=== PATIENT | male | born 1960 | race Caucasian/White ===

== ENCOUNTER 2018-12-11 07:29 | Emergency (ER) | payer MEDICAID, SELFPAY ==
[2018-11-16 10:37] VITALS: BMI 27.8
[2018-12-11 07:30] VITALS: BP 170/110; PULSE 100; RESP 18; TEMP 36.6; O2SAT 95; BMI 32.1
--- NOTE | 2018-12-11 07:46 | EKG12_ITS ---
Test Reason : EYE PROBLEM Blood Pressure : / mmHG Vent. Rate : 082 BPM Atrial Rate : 082 BPM P-R Int : 142 ms QRS Dur : 154 ms QT Int : 396 ms P-R-T Axes : 023 -12 010 degrees QTc Int : 462 ms Normal sinus rhythm Right bundle branch block Abnormal ECG Confirmed by SONNY NOGUEIRA ([id number]), editorial assistant MARINA MARIA ([id number]) on 12/12/2018 9:50:21 AM Referred By: Confirmed By:SONNY NOGUEIRA
--- NOTE | 2018-12-11 07:46 | CT_ITS ---
STUDY: CT BRAIN WITHOUT CONTRAST REASON FOR EXAM: Male, 58 years old. Headache, visual changes after exposure RADIATION DOSAGE (If Supplied By Facility): CTDIvol = ( 44.99 ) mGy, DLP = ( 796.11 ) mGycm TECHNIQUE: Transaxial CT imaging of the brain was performed without administration of intravenous contrast material. Individualized dose optimization techniques were used for this CT. COMPARISON: No relevant priors. FINDINGS: Normal soft tissue structures. Normal calvarium. Normal size ventricles and extra-axial spaces for the patient's age. Normal white matter tracts of the cerebral hemispheres. Normal basal ganglia and thalami. Normal brainstem. Normal cerebellum. There is no intracranial hemorrhage. There are no findings of an acute ischemic infarction. There is mucoperiosteal inflammatory disease of the paranasal sinuses consistent with mild chronic sinusitis. CT/Brain/Head without Contrast IMPRESSION: Chronic involutional changes of the brain. No acute hemorrhage Electronically Signed: Brian Tucker MD at 8:34 EDT , Service support ,
--- NOTE | 2018-12-11 07:46 | RAD_ITS ---
STUDY: X-RAY CHEST REASON FOR EXAM: Male, 58 years old. Hypertension TECHNIQUE: PA and lateral views of the chest. COMPARISON: None. FINDINGS: EKG leads overlie the chest The lungs are clear and expanded. There is no demonstrated pleural abnormality. Normal size heart. Normal mediastinum and [place]. Normal visualized pulmonary arteries. Normal visualized aortic arch and descending thoracic aorta. Normal visualized thoracic spine. Normal visualized ribs, clavicles, and shoulders. There is no demonstrated abnormality of the visualized soft tissue structures of the upper abdomen. RAD/Chest PA and Lateral IMPRESSION: No acute pulmonary process Electronically Signed: Brian Tucker MD at 8:50 EDT , Service support ,
[2018-12-11 07:47] VITALS: BP 148/102
--- NOTE | 2018-12-11 08:08 | ED.VISSUMM ---
- ER Visit Summary Date of Service: 12/11/18 Chief Complaint: Multiple issues History of Present Illness: The patient is a 58 M who presents emergency department with several chief complaints. The first is that he states last Sunday he developed a lazy eye involving the right eye. He saw ophthalmology on Sunday. He tells me that his eye exam was essentially negative except for his eye being laterally deviated. The right eye will go back to functioning normally and back to midline when he covers the left eye. No visual field cuts. He has been wearing a patch. He also notes that his blood pressure was 160/90 at the inspector floor office. He does not have a history of hypertension. He denies any headaches. He notes that over the weekend developed the pain in the right shoulder that moved to the left shoulder and back again. Is now in between the shoulders. Is worse when he lays on his side. He denies any chest pain or shortness of breath. He notes tingling in the left little and ring finger. Patient also notes that about 2 weeks ago he had a diffuse rash that was itchy and got on prednisone from urgent care which resolved it. He also had a sinus infection which has almost fully resolved. Physical Examination: Blood pressure 170/110 otherwise vital signs stable Gen: Well-nourished well-developed Head: Normocephalic atraumatic Eyes: Perrl EOMI with both eyes open the right eye is laterally deviated. This resolves with covering the left eye. No visual field cuts. ENT: TMs clear no rhinorrhea moist mucous membranes Neck: Supple no lymphadenopathy no JVD nontender CVS: Regular rate rhythm no murmurs normal S1-S2 Respiratory: No distress clear to auscultation bilaterally chest nontender Abdomen: Soft nontender nondistended normal bowel sounds no masses Back: Tender palpation in the mid to upper thoracic spine. Tender to palpation of the trapezius musculature. There is no rash or fluctuance to suggest abscess. Extremity: Nontender no edema Skin: Normal color no rash Neuro: alert orientated ?3 CN II-XII intact normal strength sensation gait cerebellar Psych: Normal affect normal mood Test Results: EKG showed a sinus rhythm at a rate of 82 with a right bundle branch block. Sick labs are negative. CT brain negative. Chest x-ray shows a normal mediastinal silhouette. Emergency Department Course and Treatment: I spoke with Dr. Martines who saw him on Sunday. He has follow-up this Sunday. Dr. Martines notes that when he was seen there 7 years ago he had a similar complaint but it appears that this has progressed through the years. They will continue to work with him. I am going to refer the patient to the [facility]. I will start him on lisinopril. For his back I will place him on Flexeril. I think is most likely musculoskeletal rather than a referred pain. It is reproducible and worse with certain movements and positions. I do not think that this represents aortic dissection or other vascular emergency. Impression: 1. Strabismus right eye 2. Hypertension 3. Musculoskeletal thoracic back pain This note was generated with [employer] dictation software. It may contain incorrect words, spelling, and punctuation that were not noted in review of the chart prior to signing ED Disposition - Plan for ED Patient: Disposition: Home or Assisted Living Instructions: Lisinopril Oral tablet, HYPERTENSION, New (Begin Treatment) Prescriptions: cycloBENZAPRine HCl [Flexeril] 10 mg PO TID PRN #15 tab PRN Reason: Muscle Spasm Transmission Status: Sent to [id number] Lisinopril [Zestril] 5 mg PO DAILY #30 tab Transmission Status: Sent to [id number] Referrals: Mali Flores [NON-STAFF] - (Please call today to schedule an appointment for follow-up regarding your elevated blood pressure.) Additional Instructions: [facility] [place]
[2018-12-11 08:15] LABS: Absolute Lymphocyte Count 3.32 X10^3/uL (0.83-4.51); Absolute Neutrophil Count 6.7 X10^3/uL (2.0-7.7); Basophil# 0.07 X10^3/uL; Basophil% 0.6 % (0-1); Eosinophil# 0.31 X10^3/uL; Eosinophils% 2.8 % (0-5); Hematocrit 48.8 % (40-54); Hemoglobin 16.7 g/dL (13.0-16.5); Lymphocyte # 3.32 X10^3/ul (4.0); Lymphocyte % 29.6 % (19-41); Mean Corp Hgb Conc 34.2 g/dL (32-36); Mean Corpuscular Hgb 30.1 pg (27.0-32.0); Mean Corpuscular Volume 88.1 fL (80-94); Mean Platelet Vol. 9.1 fl (6.2-12.0); Monocyte# 0.72 X10^3/uL; Monocyte% 6.4 % (0-10); NRBC Flagged by Analyzer 0 % (0-5); Neutrophil # 6.67 X10^3/uL (2.7-7.7); Neutrophil % 59.6 % (47-70); Platelet Count 235 K/mm3 (150-450); RBC Distribution Width CV 14.1 % (11.6-14.6); RBC Distribution Width SD 45.1 fl (35.1-43.9); Red Blood Count 5.54 M/mm3 (4.6-6.2); White Blood Count 11.2 K/mm3 (4.4-11.0)
[2018-12-11 08:40] LABS: ALB/GLOB Ratio 1.1 RATIO (0.9-2.4); AST(SGOT) 25 U/L (15-37); Alanine Aminotransfer ALT/SGPT 51 U/L (16-61); Albumin, Serum 3.9 g/dL (3.2-5.0); Alkaline Phosphatase 63 U/L (45-117); Anion Gap 9 (5-15); BUN 16 mg/dL (7-18); BUN/Creat Ratio 21.9 RATIO (10-20); Chloride 107 mmol/L (98-107); Creatinine, Serum 0.73 mg/dL (0.70-1.30); EST Glomerular Filtration Rate 118 mL/min (>60); Est Glom Filt Rate - Afr Amer 142 mL/min (>60); Estimated Creatinine Clearance 120.34 ml/min; Globulin 3.6 g/dL (2.2-4.2); Glucose 114 mg/dL (74-106); Potassium 4.6 mmol/L (3.5-5.1); Protein, Total 7.5 g/dL (6.4-8.2); Sodium Level 140 mmol/L (136-145)
[2018-12-11 09:15] VITALS: BP 152/109; PULSE 80; RESP 16
== END 2018-12-11 09:26 | disposition home or self-care (01) ==
PROVIDERS: Emergency Provider Emergency Medicine; Family Provider Family Medicine; PCP Family Medicine
DX: H50.9 Unspecified strabismus (principal); I10 Essential (primary) hypertension; M54.6 Pain in thoracic spine; Z72.0 Tobacco use
CPT/HCPCS: 70450; 71046; 80053; 84484; 85025; 93005; 99285; A4216

== ENCOUNTER 2018-12-12 06:49 | Emergency (ER) | payer MEDICAID, SELFPAY ==
[2018-12-11 07:30] VITALS: BMI 32.1
[2018-12-12 06:50] VITALS: BP 156/105; PULSE 82; RESP 18; TEMP 36.7; O2SAT 97; BMI 32.1
--- NOTE | 2018-12-12 07:33 | ED.DCSUM_ITS ---
History of Present Illness Chief Complaint: Back Informant: Patient Onset: Days - Left flank/mid back pain for 6 days Context: Sudden Onset Timing: Continuous, Waxes and wanes - There is a pleuritic component Quality: Pain Location: Left mid back/flank region over lower left ribs Current Severity: Mild Maximum Severity: Moderate - Worse with movement and breathing Worsened by: Movement and breathing Relieved by: Nothing Associated Symptoms: Pleuritic chest pain Narrative: Patient is a middle-age male who smokes 2 packs/day and drinks regularly who presents with left lower posterior chest/back pain with pleuritic component. He denies fever, chills night sweats. He does report cough. Cough is no different than normal. He is a smoker 3 packs/day. He does drink on a regular basis. He denies hematemesis, melena hematochezia. He denies dysuria, frequency, urgency or hematuria. He denies history of renal ureterolithiasis. He denies night sweats or weight loss. He denies history of PE or DVT. He denies risk factors. He denies leg pain, swelling or discoloration. Patient was seen yesterday and records were reviewed. Prior similar symptoms: Yes Recent Illness/Hospitalization: Yes - Past Medical History (1) History of hypertension Status: Acute (2) Vertical strabismus, right eye Status: Acute Past Medical History - Allergies and Home Meds Allergies/Adverse Reactions: Allergies Penicillins [PCN] Allergy (Verified 12/12/18 06:53) Unknown Primary Care Physician: Yaw Montalvo [Primary Care Provider] - Prior records reviewed: Yes Surgical History: no surgical history Lives: Alone Smoking Status: Heavy Smoker (>10/day) Alcohol: Heavy - A case per week Drugs: None Review of Systems General: Denies: Chills, Fever, Sweats Eyes: Reports: Diplopia ENT: Denies: Rhinorrhea, Sore throat Cardiovascular: Denies: Chest pain, Palpitations Respiratory: Reports: Cough. Denies: Dyspnea, Sputum, Dyspnea on exertion, Orthopnea, Paroxysmal nocturnal dyspnea, -, - Gastrointestinal: Denies: Abdominal pain, Nausea, Vomiting, Diarrhea, Melena, Hematochezia Genitourinary: Denies: Dysuria, Hematuria, Frequency Musculoskeletal: Reports: Back pain. Denies: Myalgias, Arthralgias, Neck pain, Swelling, Extremity Pain, -, - Skin: Denies: Rash, Wounds Neurological: Reports: Headache. Denies: Weakness, Parasthesia, Numbness Psych: Reports: Depression Hematologic: Denies: Easy bruising, Easy bleeding Allergy: Denies: Uticaria, Swelling of the mouth, Swelling of the tongue Physical Exam Vital Signs/Narrative: Vital Signs Temp Pulse Resp BP Pulse Ox 12/12/18 06:50 98.1 F 82 18 156/105 H 97 Inital Vital Signs reviewed: Yes General: Well nourished, Well developed, No Acute Distress Head: Normocephalic, Atraumatic Eyes: Perrl, EOMI ENT: Moist mucous membranes, No rhinorrhea Neck: Supple, Nontender Cardiovascular: Regular rate, Regular rhythm, No murmurs Respiratory: No distress, Chest nontender, Rales - Rales posteriorly left lower lobe Abdomen: Soft, Nontender, Nondistended, Normal bowel sounds, No masses. Negative for: Hepatomegaly, Splenomegaly, Mass, Pulsatile mass, Gutierrez's sign Rectal: Deferred Back: Nontender, Normal Inspection. Negative for: CVA tenderness, Spinal tenderness Extremities: Nontender, No edema, - - There is no asymmetry, swelling, discoloration, leg vein distention, palpable cords or tenderness along the distribution of the deep venous system. Skin: Normal color, No rash Neurological: Alert, Oriented x3, Cranial nerves II-XII grossly intact, Normal Strength, Normal Sensation Psychological: Normal affect, Normal Mood Diagnostic/Tx/Re-eval Impressions Chest CTA 12/12/18 08:18 IMPRESSION: No demonstrated PE, or thoracic aortic aneurysm or dissection Chronic interstitial changes in both lung morales with chronic bronchitis, no superimposed infiltrate or effusion Subcentimeter axillary and mediastinal lymph nodes Calcified coronary vessels Electronically Signed: Brian Tucker MD at 9:03 EDT , Service support , 12/12/18 08:18 CTA Chest W/WO Contrast [CT] Stat Laboratory Results 12/12/18 12/12/18 12/12/18 07:30 07:30 07:55 WBC 11.6 H RBC 5.58 Hgb 16.9 H Hct 48.6 MCV 87.1 MCH 30.3 MCHC 34.8 RDW Std Deviation 45.2 H RDW Coeff of Karli 14.2 Plt Count 226 MPV 9.0 Immature Gran % (Auto) 0.900 Neut % (Auto) 56.6 Lymph % (Auto) 32.0 [place] % (Auto) 7.1 Eos % (Auto) 2.9 Baso % (Auto) 0.5 Absolute Neuts (auto) 6.6 Absolute Lymphs (auto) 3.71 Absolute Nucleated RBC 0.00 Nucleated RBC % 0 D-Dimer Quant (PE/DVT) Cancelled 0.52 H* - Medical Decision Making With complaint of pleuritic discomfort over the posterior left lower lung and normal chest x-ray from yesterday will obtain d-dimer to assess for pulmonary embolus. CBC was repeated. Will obtain UA to assess for renal etiology of his left flank pain. If d-dimer is elevated will obtain CTA of the chest. If d- dimer is negative and urine is positive for blood will obtain CT of the abdomen and pelvis without contrast to assess for ureterolithiasis. Patient was medicated with Toradol for his pain. ED Disposition - Plan for ED Patient: Disposition: Home or Assisted Living Diagnosis: Acute left flank pain, Pleurisy, Coronary atherosclerosis due to calcified coronary lesion of [place] artery, Chronic bronchitis, History of hypertension, Enlarged lymph nodes in armpit, Enlarged mediastinal nodes Instructions: FLANK PAIN, Uncertain Cause Prescriptions: Naproxen [Naprosyn] 500 mg PO BID #14 tab Transmission Status: Pending to [id number] Hydrocodone Bitart/Apap 5-325 [[place] 5MG-325MG] 1 tablet PO Q6H PRN PRN 4 Days #14 tablet PRN Reason: Pain Transmission Status: Received by [id number] Referrals: Yaw Montalvo [Primary Care Provider] - Valente Smyth MD [STAFF PHYSICIAN] - 5-7 Days Additional Instructions: Your CAT scan revealed enlarged lymph nodes. You will need to follow-up with Dr. Smyth for further evaluation. The CAT scan also showed calcification of the coronary arteries. It is in your best interest to quit smoking.
[2018-12-12] MEDS: 0.9% Normal Saline 1,000 ML 250 ML IV (07:39)
[2018-12-12] MEDS: Ketorolac 15 MG/ML Vial IV (07:39)
[2018-12-12 07:41] LABS: Absolute Lymphocyte Count 3.71 X10^3/uL (0.83-4.51); Absolute Neutrophil Count 6.6 X10^3/uL (2.0-7.7); Basophil# 0.06 X10^3/uL; Basophil% 0.5 % (0-1); Eosinophil# 0.34 X10^3/uL; Eosinophils% 2.9 % (0-5); Hematocrit 48.6 % (40-54); Hemoglobin 16.9 g/dL (13.0-16.5); Lymphocyte # 3.71 X10^3/ul (4.0); Mean Corp Hgb Conc 34.8 g/dL (32-36); Mean Corpuscular Hgb 30.3 pg (27.0-32.0); Mean Corpuscular Volume 87.1 fL (80-94); Monocyte# 0.82 X10^3/uL; Monocyte% 7.1 % (0-10); NRBC Flagged by Analyzer 0 % (0-5); Neutrophil # 6.58 X10^3/uL (2.7-7.7); Neutrophil % 56.6 % (47-70); Platelet Count 226 K/mm3 (150-450); RBC Distribution Width CV 14.2 % (11.6-14.6); RBC Distribution Width SD 45.2 fl (35.1-43.9); Red Blood Count 5.58 M/mm3 (4.6-6.2); White Blood Count 11.6 K/mm3 (4.4-11.0)
[2018-12-12 08:14] LABS: D-Dimer Quantitative (DVT/PE) 0.52 FEU/ug/m (0.27-0.49)
--- NOTE | 2018-12-12 08:16 | ED.RN ---
ddimer 0.52 called from the lab
--- NOTE | 2018-12-12 08:18 | CT_ITS ---
STUDY: CTA CHEST REASON FOR EXAM: Male, 58 years old. Elevated d-dimer, pain between shoulder blades RADIATION DOSAGE (If Supplied By Facility): CTDIvol = ( 16.19 ) mGy, DLP = ( 702.03 ) mGycm TECHNIQUE: The examination was performed with the intravenous administration of 100CC IV Isovue 370. Post-processing of the angiographic images was performed, with multiplanar reformation and 3D reconstruction. Individualized dose optimization techniques were used for this CT. COMPARISON: Previous plain films FINDINGS: Normal enhancement of the main pulmonary artery and right and left pulmonary arteries. Normal enhancement of the bilateral peripheral pulmonary arteries. There is no demonstrated pulmonary embolism. Normal thoracic aorta and visualized great vessels. There is no demonstrated aortic dissection. Normal heart and pericardium. There are calcifications of the coronary arteries. There are scattered subcentimeter axillary and mediastinal lymph nodes. Normal hilar regions. There is peribronchial thickening. The lungs are well expanded. Right interstitial changes in both lung morales, no superimposed acute pulmonary process. Normal pleura. Normal chest wall structures. There are degenerative changes of thoracic spine. Normal visualized upper abdomen. CT/CTA Chest W/WO Contrast IMPRESSION: No demonstrated PE, or thoracic aortic aneurysm or dissection Chronic interstitial changes in both lung morales with chronic bronchitis, no superimposed infiltrate or effusion Subcentimeter axillary and mediastinal lymph nodes Calcified coronary vessels Electronically Signed: Brian Tucker MD at 9:03 EDT , Service support ,
[2018-12-12 09:23] LABS: Bacteria 0 SEEN /hpf (None Seen); Mucous, Urine 0 SEEN /hpf (<or=2+); Red Blood Cells-Urine 0 SEEN /hpf (0-5); Squamous Epithelial Cells - UA 0 SEEN /hpf (0-5); White Blood Cells 0 SEEN /hpf (0-5)
[2018-12-12 09:27] LABS: Color, Urine Yellow (Yellow); Glucose, Dipstick Normal (Normal); Ketone-Dipstick Negative (Negative); Leukocyte Esterase-Dipstick Negative /ul (Negative); Nitrite-Dipstick Negative (Negative); Occult Blood-Urine Negative /ul (Negative); Protein-Dipstick Negative (Negative); Specific Gravity, Urine 1.015 (1.002-1.030); Urine Bilirubin Dipstick Negative (Negative); Urine Clarity Sl. Cloudy (Clear); Urine Urobilinogen Normal (Normal)
== END 2018-12-12 09:26 | disposition home or self-care (01) ==
PROVIDERS: Emergency Provider Emergency Medicine; Family Provider Family Medicine; PCP Family Medicine
DX: R09.1 Pleurisy (principal); R59.0 Localized enlarged lymph nodes; R10.9 Unspecified abdominal pain; I10 Essential (primary) hypertension; I25.84 Coronary atherosclerosis due to calcified coronary lesion; J42 Unspecified chronic bronchitis; F17.200 Nicotine dependence, unspecified, uncomplicated; Z79.899 Other long term (current) drug therapy
CPT/HCPCS: 71275; 81001; 85025; 85379; 96361; 96374; 99284; J7030; Q9967; A4216

== ENCOUNTER 2018-12-18 13:52 | Emergency (ER) | payer MEDICAID, SELFPAY ==
[2018-12-18 13:53] VITALS: BP 160/98; PULSE 99; RESP 17; TEMP 36.7; O2SAT 96; BMI 32.1
[2018-12-18 14:51] VITALS: BP 152/103; PULSE 101; RESP 15; O2SAT 96
--- NOTE | 2018-12-18 15:01 | ED.DCSUM_ITS ---
- ER Visit Summary Date of Service: 12/18/18 Chief Complaint: Back pain History of Present Illness: The patient is a 58 M who was here 2 visits last week for upper back pain. He was evaluated with a CTA among other tests. Work- up was fairly unremarkable, and nothing was found to cause his pain. He has fo llowed up for his incidental findings. He plans to follow-up with [facility] as well. Patient is out of medication and is requesting a refill. He reports no new or worsening issues. Physical Examination: Afebrile and vital signs unremarkable. HEENT exam unremarkable. He has upper thoracic tenderness. Skin unremarkable. Otherwise spine unremarkable. Heart regular. Lungs clear. Cranial nerves unremarkable. Good strength and sensation. Test Results: None indicated Emergency Department Course and Treatment: I believe the patient has myofascial pain. He had a CTA of his chest last week. There is no indication to repeat this. He has no new or different symptoms. We will refill his meds, and he will continue to follow-up as an outpatient, as planned. Return for any new or worsening issues. Treatment Plan: As above Disposition: Discharged Impression: 1. Thoracic back pain This note was generated with [employer] dictation software. It may contain incorrect words, spelling, and punctuation that were not noted in review of the chart prior to signing ED Disposition - Plan for ED Patient: Referrals: Yaw Montalvo [Primary Care Provider] -
--- NOTE | 2018-12-18 15:03 | ED.DEP ---
ED Disposition - Plan for ED Patient: Instructions: Common Myths About Pain Medications Prescriptions: cycloBENZAPRine HCl [Flexeril] 10 mg PO TID PRN #20 tab PRN Reason: Muscle Spasm Prescription Printed Naproxen [Naprosyn] 500 mg PO BID PRN #20 tab Prescription Printed Hydrocodone Bitart/Apap 5-325 [[place] 5MG-325MG] 1 tab PO Q6H PRN PRN 3 Days #12 tab PRN Reason: Pain Prescription Printed Referrals: Mali Flores [NON-STAFF] -
--- NOTE | 2018-12-18 15:07 | ED.RN ---
DISCHARGE INSTRUCTIONS GIVEN TO AND REVIEWED WITH PATIENT, PATIENT DENIES QUESTIONS OR CONCERNS AND VOICES UNDERSTANDING OF DISCHARGE INSTRUCTIONS. PT AMBULATES OUT OF ROOM WITHOUT ISSUE.
== END 2018-12-18 15:07 | disposition home or self-care (01) ==
LOC: ED 15:00
PROVIDERS: Emergency Provider Emergency Medicine; Family Provider Family Medicine; PCP Family Medicine
DX: M54.6 Pain in thoracic spine (principal); Z72.0 Tobacco use
CPT/HCPCS: 99282

== ENCOUNTER 2018-12-25 15:28 | Emergency (ER) | payer MEDICAID, SELFPAY ==
[2018-12-25 15:29] VITALS: BP 151/99; PULSE 105; RESP 16; TEMP 36.9; O2SAT 95; BMI 34.9
--- NOTE | 2018-12-25 15:55 | CT_ITS ---
STUDY: CT CERVICAL SPINE WITHOUT CONTRAST REASON FOR EXAM: Male, 58 years old. Neck pain, arm weakness and left upper extremity tingling. RADIATION DOSAGE (If Supplied By Facility): CTDIvol = ( 27.95 ) mGy, DLP = ( 664.90 ) mGycm TECHNIQUE: High resolution transaxial imaging was performed without contrast material. Sagittal and coronal images were reconstructed. Individualized dose optimization techniques were used for this CT. COMPARISON: None FINDINGS: Normal craniovertebral junction. Normal anterior atlantoaxial articulation. Normal odontoid process. Normal cervical lordosis. Normal vertebral bodies and posterior osseous elements. C2-3: Minimal degenerative disc and joint changes without central stenosis or substantial foraminal narrowing. C3-4: Minimal degenerative disc and joint changes with a small central disc protrusion without central stenosis or significant foraminal narrowing. C4-5: Minimal degenerative disc and joint changes without central stenosis or foraminal narrowing C5-6: Mild disc narrowing and uncovertebral arthrosis. Negative for central stenosis. Negative for substantial foraminal narrowing. C6-7: Degenerative disc narrowing and moderately advanced uncovertebral arthrosis with posterior disc osteophyte. Borderline central stenosis and moderate bilateral foraminal narrowing. C7-T1: Minimal degenerative disc and joint changes without central stenosis or foraminal narrowing. Carotid artery calcification and tortuosity. CT/Spine Cervical without Contras IMPRESSION: Straightening of the cervical spine with otherwise normal alignment. Negative for fracture, osteolytic or blastic bone lesion. Moderately advanced degenerative disc and joint changes at C6-7 with borderline spinal stenosis and moderate bilateral foraminal narrowing. Minimal/mild degenerative changes at other levels without central stenosis or foraminal narrowing. Electronically Signed: Verona Helm MD at 16:58 EDT , Service support ,
--- NOTE | 2018-12-25 15:56 | ED.VIS.GEN ---
History of Present Illness Chief Complaint: Other, Pain/Inj Detail of Chief Complaint: facial weakness Informant: Patient Onset: Days - about 3 Context: Gradual Onset Timing: Continuous Quality: facial droop Location: right face Current Severity: Severe Maximum Severity: Severe Worsened by: nothing Relieved by: nothing Associated Symptoms: slurred speech. increased right eye tearing. Narrative: Patient starts by saying that he has been to the ER 4 times for various things in the last month and a half, however this visit is because of weakness on the right side of his face for the past 2 or 3 days. He is slurring his speech. Denies any numbness in his face. His right eye was tearing more than usual last couple days. 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 He states that in the last couple weeks to a month he has had weakness in both of his arms which is very unusual because he is very strong, he has been having neck pain and amount of time that is not worse with turning his head, is paraspinal bilaterally and diffusely, as well as in his upper back and shoulders and lumbar area. He states he has known degenerative disc disease in his low back that is chronic. He also states that around a month or so ago his right eye was looking outward and he could not bring it back in. He went saw an eye doctor and was told he has a lazy eye. He then states that he has had a lazy eye off and on all his life. This was worse however. He states that has been better. He has no diplopia now or blurry vision. Denies any eye pain. He is having some numbness in his left fingers 4-5 but nowhere else. 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 He denies any neurologic symptoms in his legs or bowel or bladder incontinence/dysfunction. No headaches. No ear symptoms. No anterior or lateral neck pain. - Past Medical History (1) DDD (degenerative disc disease), lumbar Status: Chronic Past Medical History - Allergies and Home Meds Allergies/Adverse Reactions: Allergies Penicillins [PCN] Allergy (Verified 12/25/18 15:31) Unknown Primary Care Physician: Yaw Montalvo [Primary Care Provider] - Surgical History: no surgical history Smoking Status: Current every day smoker Drugs: None Review of Systems General: Reports: Malaise. Denies: Chills, Fever, Sweats Eyes: Denies: Visual changes - bilaterally, Diplopia ENT: Denies: Rhinorrhea, Sore throat Cardiovascular: Denies: Chest pain, Palpitations Respiratory: Denies: Dyspnea, Cough, Dyspnea on exertion Gastrointestinal: Denies: Abdominal pain, Nausea, Vomiting, Diarrhea, Melena, Hematochezia Genitourinary: Denies: Dysuria, Hematuria, Frequency Musculoskeletal: Reports: Neck pain, Back pain. Denies: Swelling, Extremity Pain Skin: Denies: Rash, Wounds Neurological: Reports: Weakness, Numbness. Denies: Headache Physical Exam Vital Signs/Narrative: Vital Signs Temp Pulse Resp BP Pulse Ox 12/25/18 15:29 98.4 F 105 H 16 151/99 H 95 Inital Vital Signs reviewed: Yes General: Well nourished, Well developed, No Acute Distress Head: Normocephalic, Atraumatic Eyes: Perrl, EOMI ENT: Moist mucous membranes, No rhinorrhea, - - Bilateral cerumen impaction both external auditory canals Neck: Supple - Full range of motion without significant pain or any change in neurologic symptoms, Nontender, No lymphadenopathy Cardiovascular: Regular rate, Regular rhythm, No murmurs. Negative for: Tachycardia Respiratory: No distress, CTA bilaterally, Chest nontender Abdomen: Soft, Nontender, Nondistended, Normal bowel sounds Back: Nontender, Normal Inspection. Negative for: Spinal tenderness Extremities: Nontender, No edema. Negative for: Calf Tenderness Skin: Normal color, No rash, No Trauma Neurological: Alert, Oriented x3, Normal DTR - Symmetric throughout all 4 extremities., Normal Gait, Parasthesia - Left fourth and fifth digits, and some decreased sensation in the ulnar aspect of the third digit. Negative Tinel's at the ulnar tunnel., Weakness - 4+/5 strength throughout all muscle groups bilateral upper extremities. 5/5 strength throughout both lower extremities.. 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 Right facial paralysis including the forehead. No significant ptosis, no significant tearing asymmetrically. Psychological: Normal affect, Normal Mood Diagnostic/Tx/Re-eval Clinical Impression(s) from Imaging Studies Cervical Spine CT 12/25/18 15:55 IMPRESSION: Straightening of the cervical spine with otherwise normal alignment. Negative for fracture, osteolytic or blastic bone lesion. Moderately advanced degenerative disc and joint changes at C6-7 with borderline spinal stenosis and moderate bilateral foraminal narrowing. Minimal/mild degenerative changes at other levels without central stenosis or foraminal narrowing. Electronically Signed: Verona Helm MD at 16:58 EDT , Service support , - Medical Decision Making Patient ended up refusing CT the head which I think is fine since he had one 1 to 2 weeks ago that was normal. 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 This probably all explains his upper extremity weakness and paresthesias. I think he will need to follow-up with a specialist, there are no spine surgeons here but I referred him to [facility] and he may need to go back to his PCP first as he may need an MRI first. Will be prescribed acyclovir and prednisone for the Lagos's palsy. ED Disposition - Plan for ED Patient: Disposition: Home or Assisted Living Diagnosis: Cervical disc disease, Cervical radiculopathy, Spinal stenosis in cervical region, Lagos's palsy Instructions: Cervical Spine Problems: Disk, RADICULOPATHY, Cervical Prescriptions: predniSONE tablet 60 mg PO DAILY #18 tab Prescription Printed Acyclovir [Zovirax] 800 mg PO 5X/DAY #35 tab Prescription Printed Referrals: Yaw Montalvo [Primary Care Provider] - [facility] [Outside] - As soon as possible (need to see spine surgery here; may need to follow up with your primary doctor first for MRI)
[2018-12-25] MEDS: Acyclovir 800 MG Tablet PO (17:21)
[2018-12-25] MEDS: predniSONE 20 MG Tablet 60 MG PO (17:21)
--- NOTE | 2018-12-25 17:24 | ED.RN ---
pt with some difficulty swallowing pills. was able to get all pills down
[2018-12-25 19:13] VITALS: BP 152/100; PULSE 104; RESP 20; O2SAT 93
== END 2018-12-25 19:14 | disposition home or self-care (01) ==
PROVIDERS: Emergency Provider Emergency Medicine; Family Provider Family Medicine; PCP Family Medicine
DX: G51.0 Bell's palsy (principal); M50.123 Cervical disc disorder at C6-C7 level with radiculopathy; M48.02 Spinal stenosis, cervical region; F17.200 Nicotine dependence, unspecified, uncomplicated
CPT/HCPCS: 72125; 99282

== ENCOUNTER → 2019-01-24 | Outpatient (CLI) | payer MEDICAID, SELFPAY ==
[2019-01-24 11:03] VITALS: BMI 34.9
[2019-01-24 12:15] LABS: Absolute Lymphocyte Count 3.58 X10^3/uL (0.83-4.51); Absolute Neutrophil Count 6.4 X10^3/uL (2.0-7.7); Basophil# 0.12 X10^3/uL; Basophil% 1.1 % (0-1); Eosinophil# 0.24 X10^3/uL; Eosinophils% 2.1 % (0-5); Hematocrit 49.5 % (40-54); Lymphocyte # 3.58 X10^3/ul (4.0); Lymphocyte % 31.7 % (19-41); Mean Corp Hgb Conc 32.3 g/dL (32-36); Mean Corpuscular Hgb 29.4 pg (27.0-32.0); Mean Corpuscular Volume 90.8 fL (80-94); Mean Platelet Vol. 8.8 fl (6.2-12.0); Monocyte# 0.68 X10^3/uL; NRBC Flagged by Analyzer 0 % (0-5); Neutrophil # 6.37 X10^3/uL (2.7-7.7); Neutrophil % 56.5 % (47-70); Platelet Count 302 K/mm3 (150-450); RBC Distribution Width CV 14.8 % (11.6-14.6); RBC Distribution Width SD 49.2 fl (35.1-43.9); Red Blood Count 5.45 M/mm3 (4.6-6.2); White Blood Count 11.3 K/mm3 (4.4-11.0)
[2019-01-24 12:48] LABS: Hemoglobin A1c 5.8 % (4.2-6.3)
[2019-01-24 12:54] LABS: ALB/GLOB Ratio 0.8 RATIO (0.9-2.4); AST(SGOT) 24 U/L (15-37); Alanine Aminotransfer ALT/SGPT 35 U/L (16-61); Albumin, Serum 3.4 g/dL (3.2-5.0); Alkaline Phosphatase 62 U/L (45-117); Anion Gap 4 (5-15); BUN 13 mg/dL (7-18); BUN/Creat Ratio 17.3 RATIO (10-20); Calcium,Total 8.9 mg/dL (8.5-10.1); Chloride 109 mmol/L (98-107); Cholesterol 156 mg/dL (200); Creatinine, Serum 0.75 mg/dL (0.70-1.30); EST Glomerular Filtration Rate 114 mL/min (>60); Est Glom Filt Rate - Afr Amer 138 mL/min (>60); Globulin 4.2 g/dL (2.2-4.2); Glucose 103 mg/dL (74-106); High Density Lipoprotein 27 mg/dL; Potassium 3.9 mmol/L (3.5-5.1); Protein, Total 7.6 g/dL (6.4-8.2); Sodium Level 141 mmol/L (136-145); T4 Free Direct 0.94 ng/dL (0.76-1.46); Thyroid Stim Hormone (TSH) 2.32 uIU/mL (0.358-3.74); Triglycerides 132 mg/dL; Very Low Density Lipoprotein 26 mg/dL (5-40)
== END | disposition home or self-care (01) ==
LOC: BIMLAB 11:38
PROVIDERS: Family Provider Family Medicine; PCP Internal Medicine; Visit Provider Internal Medicine
DX: I10 Essential (primary) hypertension (principal); E66.9 Obesity, unspecified; Z13.29 Encounter for screening for other suspected endocrine disorder
CPT/HCPCS: 36415; 80053; 80061; 83036; 84439; 84443; 85025

== ENCOUNTER → 2020-06-16 10:14 | Outpatient (CLI) | payer MEDICAID, SELFPAY ==
[2020-06-16 09:40] VITALS: BMI 39.5
[2020-06-16 12:29] LABS: Absolute Lymphocyte Count 3.99 X10^3/uL (0.83-4.51); Absolute Neutrophil Count 4.9 X10^3/uL (2.0-7.7); Basophil# 0.11 X10^3/uL; Basophil% 1.1 % (0-1); Eosinophil# 0.34 X10^3/uL; Eosinophils% 3.3 % (0-5); Lymphocyte # 3.99 X10^3/ul (4.0); Mean Corp Hgb Conc 32.7 g/dL (32-36); Mean Corpuscular Hgb 29.4 pg (27.0-32.0); Mean Corpuscular Volume 89.8 fL (80-94); Mean Platelet Vol. 9.2 fl (6.2-12.0); Monocyte% 7.8 % (0-10); NRBC Flagged by Analyzer 0 % (0-5); Neutrophil # 4.87 X10^3/uL (2.7-7.7); Neutrophil % 47.6 % (47-70); Platelet Count 271 K/mm3 (150-450); RBC Distribution Width CV 13.4 % (11.6-14.6); RBC Distribution Width SD 43.8 fl (35.1-43.9); Red Blood Count 5.79 M/mm3 (4.6-6.2); White Blood Count 10.2 K/mm3 (4.4-11.0)
[2020-06-16 13:30] LABS: ALB/GLOB Ratio 1.1 RATIO (0.9-2.4); AST(SGOT) 33 U/L (15-37); Alanine Aminotransfer ALT/SGPT 56 U/L (16-61); Alkaline Phosphatase 55 U/L (45-117); Anion Gap 6 (5-15); BUN 10 mg/dL (7-18); BUN/Creat Ratio 12.1 RATIO (10-20); Calcium,Total 8.9 mg/dL (8.5-10.1); Chloride 106 mmol/L (98-107); Cholesterol 158 mg/dL (200); Creatinine, Serum 0.82 mg/dL (0.70-1.30); EST Glomerular Filtration Rate 102 mL/min (>60); Est Glom Filt Rate - Afr Amer 124 mL/min (>60); Globulin 3.7 g/dL (2.2-4.2); Glucose 93 mg/dL (74-106); High Density Lipoprotein 42 mg/dL; Potassium 4.3 mmol/L (3.5-5.1); Protein, Total 7.7 g/dL (6.4-8.2); Sodium Level 138 mmol/L (136-145); Triglycerides 124 mg/dL; Very Low Density Lipoprotein 25 mg/dL (5-40)
[2020-06-17 14:25] LABS: Hemoglobin A1c 5.9 % (3.8-5.6)
[2020-06-19 20:07] LABS: Testosterone, Free 7.92 ng/dL (5.00-21.00)
[2020-06-20 07:13] LABS: Testosterone, % Free 1.94 % (1.50-4.20); Testosterone, Total 408 ng/dL (264-916)
== END ==
PROVIDERS: PCP Internal Medicine; Referring Provider Internal Medicine; Visit Provider Internal Medicine
DX: I10 Essential (primary) hypertension (principal); E66.9 Obesity, unspecified; N52.9 Male erectile dysfunction, unspecified
CPT/HCPCS: 36415; 80053; 80061; 83036; 84402; 84403; 84443; 85025

== ENCOUNTER → 2020-07-07 19:50 | Outpatient (CLI) | payer MEDICAID, SELFPAY ==
[2020-06-16 09:40] VITALS: BMI 39.5
== END ==
PROVIDERS: PCP Internal Medicine; Visit Provider Internal Medicine
DX: G47.10 Hypersomnia, unspecified (principal)
CPT/HCPCS: 95810

== ENCOUNTER → 2020-08-03 08:08 | Outpatient (CLI) | payer MEDICAID, SELFPAY ==
[2020-07-22 09:49] VITALS: BMI 35.9
--- NOTE | 2020-08-03 09:31 | CT_ITS ---
STUDY: LOW DOSE CT LUNG CANCER SCREENING REASON FOR EXAM: Male, 59 years old. smoker and gt; 40 pack years RADIATION DOSAGE (If Supplied By Facility): CTDIvol = ( 4.02 ) mGy, DLP = ( 136.92 ) mGycm TECHNIQUE: No contrast was administered. Low dose technique was utilized (average mAS-38 and kVp 120). 1.25 mm axial source images with a slice interval of 1.25-mm were reconstructed in lung windows. 2.5 mm axial source images with a slice interval of 2.5-mm were reconstructed in lung windows. 5.0 mm axial source images with a slice interval of 5.0-mm were reconstructed in soft tissue windows. Nodule measured using lung windows on PACS and/or independent workstation with automated measurement of minimum and maximum diameter. Nodule measurement reported as average diameter rounded to the nearest whole number. Growth is defined as an increase ins size of greater than 1.5 mm. COMPARISON: None. NODULES: Heart and great vessels: Heart size normal. Coronary artery atherosclerosis. 4.3 cm aneurysmal dilation of the thoracic aortic root at the level of the coronary sinuses. Remainder of the thoracic aorta ectatic but not aneurysmal. Lungs, pleura, airways: No pneumonia, edema, or acute abnormality in the lungs. No pleural effusion. No pneumothorax. No pulmonary nodules. Mild chronic subpleural interstitial prominence in both lungs. Mediastinum: Mildly prominent paratracheal lymph nodes unchanged. No mediastinal mass or hematoma. Osseous:No fracture or acute osseous abnormality. Chest wall: No concerning findings. Upper abdomen: No acute findings. Hepatomegaly partially visible. CT/Low Dose CT Lung Screening IMPRESSION: No concerning pulmonary nodules. Lung RADS category 1. Continued annual screening suggested. 4.3 cm aneurysmal dilation of the thoracic aortic root at the level of the coronary sinuses. This also should be monitored on follow-up CT. Mild chronic interstitial lung disease. IMPORTANT NOTES FOR USE: ACR Lung-RADS Version 1.0 Assessment Categories Release Date: September 15, 2013 Category: Coded 0-4 bases on nodule(s) with highest degree of suspicion. Negative screen is defined as categories 1 and 2; a positive screen is defined as categories 3 and 4. Category 3 and 4A nodules that are unchanged on interval CT should be coded as category 2, and individuals returned to screening in 12 months. Category 4X: Category 3 or 4 nodules with additional imaging findings that increase the suspicion of lung cancer, such as spiculation, GGN that doubles in size in 1 year, enlarged lymph notes, etc. Category Modifiers: S (significant finding unrelated to lung cancer) and C (prior history of treated lung cancer) may be added to the 0-4 Lung-RADS Electronically Signed: Contreras Galvan MD at 22:05 EDT Tel , Service support ,
--- NOTE | 2020-08-03 13:12 | PFTCOMP_ITS ---
COMPLETE PULMONARY FUNCTION TEST INTERPRETATION Brief HPI: Patient is a 59 year old male, currently under the care of Lizbeth Schultz, who presents to [facility] for complete pulmonary function tests secondary to diagnosis of dyspnea. Respiratory therapist reports good effort and reproducible results. Interpretation: Forced expiration spirometry shows no large airways obstructive ventilatory defect with an FEV1 of 86% predicted. There is no significant bronchodilator response by strict ATS criteria. Spirograms are of good quality and plateau normally. The respiratory flow volume loop shows a normal pattern. Lung volumes by body plethysmography show a normal total lung capacity at 6.49 L, 97% predicted. All other lung volumes are within normal limits. Diffusion capacity by carbon monoxide is normal at 82% predicted. The airway resistance is slightly elevated. No previous pulmonary function tests were available for review. Impression: These pulmonary function tests are within normal limits
== END ==
PROVIDERS: PCP Internal Medicine; Referring Provider Nurse Practitioner Acute Care; Visit Provider Nurse Practitioner Acute Care
DX: F17.210 Nicotine dependence, cigarettes, uncomplicated (principal); R06.02 Shortness of breath; Z12.2 Encounter for screening for malignant neoplasm of respiratory organs
CPT/HCPCS: 71271; 94060; 94726; 94729

== ENCOUNTER → 2020-08-05 20:05 | Outpatient (CLI) | payer MEDICAID, SELFPAY ==
[2020-07-22 09:49] VITALS: BMI 35.9
== END ==
PROVIDERS: PCP Internal Medicine; Referring Provider Internal Medicine; Visit Provider Internal Medicine
DX: G47.33 Obstructive sleep apnea (adult) (pediatric) (principal)
CPT/HCPCS: 95811

== ENCOUNTER → 2020-08-20 09:46 | Outpatient (CLI) | payer MEDICAID, SELFPAY ==
[2020-07-22 09:49] VITALS: BMI 35.9
== END ==
PROVIDERS: PCP Internal Medicine; Visit Provider Nurse Practitioner Acute Care
DX: Z46.89 Encounter for fitting and adjustment of other specified devices (principal)

== ENCOUNTER → 2020-12-10 10:39 | Outpatient (CLI) | payer MEDICAID, SELFPAY ==
[2020-12-10 09:57] VITALS: BMI 36.1
[2020-12-10 12:15] LABS: Absolute Lymphocyte Count 3.13 X10^3/uL (0.83-4.51); Absolute Neutrophil Count 8.7 X10^3/uL (2.0-7.7); Basophil% 0.8 % (0-1); Eosinophil# 0.25 X10^3/uL; Eosinophils% 1.9 % (0-5); Hematocrit 47.7 % (40-54); Hemoglobin 15.6 g/dL (13.0-16.5); Lymphocyte # 3.13 X10^3/ul (0.83-4.51); Lymphocyte % 23.9 % (19-41); Mean Corp Hgb Conc 32.7 g/dL (32-36); Mean Corpuscular Hgb 29.9 pg (27.0-32.0); Mean Corpuscular Volume 91.6 fL (80-94); Mean Platelet Vol. 9.4 fl (6.2-12.0); Monocyte# 0.78 X10^3/uL; Monocyte% 5.9 % (0-10); NRBC Flagged by Analyzer 0 % (0-5); Neutrophil # 8.72 X10^3/uL (2.7-7.7); Neutrophil % 66.4 % (47-70); Platelet Count 265 K/mm3 (150-450); RBC Distribution Width CV 13.7 % (11.6-14.6); RBC Distribution Width SD 46.4 fl (35.1-43.9); Red Blood Count 5.21 M/mm3 (4.6-6.2); White Blood Count 13.1 K/mm3 (4.4-11.0)
[2020-12-10 12:42] LABS: ALB/GLOB Ratio 1.2 RATIO (0.9-2.4); AST(SGOT) 22 U/L (15-37); Alanine Aminotransfer ALT/SGPT 42 U/L (16-61); Albumin, Serum 4.3 g/dL (3.2-5.0); Alkaline Phosphatase 58 U/L (45-117); Anion Gap 9 (5-15); BUN 15 mg/dL (7-18); BUN/Creat Ratio 18.3 RATIO (10-20); Calcium,Total 9.2 mg/dL (8.5-10.1); Chloride 105 mmol/L (98-107); Creatinine, Serum 0.82 mg/dL (0.70-1.30); EST Glomerular Filtration Rate 103 mL/min (>60); Est Glom Filt Rate - Afr Amer 124 mL/min (>60); Globulin 3.5 g/dL (2.2-4.2); Glucose 109 mg/dL (74-106); PSA,Total - Annual Screen 0.47 ng/mL (0.00-4.00); Potassium 3.9 mmol/L (3.5-5.1); Protein, Total 7.8 g/dL (6.4-8.2); Sodium Level 139 mmol/L (136-145); T4 Free Direct 0.86 ng/dL (0.76-1.46)
== END ==
PROVIDERS: PCP Internal Medicine; Referring Provider Internal Medicine; Visit Provider Internal Medicine
DX: Z00.00 Encounter for general adult medical examination without abnormal findings (principal); N52.9 Male erectile dysfunction, unspecified; R79.89 Other specified abnormal findings of blood chemistry; Z12.5 Encounter for screening for malignant neoplasm of prostate
CPT/HCPCS: 36415; 80053; 84153; 84439; 85025; G0103

== ENCOUNTER → 2020-12-29 09:31 | Outpatient (CLI) | payer MEDICAID, SELFPAY ==
[2020-12-10 09:57] VITALS: BMI 36.1
--- NOTE | 2020-12-29 09:40 | RAD_ITS ---
STUDY: X-RAY - LUMBAR SPINE REASON FOR EXAM: Male, 60 years old. Chronic back pain. TECHNIQUE: 3 view(s) of the lumbar spine were obtained. COMPARISON: 11/13/2011 FINDINGS: Normal lumbar lordosis. There is no substantial scoliosis. There is a normal alignment of the vertebrae. Normal vertebral bodies and endplates. Diffuse moderate facet sclerosis. Intervertebral disc space narrowing at L2-3, L3-4, L4-5 and to the greatest degree at L5-S1 with osteophyte formation most marked at the L4-5 and L5-S1 levels. Phleboliths. RAD/Lumbar Spine 2 or 3 Views IMPRESSION: Diffuse lumbosacral spondylosis, most marked at L3-4, L4-5 and L5-S1, slightly progressed since the prior study. No acute abnormality, erosive changes and evidence of fusion. Electronically Signed: Fabio Bullock MD at 10:54 EDT , Service support ,
--- NOTE | 2020-12-29 09:40 | RAD_ITS ---
STUDY: X-RAY - PELVIS AND RIGHT HIP REASON FOR EXAM: Male, 60 years old. Right hip pain. TECHNIQUE: 3 views of the pelvis and hip. COMPARISON: None. FINDINGS: There is a non-specific bowel gas pattern. Normal visualized soft tissue structures. Mild arthrosis of both sacroiliac joints. Normal bilateral superior and inferior pubic rami. Mild arthrosis of the symphysis pubis. Normal bilateral ischial tuberosities. Mild medial arthrosis of both hips without osteophyte formation. RAD/HIP, UNI W/ Pelvis 2-3 Views IMPRESSION: Mild arthrosis of both sacroiliac joints, symphysis pubis and the medial aspects of both hips. No acute abnormality, erosive changes or periostitis. Electronically Signed: Fabio Bullock MD at 10:52 EDT , Service support ,
== END ==
PROVIDERS: PCP Internal Medicine; Referring Provider Internal Medicine; Visit Provider Internal Medicine
DX: M25.551 Pain in right hip (principal); G89.29 Other chronic pain; M54.9 Dorsalgia, unspecified
CPT/HCPCS: 72100; 73502

== ENCOUNTER → 2022-06-13 | Outpatient (CLI) | payer MEDICARE, MEDICAID, SELFPAY ==
[2022-06-13 14:00] LABS: Anion Gap 8 (5-15); BUN 12 mg/dL (7-18); Calcium,Total 8.8 mg/dL (8.5-10.1); Chloride 108 mmol/L (98-107); EST Glomerular Filtration Rate 105 mL/min (>60); Est Glom Filt Rate - Afr Amer 127 mL/min (>60); Glucose 134 mg/dL (74-106); Sodium Level 138 mmol/L (136-145)
== END | disposition home or self-care (01) ==
PROVIDERS: PCP Internal Medicine; Referring Provider Internal Medicine Cardiovascular Disease; Visit Provider Internal Medicine Cardiovascular Disease
DX: Z95.5 Presence of coronary angioplasty implant and graft (principal)
CPT/HCPCS: 36415; 80048

== ENCOUNTER → 2022-06-21 | Outpatient (CLI) | payer MEDICARE, MEDICAID, SELFPAY ==
[2022-06-21 14:02] LABS: Bacteria 0 SEEN /hpf (None Seen); Mucous, Urine 0 SEEN /hpf (<or=2+); Red Blood Cells-Urine 0 SEEN /hpf (0-5); Squamous Epithelial Cells - UA 0 SEEN /hpf (0-5); White Blood Cells 0 SEEN /hpf (0-5)
[2022-06-21 15:01] LABS: Absolute Neutrophil Count 6.4 X10^3/uL (2.0-7.7); Basophil% 0.9 % (0-1); Eosinophil# 0.24 X10^3/uL; Eosinophils% 2.2 % (0-5); Hematocrit 52.6 % (40-54); Hemoglobin 17.3 g/dL (13.0-16.5); Lymphocyte % 30.9 % (19-41); Mean Corp Hgb Conc 32.9 g/dL (32-36); Mean Corpuscular Volume 91.2 fL (80-94); Mean Platelet Vol. 9.2 fl (6.2-12.0); Monocyte# 0.76 X10^3/uL; Monocyte% 6.9 % (0-10); NRBC Flagged by Analyzer 0 % (0-5); Neutrophil # 6.42 X10^3/uL (2.7-7.7); Neutrophil % 58.3 % (47-70); Platelet Count 259 K/mm3 (150-450); RBC Distribution Width CV 13.4 % (11.6-14.6); Red Blood Count 5.77 M/mm3 (4.6-6.2)
[2022-06-21 16:23] LABS: AST(SGOT) 41 U/L (15-37); Alanine Aminotransfer ALT/SGPT 41 U/L (16-61); Alkaline Phosphatase 64 U/L (45-117); Bilirubin, Direct 0.17 mg/dL (0.00-0.30); Globulin 3.5 g/dL (2.2-4.2); Protein, Total 7.5 g/dL (6.4-8.2); Thyroid Stim Hormone (TSH) 3.23 uIU/mL (0.358-3.74)
[2022-06-21 17:00] LABS: Color, Urine Yellow (Yellow); Glucose, Dipstick Normal (Normal); Ketone-Dipstick Negative (Negative); Leukocyte Esterase-Dipstick Negative /ul (Negative); Nitrite-Dipstick Negative (Negative); Occult Blood-Urine Negative /ul (Negative); Protein-Dipstick 15 mg/dl (Negative); Urine Bilirubin Dipstick Negative (Negative); Urine Clarity Clear (Clear); Urine Urobilinogen Normal (Normal)
== END | disposition home or self-care (01) ==
LOC: BIMLAB 13:50
PROVIDERS: PCP Internal Medicine; Referring Provider Physician Assistant; Visit Provider Physician Assistant
DX: I10 Essential (primary) hypertension (principal); R19.7 Diarrhea, unspecified; F17.200 Nicotine dependence, unspecified, uncomplicated; Z78.9 Other specified health status
CPT/HCPCS: 36415; 80076; 81001; 84443; 85025

== ENCOUNTER → 2022-06-22 | Outpatient (CLI) | payer MEDICARE, MEDICAID, SELFPAY ==
[2022-06-24 11:08] LABS: H. PYLORI STOOL AG Negative (Negative)
[2022-06-24 14:52] LABS: Giardia Lamblia, Stool EIA Negative (Negative)
== END | disposition home or self-care (01) ==
PROVIDERS: PCP Internal Medicine; Referring Provider Physician Assistant; Visit Provider Physician Assistant
DX: R19.7 Diarrhea, unspecified (principal); I10 Essential (primary) hypertension; F17.200 Nicotine dependence, unspecified, uncomplicated; K58.9 Irritable bowel syndrome, unspecified; Z78.9 Other specified health status
CPT/HCPCS: 82274; 87329; 87338; 87506

== ENCOUNTER → 2022-07-05 | Outpatient (CLI) | payer MEDICARE, MEDICAID, SELFPAY ==
--- NOTE | 2022-07-05 10:50 | STRESSREP ---
Stress Test Report Date: 07/05/2022 Procedure: Exercise tolerance test/imaging study Indications: Coronary artery disease Consent: Per the patient Procedure: The patient exercised on a Valente protocol for 7 minutes and 16 seconds achieving a peak heart rate of 122 bpm bpm (75% predicted maximal heart rate) with a peak blood pressure 190/94 mmHg and a peak MET capacity of 10.1 METs. The baseline ECG demonstrated normal sinus rhythm with right bundle branch block. The peak exercise ECG demonstrated no diagnostic changes secondary to baseline abnormality. There were no cardiac dysrhythmias pretest, during exercise, or recovery. The functional capacity was considered average. There was no complaint of chest discomfort during exercise or recovery. The examination was discontinued secondary to dyspnea. The patient was injected with 14.9 mCi of technetium 99m Cardiolite and subsequently rest SPECT Cardiolite nuclear imaging was obtained in the horizontal long, vertical long, and short axis views. Post-exercise, the patient was injected with 44.6 mCi of technetium 99m Cardiolite and subsequently stress SPECT Cardiolite nuclear imaging was obtained in the horizontal long, vertical long, and short axis views. A gated Cardiolite study at peak stress was obtained. Rest and stress SPECT Cardiolite nuclear imaging status post realignment, normalization, and attenuation correction, demonstrates resting images consistent with previous inferior and apical infarct. No significant change in perfusion pattern noted post exercise. The reported LVEF is 62%. Impression: 1. 75% of predicted maximal heart rate achieved. Please note that the patient was tested with beta-blockers on board 2. Peak exercise ECG with no diagnostic changes 3. There were no cardiac dysrhythmias pretest, during exercise, or recovery 4. Rest and stress SPECT Cardiolite nuclear imaging demonstrate previous inferior MS. No significant sergey-infarct ischemia noted. No reversible perfusion defects. 5. The gated Cardiolite study reports an LVEF of 62%. This note was generated with [employer] software. It may contain incorrect words, spelling, and punctuation that were not noted in checking the note before signing.
== END | disposition home or self-care (01) ==
LOC: CVS 06:48
PROVIDERS: PCP Internal Medicine; Visit Provider Internal Medicine Cardiovascular Disease
DX: I25.10 Atherosclerotic heart disease of native coronary artery without angina pectoris (principal)
CPT/HCPCS: 78452; 93017; A9500; A4216

== ENCOUNTER → 2022-12-20 | Outpatient (CLI) | payer MEDICARE, MEDICAID, SELFPAY ==
[2022-12-20 13:45] LABS: Hematocrit 49.7 % (40-54); Hemoglobin 16.6 g/dL (13.0-16.5); Mean Corp Hgb Conc 33.4 g/dL (32-36); Mean Corpuscular Hgb 30.8 pg (27.0-32.0); Mean Corpuscular Volume 92.2 fL (80-94); Platelet Count 247 K/mm3 (150-450); RBC Distribution Width CV 13.8 % (11.6-14.6); RBC Distribution Width SD 46.9 fl (35.1-43.9); Red Blood Count 5.39 M/mm3 (4.6-6.2); White Blood Count 11.3 K/mm3 (4.4-11.0)
[2022-12-20 13:51] LABS: Partial Thromboplast Time 36.1 Seconds (24.1-36.2); Prothrombin Time (Protime)PT. 13.1 SECONDS (11.7-14.9)
[2022-12-20 13:56] LABS: Anion Gap 5 (5-15); BUN 12 mg/dL (7-18); BUN/Creat Ratio 14.9 RATIO (10-20); Calcium,Total 9.1 mg/dL (8.5-10.1); Chloride 108 mmol/L (98-107); EST Glomerular Filtration Rate 104 mL/min (>60); Est Glom Filt Rate - Afr Amer 126 mL/min (>60); Glucose 130 mg/dL (74-106); Sodium Level 137 mmol/L (136-145)
== END | disposition home or self-care (01) ==
LOC: LAB 13:25
PROVIDERS: PCP Internal Medicine; Referring Provider Internal Medicine Cardiovascular Disease; Visit Provider Internal Medicine Cardiovascular Disease
DX: I25.10 Atherosclerotic heart disease of native coronary artery without angina pectoris (principal); E78.5 Hyperlipidemia, unspecified; I10 Essential (primary) hypertension; R07.9 Chest pain, unspecified
CPT/HCPCS: 36415; 80048; 85027; 85610; 85730

== ENCOUNTER 2023-01-10 11:39 | Observation (INO) | payer MEDICARE, SELFPAY ==
--- NOTE | 2022-12-20 13:40 | RAD_ITS ---
EXAM: XR CHEST, 2 VIEWS CLINICAL INDICATION: SOB, Smoker -- for heart cath TECHNIQUE: Frontal and lateral views of the chest. COMPARISON: 12/11/2018 FINDINGS: LUNGS AND PLEURAL SPACES: Unremarkable. No consolidation or edema. No pneumothorax. No effusion. HEART: Unremarkable. Cardiac silhouette not enlarged. MEDIASTINUM: Central airways and mediastinal contour are unremarkable. BONES/JOINTS: Unremarkable. SOFT TISSUES: Unremarkable. RAD/Chest PA and Lateral IMPRESSION: No radiographic evidence of acute cardiopulmonary disease. Electronically Signed: Luca Ortega MD at 0:11 EDT ,
[2023-01-09 08:19] VITALS: BMI 34.5
--- NOTE | 2023-01-10 11:36 | CL.I_ITS ---
Patient Name: BRENDAN MICHAUD Study Date: 01/10/2023 Performing: Meme Culver MD Ht: 70 inches 177.8 cm : 1960 Wt: 241.01 lbs 109.32 kg Age: 62 Gender: male BSA: 2.26 PROCEDURE(S) PERFORMED DC02-(81079)LHC/COR IC12-(94552/[id number])PATRICIA W/WO PTCA, SINGLE CORONARY ARTERY CLINICAL PROFILE AND CO-MORBIDITIES Indications: Stable Known CAD Heart Failure: None CAD Presentations: Stable angina. CONCLUSIONS 80% Prox OM1 60% Mid LAD; 60-70% Prox D1 Successful PATRICIA Prox OM1 using Resolute [place] 3.0x34 mm, post-dilated using 3.5 mm, optimized proximally using 4.0 mm balloon RECOMMENDATIONS ASA Indefinitley Plavix for at least 12 months DESCRIPTION OF PROCEDURE The patient arrived to the procedure lab. The risks and benefits of the procedure as well as a full description of our services here and lack of surgical backup were fully explained to the patient and/or their significant other prior to the catheterization. The Timeout was completed, verifying the correct patient and procedure. The patient's procedural site was prepped and draped in the usual fashion. Local anesthetic was given subcutaneously to right radial region with Lidocaine 2%. Using a modified Seldinger technique, arterial access was obtained via the right radial artery, a 6Fr sheath was inserted.. Left Coronary Artery selective angiography was performed in multiple views using a 5 Fr. 4.0 [place] catheter. Right Coronary Artery selective angiography was then performed in multiple views using a 5 Fr. 4.0 [place] catheterThe images were reviewed and options discussed. A decision was then made to proceed with an Intervention, IVUS or other adjunct procedure. XB 3.0 Guide catheter was inserted and engaged into the LCA. Runthrough Guide wire was advanced to the Circumflex. 3.0 x 34 resolute fidelia Balloon catheter was advanced across lesion in the first obtuse marginal, proximal. Angiogram performed post stent deployment. 3.5 x 20 NC Emerge Balloon catheter was inserted post stent. PTCA balloon inflated at 18 atms for 8 secs. Angiogram performed post balloon dilatation. 4.0 x 12 NC Emerge Balloon catheter was inserted post stent. Angiogram performed post balloon dilatation. The arterial sheath was pulled and a TR Band was applied for hemostasis CORONARY ANGIOGRAPHY DOMINANCE: Right Dominant LEFT ANTERIOR DESCENDING ARTERY: LAD: Tubular 60% Mid lesion in LAD OM 1: Tubular 80% Proximal lesion in 1st OM RIGHT CORONARY ARTERY: RCA: Tubular 40% Mid lesion in RCA INTERVENTION INFORMATION LESION SITE: 1st OM (Proximal) Lesion Complexity: High/C, lesion length: 32 mm, Previously treated lesion: No Pre Stenosis: 80 % Pre intervention BHARTI flow: 3 PROCEDURE: Drug Eluting Stent with post dilatation Post Stenosis: 0 % Post intervention BHARTI flow: 3 Lesion Devices: Cordis 6 Fr XB3.0 100cm Guide Catheter Terumo .014 300cm Runthrough extra floppy straight Cordis 6 Fr XB3.0 100cm Guide Catheter [employer] Resolute Fidelia RX PATRICIA 3.0x34 [employer] NC EMERGE MR 3.50x20 BALLOON [employer] NC EMERGE MR 4.00x12 BALLOON COMPLICATIONS PROCEDURE MEDICATIONS Fentanyl 50 mcg IV Versed 1 mg IV Versed 1 mg IV Oxygen: 2 L/min via nasal cannula Heparin given IA 01/10/2023 10:48:21 Heparin 8000 unit(s) IV 01/10/2023 10:56:02 Nitro 100 mcg IC 01/10/2023 11:10:54 Nitro 100 mcg IC 01/10/2023 11:10:54 Verapamil 2.5mg, Ntg 200mcgs, 2000 units of Heparin given IA 01/10/2023 10:48:21 IV Bolus: .9 NaCl 250 ml total 01/10/2023 11:05:29 SUMMARY OF HEMODYNAMIC DATA Time AIR REST AO 91/65 (68) SA 10:50:52 AO 113/71 (92) 11:00:02 ECG 11:34:51 Signed By Meme Culver MD On 01/10/2023 11:35:30 Meme Culver MD
--- NOTE | 2023-01-10 11:39 | DCINST_ITS ---
Discharge Instructions Diet Discharge Diet: Low fat / Low cholesterol Activity Discharge Activity: Return to Normal Activity Dressing / Incision Call your doctor if your incision/area has: Continuous Slow Oozing, Sudden Increased Bleeding, Increased Pain/ Swelling, Increased Redness, Foul Smelling Discharge and Swelling at the incision site Call your doctor if you observe: Fever of 101 or Higher and Coldness, Increased Pain Follow Up Care Please Follow Up With: Meme Culver MD When: 4-6 weeks Test Results: Test results from this visit will be discussed in further detail at your follow- up appointment, if applicable. Discharge Plan Admission Attending Provider: Meme Culver Primary Care Provider: Pasquale Luis Discharge Orders/Prescriptions Prescriptions: Continued (DME) Handicap Placard See Rx Instructions .ROUTE .MEDSUPPLY Qty: 1 0RF Rx Instructions: As directed, length of time 3 years aspirin 81 mg tablet,delayed release (DR/EC) 81 mg PO DAILY metoprolol succinate 50 mg tablet extended release 24 hr 50 mg PO DAILY losartan 100 mg tablet 100 mg PO DAILY amlodipine 5 mg tablet 5 mg PO DAILY Qty: 90 1RF nicotine 21 mg/24 hr patch 24 hour 1 patch transdermal Q24H Qty: 28 1RF psyllium husk [Fiber (psyllium husk)] 0.52 gram capsule 0.52 g PO DAILY Qty: 30 0RF sildenafil [Viagra] 100 mg tablet 100 mg PO DAILY PRN (Reason: sexual activity) Qty: 20 0RF Rx Instructions: administer 30 minutes to 4 hours before activity clopidogrel 75 mg tablet 75 mg PO DAILY Qty: 90 3RF atorvastatin 40 mg tablet 40 mg PO QHS Qty: 90 3RF Referrals / Follow Up: Pasquale Luis MD [Primary Care Provider] - Disposition Disposition (needs filled in before D/C Order can be placed): Home, Self Care
[2023-01-10 12:30] VITALS: BP 113/83; PULSE 69; RESP 15; TEMP 36.5; O2SAT 95
[2023-01-10 12:45] VITALS: BMI 34.5
--- NOTE | 2023-01-10 12:46 | CRPHASE1 ---
Patient Communication Patient Information Former Patient:: Phase I PHII Cardiac Rehab Discussed with Patient:: Yes Guide to Cardiac Rehab Given to Patient:: Yes Cardiac Rehab Facility Choice List Given to Patient:: Yes Communication to Cardiac Rehab Film Numberer:: Meme Culver Sessions:: 36 sessions - 3 days/wk, 12 weeks Cardiac Rehabilitation Info Program Information Cardiac Rehabilitation Program Information: Cardiac Rehab The cardiac rehab team at [facility] consists of highly skilled exercise physiologists, nurses, respiratory therapists and physicians working together with you. Our purpose is to help you have a full recovery and achieve the goals you set for yourself. Over the years many of our patients have returned to activities they assumed they would never do again! We can help restore your confidence and motivation to make lifestyle changes that can have a significant impact on your health and quality of life! We can help answer questions and concerns you may have about exercise, lifestyle, medications, diet, stress and anxiety which are common following a hospitalization. WE monitor ECG and vital signs during exercise and discuss your progress with you and report to your physician(s). Cardiac Rehab is proven to help reduce readmissions, improve functional capacity and lower recurrence of problems with your heart. Our Cardiac Rehab program is Certified by the [place] [employer] Pulmonary [employer] (AACVPR) and Accredited by the [place] [employer] through our [facility]. You can contact us at . We invite you to call us with your questions or to get started in our program. If you have other questions or concerns be sure to ask your physician/provider during your follow-up visit. WE look forward to seeing you!
--- NOTE | 2023-01-10 12:46 | CRPH1.INSTRU ---
General Education Discussed with Patient CAD and cardiac anatomy and function:: Patient communicates acknowledgment Explanation of diagnoses and procedures:: Patient communicates acknowledgment Sign/Symptoms of MT:: Patient communicates acknowledgment Antiplatelet therapy: Patient communicates acknowledgment Proper use of NTG-SL: Patient communicates acknowledgment Emergency procedures and activation of EMS: Patient communicates acknowledgment Compliance of all prescribed medications: Patient communicates acknowledgment Smoking Response Code Nicotine/Smoking Response Code:: Patient communicates acknowledgment Dyslipidemia Recommendations Recommendations Include:: Lipid profile not available Hypertension Recommendations Recommendations Include:: Maintain BP <130/85 Response Code Hypertension:: Patient communicates acknowledgment Heart Disease Risk Factors Patient Heart Disease Risk Factors Are:: Previous cardiac event Recommendations Recommendations Include:: Educated family members of their risk and Educated family members of importance of prevention of heart disease Response Code Heart Disease Response Code:: Patient communicates acknowledgment Diabetes Recommendations Recommendations Include:: Maintain fasting blood sugars 70-110 md/dL Response Code Diabetes:: Patient communicates acknowledgment Metabolic Syndrome Risk Factors Patient Metabolic Syndrome Risk Factors Are [3 of 5]:: Hypertension Recommendations Recommendations Include:: Encouraged follow-up with Primary Care Physician Response Code Metabolic Syndrome Response Code:: Patient communicates acknowledgment Sedentary Recommendations Recommendations Include:: Aerobic exercise 5-7 times/week for 20-30 minutes continuously, Benefits of regular exercise, Discussed home walking program and Monitored Outpatient Cardiac Rehab Response Code Sedentary Response Code:: Patient communicates acknowledgment Stress Recommendations Recommendations Include:: Identification of stressors, and assessment of coping skills and Stress management techniques Response Code Stress Response Code:: Patient communicates acknowledgment
[2023-01-10] MEDS: 0.9% Normal Saline 1,000 ML 150 ML IV (12:58)
[2023-01-10 13:00] VITALS: BP 115/74; PULSE 71; RESP 16; TEMP 36.5; O2SAT 96
[2023-01-10 17:00] VITALS: BP 129/91; PULSE 74; RESP 16; TEMP 36.5; O2SAT 94
[2023-01-10] MEDS: Atorvastatin Calcium 40 MG Tablet PO (22:37)
[2023-01-10 23:00] VITALS: BP 145/89; PULSE 82; RESP 18; TEMP 36.7; O2SAT 96
[2023-01-11 04:00] VITALS: BP 141/87; PULSE 81; RESP 18; TEMP 36.7; O2SAT 95
[2023-01-11 07:24] VITALS: O2SAT 94
[2023-01-11 07:57] LABS: Hematocrit 47.3 % (40-54); Hemoglobin 15.3 g/dL (13.0-16.5); Mean Corp Hgb Conc 32.3 g/dL (32-36); Mean Corpuscular Hgb 30.1 pg (27.0-32.0); Mean Corpuscular Volume 92.9 fL (80-94); Mean Platelet Vol. 9.2 fl (6.2-12.0); Platelet Count 208 K/mm3 (150-450); RBC Distribution Width CV 13.8 % (11.6-14.6); RBC Distribution Width SD 47.3 fl (35.1-43.9); Red Blood Count 5.09 M/mm3 (4.6-6.2); White Blood Count 11.2 K/mm3 (4.4-11.0)
[2023-01-11 08:38] LABS: ALB/GLOB Ratio 1.1 RATIO (0.9-2.4); AST(SGOT) 30 U/L (15-37); Alanine Aminotransfer ALT/SGPT 36 U/L (16-61); Albumin, Serum 3.6 g/dL (3.2-5.0); Alkaline Phosphatase 59 U/L (45-117); Anion Gap 6 (5-15); BUN 13 mg/dL (7-18); BUN/Creat Ratio 20.4 RATIO (10-20); Calcium,Total 8.5 mg/dL (8.5-10.1); Chloride 115 mmol/L (98-107); Creatinine, Serum 0.64 mg/dL (0.70-1.30); EST Glomerular Filtration Rate 136 mL/min (>60); Est Glom Filt Rate - Afr Amer 164 mL/min (>60); Estimated Creatinine Clearance 126.74 ml/min; Globulin 3.2 g/dL (2.2-4.2); Glucose 116 mg/dL (74-106); Potassium 4.2 mmol/L (3.5-5.1); Protein, Total 6.8 g/dL (6.4-8.2); Sodium Level 142 mmol/L (136-145)
[2023-01-11] MEDS: Losartan Potassium 100 MG Tablet PO (08:38)
[2023-01-11] MEDS: Psyllium 1 PACKET PO (08:38)
[2023-01-11] MEDS: Aspirin E.C. 81 MG Tablet PO (08:38)
[2023-01-11] MEDS: amLODIPine 5 MG Tablet PO (08:38)
[2023-01-11 08:39] VITALS: BP 144/94; PULSE 67
[2023-01-11] MEDS: Metoprolol(XL)Succ 50 MG Tablet PO (08:39)
[2023-01-11] MEDS: Clopidogrel Bisulfate 75 MG Tablet PO (08:39)
--- NOTE | 2023-01-11 09:06 | PHA.DC.MR.R ---
Pharmacy CT Med Reconciliation Pharmacy Service has performed discharge medication reconciliation for this patient. No new medications at time of discharge medication review. Medications reviewed are from previously reported home medications. The patient's discharge medication list was reviewed for discrepancies and discrepancies were resolved. Medications at Discharge Home Medications Handicap Dalila #1 ea 07/14/20 aspirin 81 mg tablet,delayed release 81 mg PO DAILY 06/05/22 nicotine 21 mg/24 hr daily transdermal patch 1 patch transdermal Q24H #28 ea 06/21/22 psyllium husk 0.52 gram capsule (Fiber (psyllium husk)) 0.52 g PO DAILY #30 caps 06/21/22 sildenafil 100 mg tablet (Viagra) 100 mg PO DAILY PRN sexual activity #20 tabs 06/21/22 clopidogrel 75 mg tablet 75 mg PO DAILY #90 tabs 06/29/22 atorvastatin 40 mg tablet 40 mg PO QHS #90 tabs 07/06/22 amlodipine 5 mg tablet 5 mg PO DAILY #90 tabs 07/19/22 losartan 100 mg tablet 100 mg PO DAILY 07/19/22 metoprolol succinate 50 mg tablet,extended release 24 hr 50 mg PO DAILY 07/19/22
[2023-01-11 09:07] VITALS: BP 144/94; PULSE 69; RESP 18; TEMP 36.9; O2SAT 95
--- NOTE | 2023-01-11 09:17 | NURSING ---
Patient denied nicotine patch change after hearing that discharge orders have been put into system and that he will be discharged soon
--- NOTE | 2023-01-11 10:00 | EKG12_ITS ---
Test Reason : AM EKG Blood Pressure : / mmHG Vent. Rate : 064 BPM Atrial Rate : 064 BPM P-R Int : 158 ms QRS Dur : 156 ms QT Int : 430 ms P-R-T Axes : 060 -20 -01 degrees QTc Int : 443 ms Normal sinus rhythm Right bundle branch block Inferior infarct , age undetermined Abnormal ECG When compared with ECG of 10-JAN-2023 11:16, MANUAL COMPARISON REQUIRED, DATA IS UNCONFIRMED Confirmed by SHRUTHI MCCALLUM, FREDDIE ([id number]), advertising editor INGRID STERLING ([id number]) on 03/05/2023 1:09:33 PM Referred By: Meme Culver Confirmed By:FREDDIE HAWKINS MD
--- NOTE | 2023-01-11 10:32 | DCINST_ITS ---
Discharge Instructions Diet Discharge Diet: Low fat / Low cholesterol Dressing / Incision Call your doctor if your incision/area has: Continuous Slow Oozing, Sudden Increased Bleeding, Increased Pain/ Swelling, Increased Redness, Foul Smelling Discharge and Swelling at the incision site Call your doctor if you observe: Fever of 101 or Higher and Coldness, Increased Pain Follow Up Care Please Follow Up With: Meme Culver MD When: 4 weeks Test Results: Test results from this visit will be discussed in further detail at your follow- up appointment, if applicable. Discharge Plan Admission Admit Date/Time: 01/10/23 11:39 Attending Provider: Meme Culver Primary Care Provider: Pasquale Luis Discharge Orders/Prescriptions Prescriptions: Continued (DME) Handicap Placard See Rx Instructions .ROUTE .MEDSUPPLY Qty: 1 0RF Rx Instructions: As directed, length of time 3 years aspirin 81 mg tablet,delayed release (DR/EC) 81 mg PO DAILY metoprolol succinate 50 mg tablet extended release 24 hr 50 mg PO DAILY losartan 100 mg tablet 100 mg PO DAILY amlodipine 5 mg tablet 5 mg PO DAILY Qty: 90 1RF nicotine 21 mg/24 hr patch 24 hour 1 patch transdermal Q24H Qty: 28 1RF psyllium husk [Fiber (psyllium husk)] 0.52 gram capsule 0.52 g PO DAILY Qty: 30 0RF sildenafil [Viagra] 100 mg tablet 100 mg PO DAILY PRN (Reason: sexual activity) Qty: 20 0RF Rx Instructions: administer 30 minutes to 4 hours before activity clopidogrel 75 mg tablet 75 mg PO DAILY Qty: 90 3RF atorvastatin 40 mg tablet 40 mg PO QHS Qty: 90 3RF Referrals / Follow Up: Pasquale Luis MD [Primary Care Provider] - Disposition Disposition (needs filled in before D/C Order can be placed): Home, Self Care
== END 2023-01-11 10:00 | disposition home or self-care (01) ==
LOC: CLSP 11:40 → PCU 12:39
PROVIDERS: Admitting Provider Internal Medicine Cardiovascular Disease; PCP Internal Medicine; Referring Provider Internal Medicine Cardiovascular Disease; Visit Provider Internal Medicine Cardiovascular Disease
DX: I25.118 Atherosclerotic heart disease of native coronary artery with other forms of angina pectoris (principal); Z79.82 Long term (current) use of aspirin; Z79.02 Long term (current) use of antithrombotics/antiplatelets; Z79.899 Other long term (current) drug therapy; I10 Essential (primary) hypertension; G47.33 Obstructive sleep apnea (adult) (pediatric); I25.2 Old myocardial infarction; Z95.5 Presence of coronary angioplasty implant and graft; F17.210 Nicotine dependence, cigarettes, uncomplicated; E78.5 Hyperlipidemia, unspecified
CPT/HCPCS: 36415; 71046; 80053; 85027; 92928; 93005; 93454; 96360; 96361; 99152; 99153; 99221; C1769; J7030; J7040; Q9967; C1725; C1874; C1887; C1894; C9600; G0378

== ENCOUNTER 2023-07-01 13:41 | Emergency (ER) | payer MEDICARE, SELFPAY ==
[2023-07-01 13:42] VITALS: BP 138/89; PULSE 89; RESP 16; TEMP 36.4; O2SAT 98; BMI 36.3
--- NOTE | 2023-07-01 13:56 | RAD_ITS ---
EXAM: XR FACE COMPLETE, 3 OR MORE VIEWS CLINICAL INDICATION: facial pain TECHNIQUE: Frontal, lateral and oblique views of the face. COMPARISON: No relevant prior studies available. FINDINGS: BONES/JOINTS: Unremarkable. No displaced fracture. No subluxation. No sclerotic or destructive changes observed. SINUSES: No acute findings. SOFT TISSUES: Unremarkable. No soft tissue swelling or gas. No radiopaque foreign body. RAD/Facial Bones min 3 Views IMPRESSION: Negative facial bone series. Electronically Signed: Piero Escalona MD at 14:43 EST ,
--- NOTE | 2023-07-01 13:56 | CT_ITS ---
STUDY: CT BRAIN WITHOUT CONTRAST REASON FOR EXAM: Male, 62 years old. head injury TECHNIQUE: Transaxial CT imaging of the brain was performed without administration of intravenous contrast material. Individualized dose optimization techniques were used for this CT. COMPARISON: None FINDINGS: Normal calvarium. There is no underlying fracture. Soft tissue swelling of the right periorbital and right forehead. Normal size ventricles and extra-axial spaces for the patient''s age. Normal white matter tracts of the cerebral hemispheres. Normal basal ganglia and thalami. Normal brainstem. Normal cerebellum. There is no intracranial hemorrhage. There are no findings of an acute ischemic infarction. There is sinus disease. ASPECTS 10 CT/Brain/Head without Contrast IMPRESSION: There are no acute intracranial findings. There is no underlying fracture. Soft tissue swelling of the right periorbital and right forehead. Electronically Signed: Piero Escalona MD at 14:46 EST ,
--- NOTE | 2023-07-01 13:57 | RAD_ITS ---
STUDY: XR Chest 1 View 07/01/2023 2:10 PM REASON FOR EXAM: Male, 62 years old. cough COMPARISON: 12/20/2022 TECHNIQUE: XR Chest 1 View FINDINGS: There is no demonstrated pleural abnormality. Normal heart size. Normal mediastinum. Normal asia. Prominent appearing increased interstitial lung markings. Normal visualized pulmonary arteries. There is atherosclerotic calcification of the aortic arch with tortuosity. There are diffuse degenerative changes of the visualized thoracic spine. There is degenerative osteoarthritis of the bilateral shoulders. There are no acute findings of the upper abdomen. RAD/Chest 1 View (Portable) IMPRESSION: There are no acute findings. Electronically Signed: Piero Escalona MD at 14:30 EST ,
--- NOTE | 2023-07-01 13:57 | EKG12_ITS ---
Test Reason : Blood Pressure : / mmHG Vent. Rate : 082 BPM Atrial Rate : 082 BPM P-R Int : 156 ms QRS Dur : 154 ms QT Int : 402 ms P-R-T Axes : 050 -40 015 degrees QTc Int : 469 ms Normal sinus rhythm Left axis deviation Right bundle branch block Inferior infarct , age undetermined Abnormal ECG Confirmed by Fidel Bourgeois ([id number]), video editor CHELSIE FLORENTINO ([id number]) on 07/03/2023 9:23:08 AM Referred By: Confirmed By:Fidel Bourgeois
--- NOTE | 2023-07-01 14:02 | EDS_ITS ---
HPI <LILI Norwood - Last Filed: 07/01/23 15:27> History of Present Illness Chief Complaint: Syncope Narrative Narrative: Patient is a 62-year-old male with history of CAD, STEMI, tobacco use, 2.5 packs/day, alcohol abuse, multiple beers daily presenting to the emergency department after syncopal episode striking the right side of his head. 3 days ago, the patient was sitting in a garage, he has had a cough for the last 2 weeks. He states he was laughing, then had a coughing fit and then had a posttussive syncopal episode. He landed on his right side of his head on the floor. Patient states he had some abrasion, bruising however he woke up this morning had significant bruising to his eye. He is here for evaluation. 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 Cellulitis of mid back region Cervical radiculopathy Chronic back pain DDD (degenerative disc disease), lumbar Erectile dysfunction Exposure to COVID-19 virus Fatigue Hay fever History of pneumonia Hypertension Left otitis media Marijuana abuse NECK AND BACK PAIN Nicotine dependence, cigarettes, uncomplicated Obstructive sleep apnea Preventative health care Right hip pain Seasonal allergies Shoulder pain Smoking greater than 40 pack years SOB (shortness of breath) STEMI (ST elevation myocardial infarction) (~04/30/22) Tobacco abuse Vertical strabismus, right eye Home Medications Handicap Placard #1 ea 07/14/20 [Rx Last Taken Unknown] aspirin 81 mg tablet,delayed release 81 mg PO DAILY 06/05/22 [History Last Taken 01/10/23] nicotine 21 mg/24 hr daily transdermal patch 1 patch transdermal Q24H #28 ea 06/21/22 [Rx Last Taken Unknown] psyllium husk 0.52 gram capsule (Fiber (psyllium husk)) 0.52 g PO DAILY #30 caps 06/21/22 [Rx Last Taken Unknown] sildenafil 100 mg tablet (Viagra) 100 mg PO DAILY PRN sexual activity #20 tabs 06/21/22 [Rx Last Taken Unknown] clopidogrel 75 mg tablet 75 mg PO DAILY #90 tabs 06/29/22 [Rx Last Taken 01/10/23] atorvastatin 40 mg tablet 40 mg PO QHS #90 tabs 07/06/22 [Rx Last Taken Unknown] losartan 100 mg tablet 100 mg PO DAILY 07/19/22 [History Last Taken 01/10/23] metoprolol succinate 50 mg tablet,extended release 24 hr 50 mg PO DAILY 07/19/22 [History Last Taken 01/10/23] amlodipine 5 mg tablet 5 mg PO DAILY #90 tabs 01/31/23 [Rx Last Taken Unknown] albuterol sulfate 90 mcg/actuation aerosol inhaler (ProAir HFA) 2 puff inhalation Q6H PRN shortness of breath or wheezing #6.7 grams 07/01/23 [Rx Last Taken Unknown] Allergy/AdvReac Type Severity Reaction Status Date / Time Penicillins [PCN] Allergy Unknown Verified 02/01/23 13:16 Family History Father Myocardial infarction, Onset Age: 49 Other Cancer Heart disease Surgical History History of coronary artery stent placement (~01/10/23) History of neck surgery Social History (Updated 07/01/23 @ 14:52 by Kira Fish) household members: spouse housing: house Smoking Status: Current every day smoker tobacco type: cigarettes Tobacco: How many years used: 35 quit status: considering quitting alcohol intake: current alcohol intake frequency: 3 or more drinks per day Alcohol type: beer details: 6 pack beer daily substance use type: marijuana caffeine: Yes Type: carbonated beverages and coffee Number of servings: 1 what type of physical activity do you participate in: other 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 Positive bruising around the eye ENT: Negative for any sore throat, ear pain, congestion Cardiovascular: Negative for any chest pain, tightness, palpitations Respiratory: Negative for any sputum production, hemoptysis, dyspnea, dyspnea on exertion, orthopnea. Positive for cough Gastrointestinal: Negative for any abdominal pain, nausea, vomiting, diarrhea, constipation, blood in stool, blood in vomit : Negative for any urinary frequency, dysuria, retention, blood in urine Muscle skeletal: Negative for any neck pain, back pain Neurological: Negative for any headache, dizziness. Positive for syncope Skin: Negative for any rashes, itching, abrasions, lacerations Psychiatric: Negative for any depression, anxiety, stress, suicidal ideation, homicidal ideation Hematologic: Negative for any excessive bruising, easy bleeding EXAM <LILI Norwood - Last Filed: 07/01/23 15:27> Physical Exam Narrative Exam Narrative: Vital signs reviewed. HEET: Head normocephalic atraumatic, TMs clear bilaterally. Posterior pharynx is clear, moist mucous membranes. Nares clear bilaterally. Patient does have some abrasion to the right forehead, ecchymosis to the superior eyelid. EOMs are intact, negative for any subconjunctival hemorrhage. Pupils are equal round reactive to light. Negative for any hemotympanum or septal hematoma. Neck: Supple with no lymphadenopathy or tenderness. No signs of meningismus. Cardiac: Regular rate and rhythm no murmurs gallops or rubs, equal peripheral pulses bilaterally. Respiratory: Lungs clear to auscultation bilaterally. Diminished in the bases. No chest tenderness. Abdomen: Soft, nontender, nondistended. No abdominal bruit or pulsatile masses. No hepatosplenomegaly Extremities: No peripheral edema, no signs of gross trauma or deformity. Active full range of motion of all extremities. Neuro: Cranial nerves II through XII intact, no focal neurological deficits. Skin: Clean dry and intact with no rash, purpura, petechiae, vesicles or pustules. Backs/flank: No CVA tenderness, no midline spinal tenderness, no deformity. Psych: Normal mood and affect. No SI, HI or acute psychosis. Const Vital Signs: 07/01/23 13:42 07/01/23 14:58 07/01/23 14:58 Temperature 97.6 F L Temperature Source Temporal Pulse Rate 89 Respiratory Rate 16 Respiratory Effort Normal Normal Respiratory Depth Normal Respiratory Pattern Normal Normal Blood Pressure 138/89 H Blood Pressure Mean 105 Pulse Ox 98 98 Oxygen Delivery Method Room Air Room Air Positive well nourished and well developed General Appearance ED: well developed <Dr. Krissy Elena DO - Last Filed: 07/01/23 23:03> Physical Exam Const Vital Signs: 07/01/23 13:42 07/01/23 14:58 07/01/23 14:58 Temperature 97.6 F L Temperature Source Temporal Pulse Rate 89 Respiratory Rate 16 Respiratory Effort Normal Normal Respiratory Depth Normal Respiratory Pattern Normal Normal Blood Pressure 138/89 H Blood Pressure Mean 105 Pulse Ox 98 98 Oxygen Delivery Method Room Air Room Air MDM <LILI Norwood - Last Filed: 07/01/23 15:27> MDM Radiography Diagnostic Testing: Clinical Impression(s) from Imaging Studies Brain CT 07/01/23 13:56 IMPRESSION: There are no acute intracranial findings. There is no underlying fracture. Soft tissue swelling of the right periorbital and right forehead. Electronically Signed: Piero Escalona MD at 14:46 EST , Facial Bones X-Ray 07/01/23 13:56 IMPRESSION: Negative facial bone series. Electronically Signed: Piero Escalona MD at 14:43 EST , Chest X-Ray 07/01/23 13:57 IMPRESSION: There are no acute findings. Electronically Signed: Piero Escalona MD at 14:30 EST , Shoulder X-Ray 07/01/23 15:30 IMPRESSION: There are no acute findings of the shoulder. Electronically Signed: Piero Escalona MD at 15:52 EST , EKG Sinus rhythm, left axis deviation, right bundle branch block: Attestation: I personally reviewed and interpreted this EKG as follows: Comments: Normal sinus rhythm, rate of 82 bpm, WA 156 ms, QRS duration 154 ms, no acute ST elevation, no acute infarct noted. Treatment and Re-Evaluation :: Patient appears generally well, patient appears nontoxic, vital signs are stable. Patient presents to the emergency department with complaints of headache, posttussive syncope. Patient is concerned because of swelling around the right eye. Neurological exam was grossly unremarkable. Differential diagnosis includes skull fracture, concussion, closed head injury, ecchymosis, orbital bone fracture. Patient will receive a CT scan of the brain, maxillofacial bones. Patient also received a chest x-ray secondary to his cough. All radiologic examinations were read, reviewed by the emergency department attending. From these reads, a plan of care will be put in place. Patient CT scan of the brain showed no acute intracranial findings. There is no underlying fracture. Soft tissue swelling along the right periorbital and right forehead. Facial bone x-ray was unremarkable. Chest x-ray showed no acute findings. Patient is in no obvious distress. <Dr. Krissy Elena, DO - Last Filed: 07/01/23 23:03> [facility] Narrative Medical decision making narrative: Patient is evaluated for facial trauma and swelling around his right eye after he had what sounds like an episode of posttussive syncope 2 days ago. Patient had some respiratory symptoms for the past 2 weeks where she feels that it is im proving. He does not have any increased work of breathing at this time. Denies any chest pain. On my evaluation he is also complaining of some increased right shoulder pain with decreased range of motion. Physical exam is not consistent with acute dislocation. He does have a send right periorbital ecchymosis but no signs of extraocular eye muscle entrapment or eye trauma. CT of the brain is obtained which is negative for any acute process. Facial bone x-ray as well as chest x-ray and shoulder x-ray does not show any acute fracture. This is reviewed by myself as well as radiology. Patient yajaira hemodynamically stable in the ER. As his respiratory symptoms are improving I do not think he requires any steroids or respiratory medications at this time. EKG reviewed by myself shows normal sinus rhythm with no acute ischemic changes. I do not think he requires further workup for syncope either. Patient given return precautions. Discharged home in stable condition. Radiography Diagnostic Testing: Clinical Impression(s) from Imaging Studies Brain CT 07/01/23 13:56 IMPRESSION: There are no acute intracranial findings. There is no underlying fracture. Soft tissue swelling of the right periorbital and right forehead. Electronically Signed: Piero Escalona MD at 14:46 EST , Facial Bones X-Ray 07/01/23 13:56 IMPRESSION: Negative facial bone series. Electronically Signed: Piero Escalona MD at 14:43 EST , Chest X-Ray 07/01/23 13:57 IMPRESSION: There are no acute findings. Electronically Signed: Piero Escalona MD at 14:30 EST Reading Location ID and State: [id number] / [facility] , Service support , Shoulder X-Ray 07/01/23 15:30 IMPRESSION: There are no acute findings of the shoulder. Electronically Signed: Piero Escalona MD at 15:52 EST Reading Location ID and State: [id number] / [facility] , Service support , Discharge Plan Triage Chief Complaint: Syncope Other Complaint: Head Injury ED Midlevel Provider: Brennan Mcnally ED Provider: Krissy Elena Dx/Rx/DC Orders Clinical Impression: Concussion, Edema, Post-tussive syncope, Shoulder contusion Instructions: Causes of Syncope, Concussion Dc Prescriptions: New albuterol sulfate [ProAir HFA] 90 mcg/actuation HFA aerosol inhaler 2 puff inhalation Q6H PRN (Reason: shortness of breath or wheezing) Qty: 6.7 0RF No Action (DME) Handicap Placard See Rx Instructions .ROUTE .MEDSUPPLY Qty: 1 0RF Rx Instructions: As directed, length of time 3 years aspirin 81 mg tablet,delayed release (DR/EC) 81 mg PO DAILY metoprolol succinate 50 mg tablet extended release 24 hr 50 mg PO DAILY losartan 100 mg tablet 100 mg PO DAILY nicotine 21 mg/24 hr patch 24 hour 1 patch transdermal Q24H Qty: 28 1RF psyllium husk [Fiber (psyllium husk)] 0.52 gram capsule 0.52 g PO DAILY Qty: 30 0RF sildenafil [Viagra] 100 mg tablet 100 mg PO DAILY PRN (Reason: sexual activity) Qty: 20 0RF Rx Instructions: administer 30 minutes to 4 hours before activity clopidogrel 75 mg tablet 75 mg PO DAILY Qty: 90 3RF atorvastatin 40 mg tablet 40 mg PO QHS Qty: 90 3RF amlodipine 5 mg tablet 5 mg PO DAILY Qty: 90 3RF Primary Care Provider: Care Physician,No Primary Referrals: Pasquale Luis MD [Med Staff - Active Staff] - Fidel Parker DO [Med Staff - Active Staff] - Activity Restrictions/Additional Instructions: Please follow-up outpatient Disposition Disposition: Home, Self Care Discharge Date/Time: 07/01/23 15:52
--- OUTSIDE RECORDS SUMMARY | 2023-07-01 14:20 | XMS RPT_ITS | CCD ---
Author Name Unknown Address [address] [facility] [address] [place] [address] Organization [facility] Care Team Providers Care Broker Name Role Phone DOS%CHELSIE OSBORNE MD Admitting Unavailabl e DOSCHELSIE BEVERLY MD Attending Unavailabl e DOSCHELSIE BEVERLY MD Primary Care Unavailmara e MANOJ CORBETT MD Consulting Unavailable MANOJ CORBETT MD Referring Unavailable PROVIDER, UNKNOWN Consulting Unavailable PREBISH, MINH KEITH Admitting Unavailable PREBISH, MINH KEITH Attending Unavailable PREBISH, MINH KEITH Primary Care Unavailable MANOJ CORBETT MD Consulting Unavailable PROVIDER, UNKNOWN Consulting Unavailable PREBISH, MINH KEITH Admitting Unavailable PREBISH, MINH KEITH Attending Unavailable PREBISH, MINH KEITH Primary Care Unavailable MANOJ CORBETT MD Consulting Unavailable PROVIDER, UNKNOWN Consulting Unavailable PHYSICIAN, NONE Primary Care Physician Unavailab BUD Page MD Attending Unavail able PHYSICIAN, NONE Primary Care Unavailable BUD SHERIDAN MD Admitting Unavail able Allergies Allergy Classification Reported Allergen(s) Allergy Type Date of Onset Reaction(s) Facility (1 source) Penicillin; Translations: [penicillin] Drug Allergy [facility] Medications Current Medications Medication Drug Class(es) Dates Sig (Normalized) Sig (Original) aspirin 81 mg delayed release oral tablet (1 source) Platelet Aggregation Inhibitor, Nonsteroidal Anti-inflammatory Drug Start: 05-02-2022 Ecotrin Adult Low Strength 81 mg oral delayed release tablet Dose : 81 mg = 1 tab(s), Oral, qDayM, # 30 tab(s), 11 Refill(s), Pharmacy: [facility]/pharmacy #[id number], 178, cm, 05/01/22 1:24:00 EST, Height Start Date: 05/02/22 Status: Ordered atorvastatin 40 mg oral tablet (1 source) HMG-CoA Reductase Inhibitor Start: 05-02-2022 atorvastatin 40 mg oral tablet Dose : 40 mg = 1 tab(s), Oral, qDay, # 30 tab(s), 5 Refill(s), [id number], 178, , 05/01/22 1:24:00 EST, Height Start Date: 05/02/22 Status: Ordered losartan potassium 25 mg oral tablet (1 source) Angiotensin 2 Receptor Charlene Start: 05-02-2022 losartan 25 mg oral tablet Dose : 25 mg = 1 tab(s), Oral, qDay, # 30 tab(s), 6 Refill(s), Pharmacy: [facility]/pharmacy #[id number], 178, cm, 05/01/22 1:24:00 EST, Height Start Date: 05/02/22 Status: Ordered 24 hr metoprolol succinate 25 mg extended release oral tablet (3 sources) beta-Adrenergic Charlene Start: 05-02-2022 Toprol-XL 25 mg oral tablet, extended release Dose : 25 mg = 1 tab(s), Oral, qDayM, # 30 tab(s), 5 Refill(s), [id number], 178, , 05/01/22 1:24:00 EST, Height Start Date: 05/02/22 Status: Ordered Problems Active Problems Problem Classification Problem Date Documented Da te Episodic/Chronic Acute myocardial infarction (3 sources) ST elevation (STEMI) myocardial infarction of unspecified site; Translations: [ST elevation (STEMI) myocardial infarction involving other coronary artery of inferior wall] Onset: 05-01-2022 Chronic Alcohol-related disorders (1 source) Alcohol abuse; Translations: [Alcohol abuse, uncomplicated] Chronic Coronary atherosclerosis and other heart disease (1 source) Coronary atherosclerosis; Translations: [Atherosclerotic heart disease of [place] coronary artery without angina pectoris] Onset: 05-02-2022 Chronic Essential hypertension (1 source) Essential hypertension; Translations: [Essential (primary) hypertension] Onset: 05-02-2022 Chronic Nonspecific chest pain (2 sources) Chest pain, unspecified; Translations: [Chest pain, unspecified] Onset: 05-01-2022 Episodic Residual codes; unclassified (1 source) Tobacco user; Translations: [Tobacco use] Episodic Spondylosis; intervertebral disc disorders; other back problems (5 sources) Other intervertebral disc degeneration, lumbosacral region; Translations: [Spondylosis without myelopathy or radiculopathy, lumbosacral region] Onset: 08-19-2021 Chronic Substance-related disorders (1 source) Nicotine dependence, cigarettes, uncomplicated; Translations: [Nicotine dependence, cigarettes, uncomplicated] Onset: 05-01-2022 Chronic Unclassified (1 source) Alcohol use, unspecified, uncomplicated; Translations: [Alcohol use, unspecified, uncomplicated] Onset: 05-01-2022 Past or Other Problems Problem Classification Problem Date Documented Da te Episodic/Chronic Other non-traumatic joint disorders (1 source) Pain in right hip; Translations: [Pain in right hip] Onset: 08-19-2021 Episodic Spondylosis; intervertebral disc disorders; other back problems (1 source) Radiculopathy, lumbosacral region; Translations: [Radiculopathy, lumbosacral region] Onset: 08-19-2021 Episodic Results Test Name Value Interpretation Reference Range Facil ity Vital Signs Date Time Vital Sign Value Performing Clinician Faci lity 05-02-2022 11:14-0500 Body temperature 97.7 [degF] DR BUD HEREDIA MD [facility] 05-02-2022 11:14-0500 Diastolic Blood Pressure Non-Invasive [address] BUD HEREDIA MD [facility] 05-02-2022 11:14-0500 Heart rate 69 /min DR BUD HEREDIA MD [facility] 05-02-2022 11:14-0500 Reason For Taking VItal Signs DR BUD HEREDIA MD [facility] 05-02-2022 11:14-0500 Respiratory rate 18 /min DR BUD HEREDIA MD [facility] 05-02-2022 11:14-0500 Systolic Blood Pressure Non-Invasive [address] BUD HEREDIA MD [facility] 05-02-2022 10:43-0500 Heart rate 74 /min DR BUD HEREDIA MD [address] [place] [address] 10:43-0500 Reason For Taking VItal Signs DR BUD HEREDIA MD [address] [place] [address] 08:42-0500 Heart rate 70 /min DR BUD HEREDIA MD [address] [place] [address] 08:42-0500 Reason For Taking VItal Signs DR BUD HEREDIA MD [address] [place] [address] 08:28-0500 Heart rate 78 /min DR BUD HEREDIA MD [address] [place] [address] 06:03-0500 Body temperature 98.6 [degF] DR BUD HEREDIA MD [address] [place] [address] 06:03-0500 Diastolic Blood Pressure Non-Invasive [address] BUD HEREDIA MD [address] [place] [address] 05-02-2022 06:03-0500 Respiratory rate 18 /min DR BUD HEREDIA MD [address] [place] [address] 05-02-2022 06:03-0500 Systolic Blood Pressure Non-Invasive [address] BUD HEREDIA MD [address] [place] [address] 05-01-2022 22:49-0500 Body temperature 97.7 [degF] DR BUD HEREDIA MD [address] [place] [address] 05-01-2022 22:49-0500 Diastolic Blood Pressure Non-Invasive [address] BUD HEREDIA MD [address] [place] [address] 05-01-2022 22:49-0500 Mean blood pressure 79 mm[Hg] DR BUD HEREDIA MD [address] 05-01-2022 22:49-0500 Respiratory rate 14 /min DR BUD HEREDIA MD [address] [place] [address] 05-01-2022 22:49-0500 Systolic Blood Pressure Non-Invasive [address] BUD HEREDIA MD [address] [place] [address] 05-01-2022 18:46-0500 Mean blood pressure 85 mm[Hg] DR BUD HEREDIA MD [address] [place] [address] 05-01-2022 13:08-0500 Heart rate 63 /min DR BUD HEREDIA MD [address] [place] [address] 05-01-2022 08:26-0500 Mean blood pressure 91 mm[Hg] DR BUD HEREDIA MD [address] [place] [address] 05-01-2022 01:24-0500 Body height [address] BUD HEREDIA MD [address] [place] [address] 05-01-2022 01:24-0500 Body weight [address] BUD HEREDIA MD [address] [place] [address] 05-01-2022 01:24-0500 Body weight 35.35 kg/m2 DR BUD HEREDIA MD [address] [place] [address] Encounters Encounter Date Encounter Type Care Provider Facility Start: 05-01-2022 End: 05-02-2022 Evaluation and management of inpatient BUD HEREDIA MD Facility:A Start: 05-01-2022 End: 05-01-2022 [facility] Start: 05-01-2022 End: 05-02-2022 Evaluation and management of inpatient DR BUD HEREDIA MD [address] [place] [address] Start: 11-30-2021 End: 11-30-2021 ambulatory [facility] [place] Start: 08-19-2021 End: 08-19-2021 ambulatory MINH KEITH [place] Payers Date Payer Category Payer Medicaid [id number] 2022 Medicare [id number] 1960 Unknown [id number] 1960 Unknown [id number] 1960 Unknown [id number] [id number] 1960 Unknown [id number] Unknown [id number] Social History Date Type Detail Facility Tobacco smoking status No Smoking Status Entered [facility] Sex Assigned At Male [facility] Functional Status Date Assessment Result Facility 05-02-2022 Functional Status Hospital bed [facility] 05-02-2022 Functional Status [facility] 05-02-2022 Functional Status CHG bath [facility] 05-02-2022 Functional Status [facility] 05-02-2022 Functional Status Room check performed [facility] 05-01-2022 Functional Status [facility] 05-01-2022 Functional Status [facility] 05-01-2022 Functional Status Sensory Deficits None A [facility] Mental Status Date Assessment Result Facility 05-02-2022 Mental Status Oriented x 4 [facility] 05-02-2022 Mental Status [facility] 05-01-2022 Mental Status [facility] Cardiology Progress note 05-02-2022 Note Date & Type Note Facility 05-02-2022 Cardiology Progre ss note Subjective Patient remained chest pain-free no other acute event overnight. Currently not in active withdrawal. No arrhythmias noted on the telemetry otherwise. Objective Vitals and Measurements T: 36.5 C (Oral) TMIN: 36.5 C (Oral) TMAX: 37.0 C (Oral) HR: 69(Monitored) RR: 18 BP: 130/73 SpO2: 94% WT: 11.9 kg Intake and Output 7AM Yesterday to 7AM Today Intake and Output (Last 24 hours) Intake Oral Intake 100.00 Output Urine Count 1.00 Total Summary Total Intake 100.00 Total Output 0.00 Fluid Balance 100.00 Physical Exam General patient is oriented to time place and person HEENT NC/NT pupils equal round reactive mucous members moist Neck supple Respiratory clear breath sounds bilaterally no wheezing rhonchi crackles CVS S1-S2 regular rhythm JVP is normal on exam Abdomen nontender nondistended bowel sounds present Extremities no edema Neurologically cranial nerves II 12 intact, able to move all extremities, does follow command Weight Current Weight Dosing Weight: 112 kg (05/01/22) Current Weight: 11.9 kg (05/02/22) Medications Medications (16) Active Scheduled: (10) aspirin 81 mg EC 81 mg 1 tab(s), Oral, qDayM atorvastatin 40 mg tablet 40 mg 1 tab(s), Oral, qDay heparin 5,000 units/mL (1 mL) vial 5,000 unit(s) 1 mL, Subcutaneous, q8hr losartan 25 mg tablet 25 mg 1 tab(s), Oral, qDay metoprolol succinate 25 mg ER tablet 25 mg 1 tab(s), Oral, qDayM No metformin for 48 hrs post contrast Hold for 48 hrs post Contrast, Miscellaneous, Unscheduled pantoprazole 40 mg EC tablet 40 mg 1 tab(s), Oral, qDayAC thiamine (w/calcium) 100 mg tablet 100 mg 1 tab(s), Oral, qDay thiamine 200 mg/2 mL Solution 100 mg 1 mL, IV Push, qDay ticagrelor 90 mg tablet 90 mg 1 tab(s), Oral, q12h Continuous: (0) PRN: (6) albuterol - ipratropium 2.5 mg-0.5 mg/3 mL Inhal Marcela UD 3 mL, Inhalation, q4hRT LORAZEPam 0.5 mg tablet 0.5 mg 1 tab(s), Oral, q30min LORAZEPam 1 mg Tablet 1 mg 1 tab(s), Oral, q30min LORAZEPam 2 mg/mL 1 mL vial 1 mg 0.5 mL, IV Push, q30min LORAZEPam 2 mg/mL 1 mL vial 0.5 mg 0.25 mL, IV Push, q30min melatonin 3 mg tablet 3 mg 1 tab(s), Oral, qHS Lab Results 05/02 04:28 WBC: 11.4 H Hgb: 15.9 Hct: 47.5 Platelet: 210 Neutrophil %: 59.6 Glucose Level: 110 Sodium Level: 138 Potassium Level: 4.2 BUN: 10.0 Creatinine Lvl (s): 0.69 05/01 06:59 WBC: 11.3 H Hgb: 16.2 Hct: 48.6 Platelet: 220 Neutrophil %: 63.6 Glucose Level: 129 H Sodium Level: 143 Potassium Level: 4.2 BUN: 14.0 Creatinine Lvl (s): 0.57 L 05/01 00:50 WBC: 13.4 H Hgb: 15.6 Hct: 46.8 Platelet: 217 Neutrophil %: 68.7 Glucose Level: 127 H Sodium Level: 144 Potassium Level: 4.0 BUN: 14.0 Creatinine Lvl (s): 0.65 EKG No qualifying data available. Assessment/Plan Orders: aspirin, Dose : 81 mg = 1 tab(s), Oral, qDayM, # 30 tab(s), 11 Refill(s), Pharmacy: [facility]/pharmacy #[id number], 178, cm, 05/01/22 1:24:00 EST, Height atorvastatin, Dose : 40 mg = 1 tab(s), Oral, qDay, # 30 tab(s), 5 Refill(s), Pharmacy: [facility]/pharmacy #[id number], 178, cm, 05/01/22 1:24:00 EST, Height atorvastatin, Start: 05/01/22 22:00:00 EST, Dose = 40 mg, = 1 tab(s), Oral, qDay, 05/01/22 16:06:00 EST LORazepam, Start: 05/01/22 12:29:00 EST, Dose = 1 mg, = 1 tab(s), Oral, q30min, PRN, for Alcohol Withdrawal Score of 6-7, 05/01/22 12:29:00 EST LORazepam, Start: 05/01/22 12:29:00 EST, Dose = 1 mg, = 0.5 mL, IV Push, q30min, PRN, for Alcohol Withdrawal Score of 6-7, 05/01/22 12:29:00 EST LORazepam, Start: 05/01/22 12:29:00 EST, Dose = 0.5 mg, = 1 tab(s), Oral, q30min, PRN, for Alcohol Withdrawal Score of 3-5, 05/01/22 12:29:00 EST LORazepam, Start: 05/01/22 12:29:00 EST, Dose = 0.5 mg, = 0.25 mL, IV Push, q30min, PRN, for Alcohol Withdrawal Score of 3-5, 05/01/22 12:29:00 EST losartan, Dose : 25 mg = 1 tab(s), Oral, qDay, # 30 tab(s), 6 Refill(s), Pharmacy: [facility]/pharmacy #[id number], 178, cm, 05/01/22 1:24:00 EST, Height metoprolol, Dose : 25 mg = 1 tab(s), Oral, qDayM, # 30 tab(s), 5 Refill(s), Pharmacy: [facility]/pharmacy #[id number], 178, cm, 05/01/22 1:24:00 EST, Height metoprolol, Start: 05/01/22 12:28:00 EST, Dose = 25 mg, = 1 tab(s), Oral, qDayM, give with food/meal, 05/01/22 12:28:00 EST pantoprazole, Start: 05/01/22 12:28:00 EST, Dose = 40 mg, = 1 tab(s), Oral, qDayAC, 05/01/22 12:28:00 EST thiamine, Start: 05/01/22 12:29:00 EST, Dose = 100 mg, = 1 tab(s), Oral, qDay, 3 dose(s), Stop: 05/03/22 9:00:00 EST, 05/01/22 12:29:00 EST thiamine, Start: 05/01/22 12:29:00 EST, Dose = 100 mg, = 1 mL, IV Push, qDay, 3 dose(s), Stop: 05/03/22 9:00:00 EST, 05/01/22 12:29:00 EST ticagrelor, Dose : 90 mg = 1 tab(s), Oral, q12h, # 60 tab(s), 11 Refill(s), Pharmacy: [facility]/pharmacy #[id number], 178, cm, 05/01/22 1:24:00 EST, Height Alcohol Withdrawal Protocol - stepdown Alcohol Withdrawal Severity Score Alcohol Withdrawal Severity Score Basic Metabolic Panel Calcium Level Ionized Call Parameters Call Parameters Business Technology Architect Communication Order (continuous) Complete Blood Count Discharge Activity Discharge Diet Pulse Oximeter - Continuous Seizure Precautions 1. Inferior STEMI 2. Residual LAD and LCx disease #3 hyperlipidemia #4 history of alcohol abuse #5 history of smoking Plan -Patient is 36-hour post inferior STEMI s/p RCA revascularization still has residual LAD and LCx disease -Monitor another 24-hour post inferior STEMI less than 48 hours in the hospital -Reviewed echocardiogram ejection fraction appears to preserved he does have a hypokinesis of inferior inferolateral wall consistent with RCA territory likely stunned myocardium -On dual antiplatelet therapy aspirin Brilinta beta-charlene high intensity statin and losartan -Triglycerides are found to be elevated along with LDL HDL is below 30 on high intensity statin has been started -Lifestyle modification with smoking cessation and alcohol cessation was counseled -Patient need to have outpatient follow-up in 4 weeks for revascularization for LAD and LCx disease -DVT prophylaxis on heparin subcu CODE STATUS full Digitally Signed by SKYLAR PEREZ MD on 05/02/2022 11:50 AM [facility] Discharge summary 05-02-2022 Note Date & Type Note Facility 05-02-2022 Discharge summary Discharge Diagnosis 1. STEMI (ST elevation myocardial infarction) (I21.3 - ICD-10-CM) 2. Left AMA Additional Orders: Discontinued: Alcohol Withdrawal Protocol - stepdown,05/01/22 12:29:00 EST, Constant Order Discontinued: Alcohol Withdrawal Severity Score,05/01/22 12:29:00 EST, Goal/Score: 0, q2h-WA Discontinued: Alcohol Withdrawal Severity Score,05/01/22 12:29:00 EST, Goal/Score: 0, q30min, after each LORazepam dose Discontinued: Ativan,Start: 05/01/22 12:29:00 EST, Dose = 1 mg, = 1 tab(s), Oral, q30min, PRN, for Alcohol Withdrawal Score of 6-7, 05/01/22 12:29:00 EST Discontinued: Ativan,Start: 05/01/22 12:29:00 EST, Dose = 1 mg, = 0.5 mL, IV Push, q30min, PRN, for Alcohol Withdrawal Score of 6-7, 05/01/22 12:29:00 EST Discontinued: Ativan,Start: 05/01/22:29:00 EST, Dose = 0.5 mg, = 1 tab(s), Oral, q30min, PRN, for Alcohol Withdrawal Score of 3-5, 05/01/22 12:29:00 EST Discontinued: Ativan,Start: 05/01/22:29:00 EST, Dose = 0.5 mg, = 0.25 mL, IV Push, q30min, PRN, for Alcohol Withdrawal Score of 3-5, 05/01/22:29:00 EST Other status: BMP,05/03/22 5:01:00 EST, Next AM Draw (one day only), Blood, Once, Stop date 05/03/22 4:00:00 EST(Cancel) Other status: CBC,05/03/22 5:01:00 EST, Next AM Draw (one day only), Blood, Once, Stop date 05/03/22 4:00:00 EST(Cancel) Other status: Calcium Level Ionized,05/03/22 5:01:00 EST, Next AM Draw (one day only), Blood, Once, Stop date 05/03/22 4:00:00 EST(Cancel) Discontinued: Call Parameters,05/01/22 12:29:00 EST, Notify physician for the following: seizure activity, persistent (>4h) severity score >/= 6 despite medicating per dosing scales., Constant order Discontinued: Call Parameters,05/01/22 12:29:00 EST, Notify physician for suicidal ideation, Constant order Discontinued: Business Technology Architect,05/01/22 12:29:00 EST, Constant order Discontinued: Communication Order (continuous),05/01/22 12:29:00 EST, Initiate Rapid Response Team (SHOE REPAIR SUPERVISOR) for Severity Score of 8 or greater, total dose lorazepam of 4mg in 2 hrs; 8 mg in 4 hrs; 12 mg in 8 hrs, Constant order Discontinued: Continuous Pulse Ox,05/01/22 12:29:00 EST, Constant Order Discontinued: Discharge,05/02/22 10:30:00 EST, Discharged to: Home Ordered: Discharge Activity,Lifting Restricted less than 5 pounds, 05/02/22 10:30:00 EST Ordered: Discharge Diet,Follow the diet changes as instructed by the dietitian, 05/02/22 10:30:00 EST Ordered: Ecotrin Adult Low Strength 81 mg oral delayed release tablet,Dose : 81 mg = 1 tab(s), Oral, qDayM, # 30 tab(s), 11 Refill(s), Pharmacy: [facility]/pharmacy #[id number], 178, cm, 05/01/22 1:24:00 EST, Height Discontinued: Protonix,Start: 05/01/22 12:28:00 EST, Dose = 40 mg, = 1 tab(s), Oral, qDayAC, 05/01/22 12:28:00 EST Discontinued: Seizure Precautions,05/01/22 12:29:00 EST, Constant order, If withdrawal severity score is greater than or equal to 6 Discontinued: Toprol-XL,Start: 05/01/22 12:28:00 EST, Dose = 25 mg, = 1 tab(s), Oral, qDayM, give with food/meal, 05/01/22 12:28:00 EST Ordered: Toprol-XL 25 mg oral tablet, extended release,Dose : 25 mg = 1 tab(s), Oral, qDayM, # 30 tab(s), 5 Refill(s), Pharmacy: [facility]/pharmacy #[id number], 178, cm, 05/01/22 1:24:00 EST, Height Discontinued: Vitamin B1 (thiamine),Start: 05/01/22 12:29:00 EST, Dose = 100 mg, = 1 tab(s), Oral, qDay, 3 dose(s), Stop: 05/03/22 9:00:00 EST, 05/01/22 12:29:00 EST Discontinued: Vitamin B1 (thiamine),Start: 05/01/22 12:29:00 EST, Dose = 100 mg, = 1 mL, IV Push, qDay, 3 dose(s), Stop: 05/03/22 9:00:00 EST, 05/01/22 12:29:00 EST Discontinued: atorvastatin,Start: 05/01/22 22:00:00 EST, Dose = 40 mg, = 1 tab(s), Oral, qDay, 05/01/22 16:06:00 EST Ordered: atorvastatin 40 mg oral tablet,Dose : 40 mg = 1 tab(s), Oral, qDay, # 30 tab(s), 5 Refill(s), [id number], 178, cm, 05/01/22 1:24:00 EST, Height Discontinued: losartan,Start: 05/01/22 9:00:00 EST, Dose = 25 mg, = 1 tab(s), Oral, qDay, 05/01/22 8:02:00 EST Ordered: losartan 25 mg oral tablet,Dose : 25 mg = 1 tab(s), Oral, qDay, # 30 tab(s), 6 Refill(s), Pharmacy: [facility]/pharmacy #[id number], 178, , 05/01/22 1:24:00 EST, Height Ordered: ticagrelor 90 mg oral tablet,Dose : 90 mg = 1 tab(s), Oral, q12h, # 60 tab(s), 11 Refill(s), [id number], 178, , 05/01/22 1:24:00 EST, Height Hospital Course 61-year-old gentleman who presented initially to [facility] with complaints of acute chest pain is transferred to [place] as a STEMI alert. Patient states he started having chest pain around 45 minutes prior to arrival at [facility]. EKG done showed inferior ST elevations and hence a STEMI alert was called. He was having ongoing chest pain when he came to [employer] [facility]. Denies any shortness of breath, nausea or diaphoresis Hes status post RCA pci with residual disease in LAD/LCx for staged PCI outpatient. Se note for more details. He left AMA . All priscriptions were sent Patient decided to leave against medical advice, patient is of adult age and does not appear to be confused or delusional. We will recognize his patient autonomy at this time and competent to make decision for him Allergies penicillin Consults No qualifying data available. Objective Vitals and Measurements T: 36.5 C (Oral) TMIN: 36.5 C (Oral) TMAX: 37.0 C (Oral) HR: 69(Monitored) RR: 18 BP: 130/73 SpO2: 94% WT: 11.9 kg Weight Current Weight Dosing Weight: 112 kg (05/01/22) Current Weight: 11.9 kg (05/02/22) Code Status No qualifying data available. Medications New Prescription aspirin (Ecotrin Adult Low Strength 81 mg oral delayed release tablet)1 tab(s) by mouth once a day with a meal. Refills: 11. atorvastatin (atorvastatin 40 mg oral tablet)1 tab(s) by mouth once a day. Refills: 5. losartan (losartan 25 mg oral tablet)1 tab(s) by mouth once a day. Refills: 6. metoprolol (Toprol-XL 25 mg oral tablet, extended release)1 tab(s) by mouth once a day with a meal. Refills: 5. ticagrelor (ticagrelor 90 mg oral tablet)1 tab(s) by mouth every 12 hours. Refills: 11. Follow Up Follow Up with BUD SHERIDAN MD When In 3 weeks Where: [address] [facility] [address] [facility] [place] [address] [phone] Follow Up with [facility] When Why: THIS OFFICE MAYBE ACCEPTING NEW PATIENTS. Where: [address] [place] [address]- [phone] Follow Up with MANOJ CORBETT MD When Within 1-2 days Where: [address] [place], [place] [id number]- [phone] Follow Up with Cardiac Rehab When Why: THE CARDIAC REHAB DEPARTMENT WILL CONTACT YOU IN 1-2 WEEKS TO SCHEDULE YOU FOR PHASE 2. WE LEFT YOU A BROCHURE WITH INFORMATION ABOUT CARDIAC REHAB, IF YOU HAVE ANY QUESTIONS PLEASE CALL [phone]. Where: [facility] [address] [facility] [address] [place] [address]- Follow Up Appointments No qualifying data available. Follow Up Labs/Studies Discharge Labs No Follow-up Labs Discharge Studies No Follow-up Studies Discharge Diet Discharge Diet - Ordered -- Follow the diet changes as instructed by the dietitian, 05/02/22 10:30:00 EST Discharge Activity Discharge Activity - Ordered -- Lifting Restricted less than 5 pounds, 05/02/22 10:30:00 EST Readmission Risk/Palliative Score LACE Score: 8 (05/02/22 12:13:00) Palliative Total Score: 1 (05/02/22 12:13:00) Digitally Signed by SKYLAR PEREZ MD on 05/02/2022 06:43 PM [facility] Discharge instructions 05-02-2022 Note Date & Type Note Facility 05-02-2022 Hospital Discharge instructions Patient Education 05/02/2022 11:58:08 Heart Attack, Aogu-on-Bpmx Heart Attack A heart attack occurs when blood and oxygen supply to the heart is cut off. A heart attack causes damage to the heart that cannot be fixed. A heart attack is also called a myocardial infarction, or SD. If you think you are having a heart attack, do not wait to see if the symptoms will go away. Get medical help right away. What are the causes? This condition may be caused by: A fatty substance (plaque) in the blood vessels (arteries). This can block the flow of blood to the heart. A blood clot in the blood vessels that go to the heart. The blood clot blocks blood flow. Low blood pressure. An abnormal heartbeat. Some diseases, such as problems in red blood cells (anemia)orproblems in breathing (respiratory failure). Tightening (spasm) of a blood vessel that cuts off blood to the heart. A tear in a blood vessel of the heart. High blood pressure. What increases the risk? The following factors may make you more likely to develop this condition: Aging. The older you are, the higher your risk. Having a personal or family history of chest pain, heart attack, stroke, or narrowing of the arteries in the legs, arms, head, or stomach (peripheral artery disease). Being male. Smoking. Not getting regular exercise. Being overweight or obese. Having high blood pressure. Having high cholesterol. Having diabetes. Drinking too much alcohol. Using illegal drugs, such as cocaine or methamphetamine. What are the signs or symptoms? Symptoms of this condition include: Chest pain. It may feel like: ?Crushing or squeezing. ?Tightness, pressure, fullness, or heaviness. Pain in the arm, neck, jaw, back, or upper body. Shortness of breath. Heartburn. Upset stomach (indigestion). Feeling like you may vomit (nauseous). Cold sweats. Feeling tired. Sudden light-headedness. How is this treated? A heart attack must be treated as soon as possible. Treatment may include: Medicines to: ?Break up or dissolve blood clots. ?Thin blood and help prevent blood clots. ?Treat blood pressure. ?Improve blood flow to the heart. ?Reduce pain. ?Reduce cholesterol. Procedures to widen a blocked artery and keep it open. Open heart surgery. Receiving oxygen. Making your heart strong again (cardiac rehabilitation) through exercise, education, and counseling. Follow these instructions at home: Medicines Take roqn-wqi-jsfvyfj and prescription medicines only as told by your doctor. You may need to take medicine: ?To keep your blood from clotting too easily. ?To control blood pressure. ?To lower cholesterol. ?To control heart rhythms. Do not take these medicines unless your doctor says it is okay: ?NSAIDs, such as ibuprofen. ?Supplements that have vitamin A, vitamin E, or both. ?Hormone replacement therapy that has estrogen with or without progestin. Lifestyle Do not use any products that have nicotine or tobacco, such as cigarettes, e-cigarettes, and chewing tobacco. If you need help quitting, ask your doctor. Avoid secondhand smoke. Exercise regularly. Ask your doctor about a cardiac rehab program. Eat heart-healthy foods. Your doctor will tell you what foods to eat. Stay at a healthy weight. Lower your stress level. Do not use illegal drugs. Alcohol use Do not drink alcohol if: ?Your doctor tells you not to drink. ?You are , may be , or are planning to become . If you drink alcohol: ?Limit how much you use to: ?0 1 drink a day for women. ?0 2 drinks a day for men. ?Know how much alcohol is in your drink. In the [place] one drink equals one 12 oz bottle of beer (355 mL), one 5 oz glass of wine (148 mL), or one 1 oz glass of hard liquor (44 mL). General instructions Work with your doctor to treat other problems you may have, such as diabetes or high blood pressure. Get screened for depression. Get treatment if needed. Keep your vaccines up to date. Get the flu shot (influenza vaccine) every year. Keep all follow-up visits as told by your doctor. This is important. Contact a doctor if: You feel very sad. You have trouble doing your daily activities. Get help right away if: You have sudden, unexplained discomfort in your chest, arms, back, neck, jaw, or upper body. You have shortness of breath. You have sudden sweating or clammy skin. You feel like you may vomit. You vomit. You feel tired or weak. You get light-headed or dizzy. You feel your heart beating fast. You feel your heart skipping beats. You have blood pressure that is higher than 180/120. These symptoms may be an emergency. Do not wait to see if the symptoms will go away. Get medical help right away. Call your local emergency services (911 in the [place] Do not drive yourself to the hospital. Summary A heart attack occurs when blood and oxygen supply to the heart is cut off. Do not take NSAIDs unless your doctor says it is okay. Do not smoke. Avoid secondhand smoke. Exercise regularly. Ask your doctor about a cardiac rehab program. This information is not intended to replace advice given to you by your health care provider. Make sure you discuss any questions you have with your health care provider. Document Released: 11/05/2012 Document Revised: 08/18/2019 Document Reviewed: 08/18/2019 [employer] Patient Education 2020 [employer]. 05/02/2022 11:58:06 Heart Attack Heart Attack The heart is a muscle that needs oxygen to survive. A heart attack is a condition that occurs when your heart does not get enough oxygen. When this happens, the heart muscle begins to . This can cause permanent damage if not treated right away. A heart attack is a medical emergency. This condition may be called a myocardial infarction, or SD. It is also known as acute coronary syndrome (ACS). ACS is a term used to describe a group of conditions that affect blood flow to the heart. What are the causes? This condition may be caused by: Atherosclerosis. This occurs when a fatty substance called plaque builds up in the arteries and blocks or reduces blood supply to the heart. A blood clot. A blood clot can develop suddenly when plaque breaks up within an artery and blocks blood flow to the heart. Low blood pressure. An abnormal heartbeat (arrhythmia). Conditions that cause a decrease of oxygen to the heart, such as anemiaorrespiratory failure. A spasm, or severe tightening, of a blood vessel that cuts off blood flow to the heart. Tearing of a coronary artery (spontaneous coronary artery dissection). High blood pressure. What increases the risk? The following factors may make you more likely to develop this condition: Aging. The older you are, the higher your risk. Having a personal or family history of chest pain, heart attack, stroke, or narrowing of the arteries in the legs, arms, head, or stomach (peripheral artery disease). Being male. Smoking. Not getting regular exercise. Being overweight or obese. Having high blood pressure. Having high cholesterol (hypercholesterolemia). Having diabetes. Drinking too much alcohol. Using illegal drugs, such as cocaine or methamphetamine. What are the signs or symptoms? Symptoms of this condition may vary, depending on factors like gender and age. Symptoms may include: Chest pain. It may feel like: ?Crushing or squeezing. ?Tightness, pressure, fullness, or heaviness. Pain in the arm, neck, jaw, back, or upper body. Shortness of breath. Heartburn or upset stomach. Nausea. Sudden cold sweats. Feeling tired. Sudden light-headedness. How is this diagnosed? This condition may be diagnosed through tests, such as: Electrocardiogram (ECG) to measure the electrical activity of your heart. Blood tests to check for cardiac markers. These chemicals are released by a damaged heart muscle. A test to evaluate blood flow and heart function (coronary angiogram). CT scan to see the heart more clearly. A test to evaluate the pumping action of the heart (echocardiogram). How is this treated? A heart attack must be treated as soon as possible. Treatment may include: Medicines to: ?Break up or dissolve blood clots (fibrinolytic therapy). ?Thin blood and help prevent blood clots. ?Treat blood pressure. ?Improve blood flow to the heart. ?Reduce pain. ?Reduce cholesterol. Angioplasty and stent placement. These are procedures to widen a blocked artery and keep it open. Coronary artery bypass graft, CABG, or open heart surgery. This enables blood to flow to the heart by going around the blocked part of the artery. Oxygen therapy if needed. Cardiac rehabilitation. This improves your health and well-being through exercise, education, and counseling. Follow these instructions at home: Medicines Take xffa-jbk-zabnnag and prescription medicines only as told by your health care provider. Do not take the following medicines unless your health care provider says it is okay to take them: ?NSAIDs, such as ibuprofen. ?Supplements that contain vitamin A, vitamin E, or both. ?Hormone replacement therapy that contains estrogen with or without progestin. Lifestyle Do not use any products that contain nicotine or tobacco, such as cigarettes, e-cigarettes, and chewing tobacco. If you need help quitting, ask your health care provider. Avoid secondhand smoke. Exercise regularly. Ask your health care provider about participating in a cardiac rehabilitation program that helps you start exercising safely after a heart attack. Eat a heart-healthy diet. Your health care provider will tell you what foods to eat. Maintain a healthy weight. Learn ways to manage stress. Do not use illegal drugs. Alcohol use Do not drink alcohol if: ?Your health care provider tells you not to drink. ?You are , may be , or are planning to become . If you drink alcohol: ?Limit how much you use to: ?0 1 drink a day for women. ?0 2 drinks a day for men. ?Be aware of how much alcohol is in your drink. In the [place] one drink equals one 12 oz bottle of beer (355 mL), one 5 oz glass of wine (148 mL), or one 1 oz glass of hard liquor (44 mL). General instructions Work with your health care provider to manage any other conditions you have, such as high blood pressure or diabetes. These conditions affect your heart. Get screened for depression, and seek treatment if needed. Keep your vaccinations up to date. Get the flu vaccine every year. Keep all follow-up visits as told by your health care provider. This is important. Contact a health care provider if: You feel overwhelmed or sad. You have trouble doing your daily activities. Get help right away if: You have sudden, unexplained discomfort in your chest, arms, back, neck, jaw, or upper body. You have shortness of breath. You suddenly start to sweat or your skin gets clammy. You feel nauseous or you vomit. You have unexplained tiredness or weakness. You suddenly feel light-headed or dizzy. You notice your heart starts to beat fast or feels like it is skipping beats. You have blood pressure that is higher than 180/120. These symptoms may represent a serious problem that is an emergency. Do not wait to see if the symptoms will go away. Get medical help right away. Call your local emergency services (911 in the [place] Do not drive yourself to the hospital. Summary A heart attack, also called myocardial infarction, is a condition that occurs when your heart does not get enough oxygen. This is caused by anything that blocks or reduces blood flow to the heart. Treatment is a combination of medicines and surgeries, if needed, to open the blocked arteries and restore blood flow to the heart. A heart attack is an emergency. Get help right away if you have sudden discomfort in your chest, arms, back, neck, jaw, or upper body. Seek help if you feel nauseous, you vomit, or you feel light-headed or dizzy. This information is not intended to replace advice given to you by your health care provider. Make sure you discuss any questions you have with your health care provider. Document Released: 05/07/2006 Document Revised: 08/14/2019 Document Reviewed: 08/18/2019 [employer] Patient Education 2020 [employer]. Follow Up Care 05/01/2022 00:11:27 With:BUD SHERIDAN MD Address: [address] [facility] [address] [facility] [place] [address]- [phone] When:Within 3 Week(s) With:[facility] Address: [address] [place], [place] [address]- [phone] When: Unknown Comments:THIS OFFICE MAYBE ACCEPTING NEW PATIENTS. With:MANOJ CORBETT MD Address: [address] [place], [place] [id number]- [phone] When:1-2 days With:[facility] Address: [facility] [address] [facility] [address] [place] [id number]- When: Unknown Comments:THE CARDIAC REHAB DEPARTMENT WILL CONTACT YOU IN 1-2 WEEKS TO SCHEDULE YOU FOR PHASE 2. WE LEFT YOU A BROCHURE WITH INFORMATION ABOUT CARDIAC REHAB, IF YOU HAVE ANY QUESTIONS PLEASE CALL [phone]. [facility] Clinical Note 05-02-2022 Note Date & Type Note Facility 05-02-2022 Note Discharge Instructions Thank you for allowing [facility] to assist you with your healthcare needs. The following is important discharge information regarding your hospital visit. Your Care Team PHYSICIAN, NONE Your Diagnosis STEMI (ST elevation myocardial infarction) CAD in [place] artery HTN (hypertension) What to do next Follow Up Appointments Follow Up with BUD SHERIDAN MD When In 3 weeks Where: [address] [facility] [address] [facility] [place] [address]- [phone] Follow Up with [facility] When Why: THIS OFFICE MAYBE ACCEPTING NEW PATIENTS. Where: [address] [place] [address]- [phone] Follow Up with MANOJ CORBETT MD When Within 1-2 days Where: [address] [place], [place] [id number]- [phone] Follow Up with Cardiac Rehab When Why: THE CARDIAC REHAB DEPARTMENT WILL CONTACT YOU IN 1-2 WEEKS TO SCHEDULE YOU FOR PHASE 2. WE LEFT YOU A BROCHURE WITH INFORMATION ABOUT CARDIAC REHAB, IF YOU HAVE ANY QUESTIONS PLEASE CALL [phone]. Where: [facility] [address]LO[address] [facility] [address] [place] [address]- The Following Activity and Diet Have Been Ordered for You Discharge Activity - Ordered -- Lifting Restricted less than 5 pounds, 05/02/22 10:30:00 EST Discharge Diet - Ordered -- Follow the diet changes as instructed by the dietitian, 05/02/22 10:30:00 EST The Following Equipment Has Been Ordered for You No qualifying data available. The Following Treatments Have Been Ordered for You Discharge Labs No qualifying data available. Discharge Radiology No qualifying data available. Other Therapies No qualifying data available. Post Acute Orders No qualifying data available. Someone Will Contact You Regarding These Home Health Referrals No home referrals have been ordered for you. No one will call you. Allergies penicillin Medications Please ask your primary doctor or pharmacist before taking any other medication not listed, including over the counter drugs, herbal medications, vitamins and or supplements as they may interact with your home medications. What How Much When Instructions Last Dose New aspirin (Ecotrin Adult Low Strength 81 mg oral delayed release tablet) 1 tab(s) by mouth Once a day with a meal Refills: 11 Pickup at [facility]/pharmacy #[id number] New atorvastatin (atorvastatin 40 mg oral tablet) 1 tab(s) by mouth Once a day Refills: 5 Pickup at [facility]/pharmacy #[id number] New losartan (losartan 25 mg oral tablet) 1 tab(s) by mouth Once a day Refills: [id number] New metoprolol (Toprol-XL 25 mg oral tablet, extended release) 1 tab(s) by mouth Once a day with a meal Refills: 5 [id number] New ticagrelor (ticagrelor 90 mg oral tablet) 1 tab(s) by mouth Every 12 hours Refills: 11 [id number] Pharmacy Information [facility] #[id number]: [address] [place], [place] [phone] Please take this list to your next doctor s visit. Bring all medications you take, including over the counter medications, herbals and other supplements with you to your doctor s visit. Patients and families are reminded to discard old lists and to update any records with all medication providers or retail pharmacies. Medication Leaflets metoprolol (oral/injection) (me TOE pro lol) PavelspargAida Jaimespressor, Metoprolol Succinate ER, Metoprolol Tartrate, Toprol-XL What is the most important information I should know about metoprolol? You should not use this medicine if you have a serious heart problem (heart block, sick sinus syndrome, slow heart rate), severe circulation problems, severe heart failure, or a history of slow heart beats that caused fainting. What is metoprolol? Metoprolol is a beta-charlene that affects the heart and circulation (blood flow through arteries and veins). Metoprolol is used to treat angina (chest pain) and hypertension (high blood pressure). It is also used to lower your risk of or needing to be hospitalized for heart failure. Metoprolol injection is used during the early phase of a heart attack to lower the risk of . Metoprolol may also be used for other purposes not listed in this medication guide. What should I discuss with my healthcare provider before taking metoprolol? You should not use this medicine if you are allergic to metoprolol, or other beta-blockers (atenolol, carvedilol, labetalol, nadolol, nebivolol, propranolol, sotalol, and others), or if you have: a serious heart problem such as heart block, sick sinus syndrome, or slow heart rate; severe circulation problems; severe heart failure (that required you to be in the hospital); or a history of slow heart beats that have caused you to faint. Tell your doctor if you have ever had: asthma, chronic obstructive pulmonary disease (COPD), sleep apnea, or other breathing disorder; diabetes (taking metoprolol may make it harder for you to tell when you have low blood sugar); liver disease; congestive heart failure; problems with circulation (such as Raynaud's syndrome); a thyroid disorder; or pheochromocytoma (tumor of the adrenal gland). Do not give this medicine to a child without medical advice. Tell your doctor if you are or plan to become . It is not known whether metoprolol will harm an unborn baby. However, having high blood pressure during may cause complications such as diabetes or eclampsia (dangerously high blood pressure that can lead to medical problems in both mother and baby). The benefit of treating hypertension may outweigh any risks to the baby. Ask a doctor before using this medicine if you are breast-feeding. Metoprolol can pass into breast milk and may cause dry skin, dry mouth, diarrhea, constipation, or slow heartbeats in your baby. How should I take metoprolol? Follow all directions on your prescription label and read all medication guides or instruction sheets. Your doctor may occasionally change your dose. Use the medicine exactly as directed. Metoprolol should be taken with a meal or just after a meal. Take the medicine at the same time each day. Swallow the capsule whole and do not crush, chew, break, or open it. A Toprol XL tablet can be divided in half if your doctor has told you to do so. Swallow the half-tablet whole, without chewing or crushing. Measure liquid medicine carefully. Use the dosing syringe provided, or use a medicine dose-measuring device (not a kitchen spoon). You will need frequent medical tests, and your blood pressure will need to be checked often. If you need surgery, tell the surgeon ahead of time that you are using metoprolol. You should not stop using metoprolol suddenly. Stopping suddenly may make your condition worse. If you have high blood pressure, keep using this medicine even if you feel well. High blood pressure often has no symptoms. You may need to use metoprolol for the rest of your life. Store at room temperature away from moisture and heat. Metoprolol injection is given as an infusion into a vein. A healthcare provider will give you this injection in a medical setting where your heart and blood pressure can be monitored. Metoprolol injections are given for only a short time before switching you to the oral form of this medicine. What happens if I miss a dose? Skip the missed dose and use your next dose at the regular time. Do not use two doses at one time. What happens if I overdose? Seek emergency medical attention or call the Poison Help line at . What should I avoid while taking metoprolol? Avoid driving or hazardous activity until you know how this medicine will affect you. Your reactions could be impaired. Drinking alcohol can increase certain side effects of metoprolol. What are the possible side effects of metoprolol? Get emergency medical help if you have signs of an allergic reaction: hives; difficulty breathing; swelling of your face, lips, tongue, or throat. Call your doctor at once if you have: very slow heartbeats; a light-headed feeling, like you might pass out; shortness of breath (even with mild exertion), swelling, rapid weight gain; or cold feeling in your hands and feet. Common side effects may include: dizziness, tired feeling; depression, confusion, memory problems; nightmares, trouble sleeping; diarrhea; or mild itching or rash. This is not a complete list of side effects and others may occur. Call your doctor for medical advice about side effects. You may report side effects to FDA at 7-975-FWM-2730. What other drugs will affect metoprolol? Tell your doctor about all your current medicines. Many drugs can affect metoprolol, especially: any other heart or blood pressure medications; epinephrine (Epi-Pen); an antidepressant; an ergot medicine--dihydroergotamine, ergonovine, ergotamine, methylergonovine; or an MAO inhibitor--isocarboxazid, linezolid, phenelzine, rasagiline, selegiline, tranylcypromine. This list is not complete and many other drugs may affect metoprolol. This includes prescription and uqzu-ist-xpynofe medicines, vitamins, and herbal products. Not all possible drug interactions are listed here. Where can I get more information? Your pharmacist can provide more information about metoprolol. Remember, keep this and all other medicines out of the reach of children, never share your medicines with others, and use this medication only for the indication prescribed. Every effort has been made to ensure that the information provided by [employer]') is accurate, up-to-date, and complete, but no guarantee is made to that effect. Drug information contained herein may be time sensitive. [employer] information has been compiled for use by healthcare practitioners and consumers in the [place] and therefore [employer] does not warrant that uses outside of the [place] are appropriate, unless specifically indicated otherwise. [employer] drug information does not endorse drugs, diagnose patients or recommend therapy. [employer] drug information is an informational resource designed to assist licensed healthcare practitioners in caring for their patients and/or to serve consumers viewing this service as a supplement to, and not a substitute for, the expertise, skill, knowledge and judgment of healthcare practitioners. The absence of a warning for a given drug or drug combination in no way should be construed to indicate that the drug or drug combination is safe, effective or appropriate for any given patient. [employer] does not assume any responsibility for any aspect of healthcare administered with the aid of information [employer] provides. The information contained herein is not intended to cover all possible uses, directions, precautions, warnings, drug interactions, allergic reactions, or adverse effects. If you have questions about the drugs you are taking, check with your doctor, nurse or pharmacist. Copyright 3375-8340 [employer]. Version: 17.03. Revision Date: 10/16/2018. atorvastatin (a TOR va sta tin) Lipitor What is the most important information I should know about atorvastatin? You should not take atorvastatin if you are or , or if you have liver disease. Tell your doctor about all your current medicines and any you start or stop using. Many drugs can interact, and some drugs should not be used together. Atorvastatin can cause the breakdown of muscle tissue, which can lead to kidney failure. Call your doctor right away if you have unexplained muscle pain, tenderness, or weakness especially if you also have fever, unusual tiredness, or dark urine. What is atorvastatin? Atorvastatin is used together with diet to lower blood levels of 'bad' cholesterol (low-density lipoprotein, or LDL), to increase levels of 'good' cholesterol (high-density lipoprotein, or HDL), and to lower triglycerides (a type of fat in the blood). Atorvastatin is used to treat high cholesterol, and to lower the risk of stroke, heart attack, or other heart complications in people with type 2 diabetes, coronary heart disease, or other risk factors. Atorvastatin is used in adults and children who are at least 10 years old. Atorvastatin may also be used for purposes not listed in this medication guide. What should I discuss with my healthcare provider before taking atorvastatin? You should not use atorvastatin if you are allergic to it, or if you have liver disease. Do not use if you are . This medicine can harm an unborn baby. Use effective control to prevent . Stop taking this medicine and tell your doctor at once if you become . Do not breastfeed while you are taking atorvastatin. Tell your doctor if you have ever had: liver problems; muscle pain or weakness; kidney disease; diabetes; a thyroid disorder; or if you drink more than 2 alcoholic beverages daily. Atorvastatin can cause the breakdown of muscle tissue, which can lead to kidney failure. This happens more often in women, in older adults, or people who have kidney disease or poorly controlled hypothyroidism (underactive thyroid). Atorvastatin is not approved for use by anyone younger than 10 years old. How should I take atorvastatin? Follow all directions on your prescription label and read all medication guides or instruction sheets. Your doctor may occasionally change your dose. Use the medicine exactly as directed. Take the medicine at the same time each day, with or without food. Do not break an atorvastatin tablet before taking it, unless your doctor has told you to. You may need to stop using atorvastatin for a short time if you have: uncontrolled seizures; an electrolyte imbalance (such as high or low potassium levels in your blood); severely low blood pressure; a severe infection or illness; or surgery or a medical emergency. It may take up to 2 weeks before your cholesterol levels improve, and you may need frequent blood tests. Even if you have no symptoms, tests can help your doctor determine if this medicine is effective. Atorvastatin is only part of a complete treatment program that may also include diet, exercise, and weight control. Follow your doctor's instructions very closely. Store at room temperature away from moisture, heat, and light. What happens if I miss a dose? Use the medicine as soon as you can, but skip the missed dose if you are more than 12 hours late for the dose. Do not use two doses at one time. What happens if I overdose? Seek emergency medical attention or call the Poison Help line at . What should I avoid while taking atorvastatin? Avoid eating foods high in fat or cholesterol, or atorvastatin will not be as effective. Avoid drinking alcohol. It can raise triglyceride levels and may increase your risk of liver damage. Grapefruit may interact with atorvastatin and lead to unwanted side effects. Avoid drinking more than 1 liter of grapefruit juice while taking atorvastatin. What are the possible side effects of atorvastatin? Get emergency medical help if you have signs of an allergic reaction: hives; difficulty breathing; swelling of your face, lips, tongue, or throat. In rare cases, atorvastatin can cause a condition that results in the breakdown of skeletal muscle tissue, leading to kidney failure. Call your doctor right away if you have unexplained muscle pain, tenderness, or weakness especially if you also have fever, unusual tiredness, and dark colored urine. Also call your doctor at once if you have: muscle weakness in your hips, shoulders, neck, and back; trouble lifting your arms, trouble climbing or standing; liver problems--upper stomach pain, weakness, tired feeling, loss of appetite, dark urine, jaundice (yellowing of the skin or eyes); or kidney problems--little or no urinating, swelling in your feet or ankles, feeling tired or short of breath. Common side effects may include: joint pain; stuffy nose, sore throat; diarrhea; or pain in your arms or legs. This is not a complete list of side effects and others may occur. Call your doctor for medical advice about side effects. You may report side effects to FDA at 6-787-LMW-9181. What other drugs will affect atorvastatin? Certain other drugs can increase your risk of serious muscle problems, and it is very important that your doctor knows if you are using any of them. Tell your doctor about all your current medicines and any you start or stop using, especially: other cholesterol-lowering medication; antibiotic or antifungal medicine; control pills; medicine to prevent organ transplant rejection; heart medication; or medicine to treat hepatitis C or HIV. This list is not complete and many other drugs may affect atorvastatin. This includes prescription and vjxj-bxx-szpkhio medicines, vitamins, and herbal products. Not all possible drug interactions are listed here. Where can I get more information? Your pharmacist can provide more information about atorvastatin. Remember, keep this and all other medicines out of the reach of children, never share your medicines with others, and use this medication only for the indication prescribed. Every effort has been made to ensure that the information provided by [employer]. ('[employer]') is accurate, up-to-date, and complete, but no guarantee is made to that effect. Drug information contained herein may be time sensitive. [employer] information has been compiled for use by healthcare practitioners and consumers in the [place] and therefore [employer] does not warrant that uses outside of the [place] are appropriate, unless specifically indicated otherwise. [employer] drug information does not endorse drugs, diagnose patients or recommend therapy. [employer] drug information is an informational resource designed to assist licensed healthcare practitioners in caring for their patients and/or to serve consumers viewing this service as a supplement to, and not a substitute for, the expertise, skill, knowledge and judgment of healthcare practitioners. The absence of a warning for a given drug or drug combination in no way should be construed to indicate that the drug or drug combination is safe, effective or appropriate for any given patient. [employer] does not assume any responsibility for any aspect of healthcare administered with the aid of information [employer] provides. The information contained herein is not intended to cover all possible uses, directions, precautions, warnings, drug interactions, allergic reactions, or adverse effects. If you have questions about the drugs you are taking, check with your doctor, nurse or pharmacist. Copyright 2012-4867 [employer]. Version: 22.. Revision Date: 06/29/2020. aspirin (oral) ( pir in) Arthritis Pain, Aspi-Cor, Aspir-Low, Tray Plus, Durlaza, Ecotrin, Miniprin, Vazalore What is the most important information I should know about aspirin? Aspirin can cause Palma's syndrome, a serious and sometimes fatal condition in children. What is aspirin? Aspirin is a salicylate (fa-LJO-kq-ate) that is used to treat pain, and reduce fever or inflammation. Aspirin is sometimes used to treat or prevent heart attacks, strokes, and chest pain (angina). Aspirin should be used for these conditions only under the supervision of a doctor. Aspirin may also be used for purposes not listed in this medication guide. What should I discuss with my healthcare provider before taking aspirin? Using aspirin in a child or teenager with flu symptoms or chickenpox can cause a serious or fatal condition called Palma's syndrome. You should not use aspirin if you are allergic to it, or if you have: a recent history of stomach or intestinal bleeding; a bleeding disorder such as hemophilia; or if you have ever had an asthma attack or severe allergic reaction after taking aspirin or an NSAID (non-steroidal anti-inflammatory drug). Tell your doctor if you have ever had: asthma or seasonal allergies; stomach ulcers; liver disease; kidney disease; a bleeding or blood clotting disorder; gout; or heart disease, high blood pressure, or congestive heart failure. Taking aspirin during late may cause bleeding in the mother or the baby during delivery. Tell your doctor if you are or plan to become . You should not breastfeed while using this medicine. How should I take aspirin? Use exactly as directed on the label, or as prescribed by your doctor. Always follow directions on the medicine label about giving aspirin to a child. Take with food if aspirin upsets your stomach. You must chew the chewable tablet before you swallow it. Do not crush, chew, break, or open an enteric-coated or delayed/extended-release pill. Swallow it whole. Tell your doctor if you have a planned surgery. Store at room temperature away from moisture and heat. Do not use aspirin if you smell a strong vinegar odor in the aspirin bottle. The medicine may no longer be effective. What happens if I miss a dose? Aspirin is used when needed. If you are on a dosing schedule, skip any missed dose. Do not use two doses at one time. What happens if I overdose? Seek emergency medical attention or call the Poison Help line at . Overdose may cause stomach pain, vomiting, diarrhea, vision or hearing problems, fast or slow breathing, or confusion. What should I avoid while taking aspirin? Avoid alcohol. Heavy drinking can increase your risk of stomach bleeding. Avoid taking ibuprofen if you take aspirin to prevent stroke or heart attack. Ibuprofen can make aspirin less effective in protecting your heart and blood vessels. Ask your doctor how far apart your doses should be. Ask a doctor or pharmacist before using other medicines for pain, fever, swelling, or cold/flu symptoms. They may contain ingredients similar to aspirin (such as magnesium salicylate, ibuprofen, ketoprofen, or naproxen). What are the possible side effects of aspirin? Get emergency medical help if you have signs of an allergic reaction: hives; difficult breathing; swelling of your face, lips, tongue, or throat. Stop using aspirin and call your doctor at once if you have: ringing in your ears, confusion, hallucinations, rapid breathing, seizure (convulsions); severe nausea, vomiting, or stomach pain; bloody or tarry stools, coughing up blood or vomit that looks like coffee grounds; fever lasting longer than 3 days; or swelling, or pain lasting longer than 10 days. Common side effects may include: upset stomach, heartburn; drowsiness; or mild headache. This is not a complete list of side effects and others may occur. Call your doctor for medical advice about side effects. You may report side effects to FDA at 7-937-DWU-6323. What other drugs will affect aspirin? Ask your doctor before using aspirin if you take an antidepressant. Taking certain antidepressants with aspirin may cause you to bruise or bleed easily. Ask a doctor or pharmacist before using aspirin with any other medications, especially: a blood thinner (warfarin, Coumadin, Jantoven), or other medication used to prevent blood clots; or other salicylates such as Nuprin Backache Caplet, Kaopectate, KneeRelief, Pamprin Cramp Formula, Pepto-Bismol, Tricosal, Trilisate, and others. This list is not complete. Other drugs may affect aspirin, including prescription and itfh-tpi-kwwrqbf medicines, vitamins, and herbal products. Not all possible drug interactions are listed here. Where can I get more information? Your pharmacist can provide more information about aspirin. Remember, keep this and all other medicines out of the reach of children, never share your medicines with others, and use this medication only for the indication prescribed. Every effort has been made to ensure that the information provided by [employer] ('[employer]') is accurate, up-to-date, and complete, but no guarantee is made to that effect. Drug information contained herein may be time sensitive. [employer] information has been compiled for use by healthcare practitioners and consumers in the [place] and therefore [employer] does not warrant that uses outside of the [place] are appropriate, unless specifically indicated otherwise. [employer] drug information does not endorse drugs, diagnose patients or recommend therapy. [employer] drug information is an informational resource designed to assist licensed healthcare practitioners in caring for their patients and/or to serve consumers viewing this service as a supplement to, and not a substitute for, the expertise, skill, knowledge and judgment of healthcare practitioners. The absence of a warning for a given drug or drug combination in no way should be construed to indicate that the drug or drug combination is safe, effective or appropriate for any given patient. [employer] does not assume any responsibility for any aspect of healthcare administered with the aid of information [employer] provides. The information contained herein is not intended to cover all possible uses, directions, precautions, warnings, drug interactions, allergic reactions, or adverse effects. If you have questions about the drugs you are taking, check with your doctor, nurse or pharmacist. Copyright 6569-0737 [employer]. Version: 16.03. Revision Date: 11/15/2020. losartan (hilda Gomez What is the most important information I should know about losartan? Do not use if you are , and tell your doctor right away if you become . Losartan can cause injury or to the unborn baby during your second or third trimester. If you have diabetes, do not use losartan together with any medication that contains aliskiren (a blood pressure medicine). What is losartan? Losartan is an angiotensin II receptor antagonist (sometimes called an ARB charlene). Losartan is used to treat high blood pressure (hypertension) in adults and children who are at least 6 years old. It is also used to lower the risk of stroke in certain people with heart disease. Losartan is also used to slow long-term kidney damage in people with type 2 diabetes who also have high blood pressure. Losartan may also be used for purposes not listed in this medication guide. What should I discuss with my healthcare provider before taking losartan? You should not use losartan if you are allergic to it. If you have diabetes, do not use losartan together with any medication that contains aliskiren (a blood pressure medicine). You may also need to avoid taking losartan with aliskiren if you have kidney disease. Do not use if you are , and tell your doctor right away if you become . Losartan can cause injury or to the unborn baby if you take the medicine during your second or third trimester. Tell your doctor if you have ever had: kidney disease; liver disease; congestive heart failure; an electrolyte imbalance (such as high levels of potassium in your blood); if you are on a low-salt diet; or if you are dehydrated. You should not breast-feed while using this medicine. Losartan is not approved for use by anyone younger than 6 years old. How should I take losartan? Follow all directions on your prescription label and read all medication guides or instruction sheets. Your doctor may occasionally change your dose. Use the medicine exactly as directed. You may take losartan with or without food. Call your doctor if you are sick with vomiting or diarrhea, or if you are sweating more than usual. You can easily become dehydrated while taking losartan. This can lead to very low blood pressure, a serious electrolyte imbalance, or kidney failure. Your blood pressure will need to be checked often and you may need other blood and urine tests. It may take 3 to 6 weeks before your blood pressure is under control. For best results, keep using the medicine as directed. Talk with your doctor if your condition does not improve after 3 weeks of treatment. If you have high blood pressure, keep using this medicine even if you feel well. High blood pressure often has no symptoms. You may need to use blood pressure medicine for the rest of your life. Store at room temperature away from moisture, heat, and light. What happens if I miss a dose? Take the medicine as soon as you can, but skip the missed dose if it is almost time for your next dose. Do not take two doses at one time. What happens if I overdose? Seek emergency medical attention or call the Poison Help line at . What should I avoid while taking losartan? Drinking alcohol can further lower your blood pressure and may increase certain side effects of losartan. Do not use potassium supplements or salt substitutes, unless your doctor has told you to. Avoid getting up too fast from a sitting or lying position, or you may feel dizzy. What are the possible side effects of losartan? Get emergency medical help if you have signs of an allergic reaction: hives; difficult breathing; swelling of your face, lips, tongue, or throat. Call your doctor at once if you have: a light-headed feeling, like you might pass out; pain or burning when you urinate; high potassium level--nausea, weakness, tingly feeling, chest pain, irregular heartbeats, loss of movement; or kidney problems--little or no urination, rapid weight gain, painful or difficult urination, swelling in your hands, feet, or ankles. Common side effects may include: dizziness; back pain; or cold symptoms such as stuffy nose, sneezing, sore throat. This is not a complete list of side effects and others may occur. Call your doctor for medical advice about side effects. You may report side effects to FDA at 1-439-KJL-2418. What other drugs will affect losartan? Tell your doctor about all your other medicines, especially: a diuretic or 'water pill'; other blood pressure medications; lithium; or NSAIDs (nonsteroidal anti-inflammatory drugs)--aspirin, ibuprofen (Advil, Motrin), naproxen (Aleve), celecoxib, diclofenac, indomethacin, meloxicam, and others. This list is not complete. Other drugs may affect losartan, including prescription and chsr-zis-rcxygnb medicines, vitamins, and herbal products. Not all possible drug interactions are listed here. Where can I get more information? Your pharmacist can provide more information about losartan. Remember, keep this and all other medicines out of the reach of children, never share your medicines with others, and use this medication only for the indication prescribed. Every effort has been made to ensure that the information provided by [employer] ('[employer]') is accurate, up-to-date, and complete, but no guarantee is made to that effect. Drug information contained herein may be time sensitive. [employer] information has been compiled for use by healthcare practitioners and consumers in the [place] and therefore [employer] does not warrant that uses outside of the [place] are appropriate, unless specifically indicated otherwise. [employer] drug information does not endorse drugs, diagnose patients or recommend therapy. [employer] drug information is an informational resource designed to assist licensed healthcare practitioners in caring for their patients and/or to serve consumers viewing this service as a supplement to, and not a substitute for, the expertise, skill, knowledge and judgment of healthcare practitioners. The absence of a warning for a given drug or drug combination in no way should be construed to indicate that the drug or drug combination is safe, effective or appropriate for any given patient. [employer] does not assume any responsibility for any aspect of healthcare administered with the aid of information [facility] provides. The information contained herein is not intended to cover all possible uses, directions, precautions, warnings, drug interactions, allergic reactions, or adverse effects. If you have questions about the drugs you are taking, check with your doctor, nurse or pharmacist. Copyright 1158-7569 [employer]. Version: 16.01. Revision Date: 2018. ticagrelor (cliff KA grel or) Brilinta (ticagrelor) What is the most important information I should know about ticagrelor? You should not use ticagrelor if you have any active bleeding or a history of bleeding in the brain. Do not use this medicine just before heart bypass surgery. Ticagrelor may cause you to bleed more easily, which can be severe or life-threatening. Call your doctor or seek emergency medical attention if you have bleeding that will not stop, black or bloody stools, red or pink urine, or if you cough up blood or vomit that looks like coffee grounds. Tell your doctor about all your current medicines and any you start or stop using. Many drugs can interact with ticagrelor. Do not stop taking ticagrelor without first talking to your doctor, even if you have signs of bleeding. Stopping ticagrelor may increase your risk of a heart attack or stroke. What is ticagrelor? Ticagrelor is used to lower your risk of heart attack, stroke, or due to a blocked artery or a prior heart attack. Ticagrelor is also used to lower your risk of blood clots if you have coronary artery disease (decreased blood flow to the heart) and have been treated with stents to open clogged arteries. Ticagrelor is also used to lower your risk of a first heart attack or stroke if you have decreased blood flow to the heart. Ticagrelor is also used to lower the risk of stroke and in adults with a blockage or decreased blood flow in an artery that supplies blood to the brain. Ticagrelor is usually given together with low-dose aspirin. Carefully follow your doctor's dosing instructions. Using too much aspirin can make ticagrelor less effective. Ticagrelor may also be used for purposes not listed in this medication guide. What should I discuss with my healthcare provider before taking ticagrelor? You should not use ticagrelor if you are allergic to it, or if you have: any active bleeding; or a history of bleeding in the brain (such as from a head injury). Tell your doctor if you have ever had: a stroke; heart problems; a surgery or bleeding injury; bleeding problems; a stomach ulcer or colon polyps; liver disease; or asthma, COPD (chronic obstructive pulmonary disorder) or other breathing problem. It is not known whether this medicine will harm an unborn baby. Tell your doctor if you are or plan to become . You should not breastfeed while using ticagrelor. How should I take ticagrelor? Follow all directions on your prescription label and read all medication guides or instruction sheets. Ticagrelor is taken together with aspirin. Use these medicines exactly as directed. Do not take more aspirin than your doctor has prescribed. Taking too much aspirin can make ticagrelor less effective. Take ticagrelor at the same times each day, with or without food. If you cannot swallow a tablet whole, crush the pill and mix it with water. Stir and drink this mixture right away. Add more water to the glass, stir, and drink right away. Ticagrelor keeps your blood from coagulating (clotting) and can make it easier for you to bleed, even from a minor injury. Contact your doctor or seek emergency medical attention if you have any bleeding that will not stop. To prevent excessive bleeding, you may need to stop using ticagrelor for a short time before a surgery, medical procedure, or dental work. Any healthcare provider who treats you should know that you are taking ticagrelor. Do not stop taking ticagrelor without first talking to your doctor, even if you have signs of bleeding. Stopping the medicine could increase your risk of a heart attack or stroke. This medicine may affect medical testing for platelets in your blood and you may have false results. Tell the laboratory staff that you use ticagrelor. Store at room temperature away from moisture and heat. What happens if I miss a dose? Skip the missed dose and use your next dose at the regular time. Do not use two doses at one time. What happens if I overdose? Seek emergency medical attention or call the Poison Help line at . Overdose can cause excessive bleeding. What should I avoid while taking ticagrelor? Drinking alcohol while taking aspirin can increase your risk of stomach bleeding. Avoid activities that may increase your risk of bleeding or injury. Use extra care to prevent bleeding while shaving or brushing your teeth. While taking ticagrelor with aspirin, avoid using medicines for pain, fever, swelling, or cold/flu symptoms. They may contain ingredients similar to aspirin (such as salicylates, ibuprofen, ketoprofen, or naproxen). Taking certain products together can cause you to get too much aspirin which can increase your risk of bleeding. What are the possible side effects of ticagrelor? Get emergency medical help if you have signs of an allergic reaction: hives; difficult breathing; swelling of your face, lips, tongue, or throat. Call your doctor at once if you have: slow heartbeats; nosebleeds, or any bleeding that will not stop; shortness of breath even with mild exertion or while lying down; easy bruising, unusual bleeding, purple or red spots under your skin; red, pink, or brown urine; black, bloody, or tarry stools; or coughing up blood or vomit that looks like coffee grounds. Common side effects may include: bleeding; or shortness of breath. This is not a complete list of side effects and others may occur. Call your doctor for medical advice about side effects. You may report side effects to FDA at 5-415-PYH-9441. What other drugs will affect ticagrelor? Sometimes it is not safe to use certain medications at the same time. Some drugs can affect your blood levels of other drugs you take, which may increase side effects or make the medications less effective. Tell your doctor about all your current medicines. Many drugs can affect ticagrelor, especially: antifungal medicine; antiviral medicine to treat HIV or AIDS; a blood thinner; cholesterol medication; heart or blood pressure medication; opioid medication; seizure medicine; or tuberculosis medicine. This list is not complete and many other drugs may affect ticagrelor. This includes prescription and [id number]-[id number] medicines, vitamins, and herbal products. Not all possible drug interactions are listed here. Where can I get more information? [facility] Cardiology Progress note 05-02-2022 Note Date & Type Note Facility 05-02-2022 Cardiology Progre ss note Subjective Patient remained chest pain-free no other acute event overnight. Currently not in active withdrawal. No arrhythmias noted on the telemetry otherwise. Objective Vitals and Measurements T: 36.5 C (Oral) TMIN: 36.5 C (Oral) TMAX: 37.0 C (Oral) HR: 69(Monitored) RR: 18 BP: 130/73 SpO2: 94% WT: 11.9 kg Intake and Output 7AM Yesterday to 7AM Today Intake and Output (Last 24 hours) Intake Oral Intake 100.00 Output Urine Count 1.00 Total Summary Total Intake 100.00 Total Output 0.00 Fluid Balance 100.00 Physical Exam General patient is oriented to time place and person HEENT NC/NT pupils equal round reactive mucous members moist Neck supple Respiratory clear breath sounds bilaterally no wheezing rhonchi crackles CVS S1-S2 regular rhythm JVP is normal on exam Abdomen nontender nondistended bowel sounds present Extremities no edema Neurologically cranial nerves II 12 intact, able to move all extremities, does follow command Weight Current Weight Dosing Weight: 112 kg (05/01/22) Current Weight: 11.9 kg (05/02/22) Medications Medications (16) Active Scheduled: (10) aspirin 81 mg EC 81 mg 1 tab(s), Oral, qDayM atorvastatin 40 mg tablet 40 mg 1 tab(s), Oral, qDay heparin 5,000 units/mL (1 mL) vial 5,000 unit(s) 1 mL, Subcutaneous, q8hr losartan 25 mg tablet 25 mg 1 tab(s), Oral, qDay metoprolol succinate 25 mg ER tablet 25 mg 1 tab(s), Oral, qDayM No metformin for 48 hrs post contrast Hold for 48 hrs post Contrast, Miscellaneous, Unscheduled pantoprazole 40 mg EC tablet 40 mg 1 tab(s), Oral, qDayAC thiamine (w/calcium) 100 mg tablet 100 mg 1 tab(s), Oral, qDay thiamine 200 mg/2 mL Solution 100 mg 1 mL, IV Push, qDay ticagrelor 90 mg tablet 90 mg 1 tab(s), Oral, q12h Continuous: (0) PRN: (6) albuterol - ipratropium 2.5 mg-0.5 mg/3 mL Inhal Marcela UD 3 mL, Inhalation, q4hRT LORAZEPam 0.5 mg tablet 0.5 mg 1 tab(s), Oral, q30min LORAZEPam 1 mg Tablet 1 mg 1 tab(s), Oral, q30min LORAZEPam 2 mg/mL 1 mL vial 1 mg 0.5 mL, IV Push, q30min LORAZEPam 2 mg/mL 1 mL vial 0.5 mg 0.25 mL, IV Push, q30min melatonin 3 mg tablet 3 mg 1 tab(s), Oral, qHS Lab Results 05/02 04:28 WBC: 11.4 H Hgb: 15.9 Hct: 47.5 Platelet: 210 Neutrophil %: 59.6 Glucose Level: 110 Sodium Level: 138 Potassium Level: 4.2 BUN: 10.0 Creatinine Lvl (s): 0.69 05/01 06:59 WBC: 11.3 H Hgb: 16.2 Hct: 48.6 Platelet: 220 Neutrophil %: 63.6 Glucose Level: 129 H Sodium Level: 143 Potassium Level: 4.2 BUN: 14.0 Creatinine Lvl (s): 0.57 L 05/01 00:50 WBC: 13.4 H Hgb: 15.6 Hct: 46.8 Platelet: 217 Neutrophil %: 68.7 Glucose Level: 127 H Sodium Level: 144 Potassium Level: 4.0 BUN: 14.0 Creatinine Lvl (s): 0.65 EKG No qualifying data available. Assessment/Plan Orders: aspirin, Dose : 81 mg = 1 tab(s), Oral, qDayM, # 30 tab(s), 11 Refill(s), Pharmacy: [facility]/pharmacy #[id number], 178, , 05/01/22 1:24:00 EST, Height atorvastatin, Dose : 40 mg = 1 tab(s), Oral, qDay, # 30 tab(s), 5 Refill(s), Pharmacy: [facility]/pharmacy #[id number], 178, , 05/01/22 1:24:00 EST, Height atorvastatin, Start: 05/01/22 22:00:00 EST, Dose = 40 mg, = 1 tab(s), Oral, qDay, 05/01/22 16:06:00 EST LORazepam, Start: 05/01/22 12:29:00 EST, Dose = 1 mg, = 1 tab(s), Oral, q30min, PRN, for Alcohol Withdrawal Score of 6-7, 05/01/22 12:29:00 EST LORazepam, Start: 05/01/22 12:29:00 EST, Dose = 1 mg, = 0.5 mL, IV Push, q30min, PRN, for Alcohol Withdrawal Score of 6-7, 05/01/22 12:29:00 EST LORazepam, Start: 05/01/22 12:29:00 EST, Dose = 0.5 mg, = 1 tab(s), Oral, q30min, PRN, for Alcohol Withdrawal Score of 3-5, 05/01/22 12:29:00 EST LORazepam, Start: 05/01/22 12:29:00 EST, Dose = 0.5 mg, = 0.25 mL, IV Push, q30min, PRN, for Alcohol Withdrawal Score of 3-5, 05/01/22 12:29:00 EST losartan, Dose : 25 mg = 1 tab(s), Oral, qDay, # 30 tab(s), 6 Refill(s), Pharmacy: [facility]/pharmacy #[id number], 178, cm, 05/01/22 1:24:00 EST, Height metoprolol, Dose : 25 mg = 1 tab(s), Oral, qDayM, # 30 tab(s), 5 Refill(s), Pharmacy: [facility]/pharmacy #[id number], 178, cm, 05/01/22 1:24:00 EST, Height metoprolol, Start: 05/01/22 12:28:00 EST, Dose = 25 mg, = 1 tab(s), Oral, qDayM, give with food/meal, 05/01/22 12:28:00 EST pantoprazole, Start: 05/01/22 12:28:00 EST, Dose = 40 mg, = 1 tab(s), Oral, qDayAC, 05/01/22 12:28:00 EST thiamine, Start: 05/01/22 12:29:00 EST, Dose = 100 mg, = 1 tab(s), Oral, qDay, 3 dose(s), Stop: 05/03/22 9:00:00 EST, 05/01/22 12:29:00 EST thiamine, Start: 05/01/22 12:29:00 EST, Dose = 100 mg, = 1 mL, IV Push, qDay, 3 dose(s), Stop: 05/03/22 9:00:00 EST, 05/01/22 12:29:00 EST ticagrelor, Dose : 90 mg = 1 tab(s), Oral, q12h, # 60 tab(s), 11 Refill(s), Pharmacy: [facility]/pharmacy #[id number], 178, cm, 05/01/22 1:24:00 EST, Height Alcohol Withdrawal Protocol - stepdown Alcohol Withdrawal Severity Score Alcohol Withdrawal Severity Score Basic Metabolic Panel Calcium Level Ionized Call Parameters Call Parameters [employer] Communication Order (continuous) Complete Blood Count Discharge Activity Discharge Diet Pulse Oximeter - Continuous Seizure Precautions 1. Inferior STEMI 2. Residual LAD and LCx disease #3 hyperlipidemia #4 history of alcohol abuse #5 history of smoking Plan -Patient is 36-hour post inferior STEMI s/p RCA revascularization still has residual LAD and LCx disease -Monitor another 24-hour post inferior STEMI less than 48 hours in the hospital -Reviewed echocardiogram ejection fraction appears to preserved he does have a hypokinesis of inferior inferolateral wall consistent with RCA territory likely stunned myocardium -On dual antiplatelet therapy aspirin Brilinta beta-charlene high intensity statin and losartan -Triglycerides are found to be elevated along with LDL HDL is below 30 on high intensity statin has been started -Lifestyle modification with smoking cessation and alcohol cessation was counseled -Patient need to have outpatient follow-up in 4 weeks for revascularization for LAD and LCx disease -DVT prophylaxis on heparin subcu CODE STATUS full Digitally Signed by SKYLAR PEREZ MD on 05/02/2022 11:50 AM [facility] Evaluation + Plan note 05-01-2022 Note Date & Type Note Facility 1. Inferior STEMI: Patient w as taken for emergent cardiac catheterization given ongoing chest pain and abnormal EKG. Cardiac cath showed 99% occluded distal RCA. He had 2 drug-eluting stents to distal and proximal RCA. Patient has significant vessel disease in the LAD and circumflex for which she will have staged PCI as an outpatient in a few weeks. Will admit to CCU for further management. We will keep him on dual antiplatelets including aspirin, Brilinta. We will start him on high intensity statin. We will get an echocardiogram. We will check lipid panel and A1c levels. Further recommendation based on clinical course in the hospital. 2. Tobacco abuse: Counseled extensively to quit smoking. He understands. 3. Alcohol abuse: Counseled on need to quit smoking. We will check an echocardiogram to assess ejection fraction. Plan discussed with patient. Patient understands agrees with the above plan. [facility] History and physical note 05-01-2022 Note Date & Type Note Facility 05-01-2022 History and physi vincent note Date of Service 05/01/2022 Chief Complaint Chest pain History of Present Illness This is a 61-year-old gentleman who presented initially to [facility] with complaints of acute chest pain is transferred to [place] as a STEMI alert. Patient states he started having chest pain around 45 minutes prior to arrival at [facility]. EKG done showed inferior ST elevations and hence a STEMI alert was called. He was having ongoing chest pain when he came to [employer] [facility]. Denies any shortness of breath, nausea or diaphoresis. No other acute complaints except for chest pain. Review of Systems Complete thorough review of system was done and was found to be negative except for the complaint mentioned above. Physical Exam Vitals and Measurements No qualifying data available. HEAD AND NECK: Atraumatic, normocephalic. NECK: Supple. No significant JVP elevation CARDIAC: Rhythm appears normal on EKG, auscultation is deferred as this is an emergency, this will be done in CCU. RESPIRATORY: Bilateral chest movement appears normal ABDOMEN: Soft, nontender EXTREMITIES: No pedal edema. Normal pedal pulses. CENTRAL NERVOUS SYSTEM: Alert and oriented x3. A complete neuro exam was deferred. PSYCHIATRIC -unable to assess at this time Lab Results Labs will be sent to [facility] EKG EKG shows normal sinus rhythm with ST elevations inferior leads. Assessment/Plan 1. Inferior STEMI: Patient was taken for emergent cardiac catheterization given ongoing chest pain and abnormal EKG. Cardiac cath showed 99% occluded distal RCA. He had 2 drug-eluting stents to distal and proximal RCA. Patient has significant vessel disease in the LAD and circumflex for which she will have staged PCI as an outpatient in a few weeks. Will admit to CCU for further management. We will keep him on dual antiplatelets including aspirin, Brilinta. We will start him on high intensity statin. We will get an echocardiogram. We will check lipid panel and A1c levels. Further recommendation based on clinical course in the hospital. 2. Tobacco abuse: Counseled extensively to quit smoking. He understands. 3. Alcohol abuse: Counseled on need to quit smoking. We will check an echocardiogram to assess ejection fraction. Plan discussed with patient. Patient understands agrees with the above plan. Problem List/Past Medical History No medical history however patient has never seen a physician in a very long time. He does not have a PCP. Procedure/Surgical History None Medications None Allergies No active allergies Social History He smokes 2 pack a day of cigarettes and also drinks 6 pack beer every day Family History Father had acute SD in his 40s as per patient Code Status Full code Digitally Signed by BUD SHERIDAN MD on 05/01/2022 12:56 AM [facility] course Narrative Note Date & Type Note Facility Hospital course Narrative No data available for this section [facility] Summary Purpose Family History No Family History Records FoundNo Family History Records FoundNo Family History Records Found Advance Directives No Advanced Directives Records FoundNo Advanced Directives Records FoundNo Advanced Directives Records Found Additional Source Comments (unrecognized sect ion and content) No Status Records FoundNo Status Records FoundNo Status Records Found INFORMATION SOURCE (unrecogn ized section and content) DATE CREATED AUTHOR AUTHOR'S ORGANIZ ATION 05/03/2022 [facility] DATE CREATED AUTHOR AUTHOR'S ORGANIZ ATION 05/11/2022 [facility] ([place]) FOR RECORDS PERTAINING TO PATIENTS WHO ARE OR HAVE BEEN ENROLLED IN A CHEMICAL DEPENDENCY/SUBSTANCEABUSE PROGRAM, SOME INFORMATION MAY BE OMITTED. This clinical summary was aggregated from multiple sources. Caution should be exercised in using it in the provision of clinical care. This summary normalizes information from multiple sources, and as a consequence, information in this document may materially change the coding, format and clinical context of patient data. In addition, data may be omitted in some cases. CLINICAL DECISIONS SHOULD BE BASED ON THE PRIMARY CLINICAL RECORDS. [employer] provides no warranty or guarantee of the accuracy or completeness of information in this document.
[2023-07-01 14:58] VITALS: O2SAT 98
--- NOTE | 2023-07-01 15:30 | RAD_ITS ---
STUDY: XR Shoulder Min 2 Views REASON FOR EXAM: Male, 62 years old. shoulder pain TECHNIQUE: XR Shoulder Min 2 Views RIGHT COMPARISON: None. FINDINGS: Normal glenohumeral articulation. There is degenerative arthrosis of the acromioclavicular joint without inferior osseous spur formation. Normal acromion. Normal humeral head and visualized proximal humerus. The soft tissue structures are unremarkable. Normal visualized pulmonary apex. RAD/Shoulder min 2 Views IMPRESSION: There are no acute findings of the shoulder. Electronically Signed: Piero Escalona MD at 15:52 EST ,
== END 2023-07-01 15:52 | disposition home or self-care (01) ==
PROVIDERS: Emergency Provider Emergency Medicine; Visit Provider Emergency Medicine
DX: S06.0X0A Concussion without loss of consciousness, initial encounter (principal); I25.10 Atherosclerotic heart disease of native coronary artery without angina pectoris; F10.10 Alcohol abuse, uncomplicated; S40.011A Contusion of right shoulder, initial encounter; F17.210 Nicotine dependence, cigarettes, uncomplicated; R60.9 Edema, unspecified; I25.2 Old myocardial infarction; I10 Essential (primary) hypertension; S00.11XA Contusion of right eyelid and periocular area, initial encounter; X58.XXXA Exposure to other specified factors, initial encounter
CPT/HCPCS: 70150; 70450; 71045; 73030; 93005; 99283

== ENCOUNTER → 2023-08-14 | Outpatient (CLI) | payer MEDICARE, SELFPAY ==
[2023-08-14 16:22] LABS: ALB/GLOB Ratio 1.2 RATIO (0.9-2.4); AST(SGOT) 21 U/L (15-37); Alanine Aminotransfer ALT/SGPT 36 U/L (16-61); Albumin, Serum 3.9 g/dL (3.2-5.0); Alkaline Phosphatase 64 U/L (45-117); Anion Gap 6 (5-15); BUN 12 mg/dL (7-18); BUN/Creat Ratio 14.5 RATIO (10-20); Calcium,Total 9.3 mg/dL (8.5-10.1); Chloride 106 mmol/L (98-107); Cholesterol 102 mg/dL (200); Creatinine, Serum 0.83 mg/dL (0.70-1.30); EST Glomerular Filtration Rate 100 mL/min (>60); Est Glom Filt Rate - Afr Amer 122 mL/min (>60); Globulin 3.3 g/dL (2.2-4.2); Glucose 142 mg/dL (74-106); High Density Lipoprotein 36 mg/dL; Potassium 3.8 mmol/L (3.5-5.1); Protein, Total 7.2 g/dL (6.4-8.2); Sodium Level 139 mmol/L (136-145); Triglycerides 192 mg/dL; Very Low Density Lipoprotein 38 mg/dL (5-40)
== END | disposition home or self-care (01) ==
LOC: LAB 15:09
PROVIDERS: Referring Provider Internal Medicine Cardiovascular Disease; Visit Provider Internal Medicine Cardiovascular Disease
DX: I10 Essential (primary) hypertension (principal); I25.10 Atherosclerotic heart disease of native coronary artery without angina pectoris; E78.5 Hyperlipidemia, unspecified; F17.200 Nicotine dependence, unspecified, uncomplicated
CPT/HCPCS: 36415; 80053; 80061

== ENCOUNTER → 2024-02-25 | Outpatient (CLI) | payer MEDICARE, SELFPAY ==
[2024-02-25 15:43] LABS: Hematocrit 47.6 % (40-54); Hemoglobin 15.6 g/dL (13.0-16.5); Mean Corp Hgb Conc 32.8 g/dL (32-36); Mean Corpuscular Hgb 29.3 pg (27.0-32.0); Mean Corpuscular Volume 89.5 fL (80-94); Mean Platelet Vol. 9.1 fl (6.2-12.0); Platelet Count 241 K/mm3 (150-450); RBC Distribution Width CV 14.2 % (11.6-14.6); RBC Distribution Width SD 45.5 fl (35.1-43.9); Red Blood Count 5.32 M/mm3 (4.6-6.2); White Blood Count 10.4 K/mm3 (4.4-11.0)
== END | disposition home or self-care (01) ==
PROVIDERS: Referring Provider Internal Medicine Cardiovascular Disease; Visit Provider Internal Medicine Cardiovascular Disease
DX: R53.83 Other fatigue (principal)
CPT/HCPCS: 36415; 84443; 85027

== ENCOUNTER → 2024-07-10 | Outpatient (CLI) | payer MEDICARE, SELFPAY ==
--- NOTE | 2024-07-10 13:00 | RAD_ITS ---
PROCEDURE: Left knee radiographs, five views REASON FOR EXAM: Pain TECHNIQUE: Five views of the left knee were obtained. COMPARISON: None. FINDINGS: Five views of the left knee were obtained. Mild osteopenia. No acute fracture or dislocation of the left knee. Mild tricompartmental degenerative changes. Small suprapatellar effusion. RAD/Knee 4 or More Views IMPRESSION: Osteopenia. No acute bony abnormality of the left knee. Mild tricompartmental degenerative changes and small suprapatellar effusion. Reading Location: [facility]
== END | disposition home or self-care (01) ==
LOC: RAD 12:47
PROVIDERS: Referring Provider Physician Assistant; Visit Provider Physician Assistant
DX: M25.562 Pain in left knee (principal)
CPT/HCPCS: 73564

== ENCOUNTER → 2024-12-30 | Outpatient (CLI) | payer MEDICARE, SELFPAY ==
--- NOTE | 2024-12-30 16:00 | RAD_ITS ---
PROCEDURE: L/S SPINE W BEND MIN 6 VW 12/30/2024 REASON FOR EXAM: SPONDYLOSIS WITHOUT MYELOPATHY OR RADICULOPATHY, LUMBOSACRAL CAITLYN TECHNIQUE: L/S SPINE W BEND MIN 6 VW COMPARISON: None FINDINGS: Curvature: Normal lumbar lordosis. No dynamic spondylolisthesis with flexion or extension. Vertebral body/discs: Mild disc space narrowing from L1/2 to L4/5. Moderate to severe disc space narrowing lumbosacral junction. Facet hypertrophy is progressive from L2-S1. Osteoarthritis of the hips. RAD/L/S Spine w Bend Min 6 Vw IMPRESSION: Degenerative changes throughout the lumbar spine greatest of the lumbosacral ju nction. No dynamic spondylolisthesis. Reading Location: [id number]
== END | disposition home or self-care (01) ==
LOC: RAD 15:48
PROVIDERS: Referring Provider Anesthesiology Pain Medicine; Visit Provider Anesthesiology Pain Medicine
DX: M47.817 Spondylosis without myelopathy or radiculopathy, lumbosacral region (principal)
CPT/HCPCS: 72114

== ENCOUNTER → 2025-01-16 | Outpatient (CLI) | payer MEDICARE, SELFPAY ==
--- NOTE | 2025-01-16 08:17 | MRI_ITS ---
PROCEDURE: LOWER EXT JOINT ONLY (ROUTINE) 01/16/2025 REASON FOR EXAM: TRAUMA, INTERNAL DERANGEMENT OF LEFT KNEE TECHNIQUE: T1, T2, PD, multiplanar, multisequence images through the left knee were obtained without contrast. COMPARISON: July 10 2024 x-ray FINDINGS: Bone Marrow: There is a 0.5 cm developing osteochondral defect in the central portion of the medial tibial plateau with no free fragment. Cruciate ligaments: There is increased T2 signal and attenuation in the mid and lower portion of the anterior cruciate ligament without laxity, grade 2 sprain. The posterior cruciate appears intact. Collateral ligaments: There is thickening, edema, and attenuation in the mid and upper portion of the medial collateral ligament without laxity, grade 2 sprain. The lateral collateral ligament complex appears intact. Menisci: There is a horizontal tear in the body of the medial meniscus which extends to the tibial surface. The lateral meniscus appears intact. Extensor compartment: There is increased T2 signal, thickening and attenuation of the distal quadriceps, and proximal patellar tendon without laxity, grade 2 sprains. Effusion: There is fluid in the prepatellar soft tissues with bursitis. There is a small joint effusion. There is a 1.5 x 1.2 cm ganglion at the posterior superior joint space at the lateral femoral condyle. Soft Tissues: There is no significant Peña's cyst. Cartilage: A fissure is noted in the central portion of the lateral patellar facet. 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 MRI/Lower Ext Joint Only (Routine) IMPRESSION: There is a 0.5 cm developing osteochondral defect in the central portion of the medial tibial plateau with no free fragment. There is increased T2 signal and attenuation in the mid and lower portion of th e anterior cruciate ligament without laxity, grade 2 sprain. There is thickening, edema, and attenuation in the mid and upper portion of the medial collateral ligament without laxity, grade 2 sprain. There is a horizontal tear in the body of the medial meniscus which extends to the tibial surface. There is increased T2 signal, thickening and attenuation of the distal quadrice ps, and proximal patellar tendon without laxity, grade 2 sprains. There is fluid in the prepatellar soft tissues with bursitis. There is a small joint effusion. There is a 1.5 x 1.2 cm ganglion at the posterior superior joint space at the l ateral femoral condyle. A fissure is noted in the central portion of the lateral patellar facet. 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 Reading Location: [facility]
== END | disposition home or self-care (01) ==
LOC: OPMRI 07:59
PROVIDERS: Referring Provider Specialist; Visit Provider Specialist
DX: M23.8X2 Other internal derangements of left knee (principal)
CPT/HCPCS: 73721

== ENCOUNTER → 2025-04-27 | Outpatient (CLI) | payer MEDICARE, SELFPAY | END | disposition home or self-care (01) | LOC: MFPLAB 15:41 | PROVIDERS: PCP Physician Assistant; Visit Provider Nurse Practitioner Family | DX: R30.0 Dysuria (principal) | CPT/HCPCS: 87086; 87088 ==

== ENCOUNTER 2025-05-11 05:59 | Day surgery (SDC) | payer MEDICARE, SELFPAY ==
--- NOTE | 2025-04-27 10:07 | PAT.ANE_ITS ---
Pre-Assessment Diagnosis/Proposed Procedure Planned Operative Procedure(s): L) LEFT KNEE ARTHROSCOPY WITH MEDIAL MENISECTOMY AND CHONDROPLASTY Anesthesia History Anesthesia History - media consultant: Anesthesia History - media consultant Hx Hospitalization No 04/24/25 14:24 Any Problems With Anesthesia No 04/24/25 14:24 Cholinesterase deficiency No 04/24/25 14:24 You/Your Family Experience No 04/24/25 14:24 fever (hyperthermia) with Relationship Recent Exposure to Contagious Disease Does patient have nerve No 04/24/25 14:24 stimulator Patient instructed to have device shut off --Does patient have Pacemaker or ICD? When Was Last Pacemaker Check QUESTION #4 FULL TEXT: You/Your Family Experience fever (hyperthermia) with Anesthesia Last Oral Intake Last Oral intake: Last Oral Intake NPO since Meds taken in AM with sips of water? Meds patient instructed to take am of surgery PONV PONV - media consultant: PONV - media consultant Female No 04/24/25 14:24 HX of Motion Sickness Yes 04/24/25 14:24 HX of N/V After Surgery No 04/24/25 14:24 Non-Smoker No 04/24/25 14:24 Duration of Surgery greater No 04/24/25 14:24 than 60 minutes Number of Risk Factors 1 04/24/25 14:24 PONV Score Low Risk 04/24/25 14:24 Height & Weight Height & Weight: Anesthesia: Height & Weight Height 5 ft 10 in 04/03/25 09:22 Respiratory Assessment Respiratory Assessment - media consultant: Respiratory Tract Infection Hx - media consultant Hx Respiratory Tract Infection No 04/24/25 14:24 STOP Sleep Apnea STOP Sleep Apnea - media consultant: STOP Sleep Apnea - media consultant Hx Hypertension Yes: ON MEDS 04/24/25 14:24 Hx Sleep Apnea Yes: NON COMPLIANT 04/24/25 14:24 CPAP No 04/24/25 14:24 BIPAP No 04/24/25 14:24 Do you snore loudly (louder than talking or can be heard Do you often feel tired/ fatigued/ sleepy during daytime? Has anyone observed you stop breathing during sleep? STOP Results Positive 04/24/25 14:24 QUESTION #5 FULL TEXT : Do you snore loudly (louder than talking or can be heard through closed doors)? 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 Specify any problems Hx of Preganancy in last 3 N/A 04/24/25 14:24 Months Nurse Filling Out Transfusion JZOLLINGE 04/24/25 14:24 & Questions: Date: 04/24/25 04/24/25 14:24 Time: 14:26 04/24/25 14:24 Patient unable to answer at this time (ie. confused, unrespo /Reproduction History /Reproductive History - media consultant: /Reproductive Hx- media consultant Hx Now No 04/24/25 14:24 Gestational Age (in weeks): EDC: Hx Hx Para Hx Section SAB No 04/24/25 14:24 Does the father of the baby or his family experience fever w Father of the baby Malignant Hypertension history comment [facility] Medical History (Updated 04/26/25 @ 13:53 by Gunnar Dominguez [employer]OLLER, [employer] OR [employer]RE CONTROLLER-C) Edentulism, complete Wears glasses Arthritis Heartburn Sleep apnea History of echocardiogram History of stress test Cardiology follow-up encounter Chest pain Alcohol use Marijuana abuse Nicotine dependence Dyslipidemia Coronary artery disease Atherosclerosis of coronary artery of [place] heart without angina pectoris STEMI (ST elevation myocardial infarction) (~04/30/22) Exposure to COVID-19 virus Right hip pain Chronic back pain Preventative health care Erectile dysfunction Tobacco abuse Nicotine dependence, cigarettes, uncomplicated SOB (shortness of breath) Smoking greater than 40 pack years Obstructive sleep apnea Cellulitis of mid back region Left otitis media Cervical radiculopathy 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 Seasonal allergies History of pneumonia DDD (degenerative disc disease), lumbar Vertical strabismus, right eye Shoulder pain NECK AND BACK PAIN Hay fever Fatigue Home Medications ?Medication ?Instructions ?Recorded ?Last Taken ?Type Handicap Placard #1 ea 07/14/20 Unknown Rx aspirin 81 mg tablet,delayed 81 mg PO DAILY 06/05/22 0 01/10/23 History release sildenafil 100 mg tablet (Viagra) 100 mg PO DAILY PRN sexual 06/21/22 Unknown Rx activity #20 tabs albuterol sulfate 90 mcg/actuation 2 puff inhalation Q 6H PRN 07/01/23 Unknown Rx aerosol inhaler (ProAir HFA) shortness of breath or wh eezing #6.7 grams amlodipine 5 mg tablet 5 mg PO DAILY #90 TABLETS Unknown Rx atorvastatin 40 mg tablet 40 mg PO QHS #90 tabs Unknown Rx losartan 100 mg tablet 100 mg PO DAILY #90 tabs Unknown Rx metoprolol succinate 50 mg 50 mg PO .QD 04/24/25 Unkno wn History tablet,extended release 24 hr nitrofurantoin 100 mg PO Q12H 7 days #14 ca ps 04/26/25 Unknown Rx monohydrate/macrocrystals 100 mg capsule (Macrobid) Allergy/AdvReac Type Severity Reaction Status Date / Time Penicillins (PCN) Allergy Unknown Verified 04/26/25 13:25 Family History Father Myocardial infarction, Onset Age: 49 Other Cancer Heart disease Surgical History (Updated 04/24/25 @ 14:24 by Sanjana Whaley) History of cardiac catheterization History of coronary artery stent placement (~01/10/23) History of neck surgery Social History household members: spouse housing: house Smoking Status: Current every day smoker tobacco type: cigarettes Tobacco: How many years used: 35 quit status: considering quitting alcohol intake: former details: quit as of now substance use type: does not use caffeine: Yes Type: carbonated beverages and coffee Number of servings: 1 what type of physical activity do you participate in: other details: house hold work Audit: Pertinent Findings Pertinent Findings EKG Perinent findings: 07/01/2023. Normal sinus rhythm 82 bpm. Left axis deviation. Right bundle branch block. Inferior infarct, age undetermined. Stress test pertinent findings: 07/05/2022. EF 62%. Negative for ischemia. Patient does have previous inferior apical infarct. No change in perfusion pattern noted with exercise from previous stress test after stenting. Consult pertinent findings: Cardiology 04/03/2025. Coronary artery disease. Status post stenting RCA. April 2022. Circumflex December 2022. Denies any anginal symptoms. From cardiovascular standpoint should be able to proceed with surgical intervention of knee. Hypertension. Adequately controlled. Continue current medical therapy. Additional pertinent findings: Patient has had clearance from cardiology. Stated in note 04/03/2025. Should be good to proceed with procedure at this time. Recommendation Anesthesia Recommendation Anesthesia recommendation: OPTIMIZED for anesthesia
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
[2025-05-11] VITALS (12 sets, daily range): BP systolic 119–132; BP diastolic 78–88; PULSE 73–83; RESP 16–18; TEMP 36.3–37.3; O2SAT 92–98; BMI 36.0
--- OUTSIDE RECORDS SUMMARY | 2025-05-11 06:02 | XMS RPT_ITS | CCD ---
Author Organization [facility] Care Team Providers Care [employer] Architect Name Role Phone DOS%AURORA OSBORNE MD Admitting Unavailabl e DOS%AURORA OSBORNE MD Attending Unavailabl e DOS%AURORA OSBORNE MD Primary Care Unavailabl e MANOJ LUIS MD Consulting Unavailable MANOJ LUIS MD Referring Unavailable PROVIDER, UNKNOWN Consulting Unavailable PREBISH, MINH KEITH Admitting Unavailable PREBISH, MINH KEITH Attending Unavailable PREBISH, MINH KEITH Primary Care Unavailable MANOJ LUIS MD Consulting Unavailable PROVIDER, UNKNOWN Consulting Unavailable PREBISH, MINH KEITH Admitting Unavailable PREBISH, MINH KEITH Attending Unavailable PREBISH, MINH KEITH Primary Care Unavailable MANOJ LUIS MD Consulting Unavailable PROVIDER, UNKNOWN Consulting Unavailable PHYSICIAN, NONE Primary Care Physician Unavailab BUD Page MD Attending Unavail able PHYSICIAN, NONE Primary Care Unavailable BUD SHERIDAN MD Admitting Unavail able Dr. Manoj Luis Primary Care Provider [phone] Dr. Manoj Luis Referring Provider [phone] Dr. Meme Culver Attending Provider [phone] [place], [place] Sofia Attending Provider Unavailab Dr. Manoj Pinto Primary Care Provider [phone] Dr. Manoj Luis Referring Provider [phone] Dr. Meme Culver Attending Provider [phone] Care Physician, No Primary Primary Care Provider Unavailable Care Physician, No Primary Referring Provider Un available Dr. Meme Culver Attending Provider Selvin MCCALLUM, Yaw Canales Unavailable Ryan MCCALLUM, Dr. Dolan ([place] [facility]) A Unavail able Mesfin ATHLETE MARKETING AGENT, Nunu Unavailable Mike ATHLETE MARKETING AGENT, Drea E Unavailable Unavailable Sue ENRIQUEZ, Marce Arce Unavailable Unavaila caden Davis RN, Tiffanie Unavailable Brittany ATHLETE MARKETING AGENT, Marlee Lamb Unavailable Unavailab le Unavailable Unavailable Arnie RAMOS, Sony E Unavailable Heriberto ATHLETE MARKETING AGENT, Laura Unavailable Unavailable Unavailable Unavailable Orthopedic Provider Unavailable Unavailable Care Physician, No Primary Primary Care Provider Unavailable Arnaldo MCCALLUM, Dr. Kenney Attending Provider Arnaldo MCCALLUM, Dr. Kenney Referring Provider Marie MCCALLUM, Dr. Redd Attending Provider [phone] Marie MCCALLUM, Dr. Redd Referring Provider [phone] Sony Gaitan Attending Unavailable Sony Gaitan Referring Unavailable Care Physician, No Primary Primary Care Unava ilable Brendan Bourgeois Attending Unavailable Care Physician, No Primary Primary Care Unava ilable Care Physician, No Primary Referring Unava ilable Brendan Bourgeois Referring Unavailable Care Physician, No Primary Primary Care Unava ilable Brendan Bourgeois Attending Unavailable Tramaine Salazar Attending Unavailable Tramaine Salazar Referring Unavailable Care Physician, No Primary Primary Care Unava ilable Pablito Mcintosh Attending Unavailable Pablito Mcintosh Referring Unavailable Care Physician, No Primary Primary Care Unava ilable Allergies Allergy Classification Reported Allergen(s) Allergy Type Date of Onset Reaction(s) Facility (1 source) Penicillin; Translations: [penicillin] Drug Allergy [facility] (8 sources) Penicillins Allergy to substance 06-21-2022 Unknown [facility] (7 sources) penicillin G benzathine / penicillin G procaine Drug Allergy [facility]. (1 source) Penicillins Drug allergy (disorder) 02-25-2024 [facility] Rep[facility] Medications Current Medications Medication Drug Class(es) Dates Sig (Normalized) Sig (Original) [id number] 200 actuat albuterol 0.09 mg/actuat metered dose inhaler (4 sources) beta2-Adrenergic Agonist Start: 07-01-2023 Albuterol Sulfate (Proair Hfa) 90 mcg/actuation HFA aerosol inhaler Active 2 NMA INHALATION EVERY 6 HOURS as needed for shortness of breath or wheezing 6.7 0 July 01, 2023 1:00am Start: 07-01-2023 take 1 puff(s) by in halation every six hours Albuterol Sulfate (Proair Hfa) 90 mcg/actuation HFA aerosol inhaler Active 2 PUFF INHALATION EVERY 6 HOURS 6.7 July 01, 2023 1:00am aspirin 81 mg delayed release oral tablet (13 sources) Platelet Aggregation Inhibitor, Nonsteroidal Anti-inflammatory Drug Start: 06-05-2022 take 1 tablet by mouth once daily Aspirin 81 mg tablet,delayed release (DR/EC) Active 81 mg PO DAILY June 05, 2022 1:00am Start: 05-02-2022 Ecotrin Adult Low Strength 81 mg oral delayed release tablet Dose : 81 mg = 1 tab(s), Oral, qDayM, # 30 tab(s), 11 Refill(s), Pharmacy: [facility]/pharmacy #[id number], 178, cm, 05/01/22 1:24:00 EST, Height Start Date: 05/02/22 Status: Ordered aspirin 81 mg ca psule ; (81 mg) Handicap Placard (8 sources) Start: 07-14-[address] Active 0 .ROUTE .MEDSUPPLY 1 0 July 14, 2020 1:00am Other reduced mobility As directed, length of time 3 years Start: 07-14-[address] Active 0 .ROUTE .MEDSUPPLY 1 July 14, 2020 1:00am As directed, length of time 3 years Start: 07-14-[address] Active 0 .ROUTE .MEDSUPPLY 1 July 14, 2020 12:00am As directed, length of time 3 years 24 hr metoprolol succinate 50 mg extended release oral tablet (20 sources) beta-Adrenergic Rochelle Start: 07-23-2023 End: 07-07-2024 take 1 tablet by mouth every twenty-four hours at bedtime Metoprolol Succinate 50 mg tablet extended release 24 hr Active 50 mg PO AT BEDTIME 90 3 February 17th, 2025 1:58pm Start: 06-07-2022 End: 07-23-2023 take 1 tablet by mouth once daily Metoprolol Succinate 50 mg tablet extended release 24 hr Discontinued 50 mg PO DAILY 90 July 16, 2023 9:10am July 23, 2023 4:00pm Start: 06-05-2022 End: 06-07-2022 take 1 tablet by mouth once daily Metoprolol Succinate (Toprol Xl) 25 mg tablet extended release 24 hr Discontinued 25 mg PO DAILY June 05, 2022 1:00am June 07, 2022 11:25am Start: 05-02-2022 Toprol-XL 25 m g oral tablet, extended release Dose : 25 mg = 1 tab(s), Oral, qDayM, # 30 tab(s), 5 Refill(s), Pharmacy: [facility]/pharmacy #[id number], 178, cm, 05/01/22 1:24:00 EST, Height Start Date: 05/02/22 Status: Ordered Start: 05-02-2022 End: 05-02-2022 Toprol-XL Start: 05/02/22 8: 00:00 EST, Dose = 25 mg, = 1 tab(s), Oral, give with food/meal, 05/01/22 12:28:00 EST Start Date: 05/02/22 Stop Date: 05/02/22 Status: Completed Start: 05-01-2022 End: 05-01-2022 Toprol-XL Start: 05/01/22 12 :28:00 EST, Dose = 25 mg, = 1 tab(s), Oral, give with food/meal, 05/01/22 12:28:00 EST Start Date: 05/01/22 Stop Date: 05/01/22 Status: Completed predniSONE 20 mg oral tablet (17 sources) Start: 07-21-2024 predniSONE 20 mg tablet ; 1 (one) Tablet per taper instructions for 0 days Quantity: 20 {Tablet} Refills: 0 Ordered: 21-Jul-2024 RICHARD Gaitan Start: 21-Jul-2024 Comments: Take 3tabs qd for 3 days thenTake 2tabs qd for 3 days thenTake 1tab qd for 3 days thenTake 1/2tab qd for 4 days. Start: 12-25-2018 End: 01-24-2019 take 3 tablets by mouth once daily Prednisone 20 MG tablet Discontinued 60 mg PO DAILY 18 December 25, 2018 12:00am January 24, 2019 10:52am Start: 12-25-2018 End: 01-24-2019 take 60 mg by mouth once daily Prednisone Discontinued 60 MG PO DAILY December 25, 2018 12:00am January 24, 2019 10:52am Start: 12-26-2013 End: 07-11-2017 take 3 tablets by mouth once daily, then take 2 tablets by mouth once daily, then take 1 tablet by mouth once daily, then take 0.5 tablet by mouth once daily PredniSONE 20 MG Oral Tablet ; Tablet Tablet for 0 days Quantity: 20 {Tablet} Refills: 0 Ordered: 11-Jul-2017 REINA Toure Start: 26-Dec-2013 End: 11-Jul-2017 Status: Inactive Comments: Take 3tabs qd for 3 days thenTake 2tabs qd for 3 days thenTake 1tab qd for 3 days thenTake 1/2tab qd for 4 days. Comment on above: Take 3tabs qd for 3 days thenTake 2tabs qd for 3 days thenTake 1tab qd for 3 days thenTake 1/2tab qd for 4 days. Completed/Discontinued Medications Medication Drug Class(es) Dates Sig (Normalized) Sig (Original) acetaminophen 325 mg / HYDROcodone bitartrate 5 mg oral tablet (16 sources) Opioid Agonist Start: 12-18-2018 End: 12-21-2018 Hydrocodone-Acetami nophen 1 TABLET tablet Discontinued 1 {tbl} PO EVERY 6 HOURS NEEDED as needed for Pain 12 3 0 December 18, 2018 December 20, 2018 12:00am December 21, 2018 12:09am Back pain Dorsalgia, unspecified Start: 12-18-2018 End: 12-21-2018 take 1 tablet by mouth every six hours as needed Hydrocodone-Acetaminophen Discontinued 1 TABLET PO EVERY 6 HOURS NEEDED 12 3 December 18, 2018 December 21, 2018 12:09am Start: 12-12-2018 End: 12-16-2018 Hydrocodone-Acetaminophen 1 TABLET tablet Discontinued 1 {tbl} PO EVERY 6 HOURS NEEDED as needed for Pain 14 4 0 December 12, 2018 December 15, 2018 12:00am December 16, 2018 12:07am Acute left flank pain Unspecified abdominal pain Start: 12-12-2018 End: 12-16-2018 take 1 tablet by mouth every six hours as needed Hydrocodone-Acetaminophen Discontinued 1 TABLET PO EVERY 6 HOURS NEEDED 14 4 December 12, 2018 December 16, 2018 12:07am acyclovir 800 mg oral tablet (8 sources) Herpesvirus Nucleoside Analog DNA Polymerase Inhibitor, Herpes Simplex Virus Nucleoside Analog DNA Polymerase Inhibitor, Herpes Zoster Virus Nucleoside Analog DNA Polymerase Inhibitor Start: 12-25-2018 End: 01-24-2019 take 1 tablet by mouth five times daily Acyclovir 800 MG tablet Discontinued 800 mg PO 5 TIMES DAILY 35 0 December 25, 2018 12:00am January 24, 2019 10:52am amLODIPine 5 mg oral tablet (20 sources) Dihydropyridine Calcium Channel Rochelle Start: 07-19-2022 End: 07-07-2024 take 1 tablet by mouth once daily Amlodipine 5 mg tablet Discontinued 5 mg PO DAILY 90 3 January 07, 2024 8:22am July 07, 2024 1:59pm Start: 02-21-2019 End: 05-29-2022 take 1 tablet by mouth once daily Amlodipine 10 mg tablet Discontinued 10 mg PO DAILY 90 3 May 29, 2022 12:30pm May 29, 2022 12:43pm Start: 01-24-2019 End: 02-21-2019 take 1 tablet by mouth once daily Amlodipine 5 mg tablet Discontinued 5 mg PO DAILY 30 1 January 24, 2019 12:00am February 21, 2019 9:35am atorvastatin 40 mg oral tablet (20 sources) HMG-CoA Reductase Inhibitor Start: 05-02-2022 End: 07-07-2024 take 1 tablet by mouth at bedtime Atorvastatin 40 mg tablet Discontinued 40 mg PO AT BEDTIME 90 3 July 17, 2023 11:06am July 07, 2024 1:59pm azithromycin 250 mg oral tablet (8 sources) Macrolide Antimicrobial Start: 06-02-2019 End: 06-16-2020 take 2-5 tablets by mouth once daily Azithromycin 250 mg tablet Discontinued 0 PO .COMPLEX 6 0 June 02, 2019 1:00am June 16, 2020 10:37am take 500 mg today (day 1), then 250 mg for 4 days (days 2-5) PO benzonatate 100 mg oral capsule (8 sources) Non-narcotic Antitussive Start: 06-06-2019 End: 06-16-2020 take 2 capsules by mouth three times daily as needed for cough Benzonatate 100 mg capsule Discontinued 200 mg PO THREE TIMES A DAY as needed for cough 30 0 June 06, 2019 1:00am June 16, 2020 10:37am Start: 06-06-2019 End: 06-16-2020 take 200 mg by mouth three times daily Benzonatate Discontinued 200 MG PO THREE TIMES A DAY 30 June 06, 2019 1:00am June 16, 2020 10:37am 12 hr buPROPion hydrochloride 150 mg extended release oral tablet (16 sources) Aminoketone Start: 07-14-2020 End: 11-01-2020 take 1 tablet by mouth twice daily Bupropion Hcl 150 mg tablet sustained-release 12 hr Discontinued 150 mg PO TWICE A DAY 180 July 14, 2020 11:07am November 01, 2020 8:20am Start: 06-16-2020 End: 07-14-2020 Bupropion Hcl 150 mg tablet sustained-release 12 hr Discontinued 150 mg PO TWICE A DAY 60 June 16, 2020 1:00am July 14, 2020 11:08am Take 1 daily x 1 week then increase to BID celecoxib 100 mg oral capsule (16 sources) Nonsteroidal Anti-inflammatory Drug Start: 02-21-2019 End: 06-02-2019 take 1 capsule by mouth twice daily as needed for pain Celecoxib (Celebrex) 100 mg capsule Discontinued 100 mg PO TWICE A DAY as needed for pain 60 April 22, 2019 8:53pm June 02, 2019 11:46am clopidogrel 75 mg oral tablet (20 sources) [id number] Platelet Inhibitor Start: 06-29-2022 End: 07-14-2024 take 1 tablet by mouth once daily Clopidogrel 75 mg tablet Discontinued 75 mg PO DAILY 90 July 07, 2024 1:58pm July 14, 2024 3:36pm Start: 06-07-2022 End: 06-29-2022 take 4 tablets by mouth once daily, then take 1 tablet by mouth once daily Clopidogrel (Plavix) 75 mg tablet Discontinued 75 mg PO DAILY 30 June 07, 2022 1:00am June 29, 2022 2:36pm Take four tablets the first day and then one tablet every day doxycycline monohydrate 100 mg oral capsule (16 sources) Tetracycline-class Drug Start: 03-11-2020 End: 06-16-2020 take 1 capsule by mouth twice daily Doxycycline Monohydrate 100 mg capsule Discontinued 100 mg PO TWICE A DAY 20 0 March 11, 2020 12:00am June 16, 2020 10:37am Start: 06-06-2019 End: 06-16-2019 take 1 capsule by mouth twice daily Doxycycline Hyclate 100 mg capsule Discontinued 100 mg PO TWICE A DAY 20 10 0 June 06, 2019 1:00am June 15, 2019 1:00am June 16, 2019 1:07am Acute sinusitis, unspecified fluticasone propionate 0.05 mg/actuat metered dose nasal spray (7 sources) Corticosteroid Start: 08-02-2015 End: 07-11-2017 take 2 spray(s) nasal route once daily Fluticasone Propionate 50 MCG/ACT Nasal Suspension ; 2 (two) sprays each nostril daily for 30 days Quantity: 1 {Inhaler} Refills: 5 Ordered: 11-Jul-2017 REINA Toure Start: 02-Aug-2015 End: 11-Jul-2017 Status: Inactive Lactobacillus Combo No.23 (Johan Probiotic) 14 billion cell capsule (13 sources) Start: 07-19-2022 End: 09-04-2022 take 1 capsule by mouth once daily Lactobacillus Combo No.23 (Johan Probiotic) 14 billion cell capsule Discontinued 0 PO DAILY July 19, 2022 9:48am September 04, 2022 11:48am Take 1 Capsule orally daily; Start: 07-19-2022 End: 09-04-2022 take 1 capsule by mouth once daily Lactobacillus Combo No.23 (Johan Probiotic) 14 billion cell capsule Discontinued 0 PO DAILY July 19, 2022 10:48am September 04, 2022 12:48pm Take 1 Capsule orally daily; Start: 06-21-2022 End: 07-19-2022 take 1 capsule by mouth once daily Lactobacillus Combo No.23 (Johan Probiotic) 14 billion cell capsule Discontinued 0 PO DAILY 30 June 21, 2022 1:00am July 19, 2022 10:48am Take 1 Capsule orally daily; Start: 06-21-2022 End: 07-19-2022 take 1 capsule by mouth once daily Lactobacillus Combo No.23 (Johan Probiotic) 14 billion cell capsule Discontinued 0 PO DAILY June 21, 2022 12:00am July 19, 2022 9:48am Take 1 Capsule orally daily; Start: 06-21-2022 End: 07-19-2022 take 1 capsule by mouth once daily Lactobacillus Combo No.23 (Johan Probiotic) 14 billion cell capsule Discontinued 0 PO DAILY June 21, 2022 1:00am July 19, 2022 10:48am Take 1 Capsule orally daily; Start: 06-21-2022 take 1 capsule by mo [facility] once daily Lactobacillus Combo No.23 (Johan Probiotic) 14 billion cell capsule Active 0 PO DAILY June 21, 2022 12:00am Take 1 Capsule orally daily; lisinopril 5 mg oral tablet (8 sources) Angiotensin Converting Enzyme Inhibitor Start: 12-11-2018 End: 01-24-2019 take 1 tablet by mouth once daily Lisinopril 5 MG tablet Discontinued 5 mg PO DAILY 30 December 11, 2018 12:00am January 24, 2019 10:52am losartan potassium 100 mg oral tablet (20 sources) Angiotensin 2 Receptor Rochelle Start: 06-07-2022 End: 07-07-2024 take 1 tablet by mouth once daily Losartan 100 mg tablet Discontinued 100 mg PO DAILY 90 3 July 16, 2023 9:10am July 07, 2024 1:59pm Start: 06-05-2022 End: 06-07-2022 take 1 tablet by mouth once daily Losartan 25 mg tablet Discontinued 25 mg PO DAILY June 05, 2022 1:00am June 07, 2022 11:25am Start: 05-02-2022 losartan 25 mg oral tablet Dose : 25 mg = 1 tab(s), Oral, qDay, # 30 tab(s), 6 Refill(s), Pharmacy: [facility]/pharmacy #[id number], 178, cm, 05/01/22 1:24:00 EST, Height Start Date: 05/02/22 Status: Ordered losartan naproxen 500 mg oral tablet (8 sources) Nonsteroidal Anti-inflammatory Drug Start: 12-12-2018 End: 01-24-2019 take 1 tablet by mouth twice daily Naproxen 500 MG tablet Discontinued 500 mg PO TWICE A DAY December 12, 2018 12:00am January 24, 2019 10:52am 24 hr nicotine 0.875 mg/hr transdermal system (16 sources) Cholinergic Nicotinic Agonist Start: 06-21-2022 End: 02-25-2024 apply 1 dose transdermal route every twenty-four hours Nicotine 21 mg/24 hr patch 24 hour Discontinued 1 NMA TD Q24H 28 June 21, 2022 1:00am February 25, 2024 2:00pm Start: 06-21-2022 apply 1 dose transde rmal route every twenty-four hours Nicotine Active 1 PATCH TD Q24H June 21, 2022 1:00am Start: 12-10-2020 End: 06-05-2022 apply 1 dose transdermal route every twenty-four hours Nicotine 21 mg/24 hr patch 24 hour Discontinued 1 NMA TD Q24H 17 06December 10, 2020 12:00am June 05, 2022 9:47am Start: 12-10-2020 End: 06-05-2022 apply 1 dose transdermal route every twenty-four hours Nicotine Discontinued 1 PATCH TD Q24H December 10, 2020 12:00am June 05, 2022 9:47am psyllium 520 mg oral capsule (8 sources) Start: 06-21-2022 End: 02-25-2024 Psyllium Husk (Fiber (Psyllium Husk)) 0.52 gram capsule Discontinued 0.52 g PO DAILY 30 June 21, 2022 1:00am February 25, 2024 2:00pm sildenafil 100 mg oral tablet (20 sources) Phosphodiesterase 5 Inhibitor Start: 12-10-2020 End: 06-21-2022 Sildenafil (Viagra) 100 mg tablet Discontinued 100 mg PO DAILY as needed for sexual activity February 15, 2022 3:14pm June 21, 2022 4:38pm administer 30 minutes to 4 hours before activity Start: 06-16-2020 End: 11-01-2020 Sildenafil 50 mg tablet Disc ontinued 50 mg PO DAILY as needed for sexual activity 14 June 30, 2020 10:30am November 01, 2020 8:21am administer 30 minutes to 4 hours before activity sulfacetamide sodium 100 mg/ml ophthalmic solution (7 sources) Sulfonamide Antibacterial Start: 09-07-2017 End: 07-08-2024 Bleph-10 10 % Ophthalmic Solution ; 1-2 drops four times daily x 5 days for 0 days Quantity: 15 {Milliliter} Refills: 0 Ordered: 07-Sep-2017 REINA Louis Laura Start: 07-Sep-2017 End: 08-Jul-2024 Status: Discontinued Comments: Discontinued by Medication vendor. Comment on above: Discontinued by Medi [facility] vendor. sulfamethoxazole 800 mg / trimethoprim 160 mg oral tablet (8 sources) Dihydrofolate Reductase Inhibitor Antibacterial, Sulfonamide Antimicrobial Start: 03-30-2020 End: 04-06-2020 Sulfamethoxazole- Trimethoprim (Bactrim Ds) 800-160 mg tablet Discontinued 1 {tbl} PO Q12H 14 7 0 March 30, 2020 1:00am April 05, 2020 1:00am April 06, 2020 1:03am pulmonary hypertension tadalafil 20 mg oral tablet (8 sources) Phosphodiesterase 5 Inhibitor Start: 11-01-2020 End: 12-10-2020 take 1 tablet by mouth every twenty-fou r hours Tadalafil (Pulm. Hypertension) 20 mg tablet Discontinued 20 mg PO DAILY as needed for sexual activity 20 2 November 01, 2020 12:00am December 10, 2020 12:19pm administer approximately 30min before sexual activity; do not use more than 1 dose per 24hrs ticagrelor 90 mg oral tablet (9 sources) Start: 06-05-2022 End: 06-07-2022 take 1 tablet by mouth every twelve hours Ticagrelor 90 mg tablet Discontinued 90 mg PO Q12H June 05, 2022 1:00am June 07, 2022 11:26am Start: 05-02-2022 ticagrelor 90 mg oral tablet Dose : 90 mg = 1 tab(s), Oral, q12h, # 60 tab(s), 11 Refill(s), Pharmacy: [facility]/pharmacy #[id number], 178, cm, 05/01/22 1:24:00 EST, Height Start Date: 05/02/22 Status: Ordered varenicline 1 mg oral tablet (20 sources) Partial Cholinergic Nicotinic Agonist Start: 12-01-2020 End: 12-10-2020 take 1 tablet by mouth twice daily, then take 1 tablet by mouth once Varenicline Tartrate (Chantix Continuing Month Box) 1 mg tablet Discontinued 1 mg PO TWICE A DAY 56 3 December 01, 2020 12:00am December 10, 2020 9:53am Start: 11-01-2020 End: 12-01-2020 take 1 tablet by mouth once Varenicline Tartrate (Leal tix Starting Month Box) 0.5 mg (11)- 1 mg (42) tablets,dose pack Discontinued 0 PO per package directions 53 0 November 30, 2020 4:59pm December 01, 2020 9:50am PO PER PKG DIR Problems Active Problems Problem Classification Problem Date Documented Date Episodic/Chronic Abdominal pain (8 sources) Left flank pain; Translations: [Unspecified abdominal pain] 12-13-2018 Episodic Acute myocardial infarction (11 sources) ST elevation (STEMI) myocardial infarction of unspecified site; Translations: [ST elevation (STEMI) myocardial infarction involving other coronary artery of inferior wall] Onset: 04-20-2022 Chronic Alcohol-related disorders (1 source) Alcohol abuse; Translations: [Alcohol abuse, uncomplicated] Chronic Chronic obstructive pulmonary disease and bronchiectasis (8 sources) Chronic bronchitis; Translations: [Unspecified chronic bronchitis] 12-13-2018 Chronic Coronary atherosclerosis and other heart disease (20 sources) Coronary atherosclerosis; Translations: [Atherosclerotic heart disease of [place] coronary artery without angina pectoris] Onset: 05-02-2022 Chronic Disorders of lipid metabolism (14 sources) Dyslipidemia; Translations: [Hyperlipidemia, unspecified] Onset: 03-07-2024 06-07-2022 Chronic Essential hypertension (15 sources) Essential hypertension; Translations: [Essential (primary) hypertension] Onset: 05-02-2022 Chronic Immunizations and screening for infectious disease (8 sources) Contact with or exposure to other viral diseases; Translations: [Exposure to COVID-19 virus] 06-05-2022 Episodic Inflammation; infection of eye (except that caused by tuberculosis or sexually transmitteddisease) (14 sources) Conjunctivitis; Translations: [Unspecified conjunctivitis] 09-07-2017 Episodic Intracranial injury (4 sources) Concussion injury of body structure; Translations: [Concussion] 07-01-2023 Episodic Joint disorders and dislocations; trauma-related (1 source) Other internal derangements of left knee; Translations: [Other internal derangements of left knee] Onset: 01-22-2025 Chronic Lymphadenitis (8 sources) Axillary lymphadenopathy; Translations: [Localized enlarged lymph nodes] 12-13-2018 Episodic Noninfectious gastroenteritis (3 sources) Noninfective gastroenteritis and colitis, unspecified; Translations: [Diarrhea] 06-21-2022 Episodic Nonspecific chest pain (7 sources) Chest pain, unspecified; Translations: [Chest pain] Onset: 05-01-2022 Episodic Other connective tissue disease (20 sources) Pain in upper limb; Translations: [Pain in right arm] 03-20-2014 Episodic Other eye disorders (8 sources) Manifest vertical squint; Translations: [Vertical strabismus, right eye] 06-05-2022 Episodic Other lower respiratory disease (8 sources) Dyspnea; Translations: [Shortness of breath] 06-05-2022 Episodic Other lower respiratory disease (5 sources) Tussive syncope; Translations: [Post-tussive syncope] 07-01-2023 Episodic Other male genital disorders (13 sources) Male erectile dysfunction, unspecified; Translations: [Erectile dysfunction] 11-01-2020 Chronic Other nervous system disorders (8 sources) Lagos's palsy; 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 Other non-traumatic joint disorders (8 sources) Hip pain; Translations: [Pain in right hip] 06-05-2022 Episodic Other nutritional; endocrine; and metabolic disorders (3 sources) Obesity; Translations: [Obesity, unspecified] 08-14-2023 Chronic Other nutritional; endocrine; and metabolic disorders (1 source) Obesity, unspecified; Translations: [Obesity, unspecified] 08-14-2023 Chronic Other screening for suspected conditions (not mental disorders or infectious disease) (14 sources) Screening status; Translations: [Encounter for screening for diabetes mellitus] 01-28-2019 Episodic Otitis media and related conditions (8 sources) Otitis media; Translations: [Otitis media, unspecified, left ear] 06-05-2022 Episodic Pleurisy; pneumothorax; pulmonary collapse (8 sources) Pleurisy; Translations: [Pleurisy] 12-13-2018 Episodic Residual codes; unclassified (20 sources) Obstructive sleep apnea syndrome; Translations: [Obstructive sleep apnea (adult) (pediatric)] 07-22-2020 Chronic Comment on above: Overall AHI 58.9 jaimee nts per hour Residual codes; unclassified (6 sources) Obstructive sleep apnea (adult) (pediatric); Translations: [Obstructive sleep apnea (adult)(pediatric)] Onset: 03-07-2024 06-07-2022 Chronic Residual codes; unclassified (9 sources) Tobacco user; Translations: [Tobacco use] Episodic Residual codes; unclassified (8 sources) Current drinker; Translations: [Other specified health status] 06-21-2022 Episodic Residual codes; unclassified (3 sources) Other specified health status; Translations: [Other specified conditions influencing health status] 06-21-2022 Episodic Residual codes; unclassified (4 sources) Edema; Translations: [Edema, unspecified] 07-01-2023 Episodic Skin and subcutaneous tissue infections (8 sources) Cellulitis of skin of back; Translations: [Cellulitis of back [any part except buttock]] 06-05-2022 Episodic Spondylosis; intervertebral disc disorders; other back problems (20 sources) Other intervertebral disc degeneration, lumbosacral region; Translations: [Spondylosis without myelopathy or radiculopathy, lumbosacral region] Onset: 08-19-2021 Chronic Spondylosis; intervertebral disc disorders; other back problems (20 sources) Radiculopathy, lumbosacral region; Translations: [Spinal stenosis in cervical region] Onset: 08-19-2021 12-26-2018 Episodic Substance-related disorders (20 sources) Nicotine dependence, cigarettes, uncomplicated; Translations: [Nicotine dependence] Onset: 05-01-2022 06-07-2022 Chronic Superficial injury; contusion (4 sources) Contusion of shoulder region; Translations: [Contusion of unspecified shoulder, initial encounter] 07-01-2023 Episodic Unclassified (1 source) Alcohol use, unspecified, uncomplicated; Translations: [Alcohol use, unspecified, uncomplicated] Onset: 05-01-2022 Past or Other Problems Problem Classification Problem Date Documented Date Episodic/Chronic Malaise and fatigue (11 sources) Fatigue; Translations: [Other fatigue] Onset: 03-22-2024 06-05-2022 Episodic Other non-traumatic joint disorders (1 source) Pain in right hip; Translations: [Pain in right hip] Onset: 08-19-2021 Episodic Other non-traumatic joint disorders (12 sources) Pain in left knee; Translations: [Pain in joint, lower leg] Onset: 07-21-2024 07-09-2024 Episodic Unclassified (8 sources) NECK AND BACK PAIN 12-08-2021 Unclassified (7 sources) DIscuss CPAP - Pt here today to discuss CPAP machine. He states that he is unable to use machine and cannot tolerate the mask on his face and with the sealing of mask. He attributes the sealing to his rodriguez and he is not shaving just to make a good seal. He also wakes up with mask off and must be taking off the mask during his sleep. He just overall is not tolerating this well and would like to discuss. [employer] supplies his equipment ( he still owes them on his bill so he can not talk with them about it ).He also has allergy problems and chroncially is congested.he also feels claustrophobic w device . 08-02-2015 Unclassified (7 sources) Arm pain - The pain is in the right arm. The onset of the pain has been acute and has been occurring in a persistent pattern for 8 weeks. Note for Pain: Was given rx for tapering dose of Prednisone on 12-26-13. Pain improved for one week but has gradually been getting worse. 02-23-2014 Unclassified (7 sources) Wrist pain - The pain is in the right wrist and is described as being located in the entire wrist (and up arm to elbow. Fungers are numb and pt unable to make a fist.). The onset of the wrist pain has been sudden following an incident not at work (Pt was up on ladder and he slipped and was holding on with right hand. He felt a pop in right elbow and had pain all the way down into hand. For first 30 minutes he had no feeling in hand and fingers were numb. Since then he had discomfort. Movement has gotten better in hand and fingers except for the numbness and inability to make fist.). Aggravating factors include work duties (Pt lifts all day and has trouble lifting and grasping materials.). Relieving factors include NSAIDs (Using Ibuprofen and had used ice to area when it first happened.). Note for Wrist pain: States it fele like he crac ked his funny bone . It happened 3 weeks ago. 12-26-2013 Unclassified (4 sources) Knee pain - The onset of the knee pain has been gradual following no specific incident and has been occurring in an intermittent pattern for 1 year. The course has been recurrent. The knee pain is moderate (Patient states that some night the pain is so intense it disturbs his sleep) in the left knee. The knee pain is characterized as a dull aching (and night pain). The knee pain is described as being located in the anterior knee. There were no relieving factors. The symptoms have been associated with muscle weakness, painful ROM and decreased ROM, but have not been associated with muscle stiffness, muscle swelling, giving way, catching, locking, pain under patella or warmth. There has been no previous surgeries. There is no use of assistive devices. Note for Knee pain: Patient said over the years he has hurt his knee many times but never serious trauma, and was also told there is a spur in there. Patient states that he tried OTC acetaminophen and some leftover Tramadol which took the edge off the pain but did not relief it. 07-09-2024 Results Test Name Value Interpretation Reference Range Facility CBC (INCLUDES DIFF/PLT)on Basophils (Bld) [#/Vol] 0.085 10*3/uL Normal 0-200 [facility] Comment on above: Performed By: #### 1 0231, 7600, 6399 #### [facility] [place] [address] [employer]: Osmar Womack MD Basophils/100 WBC (Bld) 0.7 % Normal [facility] Comment on above: Performed By: #### 1 023, 0, 6399 #### [facility] [place] [address] [employer]: Osmar Womack MD Eosinophils (Bld) [#/Vol] 0.305 10*3/uL Normal 15-500 [facility] Comment on above: Performed By: #### 1 0231, 7600, 6399 #### [facility] [place] [address] [employer]: Osmar Womack MD Eosinophils/100 WBC (Bld) 2.5 % Normal [facility] Comment on above: Performed By: #### 1 0231, 0, 6399 #### [facility] [address] [place] [address] [employer]: Osmar Womack MD Erythrocyte distribution width (RBC) [Ratio] 14.4 % Normal 11.0-15.0 [facility] Comment on above: Performed By: #### 1 023, 7599, 6399 #### [facility] of [address], [address] [place] [address] [employer]: Osmar Womack MD Hematocrit (Bld) [Volume fraction] 52.4 % High 38.5-50.0 [facility] Comment on above: Performed By: #### 1 023, 7599, 6399 #### [facility] of [place] [address] [employer]: Osmar Womack MD Hemoglobin (Bld) [Mass/Vol] 16.9 g/dL Normal 13.2-17.1 [facility] Comment on above: Performed By: #### 1 230, 7599, 6399 #### [facility] of [address], [address] [place] [address] [employer]: Osmar Womack MD Lymphocytes (Bld) [#/Vol] 3.514 10*3/uL Normal 850-3900 [facility] Comment on above: Performed By: #### 1 023, 7599, 6399 #### [facility] of [place] [address] [employer]: Osmar Womack MD Lymphocytes/100 WBC (Bld) 28.8 % Normal [facility] Comment on above: Performed By: #### 1 023, 7599, 6399 #### [facility] of [address], [address] [place] [address] [employer]: Osmar Womack MD MCH (RBC) [Entitic mass] 30.2 pg Normal 27.0-33.0 [facility] Comment on above: Performed By: #### 1 023, 7599, 6399 #### [facility] of [place] [address] [employer]: Osmar Womack MD MCHC (RBC) [Mass/Vol] 32.3 g/dL Normal 32.0-36.[address] [facility] Comment on above: Result Comment: For adults, a slight decrease in the calculated MCHC value (in the range of 30 to 32 g/dL) is most likely not clinically significant; however, it should be interpreted with caution in correlation with other red cell parameters and the patient's clinical condition. Performed By: #### 1 023, 7599, 6399 #### [facility] of [place] [address] [employer]: Osmar Womack MD MCV (RBC) [Entitic vol] 93.7 fL Normal 80.0-100.0 [facility] Comment on above: Performed By: #### 1 023, 7599, 6399 #### [facility] [place] [address] [employer]: Osmar Womack MD Monocytes (Bld) [#/Vol] 0.805 10*3/uL Normal 200-950 [facility] Comment on above: Performed By: #### 1 023, 7599, 6399 #### [facility] [place] [address] [employer]: Osmar Womack MD Monocytes/100 WBC (Bld) 6.6 % Normal [facility] Comment on above: Performed By: #### 1 023, 7599, 6399 #### [facility] [place] [address] [employer]: Osmar Womack MD Neutrophils (Bld) [#/Vol] 7.491 10*3/uL Normal 7073-2607 [facility] Comment on above: Performed By: #### 1 023, 7599, 6399 #### [facility] of [place] [address] [employer]: Osmar Womack MD Neutrophils/100 WBC (Bld) 61.4 % Normal [facility] Comment on above: Performed By: #### 1 023, 7599, 6399 #### [facility] of [address], [address] [place] [address] [employer]: Osmar Womack MD Platelet mean volume (Bld) [Entitic vol] 9.8 fL Normal 7.5-12.5 [facility] Comment on above: Performed By: #### 1 023, 7599, 6399 #### [facility] of [address], [address] [place] [address] [employer]: Osmar Womack MD Platelets (Bld) [#/Vol] 257 10*3/uL Normal 140-400 [facility] Comment on above: Performed By: #### 1 023, 7599, 6399 #### [facility] of [address], [address] [place] [address] [employer]: Osmar Womack MD RBC (Bld) [#/Vol] 5.59 10*6/uL Normal 4.20-5.80 [facility] Comment on above: Performed By: #### 1 023, 7599, 6399 #### [facility] of [address], [address] [place] [address] [employer]: Osmar Womack MD WBC (Bld) [#/Vol] 12.2 10*3/uL High 3.8-10.8 [facility] Comment on above: Performed By: #### 1 023, 7599, 6399 #### [facility] of [address], [address] [place] [address] [employer]: Osmar Womack MD COMPREHENSIVE METABOLIC PANE [facility] 02-15-2025 Albumin [Mass/Vol] 4.5 g/dL Normal 3.6-5.1 [facility] Comment on above: Performed By: #### 1 023, 7599, 6399 #### [facility] of [address], [address] [place] [address] [employer]: Osmar Womack MD Albumin/Globulin [Mass ratio] 2.0 {ratio} Normal 1.0-2.5 [facility] Comment on above: Performed By: #### 1 0231, 0, 6399 #### [facility] of [address], [address] [place] [address] [employer]: Osmar Womack MD ALP [Catalytic activity/Vol] 56 U/L Normal 35-144 [facility] Comment on above: Performed By: #### 1 0231, 7600, 6399 #### [facility] of [address], [address] [place] [address] [employer]: Osmar Womack MD ALT [Catalytic activity/Vol] 45 U/L Normal 9-46 [facility] Comment on above: Performed By: #### 1 0231, 0, 6399 #### [facility] of [address], [address] [place] [address] [employer]: Osmar Womack MD AST [Catalytic activity/Vol] 32 U/L Normal 10-35 [facility] Comment on above: Performed By: #### 1 0231, 7599, 6399 #### [facility] of [address], [address] [place] [address] [employer]: Osmar Womack MD Bilirubin [Mass/Vol] 0.6 mg/dL Normal 0.2-1.2 [facility] Comment on above: Performed By: #### 1 0231, 760, 6399 #### [facility] of [address], [address] [place] [address] [employer]: Osmar Womack MD Calcium [Mass/Vol] 9.3 mg/dL Normal 8.6-10.3 [facility] Comment on above: Performed By: #### 1 0231, 7600, 6399 #### [facility] of [address], [address] [place] [address] [employer]: Osmar Womack MD Chloride [Moles/Vol] 105 mmol/L Normal 98-110 [facility] Comment on above: Performed By: #### 1 0231, 7600, 6399 #### [facility] of [address], [address] [place] [address] [employer]: Osmar Womack MD CO2 [Moles/Vol] 23 mmol/L Normal 20-32 [facility] Comment on above: Performed By: #### 1 230, 7599, 6399 #### [facility] of [address], [address] [place] [address] [employer]: Osmar Womack MD Creatinine [Mass/Vol] 0.62 mg/dL Low 0.70-1.[address] [facility] Comment on above: Performed By: #### 1 023, 7599, 6399 #### [facility] of [address], [address] [place] [address] [employer]: Osmar Womack MD GFR/1.73 sq M.predicted among non-blacks MDRD (S/P/Bld) [Vol rate/Area] 108 mL/min/{1.73_m2} Normal > OR = 60 [facility] Comment on above: Performed By: #### 1 230, 7599, 6399 #### [facility] of [address], [address] [place] [address] [employer]er: Osmar Womack MD Globulin (S) [Mass/Vol] 2.3 g/dL Normal 1.9-3.7 [facility] Comment on above: Performed By: #### 1 230, 7599, 6399 #### [facility] of [address], [address] [place] [address] [employer]: Osmar Womack MD Glucose [Mass/Vol] 110 mg/dL High 65-99 [facility] Comment on above: Result Comment: Fasting reference interval For someone without known diabetes, a glucose value between 100 and 125 mg/dL is consistent with prediabetes and should be confirmed with a follow-up test. Performed By: #### 1 230, 7599, 6399 #### [facility] of [address], [address] [place] [address] [employer]: Osmar Womack MD Potassium [Moles/Vol] 4.5 mmol/L Normal 3.5-5.[address] [facility] Comment on above: Performed By: #### 1 0231, 0, 6399 #### [facility] of [address], [address] [place] [address] [employer]: Osmar Womack MD Protein [Mass/Vol] 6.8 g/dL Normal 6.1-8.1 [facility] Comment on above: Performed By: #### 1 0231, 0, 6399 #### [facility] of [address], [address] [place] [address] [employer]: Osmar Womack MD Sodium [Moles/Vol] 137 mmol/L Normal 135-146 [facility] Comment on above: Performed By: #### 1 0231, 0, 6399 #### [facility] of [address], [address] [place] [address] [employer]: Osmar Womack MD Urea nitrogen [Mass/Vol] 11 mg/dL Normal 7-25 [facility] Comment on above: Performed By: #### 1 0231, 7599, 6399 #### [facility] of [address], [address] [place] [address] [employer]: Osmar Womack MD Urea nitrogen/Creatinine [Mass ratio] 18 mg/mg Normal 6-22 [facility] Comment on above: Performed By: #### 1 0231, 7599, 6399 #### [facility] of [address], [address] [place] [address] [employer]er: Osmar Womack MD LIPID PANEL, [facility] 01-20 Cholesterol [Mass/Vol] 100 mg/dL Normal <200 [facility] Comment on above: Performed By: #### 1 0231, 0, 6399 #### [facility] of [address], [address] [place] [address] [employer]er: Osmar Womack MD Cholesterol in HDL [Mass/Vol] 48 mg/dL Normal > OR = 40 [facility] Comment on above: Performed By: #### 1 0231, 7600, 6399 #### [facility] of [address], [address] [place] [address] [employer]er: Osmar Womack MD Cholesterol in LDL [Mass/Vol] 29 mg/dL Normal [facility] Comment on above: Result Comment: Refe rence range: <100 Desirable range <100 mg/dL for primary prevention; <70 mg/dL for patients with CHD or diabetic patients with > or = 2 CHD risk factors. LDL-C is now calculated using the Teetee calculation, which is a validated novel method providing better accuracy than the Friedewald equation in the estimation of LDL-C. Emanuel GUERRERO et al. ANTIONETTE. 2013;310(19): 0251-2204 (http://education.[employer]/faq/MYH121) Performed By: #### 1 0231, 7600, 6399 #### [facility] [address], [address] [place] [address] [employer]er: Osmar Womack MD Cholesterol.total/Danielle sterol in HDL [Mass ratio] 2.1 {ratio} Normal <5.0 [facility] Comment on above: Performed By: #### 1 0231, 7600, 6399 #### [facility] [place] [address] [employer]: Osmar Womack MD NON HDL CHOLESTEROL 52 mg/dL (calc) Normal <130 [facility] Comment on above: Result Comment: For patients with diabetes plus 1 major ASCVD risk factor, treating to a non-HDL-C goal of <100 mg/dL (LDL-C of <70 mg/dL) is considered a therapeutic option. Performed By: #### 1 0231, 7600, 6399 #### [facility] [address], [address] [place] [address] [employer]: Osmar Womack MD Triglyceride [Mass/Vol] 150 mg/dL High <150 [facility] Comment on above: Performed By: #### 1 0231, 7600, 6399 #### [facility] [address], [address] [place] [address] [employer]er: Osmar Womack MD PSA, TOTALon 02-15-2025 PSA, TOTAL 0.40 ng/mL Normal < OR = 4.00 [facility] Comment on above: Result Comment: The total PSA value from this assay system is standardized against the WHO standard. The test result will be approximately 20% lower when compared to the equimolar-standardized total PSA (Sharad Maurisio). Comparison of serial PSA results should be interpreted with this fact in mind. This test was performed using the Siemens chemiluminescent method. Values obtained from different assay methods cannot be used interchangeably. PSA levels, regardless of value, should not be interpreted as absolute evidence of the presence or absence of disease. Performed By: #### 1 0231, 7600, 6399 #### [facility] [address] [facility], [address] [place] [address] [employer]er: Osmar Womack MD Magnetic resonance imaging r eportOrdered By: Oliver Delaney on 01-20-2025 Study report [facility] Imaging Services [address] [place] [address] Lower Ext Joint Only (Routine) MR#: [id number] Acct: [id number] Name: BRENDAN MICHAUD Rep #: [id number] : 1960 M 64 From: Genny Delaney MD PCP: Care Physician,No Primary Status: REG CLI Study:Lower Ext Joint Only (Routine) Date of Exam: 01/16/25 Exam# [id number] Ordering Dr: Genevieve Salazar MD PROCEDURE: LOWER EXT JOINT ONLY (ROUTINE) 01/16/2025 REASON FOR EXAM: TRAUMA, INTERNAL DERANGEMENT OF LEFT KNEE TECHNIQUE: T1, T2, PD, multiplanar, multisequence images through the left knee were obtained without contrast. COMPARISON: July 10 2024 x-ray FINDINGS: Bone Marrow: There is a 0.5 cm developing osteochondral defect in the central portion of the medial tibial plateau with no free fragment. Cruciate ligaments: There is increased T2 signal and attenuation in the mid and lower portion of the anterior cruciate ligament without laxity, grade 2 sprain. The posterior cruciate appears intact. Collateral ligaments: There is thickening, edema, and attenuation in the mid andupper portion of the medial collateral ligament without laxity, grade 2 sprain. The lateral collateral ligament complex appearsintact. Menisci: There is a horizontal tear in the body of the medial meniscus which extends to the tibial surface. The lateral meniscus appears intact. Extensor compartment: There is increased T2 signal, thickening and attenuation of the distal quadriceps, and proximal patellar tendon without laxity, grade 2 sprains. Effusion: There is fluid in the prepatellar soft tissues with bursitis. There is a small joint effusion. There is a 1.5 x 1.2 cm ganglion at the posterior superior joint space at the lateral femoral condyle. Soft Tissues: There is no significant Peña's cyst. Cartilage: A fissure is noted in the central portion of the lateral patellar facet. 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 MRI/Lower Ext Joint Only (Routine) IMPRESSION: There is a 0.5 cm developing osteochondral defect in the central portion of the medial tibial plateau with no free fragment. There is increased T2 signal and attenuation in the mid and lower portion of theanterior cruciate ligament without laxity, grade 2 sprain. There is thickening, edema, and attenuation in the mid and upper portion of the medial collateral ligament without laxity, grade 2 sprain. There is a horizontal tear in the body of the medial meniscus which extends to the tibial surface. There is increased T2 signal, thickening and attenuation of the distal quadriceps, and proximal patellar tendon without laxity, grade 2 sprains. There is fluid in the prepatellar soft tissues with bursitis. There is a small joint effusion. There is a 1.5 x 1.2 cm ganglion at the posterior superior joint space at the lateral femoral condyle. A fissure is noted in the central portion of the lateral patellar facet. 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 Reading Location: [facility] CC: Dr. Tramaine Salazar MD; No Primary Care Physician ~ Credit Verifier: Signed [facility] Lower Ext Joint Only (Routin e)on 01-16-2025 Lower Ext Joint Only (Routine) [facility] Imaging Services [address] [place], [place] [id number] Lower Ext Joint Only (Routine) MR#: [id number] Acct: [id number] Name: BRENDAN MICHAUD Rep #: [id number] : 1960 M 64 From: Oliver Delaney MD PCP: Care Physician,No Primary Status: REG CLI Study: Lower Ext Joint Only (Routine) Date of Exam: 0 01/16/25 Exam# [id number] Ordering Dr: Tramaine Salazar MD PROCEDURE: LOWER EXT JOINT ONLY (ROUTINE) 01/16/2025 REASON FOR EXAM: TRAUMA, INTERNAL DERANGEMENT OF LEFT KNEE TECHNIQUE: T1, T2, PD, multiplanar, multisequence images through the left knee were obtained without contrast. COMPARISON: July 10 2024 x-ray FINDINGS: Bone Marrow: There is a 0.5 cm developing osteochondral defect in the central portion of the medial tibial plateau with no free fragment. Cruciate ligaments: There is increased T2 signal and attenuation in the mid and lower portion of the anterior cruciate ligament without laxity, grade 2 sprain. The posterior cruciate appears intact. Collateral ligaments: There is thickening, edema, and attenuation in the mid and upper portion of the medial collateral ligament without laxity, grade 2 sprain. The lateral collateral ligament complex appears intact. Menisci: There is a horizontal tear in the body of the medial meniscus which extends to the tibial surface. The lateral meniscus appears intact. Extensor compartment: There is increased T2 signal, thickening and attenuation of the distal quadriceps, and proximal patellar tendon without laxity, grade 2 sprains. Effusion: There is fluid in the prepatellar soft tissues with bursitis. There is a small joint effusion. There is a 1.5 x 1.2 cm ganglion at the posterior superior joint space at the lateral femoral condyle. Soft Tissues: There is no significant Peña's cyst. Cartilage: A fissure is noted in the central portion of the lateral patellar facet. 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 MRI/Lower Ext Joint Only (Routine) IMPRESSION: There is a 0.5 cm developing osteochondral defect in the central portion of the medial tibial plateau with no free fragment. There is increased T2 signal and attenuation in the mid and lower portion of the anterior cruciate ligament without laxity, grade 2 sprain. There is thickening, edema, and attenuation in the mid and upper portion of the medial collateral ligament without laxity, grade 2 sprain. There is a horizontal tear in the body of the medial meniscus which extends to the tibial surface. There is increased T2 signal, thickening and attenuation of the distal quadriceps, and proximal patellar tendon without laxity, grade 2 sprains. There is fluid in the prepatellar soft tissues with bursitis. There is a small joint effusion. There is a 1.5 x 1.2 cm ganglion at the posterior superior joint space at the lateral femoral condyle. A fissure is noted in the central portion of the lateral patellar facet. 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 [facility]: Dr. Tramaine Salazar MD; No Primary Care Physician Credit Verifier: Signed Normal [facility] L/S Spine w Bend Min 6 Vwon 12-30-2024 L/S Spine w Bend Min 6 Vw [facility] Imaging Services [address] [place] [address] [id number] L/S Spine w Bend Min 6 Vw MR#: [id number] Acct: [id number] Name: BRENDAN MICHAUD Rep #: [id number] : 1960 M 64 From: Contreras Barajas MD PCP: Care Physician,No Primary Status: REG CLI Study: L/S Spine w Bend Min 6 Vw Date of Exam: Exam# [id number] Ordering Dr: Pablito Mcintosh MD PROCEDURE: L/S SPINE W BEND MIN 6 VW 12/30/2024 REASON FOR EXAM: SPONDYLOSIS WITHOUT MYELOPATHY OR RADICULOPATHY, LUMBOSACRAL CAITLYN TECHNIQUE: L/S SPINE W BEND MIN 6 VW COMPARISON: None FINDINGS: Curvature: Normal lumbar lordosis. No dynamic spondylolisthesis with flexion or extension. Vertebral body/discs: Mild disc space narrowing from L1/2 to L4/5. Moderate to severe disc space narrowing lumbosacral junction. Facet hypertrophy is progressive from L2-S1. Osteoarthritis of the hips. RAD/L/S Spine w Bend Min 6 Vw IMPRESSION: Degenerative changes throughout the lumbar spine greatest of the lumbosacral junction. No dynamic spondylolisthesis. Reading Location: [id number] CC: Dr. Pablito Mcintosh MD; No Primary Care Physician Credit Verifier: Signed Normal [facility] Knee 4 or More Viewson 07-10 Knee 4 or More Views [facility] Imaging Services [address] [place], [place] [address] Knee 4 or More Views MR#: [id number] Acct: [id number] Name: BRENDAN MICHAUD Rep #: [id number] : 1960 M 63 From: Tushar Hook i DO PCP: Care Physician,No Primary Status: REG CLI Study: Knee 4 or More Views Date of Exam: 07/10/24 Exam# [id number] Ordering Dr: Sony Gaitan PROCEDURE: Left knee radiographs, five views REASON FOR EXAM: Pain TECHNIQUE: Five views of the left knee were obtained. COMPARISON: None. FINDINGS: Five views of the left knee were obtained. Mild osteopenia. No acute fracture or dislocation of the left knee. Mild tricompartmental degenerative changes. Small suprapatellar effusion. RAD/Knee 4 or More Views IMPRESSION: Osteopenia. No acute bony abnormality of the left knee. Mild tricompartmental degenerative changes and small suprapatellar effusion. Reading Location: [facility] CC: NAIMA Davis; No Primary Care Physician Credit Verifier: Signed Normal [facility] CBC-Complete Blood Cnt No Di ffon 02-25-2024 Erythrocyte distribution width (RBC) [Ratio] 14.2 % Normal 11.6-14.6 [facility] Comment on above: Performed By: #### L [id number], L100.0500 #### [facility] [address] [place], [address] Hematocrit (Bld) [Volume fraction] 47.6 % Normal 40-54 [facility] Comment on above: Performed By: #### L [id number], L100.0500 #### [facility] [address] [place], [address] Hemoglobin (Bld) [Mass/Vol] 15.6 g/dL Normal 13.0-16.5 [facility] Comment on above: Performed By: #### L [id number], L100.0500 #### [facility] [address] [place], [address] MCH (RBC) [Entitic mass] 29.3 pg Normal 27.0-32.0 [facility] Comment on above: Performed By: #### L [id number], [id number] #### [facility] [address] [place], [address] MCHC (RBC) [Mass/Vol] 32.8 g/dL Normal 32-36 [facility] Comment on above: Performed By: #### L [id number], L100.0500 #### [facility] [address] [place], [address] MCV (RBC) [Entitic vol] 89.5 fL Normal 80-94 [facility] Comment on above: Performed By: #### L [id number], L100.0500 #### [facility] [address] [place], [address] Platelet mean volume (Bld) [Entitic vol] 9.1 fL Normal 6.2-12.0 [facility] Comment on above: Performed By: #### L [id number], L100.0500 #### [facility] [address] [place], [address] Platelets (Bld) [#/Vol] 241 10*3/uL Normal 150-450 [facility] Comment on above: Performed By: #### L [id number], L100.0500 #### [facility] [address] [place], [address] RBC (Bld) [#/Vol] 5.32 10*6/uL Normal 4.6-6.2 [facility] Comment on above: Performed By: #### L [id number], L100.0500 #### [facility] [address] [place], [address] RDW SD 45.5 fl High 35.1-43.9 [facility] Comment on above: Performed By: #### L [id number], L100.0500 #### [facility] [address] [place], [address] WBC (Bld) [#/Vol] 10.4 10*3/uL Normal 4.4-11.0 [facility] Comment on above: Performed By: #### L [id number], L100.0500 #### [facility] [address] [place], [address] Cardiology Visit Reporton Cardiology Visit Report [facility] [address] [place], [place] [address] OFFICE VISIT Date of Service: 02/25/24 MR#: [id number] Acct: [id number] Name: KEILYBRENDAN AMEHUONG Rep #: [id number] : 1960 Provider: Dr. Brendan kamara MD Age/Sex: 63/M Location: [facility] Status: Signed HPI HPI History of Present Illness Details: Patient 63-year-old white male comes in for follow-up visit for coronary artery disease. Patient gives a history of PCI to the distal right coronary back in April 2022 and was at the time of an acute inferior wall infarct where presenting with profound diaphoresis and sweating. He also had a PCI of the OM1 branch of the circumflex which was a 34 mm stent in December 2022. The patient now reports that he has had some sensation that remind him of what he was having back in the summer 2022. He cannot specifically put his finger on it but he is having significant fatigue but no definitive chest pain and has not had any of the diaphoresis or sweating. The patient has a history of hyperlipidemia on atorvastatin which is monitored through our office. He also has a history of hypertension which is well-controlled he has a history of obstructive sleep apnea which she cannot tolerate the CPAP therapy. He continues to smoke. He also carries a history of obesity. The patient's primary complaint today is fatigue which is probably related to his untreated obstructive sleep apnea but it could also be the hypothyroidism or anemia. He has not had any blood work in over 6 months. He does not have a primary care physician at this time although he was in the process of reestablishing with [facility]. Intake Vital Signs 08/14/23 14:35 02/25/24 14:02 02/25/24 14:04 Height 5 ft 10 in 5 ft 10 in 5 ft 10 in Weight: 251 lb 245 lb BMI 36.0 35.2 BP 135/85 H 109/74 Blood Pressure Location Lt brachial Lt brachial Position Sitting Sitting Respiration 18 18 Pulse 88 75 Pulse Source Monitor Monitor Pulse Oximetry (%) 92 Oxygen Delivery Method room air Intake Visit Reasons: 6 M FU [employer] Fore[employer] Geneticist Required: No Accompanied by: Self Is patient in pain?: No Allergies Penicillins (PCN) Allergy (Verified 02/25/24 13:57) Unknown Medications ???Medication ???Instructions ???Recorded ???Confirmed ???Type Handicap Placard #1 ea 07/14/20 08/14/23 Rx aspirin 81 mg tablet,delayed 81 mg PO DAILY 06/05/22 02/25/24 History release sildenafil 100 mg tablet (Viagra) 100 mg PO DAILY PRN sexual 06/21/22 02/25/24 Rx activity #20 tabs albuterol sulfate 90 mcg/actuation 2 puff inhalation Q6H PRN 07/01/23 02/25/24 Rx aerosol inhaler (ProAir HFA) shortness of breath or wheezing #6.7 grams clopidogrel 75 mg tablet 75 mg PO DAILY #90 tabs 07/16/23 02/25/24 Rx losartan 100 mg tablet 100 mg PO DAILY #90 tabs 07/16/23 02/25/24 Rx atorvastatin 40 mg tablet 40 mg PO QHS #90 tabs 07/17/23 02/25/24 Rx metoprolol succinate 50 mg 50 mg PO QHS #90 tabs 07/23/23 02/25/24 Rx tablet,extended release 24 hr amlodipine 5 mg tablet 5 mg PO DAILY #90 TABLETS 08/19/24 10/07/24 Rx Have you fallen in the past year?: No PFSH Medical History (Updated 02/25/24 @ 14:[address] Brendan Bourgeois MD) Chest pain Alcohol use Marijuana abuse Nicotine dependence Dyslipidemia Coronary artery disease Atherosclerosis of coronary artery of [place] heart without angina pectoris STEMI (ST elevation myocardial infarction) ( 04/30/22) Exposure to COVID-19 virus Right hip pain Chronic back pain Preventative health care Erectile dysfunction Tobacco abuse Nicotine dependence, cigarettes, uncomplicated SOB (shortness of breath) Smoking greater than 40 pack years Obstructive sleep apnea Cellulitis of mid back region Left otitis media Cervical radiculopathy 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 Seasonal allergies History of pneumonia DDD (degenerative disc disease), lumbar Vertical strabismus, right eye Shoulder pain NECK AND BACK PAIN Hay fever Fatigue Surgical History History of coronary artery stent placement ( 01/10/23) History of neck surgery Family History Father Myocardial infarction, Onset Age: 49 Other Cancer Heart disease Social History household members: spouse housing: house Smoking Status: Current every day smoker tobacco type: cigarettes Tobacco: How many years used: 35 quit status: considering quitting alcohol intake: former details: quit as of now substance use type: does not use caffeine: Yes Type: carbonated beverages and coffee Number of servings: 1 what type of physical activity do you participate in: other detail (more content not included)... Normal [facility] Thyroid Stim Hormone (TSH)on 02-25-2024 TSH 3.080 uIU/mL Normal 0.358-3.740 [facility] Comment on above: Performed By: #### L [id number], L100.0500 #### [facility] [address] [place], [address] Basophil percentageOrdered B y: Memesusan Culver on 08-14-2023 Bilirubin [Mass/Vol] 0.70 mg/dL 0.20-1.00 [facility] Comment on above: For patients on eltr ombopag therapy, use of Dimension Edison TBIL is not recommended. Chloride [Moles/Vol] 106 mmol/L 98-107 [facility] Cholesterol [Mass/Vol] 102 mg/dL <200 [facility] Comment on above: <200 mg/dL Desirable 200-240 mg/dL Borderline >240 mg/dL High Risk Glucose [Mass/Vol] 142 mg/dL 74-106 [facility] Comment on above: Fasting Glucose resu lt greater than or equal to 126 mg/dL suggests DIABETES MELLITUS per A.D.A. criteria. Potassium [Moles/Vol] 3.8 mmol/L 3.5-5.1 [facility] Protein [Mass/Vol] 7.2 g/dL 6.4-8.2 [facility] Sodium [Moles/Vol] 139 mmol/L 136-145 [facility] Triglyceride [Mass/Vol] 192 mg/dL <199 [facility] Comment on above: The drugs N-Acetylcy steine and Metamizole may falsely depress this assay.Serum Triglycerides Reference Interval Normal <150 mg/dL Borderline high 150 - 199 mg/dL High 200 - 499 mg/dL Very High > or = 500 mg/dL Laboratory - Chemistry and C hemistry - challengeOrdered By: Meme Culver on 08-14-2023 Albumin/Globulin [Mass ratio] 1.2 {ratio} 0.9-2.4 [facility] ALP [Catalytic activity/Vol] 64 U/L 45-117 [facility] ALT [Catalytic activity/Vol] 36 U/L 16-61 [facility] Cholesterol in HDL [Mass/Vol] 36 mg/dL >40 [facility] Comment on above: The drugs N-Acetylcy steine and Metamizole may falsely depress this assay. Reference Range HDL <40 mg/dL Low HDL Cholesterol HDL >or= 60 mg/dL High HDL Cholesterol Cholesterol in LDL [Mass/Vol] 28 mg/dL 0-130 [facility] CO2 [Moles/Vol] 27.0 mmol/L 21.0-32.0 [facility] Globulin (S) [Mass/Vol] 3.3 g/dL 2.2-4.2 [facility] Urea nitrogen/Creatinine [Mass ratio] 14.5 mg/mg 10-20 [facility] No Panel InformationOrdered By: Meme Culver on 08-14-2023 Estimated GFR (MDRD) Amer 122 mL/min >60 [facility] Comment on above: GFR Calc Estimated GFR (MDRD) Non-Af Amer 100 mL/min >60 [facility] Comment on above: Non- GFR Calc VLDL Cholesterol 38 mg/dL 5-40 [facility] Serum or plasma calcium yesica urement (mass/volume)Ordered By: Meme Culver on 08-14-2023 Calcium [Mass/Vol] 9.3 mg/dL 8.5-10.1 [facility] Serum or plasma creatinine m easurement (mass/volume)Ordered By: Meme Culver on 08-14-2023 Creatinine [Mass/Vol] 0.83 mg/dL 0.70-1.30 [facility] Comment on above: The validity of the calculated GFR & GFRAA in patients over 70 years has not been determined. Clinical correlation is essential. Serum or plasma urea nitroge n measurement (mass/volume)Ordered By: Meme Culver on 08-14-2023 Urea nitrogen [Mass/Vol] 12 mg/dL 7-18 [facility] Thin prep Papanicolaou smear with manual screeningOrdered By: Meme Culver on 08-14-2023 Thin prep Papanicolaou smear with manual screening 3.9 g/dL 3.2-5.0 [facility] Thin prep Papanicolaou smear with manual screening 21 U/L 15-37 [facility] Thin prep Papanicolaou smear with manual screening 6 5-15 [facility] Basophil percentageOrdered B y: Meme Culver on 01-11-2023 Bilirubin [Mass/Vol] 0.70 mg/dL 0.20-1.00 [facility] Comment on above: For patients on eltr ombopag therapy, use of Dimension Edison TBIL is not recommended. Chloride [Moles/Vol] 115 mmol/L 98-107 [facility] Glucose [Mass/Vol] 116 mg/dL 74-106 [facility] Comment on above: Fasting Glucose resu lt from 100 to 125 mg/dL suggests IMPAIRED HOMEOSTASIS per A.D.A. criteria. Potassium [Moles/Vol] 4.2 mmol/L 3.5-5.1 [facility] Protein [Mass/Vol] 6.8 g/dL 6.4-8.2 [facility] Sodium [Moles/Vol] 142 mmol/L 136-145 [facility] WBC (Bld) [#/Vol] 11.2 10*3/uL 4.4-11.0 [facility] Blood erythrocytes count (nu mber/volume)Ordered By: Meme Culver on 01-11-2023 RBC (Bld) [#/Vol] 5.09 10*6/uL 4.6-6.2 [facility] Blood hemoglobin measurement (mass/volume)Ordered By: Meme Culver on 01-11-2023 Hemoglobin (Bld) [Mass/Vol] 15.3 g/dL 13.0-16.5 [facility] Blood platelet mean volumeOr dered By: Meme Culver on 01-11-2023 Platelet mean volume (Bld) [Entitic vol] 9.2 fL 6.2-12.0 [facility] Determination of erythrocyte mean corpuscular volume (MCV)Ordered By: Meme Culver on 01-11-2023 MCV (RBC) [Entitic vol] 92.9 fL 80-94 [facility] Hematocrit Auto (Bld) [Volum e fraction]Ordered By: Meme Culver on 01-11-2023 Hematocrit (Bld) [Volume fraction] 47.3 % 40-54 [facility] - Chemistry and C hemistry - challengeOrdered By: Meme Culver on 01-11-2023 ALP [Catalytic activity/Vol] 59 U/L 45-117 [facility] ALT [Catalytic activity/Vol] 36 U/L 16-61 [facility] CO2 [Moles/Vol] 21.0 mmol/L 21.0-32.0 [facility] Globulin (S) [Mass/Vol] 3.2 g/dL 2.2-4.2 [facility] Urea nitrogen/Creatinine [Mass ratio] 20.4 mg/mg 10-20 [facility] - Hematology and Cell countsOrdered By: Meme Culver on 01-11-2023 Erythrocyte distribution width (RBC) [Entitic vol] 47.3 fL 35.1-43.9 [facility] Erythrocyte distribution width (RBC) [Ratio] 13.8 % 11.6-14.6 [facility] MCH (RBC) [Entitic mass] 30.1 pg 27.0-32.0 [facility] MCHC Auto (RBC) [Mass/Vol]Or dered By: Meme Culver on 01-11-2023 MCHC (RBC) [Mass/Vol] 32.3 g/dL 32-36 [facility] No Panel InformationOrdered By: Meme Culver on 01-11-2023 Estimated Creatinine Clearance Calc 126.74 ml/min [facility] Estimated GFR (MDRD) Amer 164 mL/min >60 [facility] Comment on above: GFR Calc Estimated GFR (MDRD) Non-Af Amer 136 mL/min >60 [facility] Comment on above: Non- GFR Calc Platelets bldOrdered By: Rick Culver on 01-11-2023 Platelets (Bld) [#/Vol] 208 10*3/uL 150-450 [facility] Serum or plasma albumin yesica urement (mass/volume)Ordered By: Meme Culver on 01-11-2023 Albumin [Mass/Vol] 3.6 g/dL 3.2-5.0 [facility] Serum or plasma albumin/glob ulin mass ratioOrdered By: Meme Culver on 01-11-2023 Albumin/Globulin [Mass ratio] 1.1 {ratio} 0.9-2.4 [facility] Serum or plasma calcium yesica urement (mass/volume)Ordered By: Meme Culver on 01-11-2023 Calcium [Mass/Vol] 8.5 mg/dL 8.5-10.1 [facility] Serum or plasma creatinine m easurement (mass/volume)Ordered By: Meme Culver on 01-11-2023 Creatinine [Mass/Vol] 0.64 mg/dL 0.70-1.30 [facility] Comment on above: The validity of the calculated GFR & GFRAA in patients over 70 years has not been determined. Clinical correlation is essential. Serum or plasma urea nitroge n measurement (mass/volume)Ordered By: Meme Culver on 01-11-2023 Urea nitrogen [Mass/Vol] 13 mg/dL 7-18 [facility] Thin prep Papanicolaou smear with manual screeningOrdered By: Meme Culver on 01-11-2023 Thin prep Papanicolaou smear with manual screening 30 U/L 15-37 [facility] Thin prep Papanicolaou smear with manual screening 6 5-15 [facility] Basophil percentageOrdered B y: Meme Culver on 12-20-2022 Chloride [Moles/Vol] 108 mmol/L 98-107 [facility] Glucose [Mass/Vol] 130 mg/dL 74-106 [facility] Comment on above: Fasting Glucose resu lt greater than or equal to 126 mg/dL suggests DIABETES MELLITUS per A.D.A. criteria. Potassium [Moles/Vol] 4.0 mmol/L 3.5-5.1 [facility] Sodium [Moles/Vol] 137 mmol/L 136-145 [facility] WBC (Bld) [#/Vol] 11.3 10*3/uL 4.4-11.0 [facility] Blood erythrocytes count (nu mber/volume)Ordered By: Meme Culver on 12-20-2022 RBC (Bld) [#/Vol] 5.39 10*6/uL 4.6-6.2 [facility] Blood hemoglobin measurement (mass/volume)Ordered By: Meme Culver on 12-20-2022 Hemoglobin (Bld) [Mass/Vol] 16.6 g/dL 13.0-16.5 [facility] Blood platelet mean volumeOr dered By: Meme Culver on 12-20-2022 Platelet mean volume (Bld) [Entitic vol] 9.0 fL 6.2-12.0 [facility] Determination of erythrocyte mean corpuscular volume (MCV)Ordered By: Meme Culver on 12-20-2022 MCV (RBC) [Entitic vol] 92.2 fL 80-94 [facility] Hematocrit Auto (Bld) [Volum e fraction]Ordered By: Meme Culver on 12-20-2022 Hematocrit (Bld) [Volume fraction] 49.7 % 40-54 [facility] INR in Blood by Coagulation assayOrdered By: Meme Culver on 12-20-2022 INR Coag (Bld) [Relative time] 1.0 {INR} [facility] - Chemistry and C hemistry - challengeOrdered By: Meme Culver on 12-20-2022 CO2 [Moles/Vol] 24.0 mmol/L 21.0-32.0 [facility] Urea nitrogen/Creatinine [Mass ratio] 14.9 mg/mg 10-20 [facility] - CoagulationOrde red By: Meme Culver on 12-20-2022 aPTT Coag (Bld) [Time] 36.1 s 24.1-36.2 [facility] PT Coag (PPP) [Time] 13.1 s 11.7-14.9 [facility] - Hematology and Cell countsOrdered By: Meme Culver on 12-20-2022 Erythrocyte distribution width (RBC) [Entitic vol] 46.9 fL 35.1-43.9 [facility] Erythrocyte distribution width (RBC) [Ratio] 13.8 % 11.6-14.6 [facility] MCH (RBC) [Entitic mass] 30.8 pg 27.0-32.0 [facility] MCHC Auto (RBC) [Mass/Vol]Or dered By: Meme Culver on 12-20-2022 MCHC (RBC) [Mass/Vol] 33.4 g/dL 32-36 [facility] No Panel InformationOrdered By: Meme Culver on 12-20-2022 Estimated GFR (MDRD) Amer 126 mL/min >60 [facility] Comment on above: GFR Calc Estimated GFR (MDRD) Non-Af Amer 104 mL/min >60 [facility] Comment on above: Non- GFR Calc Platelets bldOrdered By: Rick Culver on 12-20-2022 Platelets (Bld) [#/Vol] 247 10*3/uL 150-450 [facility] Serum or plasma calcium yesica urement (mass/volume)Ordered By: Meme Culver on 12-20-2022 Calcium [Mass/Vol] 9.1 mg/dL 8.5-10.1 [facility] Serum or plasma creatinine m easurement (mass/volume)Ordered By: Meme Culver on 12-20-2022 Creatinine [Mass/Vol] 0.80 mg/dL 0.70-1.30 [facility] Comment on above: The validity of the calculated GFR & GFRAA in patients over 70 years has not been determined. Clinical correlation is essential. Serum or plasma urea nitroge n measurement (mass/volume)Ordered By: Meme Culver on 12-20-2022 Urea nitrogen [Mass/Vol] 12 mg/dL 7-18 [facility] Thin prep Papanicolaou smear with manual screeningOrdered By: Meme Culver on 12-20-2022 Thin prep Papanicolaou smear with manual screening 5 5-15 [facility] EP PanelOrdered By: Sofia Esteban on 06-22-2022 Gastrointestinal pathogens panel PETER+probe (Stl) [facility] Giardia lamblia ag stool EIA Ordered By: Sofia Esteban on 06-22-2022 G. lamblia Ag IA Ql (Stl) Negative Negative [facility] Comment on above: Performed at: [employer] [address] [id number] Director: Donald Odell MD, Phone: [phone] at: [facility] [id number] Director: Pramod Penaloza PhD, Phone: [phone] Stool Helicobacter pylori an tigen detection by immunoassayOrdered By: Sofia Esteban on 06-22-2022 H. pylori Ag IA Ql (Stl) Negative Negative [facility] Stool gastrointestinal hemog lobin detection by immunologic methodOrdered By: Sofia Esteban on 06-22-2022 Lower GI hemoglobin IA Ql (Stl) [facility] Absolute lymphocyte countOrd ered By: Sofia Esteban on 06-21-2022 Lymphocytes Auto (Unsp spec) [#/Vol] 3.40 10*3/uL 0.83-4.51 [facility] Basophil percentageOrdered B y: Sofia Esteban on 06-21-2022 Basophil percentage 0 SEEN /hpf 0-5 [facility] Basophils/100 WBC (Bld) 0.9 % 0-1 [facility] Bilirubin [Mass/Vol] 0.90 mg/dL 0.20-1.00 [facility] Comment on above: For patients on eltr ombopag therapy, use of Dimension Edison TBIL is not recommended. Eosinophils/100 WBC (Bld) 2.2 % 0-5 [facility] Neutrophils (Bld) [#/Vol] 6.4 10*3/uL 2.0-7.7 [facility] Neutrophils/100 WBC (Bld) 58.3 % 47-70 [facility] Protein [Mass/Vol] 7.5 g/dL 6.4-8.2 [facility] WBC (Bld) [#/Vol] 11.0 10*3/uL 4.4-11.0 [facility] Bilirubin Test strip Ql (U)O rdered By: Sofia Esteban on 06-21-2022 Bilirubin Ql (U) Negative Negative [facility] Blood erythrocytes count (nu mber/volume)Ordered By: Sofia Esteban on 06-21-2022 RBC (Bld) [#/Vol] 5.77 10*6/uL 4.6-6.2 [facility] Blood hemoglobin measurement (mass/volume)Ordered By: Sofia Esteban on 06-21-2022 Hemoglobin (Bld) [Mass/Vol] 17.3 g/dL 13.0-16.5 [facility] Blood lymphocytes/100 leukoc ytesOrdered By: Sofia Esteban on 06-21-2022 Lymphocytes/100 WBC (Bld) 30.9 % 19-41 [facility] Blood monocytes/100 leukocyt esOrdered By: Sofia Esteban on 06-21-2022 Monocytes/100 WBC (Bld) 6.9 % 0-10 [facility] Blood platelet mean volumeOr dered By: Sofia Esteban on 06-21-2022 Platelet mean volume (Bld) [Entitic vol] 9.2 fL 6.2-12.0 [facility] Determination of erythrocyte mean corpuscular volume (MCV)Ordered By: Sofia Esteban on 06-21-2022 MCV (RBC) [Entitic vol] 91.2 fL 80-94 [facility] Direct bilirubinOrdered By: Sofia Esteban on 06-21-2022 Bilirubin.direct [Mass/Vol] 0.17 mg/dL 0.00-0.30 [facility] Hematocrit Auto (Bld) [Volum e fraction]Ordered By: Sofia Esteban on 06-21-2022 Hematocrit (Bld) [Volume fraction] 52.6 % 40-54 [facility] Ketones Test strip Ql (U)Ord ered By: Sofia Esteban on 06-21-2022 Ketones Ql (U) Negative Negative [facility] - Chemistry and C hemistry - challengeOrdered By: Sofiavalencia Esteban on 06-21-2022 ALP [Catalytic activity/Vol] 64 U/L 45-117 [facility] ALT [Catalytic activity/Vol] 41 U/L 16-61 [facility] Globulin (S) [Mass/Vol] 3.5 g/dL 2.2-4.2 [facility] Laboratory - Hematology and Cell countsOrdered By: Sofia Esteban on 06-21-2022 Erythrocyte distribution width (RBC) [Entitic vol] 45.0 fL 35.1-43.9 [facility] Erythrocyte distribution width (RBC) [Ratio] 13.4 % 11.6-14.6 [facility] Immature granulocytes/100 WBC (Bld) 0.800 % 0.0-0.9 [facility] Comment on above: IG% - Immature Granu locytes (promyelocytes, myelocytes and metamyelocytes) > 1% indicates that a LEFT SHIFT is Present. MCH (RBC) [Entitic mass] 30.0 pg 27.0-32.0 [facility] Nucleated RBC/100 WBC (Bld) [Ratio] 0 % 0-5 [facility] MCHC Auto (RBC) [Mass/Vol]Or dered By: Sofia Esteban on 06-21-2022 MCHC (RBC) [Mass/Vol] 32.9 g/dL 32-36 [facility] Mucus LM Ql (Urine sed)Order ed By: Sofia Esteban on 06-21-2022 Mucus Ql (Urine sed) 0 SEEN /hpf [facility] Nitrite Test strip Ql (U)Ord ered By: Sofia Esteban on 06-21-2022 Nitrite Ql (U) Negative Negative [facility] No Panel InformationOrdered By: Sofia Esteban on 06-21-2022 Thyroid Stimulating Hormone (TSH) 3.23 uIU/mL 0.358-3.74 [facility] Platelets bldOrdered By: Trenton Esteban on 06-21-2022 Platelets (Bld) [#/Vol] 259 10*3/uL 150-450 [facility] Protein Test strip Ql (U)Ord ered By: Sofia Esteban on 06-21-2022 Protein Ql (U) 15 mg/dl Negative [facility] Serum or plasma albumin yesica urement (mass/volume)Ordered By: Sofia Esteban on 06-21-2022 Albumin [Mass/Vol] 4.0 g/dL 3.2-5.0 [facility] Squamous epithelial cells de tection in urine sediment by light microscopyOrdered By: Sofia Esteban on 06-21-2022 Epithelial cells.squamous LM Ql (Urine sed) 0 SEEN /hpf 0-5 [facility] Thin prep Papanicolaou smear with manual screeningOrdered By: Sofia Esteban on 06-21-2022 Thin prep Papanicolaou smear with manual screening 41 U/L 15-37 [facility] Urine blood detectionOrdered By: Sofia Esteban on 06-21-2022 RBC Ql (U) Negative Negative [facility] RBC Ql (U) 0 SEEN /hpf 0-5 [facility] Urine clarityOrdered By: Trenton Esteban on 06-21-2022 Clarity (U) Clear Clear [facility] Urine color determinationOrd ered By: Sofia Esteban on 06-21-2022 Color (U) Yellow Yellow [facility] Urine glucose detectionOrder ed By: Sofia Esteban on 06-21-2022 Glucose Ql (U) Normal mg/dl Normal [facility] Urine leukocyte esterase det ection by dipstickOrdered By: Sofia Esteban on 06-21-2022 Leukocyte esterase Test strip Ql (U) Negative Negative [facility] Urine pHOrdered By: Sofia Esteban on 02-01-2023 pH (U) 6.0 [pH] 5.0 - 8.0 [facility] Urine sediment bacteria coun t by microscopy (number/high power field)Ordered By: Sofia Esteban on 06-21-2022 Bacteria LM.HPF (Urine sed) [#/Area] 0 /[HPF] None Seen [facility] Urine specific gravity measu rementOrdered By: Sofia Esteban on 06-21-2022 Specific gravity (U) [Rel density] 1.020 1.002-1.030 [facility] Urobilinogen Auto test strip Ql (U)Ordered By: Sofia Esteban on 06-21-2022 Urobilinogen Ql (U) Normal mg/dl Normal [facility] Basophil percentageOrdered B y: Dr. Culver on 06-13-2022 Chloride [Moles/Vol] 108 mmol/L 98-107 [facility] Glucose [Mass/Vol] 134 mg/dL 74-106 [facility] Comment on above: Fasting Glucose resu lt greater than or equal to 126 mg/dL suggests DIABETES MELLITUS per A.D.A. criteria. Potassium [Moles/Vol] 4.0 mmol/L 3.5-5.1 [facility] Sodium [Moles/Vol] 138 mmol/L 136-145 [facility] Laboratory - Chemistry and C hemistry - challengeOrdered By: Dr. Culver on 06-13-2022 CO2 [Moles/Vol] 22.0 mmol/L 21.0-32.0 [facility] Urea nitrogen/Creatinine [Mass ratio] 15.0 mg/mg 10-20 [facility] No Panel InformationOrdered By: Dr. Culver on 06-13-2022 Estimated GFR (MDRD) Amer 127 mL/min >60 [facility] Comment on above: GFR Calc Estimated GFR (MDRD) Non-Af Amer 105 mL/min >60 [facility] Comment on above: Non- GFR Calc Serum or plasma calcium yesica urement (mass/volume)Ordered By: Dr. Culver on 06-13-2022 Calcium [Mass/Vol] 8.8 mg/dL 8.5-10.1 [facility] Serum or plasma creatinine m easurement (mass/volume)Ordered By: Dr. Culver on 06-13-2022 Creatinine [Mass/Vol] 0.80 mg/dL 0.70-1.30 [facility] Comment on above: The validity of the calculated GFR & GFRAA in patients over 70 years has not been determined. Clinical correlation is essential. Serum or plasma urea nitroge n measurement (mass/volume)Ordered By: Dr. Culver on 06-13-2022 Urea nitrogen [Mass/Vol] 12 mg/dL 7-18 [facility] Thin prep Papanicolaou smear with manual screeningOrdered By: Dr. Culver on 06-13-2022 Thin prep Papanicolaou smear with manual screening 8 5-15 [facility] .Auto Diffon 05-02-2022 Basophil, Absolute 0.1 10 3/mcL Normal 0.0-0.3 [facility] ([place]) Comment on above: Performed By: #### A 1C, CMP, GFR, LIPID ####[address] [address] Basophils/100 WBC (Bld) 0.5 % Normal 0.0-2.5 [facility] ([place]) Comment on above: Performed By: #### A 1C, CMP, GFR, LIPID ####[address] [address] Eosinophil, Absolute 0.2 10 3/mcL Normal 0.0-0.7 On license of [facility] ([place]) Comment on above: Performed By: #### A 1C, CMP, GFR, LIPID ####[address] [address] Eosinophils/100 WBC (Bld) 2.0 % Normal 0.0-6.0 [facility] ([place]) Comment on above: Performed By: #### A 1C, CMP, GFR, LIPID ####[address] [address] Lymphocyte, Absolute 3.4 10 3/mcL Normal 0.9-4.3 On license of [facility] ([place]) Comment on above: Performed By: #### A 1C, CMP, GFR, LIPID ####[address] [address] Lymphocytes/100 WBC (Bld) 29.9 % Normal 20.0-40.0 [facility] ([place] Comment on above: Performed By: #### A 1C, CMP, GFR, LIPID ####[address] [address] Monocyte, Absolute 0.9 10 3/mcL Normal 0.1-1.4 [facility] ([place]) Comment on above: Performed By: #### A 1C, CMP, GFR, LIPID ####[address] [address] Monocytes/100 WBC (Bld) 8.0 % Normal 2.0-13.0 [facility] ([place] Comment on above: Performed By: #### A 1C, CMP, GFR, LIPID ####[address] [address] Neutrophils/100 WBC (Bld) 59.6 % Normal 50.0-75.0 [facility] ([place] Comment on above: Performed By: #### A 1C, CMP, GFR, LIPID ####[place] [address] .GFRon 05-02-2022 GFR >60 Normal [facility] ([place]) Comment on above: Result Comment: GFR Population mean for , Non- Americans Ages 20-29 = 116 mL/min/1.73 sq.m. Ages 30-39 = 107 mL/min/1.73 sq.m. Ages 40-49 = 99 mL/min/1.73 sq.m. Ages 50-59 = 93 mL/min/1.73 sq.m. Ages 60-69 = 85 mL/min/1.73 sq.m. Ages 70+ = 75 mL/min/1.73 sq.m. Chronic Kidney Disease: Less than 60 mL/min/1.73 square meters End Stage Renal Disease: Less than 15 mL/min/1.73 square meters Performed By: #### A 1C, CMP, GFR, LIPID ####[address] [address] GFR Non- >60 Normal [facility] ([place] Comment on above: Result Comment: GFR Population mean for , Non- Americans Ages 20-29 = 116 mL/min/1.73 sq.m. Ages 30-39 = 107 mL/min/1.73 sq.m. Ages 40-49 = 99 mL/min/1.73 sq.m. Ages 50-59 = 93 mL/min/1.73 sq.m. Ages 60-69 = 85 mL/min/1.73 sq.m. Ages 70+ = 75 mL/min/1.73 sq.m. Chronic Kidney Disease: Less than 60 mL/min/1.73 square meters End Stage Renal Disease: Less than 15 mL/min/1.73 square meters Performed By: #### A 1C, CMP, GFR, LIPID ####[place] [address] .NEUABSon 05-02-2022 Neutrophil, Absolute 6.8 10 3/mcL Normal 2.3-8.1 On license of [facility] ([place]) Comment on above: Performed By: #### A 1C, CMP, GFR, LIPID ####[place] [address] A1Con 05-02-2022 HbA1c (Bld) [Mass fraction] 5.8 % Normal 4.0-6.0 [facility] ([place] Comment on above: Performed By: #### A 1C, CMP, GFR, LIPID ####[place] [address] CBCon 05-02-2022 Erythrocyte distribution width (RBC) [Ratio] 14.7 % Normal 11.5-15.5 [facility] ([place] Comment on above: Performed By: #### A 1C, CMP, GFR, LIPID ####[place] [address] Hematocrit (Bld) [Volume fraction] 47.5 % Normal 40.0-52.0 [facility] ([place] Comment on above: Performed By: #### A 1C, CMP, GFR, LIPID ####[place] [address] Hgb 15.9 G/dL Normal 13.0-17.5 [facility] ([place] Comment on above: Performed By: #### A 1C, CMP, GFR, LIPID ####[address] [address] MCH (RBC) [Entitic mass] 30.4 pg Normal 27.0-33.0 [facility] ([place] Comment on above: Performed By: #### A 1C, CMP, GFR, LIPID ####[place] [address] MCHC 33.4 G/dL Normal 32.0-36.0 [facility] ([place] Comment on above: Performed By: #### A 1C, CMP, GFR, LIPID ####[place] [address] MCV (RBC) [Entitic vol] 90.9 fL Normal 81.0-100.0 A [facility] ([place] Comment on above: Performed By: #### A 1C, CMP, GFR, LIPID ####[place] [address] Platelet 210 10 3/mcL Normal 150-450 [facility] ([place] Comment on above: Performed By: #### A 1C, CMP, GFR, LIPID ####[place] [address] Platelet mean volume (Bld) [Entitic vol] 7.5 fL Normal 6.4-10.5 [facility] ([place] Comment on above: Performed By: #### A 1C, CMP, GFR, LIPID ####[place] [address] RBC 5.23 10 6/mcL Normal 4.50-6.00 [facility] ([place] Comment on above: Performed By: #### A 1C, CMP, GFR, LIPID ####[place] [address] WBC 11.4 10 3/mcL High 4.5-10.8 [facility] ([place] Comment on above: Performed By: #### A 1C, CMP, GFR, LIPID ####[place] [address] CMPon 05-02-2022 Albumin Level 3.5 G/dL Normal 3.2-4.8 [facility] ([place] Comment on above: Performed By: #### A 1C, CMP, GFR, LIPID ####[address] [address] Albumin/Globulin [Mass ratio] 1.3 {ratio} Normal 0.9-1.6 [facility] ([place] Comment on above: Performed By: #### A 1C, CMP, GFR, LIPID ####[address] [address] ALP [Catalytic activity/Vol] 53 U/L Normal 38-126 [facility] ([place] Comment on above: Performed By: #### A 1C, CMP, GFR, LIPID ####[address] [address] ALT [Catalytic activity/Vol] 42 U/L Normal 12-55 [facility] ([place] Comment on above: Performed By: #### A 1C, CMP, GFR, LIPID ####[address] [address] AST [Catalytic activity/Vol] 79 U/L High 8-34 [facility] ([place] Comment on above: Performed By: #### A 1C, CMP, GFR, LIPID ####[address] [address] Bili Total 1.50 mg/dL High 0.20-1.20 [facility] ([place] Comment on above: Result Comment: Use of this assay is not recommended for patients undergoing treatment with eltrombopag due to the potential for falsely elevated results. Performed By: #### A 1C, CMP, GFR, LIPID ####[address] [address] BUN/Creatinine Ratio 14.5 ratio Normal 10.0-22.0 [facility] ([place]) Comment on above: Performed By: #### A 1C, CMP, GFR, LIPID ####[address] [address] Calcium [Mass/Vol] 9.0 mg/dL Normal 8.7-10.4 [facility] ([place]) Comment on above: Performed By: #### A 1C, CMP, GFR, LIPID ####[address] [address] Chloride [Moles/Vol] 107 mmol/L Normal 98-110 [facility] ([place] Comment on above: Performed By: #### A 1C, CMP, GFR, LIPID ####[place] [address] CO2 [Moles/Vol] 24 mmol/L Normal 22-32 [facility] ([place] Comment on above: Performed By: #### A 1C, CMP, GFR, LIPID ####[place] [address] Creatinine [Mass/Vol] 0.69 mg/dL Normal 0.60-1.40 [facility] ([place]) Comment on above: Performed By: #### A 1C, CMP, GFR, LIPID ####[place] [address] Electrolyte Balance 7.0 mEq/L Normal 4.0-15.0 [facility] ([place]) Comment on above: Performed By: #### A 1C, CMP, GFR, LIPID ####[place] [address] Globulin 2.7 G/dL Normal 1.5-3.8 [facility] ([place] Comment on above: Performed By: #### A 1C, CMP, GFR, LIPID ####[place] [address] Glucose [Mass/Vol] 110 mg/dL Normal 70-110 [facility] ([place] Comment on above: Performed By: #### Claude 1C, CMP, GFR, LIPID ####[place] [address] Potassium [Moles/Vol] 4.2 mmol/L Normal 3.5-5.0 [facility] ([place] Comment on above: Performed By: #### A 1C, CMP, GFR, LIPID ####[place] [address] Sodium [Moles/Vol] 138 mmol/L Normal 136-145 [facility] ([place] Comment on above: Performed By: #### A 1C, CMP, GFR, LIPID ####[place] [id number] Total Protein 6.2 G/dL Normal 5.7-8.2 [facility] ([place] Comment on above: Result Comment: No te - New Reference Range in effect 19 Performed By: #### A 1C, CMP, GFR, LIPID ####[facility] [place] [address] Urea nitrogen [Mass/Vol] 10.0 mg/dL Normal 8.0-22.0 [facility] ([place] Comment on above: Performed By: #### A 1C, CMP, GFR, LIPID ####[place] [id number] [place] [address] EMERGENCY REPORTon 2 EMERGENCY REPORT [facility] EMERGENCY ROOM REPORT NAME ACCOUNT SEX AGE ADMIT DISCHARGE PT MED. RECORD# NUMBER DATE DATE TYPE KEILY [id number] M 61 04/30/22 04/30/22 3 BRENDAN Delarosa [id number] ROOM: ER DATE OF : 1960 DICTATING PHYSICIAN: Aurora Dasilva HISTORY OF PRESENT ILLNESS: This is a 61-year-old male with no reported medical history presents to the emergency department with sudden onset of chest pain. This chest pain started 30 minutes prior to arrival. The patient reports this is located to the middle of his chest, associated with nauseated and diaphoresis, but no emesis or syncope. The patient has never had chest pain like this before. He states the pain is a 10 out of 10 in severity, without alleviating or exacerbating factors. The patient reports he has not been to a doctor for years. He was brought to the emergency department by his friends, who are waiting for him outside. MEDICATIONS: He does not take any medications. SOCIAL HISTORY: He is a lifetime smoker. He drinks a case of beer at night. He has been told that his blood pressure is high; however, he does not take any medications for it. REVIEW OF SYSTEMS: A ten point review of systems was obtained and negative except per HPI. PHYSICAL EXAMINATION: GENERAL APPEARANCE: The patient appears in a small amount of distress. HEENT: Moist mucous membranes. Normal extraocular movements. Normal range of motion of his neck. CHEST: Normal rate and rhythm. No murmurs auscultated. PULMONARY: Clear to auscultation bilaterally. No wheezes or rales. GI: Abdomen is distended, but appears to be nontender. EXTREMITIES: He has normal and symmetric bilateral femoral pulses and bilateral radial pulses. NEUROLOGIC: The patient is alert and oriented, acting appropriately for situation. PSYCHIATRIC: Normal mood and behavior. DIAGNOSTIC DATA: An EKG was immediately obtained, and we called [place] for a STEMI. I obtained a repeated EKG 5 minutes later, which demonstrated even worsening inferior lead elevations concerning for an inferior STEMI. Blood pressures were soft. MEDICAL DECISION MAKING/EMERGENCY DEPARTMENT COURSE AND TREATMENT: This is a middle-aged man who presents to the emergency department with acute onset of chest pain concerning for ACS. He was not given any nitroglycerin. After speaking to Capacity Planning Analyst, the patient was given heparin, Brilinta, and Page 1 of 2 BRENDAN MICHAUD Emergency Room Report BRENDAN MICHAUD : 1960 4 baby aspirin. PLAN/DISPOSITION: The patient was emergently transported to [facility] for interventional management. Blood work had been drawn here prior to his transfer for admitting team convenience without any gross abnormalities (see chart). Dictated By: Aurora Dasilva MD 05/01/22 02:51 JOB #: [id number] Transcribed By: maria elena 05/01/22 16:21 Electronically signed by: Dr. Aurora Dasilva MD 05/02/22 21:11 Page 2 of 2 BRENDAN MICHAUD Emergency Room Report Normal [facility] LABORATORYOrdered By: SYSTEM SYSTEM on 05-02-2022 Albumin BCP dye [Mass/Vol] 3.5 G/dL Invalid Interpretation Code 3.2 - 4.8 G/dL AH ADM SS Albumin/Globulin [Mass ratio] 1.3 {ratio} Invalid Interpretation Code 0.9 - 1.6 ratio AH ADM SS ALP [Catalytic activity/Vol] 53 U/L Invalid Interpretation Code 38 - 126 U/L AH ADM SS ALT No additional P-5'-P [Catalytic activity/Vol] 42 U/L Invalid Interpretation Code 12 - 55 U/L AH ADM SS AST [Catalytic activity/Vol] 79 U/L Invalid Interpretation Code 8 - 34 U/L AH ADM SS Basophils (Bld) [#/Vol] 0.1 103/mcL Invalid Interpretation Code 0.0 - 0.3 10^3/mcL AH Workflow SS Basophils/100 WBC (Bld) 0.5 % Invalid Interpretation Code 0.0 - 2.5 % Workflow SS Bilirubin [Mass/Vol] 1.50 mg/dL Invalid Interpretation Code 0.20 - 1.20 mg/dL ADM SS Calcium [Mass/Vol] 9.0 mg/dL Invalid Interpretation Code 8.7 - 10.4 mg/dL ADM SS Chloride [Moles/Vol] 107 mmol/L Invalid Interpretation Code 98 - 110 mEq/L ADM SS CO2 [Moles/Vol] 24 mmol/L Invalid Interpretation Code 22 - 32 mEq/L ADM SS Creatinine [Mass/Vol] 0.69 mg/dL Invalid Interpretation Code 0.60 - 1.40 mg/dL ADM SS Electrolyte Balance 7.0 mEq/L Invalid Interpretation Code 4.0 - 15.0 mEq/L ADM SS Eosinophils (Bld) [#/Vol] 0.2 103/mcL Invalid Interpretation Code 0.0 - 0.7 10^3/mcL Workflow SS Eosinophils/100 WBC (Bld) 2.0 % Invalid Interpretation Code 0.0 - 6.0 % Workflow SS Erythrocyte distribution width (RBC) [Ratio] 14.7 % Invalid Interpretation Code 11.5 - 15.5 % Workflow SS GFR/1.73 sq M.predicted among blacks MDRD (S/P/Bld) [Vol rate/Area] ml/min/1.73sqm Invalid Interpretation Code Chemistry S GFR/1.73 sq M.predicted among non-blacks MDRD (S/P/Bld) [Vol rate/Area] ml/min/1.73sqm Invalid Interpretation Code Chemistry S Globulin 2.7 G/dL Invalid Interpretation Code 1.5 - 3.8 G/dL ADM SS Glucose [Mass/Vol] 110 mg/dL Invalid Interpretation Code 70 - 110 mg/dL ADM SS HbA1c (Bld) [Mass fraction] 5.8 % Invalid Interpretation Code 4.0 - 6.0 % Auto Chem SS Hematocrit (Bld) [Volume fraction] 47.5 % Invalid Interpretation Code 40.0 - 52.0 % Workflow SS Hemoglobin (Bld) [Mass/Vol] 15.9 G/dL Invalid Interpretation Code 13.0 - 17.5 G/dL Workflow SS Lymphocytes (Bld) [#/Vol] 3.4 103/mcL Invalid Interpretation Code 0.9 - 4.3 10^3/mcL AH Workflow SS Lymphocytes/100 WBC (Bld) 29.9 % Invalid Interpretation Code 20.0 - 40.0 % AH Workflow SS MCH (RBC) [Entitic mass] 30.4 pg Invalid Interpretation Code 27.0 - 33.0 pg AH Workflow SS MCHC 33.4 G/dL Invalid Interpretation Code 32.0 - 36.0 G/dL AH Workflow SS MCV (RBC) [Entitic vol] 90.9 fL Invalid Interpretation Code 81.0 - 100.0 fL AH Workflow SS Monocytes (Bld) [#/Vol] 0.9 103/mcL Invalid Interpretation Code 0.1 - 1.4 10^3/mcL AH Workflow SS Monocytes/100 WBC (Bld) 8.0 % Invalid Interpretation Code 2.0 - 13.0 % AH Workflow SS Neutrophils (Bld) [#/Vol] 6.8 103/mcL Invalid Interpretation Code 2.3 - 8.1 10^3/mcL AH Workflow SS Neutrophils/100 WBC (Bld) 59.6 % Invalid Interpretation Code 50.0 - 75.0 % AH Workflow SS Platelet mean volume (Bld) [Entitic vol] 7.5 fL Invalid Interpretation Code 6.4 - 10.5 fL AH Workflow SS Platelets (Bld) [#/Vol] 210 103/mcL Invalid Interpretation Code 150 - 450 10^3/mcL AH Workflow SS Potassium [Moles/Vol] 4.2 mmol/L Invalid Interpretation Code 3.5 - 5.0 mEq/L ADM SS Protein [Mass/Vol] 6.2 G/dL Invalid Interpretation Code 5.7 - 8.2 G/dL AH ADM SS RBC (Bld) [#/Vol] 5.23 106/mcL Invalid Interpretation Code 4.50 - 6.00 10^6/mcL AH Workflow SS Sodium [Moles/Vol] 138 mmol/L Invalid Interpretation Code 136 - 145 mEq/L AH ADM SS Urea nitrogen [Mass/Vol] 10.0 mg/dL Invalid Interpretation Code 8.0 - 22.0 mg/dL AH ADM SS Urea nitrogen/Creatinine [Mass ratio] 14.5 ratio Invalid Interpretation Code 10.0 - 22.0 ratio AH ADM SS WBC (Bld) [#/Vol] 11.4 103/mcL Invalid Interpretation Code 4.5 - 10.8 10^3/mcL AH Workflow SS LABORATORYOrdered By: Monica Bowers on 05-02-2022 Cholesterol [Mass/Vol] 125 mg/dL Invalid Interpretation Code 50 - 199 mg/dL AH ADM SS Cholesterol in HDL [Mass/Vol] 28 mg/dL Invalid Interpretation Code 40 - 59 mg/dL AH ADM SS Cholesterol in LDL [Mass/Vol] 54 mg/dL Invalid Interpretation Code 0 - 129 mg/dL AH ADM SS Triglyceride [Mass/Vol] 214 mg/dL Invalid Interpretation Code 3 - 149 mg/dL AH ADM SS LIPIDon 05-02-2022 Cholesterol [Mass/Vol] 125 mg/dL Normal 50-199 On license of [facility] ([place]) Comment on above: Result Comment: Chol esterol Reference Interval: Less than 200 Desirable 200-239 Borderline high risk 240 and above High risk Performed By: #### A 1C, CMP, GFR, LIPID ####[address] [address] Cholesterol in HDL [Mass/Vol] 28 mg/dL Low 40-59 [facility] ([place]) Comment on above: Performed By: #### A 1C, CMP, GFR, LIPID ####[address] [address] Cholesterol in LDL [Mass/Vol] 54 mg/dL Normal 0-129 [facility] ([place] Comment on above: Performed By: #### A 1C, CMP, GFR, LIPID ####[address] [address] Triglyceride [Mass/Vol] 214 mg/dL High 3-149 A [facility] ([place]) Comment on above: Performed By: #### A 1C, CMP, GFR, LIPID ####[address] [address] .Auto Diffon 05-01-2022 Basophil, Absolute 0.2 10 3/mcL Normal 0.0-0.3 [facility] ([place]) Basophils/100 WBC (Bld) 1.3 % Normal 0.0-2.5 A [facility] ([place] Eosinophil, Absolute 0.2 10 3/mcL Normal 0.0-0.7 On license of [facility] ([place]) Eosinophils/100 WBC (Bld) 2.0 % Normal 0.0-6.0 [facility] ([place] Lymphocyte, Absolute 3.0 10 3/mcL Normal 0.9-4.3 On license of [facility] ([place] Lymphocytes/100 WBC (Bld) 26.3 % Normal 20.0-40.0 [facility] [place] Monocyte, Absolute 0.8 10 3/mcL Normal 0.1-1.4 [facility] ([place] Monocytes/100 WBC (Bld) 6.8 % Normal 2.0-13.0 [facility] [place] Neutrophils/100 WBC (Bld) 63.6 % Normal 50.0-75.0 [facility] [place] Basophil, Absolute 0.2 10 3/mcL Normal 0.0-0.3 [facility] ([place] Comment on above: Performed By: #### G FR, CMP, A1C #### [address] [address] Basophils/100 WBC (Bld) 1.4 % Normal 0.0-2.5 A [facility] ([place] Comment on above: Performed By: #### G FR, CMP, A1C #### [address] [address] Eosinophil, Absolute 0.2 10 3/mcL Normal 0.0-0.7 On license of [facility] ([place] Comment on above: Performed By: #### G FR, CMP, A1C #### [address] [address] Eosinophils/100 WBC (Bld) 1.8 % Normal 0.0-6.0 [facility] ([place] Comment on above: Performed By: #### G FR, CMP, A1C #### [address] [address] Lymphocyte, Absolute 2.8 10 3/mcL Normal 0.9-4.3 On license of [facility] ([place] Comment on above: Performed By: #### G FR, CMP, A1C #### [address] [address] Lymphocytes/100 WBC (Bld) 21.2 % Normal 20.0-40.0 [facility] ([place] Comment on above: Performed By: #### G FR, CMP, A1C #### [facility] [address] [place] [address] Monocyte, Absolute 0.9 10 3/mcL Normal 0.1-1.4 [facility] ([place] Comment on above: Performed By: #### G FR, CMP, A1C #### [facility] [address] [place] [address] Monocytes/100 WBC (Bld) 6.9 % Normal 2.0-13.0 [facility] ([place] Comment on above: Performed By: #### G FR, CMP, A1C #### [facility] [address] [place] [address] Neutrophils/100 WBC (Bld) 68.7 % Normal 50.0-75.0 [facility] ([place] Comment on above: Performed By: #### G FR, CMP, A1C #### [facility] [address] [place] [address] .GFRon 05-01-2022 GFR >60 Normal [facility] ([place] Comment on above: Result Comment: GFR Population mean for , Non- Americans Ages 20-29 = 116 mL/min/1.73 sq.m. Ages 30-39 = 107 mL/min/1.73 sq.m. Ages 40-49 = 99 mL/min/1.73 sq.m. Ages 50-59 = 93 mL/min/1.73 sq.m. Ages 60-69 = 85 mL/min/1.73 sq.m. Ages 70+ = 75 mL/min/1.73 sq.m. Chronic Kidney Disease: Less than 60 mL/min/1.73 square meters End Stage Renal Disease: Less than 15 mL/min/1.73 square meters Performed By: #### G FR, CMP ####[facility] [place] [address] GFR Non- >60 Normal [facility] ([place] Comment on above: Result Comment: GFR Population mean for , Non- Americans Ages 20-29 = 116 mL/min/1.73 sq.m. Ages 30-39 = 107 mL/min/1.73 sq.m. Ages 40-49 = 99 mL/min/1.73 sq.m. Ages 50-59 = 93 mL/min/1.73 sq.m. Ages 60-69 = 85 mL/min/1.73 sq.m. Ages 70+ = 75 mL/min/1.73 sq.m. Chronic Kidney Disease: Less than 60 mL/min/1.73 square meters End Stage Renal Disease: Less than 15 mL/min/1.73 square meters Performed By: #### G FR, CMP ####[facility] [place] [address] GFR >60 Normal [facility] ([place] Comment on above: Result Comment: GFR Population mean for , Non- Americans Ages 20-29 = 116 mL/min/1.73 sq.m. Ages 30-39 = 107 mL/min/1.73 sq.m. Ages 40-49 = 99 mL/min/1.73 sq.m. Ages 50-59 = 93 mL/min/1.73 sq.m. Ages 60-69 = 85 mL/min/1.73 sq.m. Ages 70+ = 75 mL/min/1.73 sq.m. Chronic Kidney Disease: Less than 60 mL/min/1.73 square meters End Stage Renal Disease: Less than 15 mL/min/1.73 square meters Performed By: #### G FR, CMP, A1C #### [place] [id number] [place] [address] GFR Non- >60 Normal [facility] ([place] Comment on above: Result Comment: GFR Population mean for , Non- Americans Ages 20-29 = 116 mL/min/1.73 sq.m. Ages 30-39 = 107 mL/min/1.73 sq.m. Ages 40-49 = 99 mL/min/1.73 sq.m. Ages 50-59 = 93 mL/min/1.73 sq.m. Ages 60-69 = 85 mL/min/1.73 sq.m. Ages 70+ = 75 mL/min/1.73 sq.m. Chronic Kidney Disease: Less than 60 mL/min/1.73 square meters End Stage Renal Disease: Less than 15 mL/min/1.73 square meters Performed By: #### G FR, CMP, A1C #### [address] [address] .NEUABSon 05-01-2022 Neutrophil, Absolute 7.2 10 3/mcL Normal 2.3-8.1 [facility]) Neutrophil, Absolute 9.2 10 3/mcL High 2.3-8.1 On license of [facility] ([place]) Comment on above: Performed By: #### G FR, CMP, A1C #### [place] [address] A1Con 05-01-2022 HbA1c (Bld) [Mass fraction] 5.9 % Normal 4.0-6.0 [facility] ([place] Comment on above: Performed By: #### G FR, CMP, A1C #### [place] [address] APTTon 05-01-2022 aPTT Coag (Bld) [Time] 24.6 s Low 25.4 - 38.4 [facility] Comment on above: Performed By: #### 2 91111 #### [facility],[address] [place] [address] CBCon 05-01-2022 Erythrocyte distribution width (RBC) [Ratio] 14.5 % Normal 11.5-15.5 [facility]) Hematocrit (Bld) [Volume fraction] 48.6 % Normal 40.0-52.0 [facility] [place] Hgb 16.2 G/dL Normal 13.0-17.5 [facility] [place] MCH (RBC) [Entitic mass] 30.4 pg Normal 27.0-33.0 [facility] [place] MCHC 33.4 G/dL Normal 32.0-36.0 [facility] [place] MCV (RBC) [Entitic vol] 91.0 fL Normal 81.0-100.0 A [facility] ([place]) Platelet 220 10 3/mcL Normal 150-450 [facility]) Platelet mean volume (Bld) [Entitic vol] 7.2 fL Normal 6.4-10.5 [facility] [place] RBC 5.34 10 6/mcL Normal 4.50-6.00 [facility] [place] WBC 11.3 10 3/mcL High 4.5-10.8 [facility] [place] Erythrocyte distribution width (RBC) [Ratio] 14.3 % Normal 11.5-15.5 [facility] ([place] Comment on above: Performed By: #### G FR, CMP, A1C #### [address] [address] Hematocrit (Bld) [Volume fraction] 46.8 % Normal 40.0-52.0 [facility] ([place] Comment on above: Performed By: #### G FR, CMP, A1C #### [address] [address] Hgb 15.6 G/dL Normal 13.0-17.5 [facility] ([place] Comment on above: Performed By: #### G FR, CMP, A1C #### [address] [address] MCH (RBC) [Entitic mass] 30.3 pg Normal 27.0-33.0 [facility] ([place] Comment on above: Performed By: #### G FR, CMP, A1C #### [address] [address] MCHC 33.4 G/dL Normal 32.0-36.0 [facility] ([place] Comment on above: Performed By: #### G FR, CMP, A1C #### [address] [address] MCV (RBC) [Entitic vol] 91.0 fL Normal 81.0-100.0 A [facility] ([place] Comment on above: Performed By: #### G FR, CMP, A1C #### [address] [address] Platelet 217 10 3/mcL Normal 150-450 [facility] ([place] Comment on above: Performed By: #### G FR, CMP, A1C #### [address] [address] Platelet mean volume (Bld) [Entitic vol] 7.7 fL Normal 6.4-10.5 [facility] ([place] Comment on above: Performed By: #### G FR, CMP, A1C #### [facility] [address] [place] [address] RBC 5.15 10 6/mcL Normal 4.50-6.00 [facility] ([place] Comment on above: Performed By: #### G FR, CMP, A1C #### [facility] [address] [place] [address] WBC 13.4 10 3/mcL High 4.5-10.8 [facility] ([place] Comment on above: Performed By: #### G FR, CMP, A1C #### [facility] [address] [place] [address] CBC + DIFFon 05-01-2022 Baso # 0.10 x10EE3/UL Normal 0.00 - 0.10 [facility] Comment on above: Performed By: #### 2 07664 #### [facility],[address] [place] [address] Basophils/100 WBC (Bld) 1.0 % Normal 0.0 - 2.0 [facility] Comment on above: Performed By: #### 2 38962 #### [facility],[address] [place] [address]162 CBC + DIFF Normal [facility] Comment on above: Result Comment: CBC- COMPLETE BLOOD COUNT Performed By: #### 2 68108 #### [facility],[address] [place] [address] EO # 0.30 x10EE3/UL Normal 0.00 - 0.50 [facility] Comment on above: Performed By: #### 2 46612 #### [facility],[address] [place] [address] Eosinophils/100 WBC (Bld) 2.3 % Normal 0.0 - 7.0 [facility] Comment on above: Performed By: #### 2 83007 #### [facility],[address] [place] [address] Erythrocyte distribution width (RBC) [Ratio] 14.1 % Normal 12.0 - 15.6 [facility] Comment on above: Performed By: #### 2 17774 #### [facility],[address] [place] [address] Hematocrit (Bld) [Volume fraction] 50.2 % Normal 40.0 - 52.0 [facility] Comment on above: Performed By: #### 2 33642 #### [facility],[address] [place] [address] Hemoglobin (Bld) [Mass/Vol] 17.2 g/dL Normal 13.0 - 17.5 [facility] Comment on above: Performed By: #### 2 62801 #### [facility],[address] [place] [address] Lymph # 3.90 x10EE3/UL High 0.80 - 2.80 [facility] Comment on above: Performed By: #### 2 75048 #### [facility],[address] [place], [place] [phone] Lymphocytes/100 WBC (Bld) 28.1 % Normal 20.0 - 45.0 [facility] Comment on above: Performed By: #### 2 43556 #### [facility],[address] [place] [address] MANUAL DIFF N/A Normal [facility] Comment on above: Performed By: #### 2 91643 #### [facility],[address] [place], [place] [phone] MCH (RBC) [Entitic mass] 31 pg Normal 27 - 33 [facility] Comment on above: Performed By: #### 2 00444 #### [place] [address] MCHC 34 X10 3 Normal 32 - 36 [facility] Comment on above: Performed By: #### 2 14320 #### [facility],[address] [place], [place] [phone] MCV (RBC) [Entitic vol] 90 fL Normal 81 - 98 [facility] Comment on above: Performed By: #### 2 56528 #### [address] [address] [place] # 1.00 x10EE3/UL Normal 0.20 - 1.00 [facility] Comment on above: Performed By: #### 2 36664 #### [address] [address] MONOS % 7.0 % Normal 0.0 - 10.0 [facility] Comment on above: Performed By: #### 2 03229 #### [place] [address] Morphology Kavon (Bld) [Interp] N/A Normal [facility] Comment on above: Result Comment: {CD] Performed By: #### 2 87244 #### [facility],[address] [place] [address] Neut # 8.70 x10EE3/UL High 1.50 - 7.10 [facility] Comment on above: Performed By: #### 2 42671 #### [place] [id number] Neutrophils/100 WBC (Bld) 61.6 % Normal 46.0 - 76.0 [facility] Comment on above: Performed By: #### 2 75372 #### [facility],[address] [place], [place] [phone] PLATELET 264 x10EE3/UL Normal 150 - 450 [facility] Comment on above: Performed By: #### 2 18047 #### [address] [address] Platelet mean volume (Bld) [Entitic vol] 7.7 fL Normal 6.4 - 10.5 [facility] Comment on above: Result Comment: AUTO MATED DIFFERENTIAL Performed By: #### 2 89645 #### [facility] [place] [address] RBC 5.58 x 10EE6/UL Normal 4.50 - 6.00 [facility] Comment on above: Performed By: #### 2 30696 #### [facility],[address] [place] [address] WBC 14.0 x 10EE3/UL High 4.5 - 10.8 [facility] Comment on above: Performed By: #### 2 29613 #### [facility],[address] [place] [address] CMPon 05-01-2022 Albumin Level 3.5 G/dL Normal 3.2-4.8 [facility] ([place] Comment on above: Performed By: #### G , CMP ####[address] [address] Albumin/Globulin [Mass ratio] 1.3 {ratio} Normal 0.9-1.6 [facility] ([place] Comment on above: Performed By: #### G , CMP ####[address] [address] ALP [Catalytic activity/Vol] 54 U/L Normal 38-126 [facility] ([place] Comment on above: Performed By: #### Uday DE LA ROSA, CMP ####[address] [address] ALT [Catalytic activity/Vol] 40 U/L Normal 12-55 [facility] ([place] Comment on above: Performed By: #### Uday DE LA ROSA, CMP ####[address] [address] AST [Catalytic activity/Vol] 58 U/L High 8-34 [facility] ([place] Comment on above: Performed By: #### Uday DE LA ROSA, CMP ####[address] [address] Bili Total 0.60 mg/dL Normal 0.20-1.20 [facility] ([place] Comment on above: Result Comment: Use of this assay is not recommended for patients undergoing treatment with eltrombopag due to the potential for falsely elevated results. Performed By: #### G FR, CMP ####[place] [address] BUN/Creatinine Ratio 24.6 ratio High 10.0-22.0 [facility] ([place]) Comment on above: Performed By: #### G FR, CMP ####[place] [address] Calcium [Mass/Vol] 8.7 mg/dL Normal 8.7-10.4 [facility] ([place]) Comment on above: Performed By: #### Uday DE LA ROSA, CMP ####[place] [address] Chloride [Moles/Vol] 111 mmol/L High 98-110 [facility] ([place] Comment on above: Performed By: #### G , CMP ####[place] [address] CO2 [Moles/Vol] 23 mmol/L Normal 22-32 [facility] ([place] Comment on above: Performed By: #### Uday DE LA ROSA, CMP ####[place] [address] Creatinine [Mass/Vol] 0.57 mg/dL Low 0.60-1.40 [facility] ([place]) Comment on above: Performed By: #### G FR, CMP ####[place] [address] Electrolyte Balance 9.0 mEq/L Normal 4.0-15.0 [facility] ([place]) Comment on above: Performed By: #### G FR, CMP ####[place] [address] Globulin 2.7 G/dL Normal 1.5-3.8 [facility] ([place] Comment on above: Performed By: #### G FR, CMP ####[place] [address] Glucose [Mass/Vol] 129 mg/dL High 70-110 [facility] ([place] Comment on above: Performed By: #### G FR, CMP ####[address] [address] Potassium [Moles/Vol] 4.2 mmol/L Normal 3.5-5.0 [facility] ([place] Comment on above: Result Comment: Spec imen slightly hemolyzed. Performed By: #### G FR, CMP ####[address] [address] Sodium [Moles/Vol] 143 mmol/L Normal 136-145 [facility] ([place] Comment on above: Performed By: #### G FR, CMP ####[address] [address] Total Protein 6.2 G/dL Normal 5.7-8.2 [facility] ([place] Comment on above: Result Comment: No te - New Reference Range in effect 19 Performed By: #### Uday DE LA ROSA, CMP ####[address] [address] Urea nitrogen [Mass/Vol] 14.0 mg/dL Normal 8.0-22.0 [facility] ([place] Comment on above: Performed By: #### Uday FR, CMP ####[address] [address] Albumin Level 3.3 G/dL Normal 3.2-4.8 [facility] ([place] Comment on above: Performed By: #### Uday FR, CMP, A1C #### [address] [address] Albumin/Globulin [Mass ratio] 1.2 {ratio} Normal 0.9-1.6 [facility] ([place] Comment on above: Performed By: #### G FR, CMP, A1C #### [address] [address] ALP [Catalytic activity/Vol] 49 U/L Normal 38-126 [facility] ([place] Comment on above: Performed By: #### G FR, CMP, A1C #### [address] [address] ALT [Catalytic activity/Vol] 37 U/L Normal 12-55 [facility] ([place] Comment on above: Performed By: #### G FR, CMP, A1C #### [address] [address] AST [Catalytic activity/Vol] 28 U/L Normal 8-34 [facility] ([place] Comment on above: Performed By: #### G FR, CMP, A1C #### [address] [address] Bili Total 0.40 mg/dL Normal 0.20-1.20 [facility] ([place] Comment on above: Result Comment: Use of this assay is not recommended for patients undergoing treatment with eltrombopag due to the potential for falsely elevated results. Performed By: #### G , CMP, A1C #### [address] [address] BUN/Creatinine Ratio 21.5 ratio Normal 10.0-22.0 [facility] ([place] Comment on above: Performed By: #### Uday DE LA ROSA, CMP, A1C #### [address] [address] Calcium [Mass/Vol] 8.7 mg/dL Normal 8.7-10.4 [facility] ([place] Comment on above: Performed By: #### Uday DE LA ROSA, CMP, A1C #### [address] [address] Chloride [Moles/Vol] 110 mmol/L Normal 98-110 [facility] ([place] Comment on above: Performed By: #### Uday DE LA ROSA, CMP, A1C #### [address] [address] CO2 [Moles/Vol] 26 mmol/L Normal 22-32 [facility] ([place] Comment on above: Performed By: #### G FR, CMP, A1C #### [address] [address] Creatinine [Mass/Vol] 0.65 mg/dL Normal 0.60-1.40 [facility] ([place] Comment on above: Performed By: #### G FR, CMP, A1C #### [address] [address] Electrolyte Balance 8.0 mEq/L Normal 4.0-15.0 [facility] ([place] Comment on above: Performed By: #### G FR, CMP, A1C #### [address] [address] Globulin 2.7 G/dL Normal 1.5-3.8 [facility] ([place] Comment on above: Performed By: #### G FR, CMP, A1C #### [place] [id number] [address] [place] [address] Glucose [Mass/Vol] 127 mg/dL High 70-110 [facility] ([place] Comment on above: Performed By: #### G FR, CMP, A1C #### [address] [address] Potassium [Moles/Vol] 4.0 mmol/L Normal 3.5-5.0 [facility] ([place] Comment on above: Performed By: #### G FR, CMP, A1C #### [address] [address] Sodium [Moles/Vol] 144 mmol/L Normal 136-145 [facility] ([place] Comment on above: Performed By: #### G FR, CMP, A1C #### [address] [address] Total Protein 6.0 G/dL Normal 5.7-8.2 [facility] ([place] Comment on above: Result Comment: No te - New Reference Range in effect 19 Performed By: #### G FR, CMP, A1C #### [address] [address] Urea nitrogen [Mass/Vol] 14.0 mg/dL Normal 8.0-22.0 [facility] ([place] Comment on above: Performed By: #### G FR, CMP, A1C #### [address] [address] CMP with eGFRon 05-01-2022 AGE 61 years Normal [facility] Comment on above: Performed By: #### 2 34494 #### [facility],[address] [place] [address] Albumin [Mass/Vol] 3.6 g/dL Normal 3.4 - 5.0 [facility] Comment on above: Performed By: #### 2 14454 #### [facility],[address] [place] [address] Albumin/Globulin [Mass ratio] 1.1 {ratio} Normal 0.9 - 1.6 [facility] Comment on above: Performed By: #### 2 02915 #### [facility],[address] [place] [address] ALK PHOS 64 U/L Normal 46 - 116 [facility] Comment on above: Performed By: #### 2 58687 #### [facility],[address] [place] [address] ALT [Catalytic activity/Vol] 49 U/L Normal 16 - 63 [facility] Comment on above: Performed By: #### 2 96587 #### [facility],[address] [place], [place] [phone] Anion gap [Moles/Vol] 14 mmol/L Normal 10 - 20 [facility] Comment on above: Performed By: #### 2 35717 #### [facility],[address] [place] [address] AST [Catalytic activity/Vol] 32 U/L Normal 15 - 37 [facility] Comment on above: Performed By: #### 2 36654 #### [facility],[address] [place] [address] B/C RATIO 16 ratio Normal 0 - 30 [facility] Comment on above: Performed By: #### 2 93642 #### [facility],[address] [place] [address] Bilirubin [Mass/Vol] 0.4 mg/dL Normal 0.2 - 1.0 [facility] Comment on above: Performed By: #### 2 64680 #### [facility],[address] [place] [address] Calcium [Mass/Vol] 9.1 mg/dL Normal 8.5 - 10.1 [facility] Comment on above: Performed By: #### 2 67377 #### [facility],[address] [place] [address] Chloride [Moles/Vol] 106 mmol/L Normal 98 - 107 [facility] Comment on above: Performed By: #### 2 67556 #### [facility],[address] [place] [address] CMP with eGFR Normal [facility] Comment on above: Result Comment: COMP REHENSIVE METABOLIC PANEL Performed By: #### 2 39310 #### [facility],[address] [place] [address] CO2 [Moles/Vol] 26.2 mmol/L Normal 21.0 - 32.0 [facility] Comment on above: Performed By: #### 2 31653 #### [facility],[address] [place], [place] [phone] Creatinine [Mass/Vol] 0.85 mg/dL Normal 0.70 - 1.30 [facility] Comment on above: Performed By: #### 2 17618 #### [facility],[address] [place] [address] GFR/1.73 sq M.predicted among non-blacks MDRD (S/P/Bld) [Vol rate/Area] mL/min/{1.73_m2} Normal 60 - 999 [facility] Comment on above: Performed By: #### 2 46778 #### [facility],[address] [place] [address] Result Comment: ACCO RDING TO THE NATIONAL KIDNEY DISEASE EDUCATION PROGRAM(NKDE), A NORMAL eGFR IS A VALUE GREATER THAN OR EQUAL TO 60 ML/MIN/1.73 SQ METERS. CHRONIC KIDNEY DISEASE: <60mL/MIN/1.73 SQ METERS KIDNEY FAILURE: <15mL/MIN/1.73 SQ METERS THIS TEST SHOULD ONLY BE USED FOR PATIENTS 18 YEARS OF AGE AND OLDER. Globulin (S) [Mass/Vol] 3.2 g/dL Normal 1.5 - 3.8 [facility] Comment on above: Performed By: #### 2 74603 #### [facility],[address] [place] [address] Glucose [Mass/Vol] 150 mg/dL High 74 - 106 [facility] Comment on above: Performed By: #### 2 29994 #### [facility],[address] [place] [address] Potassium [Moles/Vol] 4.0 mmol/L Normal 3.5 - 5.1 [facility] Comment on above: Performed By: #### 2 92316 #### [facility],[address] [place] [address] Protein [Mass/Vol] 6.8 g/dL Normal 6.4 - 8.2 [facility] Comment on above: Performed By: #### 2 15949 #### [facility],[address] [place], [place] [phone] Sodium [Moles/Vol] 142 mmol/L Normal 136 - 145 [facility] Comment on above: Performed By: #### 2 20676 #### [facility],[address] [place], [place] [phone] Urea nitrogen [Mass/Vol] 14 mg/dL Normal 7 - 18 [facility] Comment on above: Performed By: #### 2 14787 #### [facility],[address] [place], [place] [phone] LABORATORYOrdered By: SYSTEM SYSTEM on 05-01-2022 Albumin BCP dye [Mass/Vol] 3.5 G/dL Invalid Interpretation Code 3.2 - 4.8 G/dL ADM SS Albumin/Globulin [Mass ratio] 1.3 {ratio} Invalid Interpretation Code 0.9 - 1.6 ratio AH ADM SS ALP [Catalytic activity/Vol] 54 U/L Invalid Interpretation Code 38 - 126 U/L ADM SS ALT No additional P-5'-P [Catalytic activity/Vol] 40 U/L Invalid Interpretation Code 12 - 55 U/L ADM SS AST [Catalytic activity/Vol] 58 U/L Invalid Interpretation Code 8 - 34 U/L ADM SS Basophils (Bld) [#/Vol] 0.2 103/mcL Invalid Interpretation Code 0.0 - 0.3 10^3/mcL AH Workflow SS Basophils/100 WBC (Bld) 1.3 % Invalid Interpretation Code 0.0 - 2.5 % AH Workflow SS Bilirubin [Mass/Vol] 0.60 mg/dL Invalid Interpretation Code 0.20 - 1.20 mg/dL ADM SS Calcium [Mass/Vol] 8.7 mg/dL Invalid Interpretation Code 8.7 - 10.4 mg/dL ADM SS Chloride [Moles/Vol] 111 mmol/L Invalid Interpretation Code 98 - 110 mEq/L ADM SS CO2 [Moles/Vol] 23 mmol/L Invalid Interpretation Code 22 - 32 mEq/L ADM SS Creatinine [Mass/Vol] 0.57 mg/dL Invalid Interpretation Code 0.60 - 1.40 mg/dL ADM SS Electrolyte Balance 9.0 mEq/L Invalid Interpretation Code 4.0 - 15.0 mEq/L ADM SS Eosinophils (Bld) [#/Vol] 0.2 103/mcL Invalid Interpretation Code 0.0 - 0.7 10^3/mcL AH Workflow SS Eosinophils/100 WBC (Bld) 2.0 % Invalid Interpretation Code 0.0 - 6.0 % AH Workflow SS Erythrocyte distribution width (RBC) [Ratio] 14.5 % Invalid Interpretation Code 11.5 - 15.5 % Workflow SS GFR/1.73 sq M.predicted among blacks MDRD (S/P/Bld) [Vol rate/Area] ml/min/1.73sqm Invalid Interpretation Code ADM SS GFR/1.73 sq M.predicted among non-blacks MDRD (S/P/Bld) [Vol rate/Area] ml/min/1.73sqm Invalid Interpretation Code ADM SS Globulin 2.7 G/dL Invalid Interpretation Code 1.5 - 3.8 G/dL ADM SS Glucose [Mass/Vol] 129 mg/dL Invalid Interpretation Code 70 - 110 mg/dL ADM SS Hematocrit (Bld) [Volume fraction] 48.6 % Invalid Interpretation Code 40.0 - 52.0 % AH Workflow SS Hemoglobin (Bld) [Mass/Vol] 16.2 G/dL Invalid Interpretation Code 13.0 - 17.5 G/dL AH Workflow SS Lymphocytes (Bld) [#/Vol] 3.0 103/mcL Invalid Interpretation Code 0.9 - 4.3 10^3/mcL AH Workflow SS Lymphocytes/100 WBC (Bld) 26.3 % Invalid Interpretation Code 20.0 - 40.0 % AH Workflow SS MCH (RBC) [Entitic mass] 30.4 pg Invalid Interpretation Code 27.0 - 33.0 pg AH Workflow SS MCHC 33.4 G/dL Invalid Interpretation Code 32.0 - 36.0 G/dL AH Workflow SS MCV (RBC) [Entitic vol] 91.0 fL Invalid Interpretation Code 81.0 - 100.0 fL AH Workflow SS Monocytes (Bld) [#/Vol] 0.8 103/mcL Invalid Interpretation Code 0.1 - 1.4 10^3/mcL AH Workflow SS Monocytes/100 WBC (Bld) 6.8 % Invalid Interpretation Code 2.0 - 13.0 % AH Workflow SS Neutrophils (Bld) [#/Vol] 7.2 103/mcL Invalid Interpretation Code 2.3 - 8.1 10^3/mcL AH Workflow SS Neutrophils/100 WBC (Bld) 63.6 % Invalid Interpretation Code 50.0 - 75.0 % AH Workflow SS Platelet mean volume (Bld) [Entitic vol] 7.2 fL Invalid Interpretation Code 6.4 - 10.5 fL AH Workflow SS Platelets (Bld) [#/Vol] 220 103/mcL Invalid Interpretation Code 150 - 450 10^3/mcL AH Workflow SS Potassium [Moles/Vol] 4.2 mmol/L Invalid Interpretation Code 3.5 - 5.0 mEq/L ADM SS Comment on above: Result Comment: Spec imen slightly hemolyzed. Protein [Mass/Vol] 6.2 G/dL Invalid Interpretation Code 5.7 - 8.2 G/dL ADM SS RBC (Bld) [#/Vol] 5.34 106/mcL Invalid Interpretation Code 4.50 - 6.00 10^6/mcL AH Workflow SS Sodium [Moles/Vol] 143 mmol/L Invalid Interpretation Code 136 - 145 mEq/L ADM SS Urea nitrogen [Mass/Vol] 14.0 mg/dL Invalid Interpretation Code 8.0 - 22.0 mg/dL ADM SS Urea nitrogen/Creatinine [Mass ratio] 24.6 ratio Invalid Interpretation Code 10.0 - 22.0 ratio AH ADM SS WBC (Bld) [#/Vol] 11.3 103/mcL Invalid Interpretation Code 4.5 - 10.8 10^3/mcL AH Workflow SS Troponin I.cardiac DL <= 0.01 ng/mL [Mass/Vol] 3871.84 ng/L Invalid Interpretation Code 0.00 - 54.00 ng/L ADM SS Troponin I.cardiac DL <= 0.01 ng/mL [Mass/Vol] 2755.36 ng/L Invalid Interpretation Code 0.00 - 54.00 ng/L ADM SS Albumin BCP dye [Mass/Vol] 3.3 G/dL Invalid Interpretation Code 3.2 - 4.8 G/dL ADM SS Albumin/Globulin [Mass ratio] 1.2 {ratio} Invalid Interpretation Code 0.9 - 1.6 ratio ADM SS ALP [Catalytic activity/Vol] 49 U/L Invalid Interpretation Code 38 - 126 U/L ADM SS ALT No additional P-5'-P [Catalytic activity/Vol] 37 U/L Invalid Interpretation Code 12 - 55 U/L ADM SS AST [Catalytic activity/Vol] 28 U/L Invalid Interpretation Code 8 - 34 U/L ADM SS Basophils (Bld) [#/Vol] 0.2 103/mcL Invalid Interpretation Code 0.0 - 0.3 10^3/mcL Workflow SS Basophils/100 WBC (Bld) 1.4 % Invalid Interpretation Code 0.0 - 2.5 % Workflow SS Bilirubin [Mass/Vol] 0.40 mg/dL Invalid Interpretation Code 0.20 - 1.20 mg/dL ADM SS Calcium [Mass/Vol] 8.7 mg/dL Invalid Interpretation Code 8.7 - 10.4 mg/dL ADM SS Chloride [Moles/Vol] 110 mmol/L Invalid Interpretation Code 98 - 110 mEq/L ADM SS CO2 [Moles/Vol] 26 mmol/L Invalid Interpretation Code 22 - 32 mEq/L ADM SS Creatinine [Mass/Vol] 0.65 mg/dL Invalid Interpretation Code 0.60 - 1.40 mg/dL ADM SS Electrolyte Balance 8.0 mEq/L Invalid Interpretation Code 4.0 - 15.0 mEq/L ADM SS Eosinophils (Bld) [#/Vol] 0.2 103/mcL Invalid Interpretation Code 0.0 - 0.7 10^3/mcL AH Workflow SS Eosinophils/100 WBC (Bld) 1.8 % Invalid Interpretation Code 0.0 - 6.0 % AH Workflow SS Erythrocyte distribution width (RBC) [Ratio] 14.3 % Invalid Interpretation Code 11.5 - 15.5 % AH Workflow SS GFR/1.73 sq M.predicted among blacks MDRD (S/P/Bld) [Vol rate/Area] ml/min/1.73sqm Invalid Interpretation Code Chemistry S GFR/1.73 sq M.predicted among non-blacks MDRD (S/P/Bld) [Vol rate/Area] ml/min/1.73sqm Invalid Interpretation Code Chemistry S Globulin 2.7 G/dL Invalid Interpretation Code 1.5 - 3.8 G/dL ADM SS Glucose [Mass/Vol] 127 mg/dL Invalid Interpretation Code 70 - 110 mg/dL ADM SS HbA1c (Bld) [Mass fraction] 5.9 % Invalid Interpretation Code 4.0 - 6.0 % Auto Chem SS Hematocrit (Bld) [Volume fraction] 46.8 % Invalid Interpretation Code 40.0 - 52.0 % AH Workflow SS Hemoglobin (Bld) [Mass/Vol] 15.6 G/dL Invalid Interpretation Code 13.0 - 17.5 G/dL AH Workflow SS Lymphocytes (Bld) [#/Vol] 2.8 103/mcL Invalid Interpretation Code 0.9 - 4.3 10^3/mcL AH Workflow SS Lymphocytes/100 WBC (Bld) 21.2 % Invalid Interpretation Code 20.0 - 40.0 % AH Workflow SS MCH (RBC) [Entitic mass] 30.3 pg Invalid Interpretation Code 27.0 - 33.0 pg AH Workflow SS MCHC 33.4 G/dL Invalid Interpretation Code 32.0 - 36.0 G/dL AH Workflow SS MCV (RBC) [Entitic vol] 91.0 fL Invalid Interpretation Code 81.0 - 100.0 fL AH Workflow SS Monocytes (Bld) [#/Vol] 0.9 103/mcL Invalid Interpretation Code 0.1 - 1.4 10^3/mcL AH Workflow SS Monocytes/100 WBC (Bld) 6.9 % Invalid Interpretation Code 2.0 - 13.0 % AH Workflow SS Neutrophils (Bld) [#/Vol] 9.2 103/mcL Invalid Interpretation Code 2.3 - 8.1 10^3/mcL AH Workflow SS Neutrophils/100 WBC (Bld) 68.7 % Invalid Interpretation Code 50.0 - 75.0 % AH Workflow SS Platelet mean volume (Bld) [Entitic vol] 7.7 fL Invalid Interpretation Code 6.4 - 10.5 fL Workflow SS Platelets (Bld) [#/Vol] 217 103/mcL Invalid Interpretation Code 150 - 450 10^3/mcL AH Workflow SS Potassium [Moles/Vol] 4.0 mmol/L Invalid Interpretation Code 3.5 - 5.0 mEq/L ADM SS Protein [Mass/Vol] 6.0 G/dL Invalid Interpretation Code 5.7 - 8.2 G/dL ADM SS RBC (Bld) [#/Vol] 5.15 106/mcL Invalid Interpretation Code 4.50 - 6.00 10^6/mcL AH Workflow SS Sodium [Moles/Vol] 144 mmol/L Invalid Interpretation Code 136 - 145 mEq/L ADM SS Urea nitrogen [Mass/Vol] 14.0 mg/dL Invalid Interpretation Code 8.0 - 22.0 mg/dL ADM SS Urea nitrogen/Creatinine [Mass ratio] 21.5 ratio Invalid Interpretation Code 10.0 - 22.0 ratio ADM SS WBC (Bld) [#/Vol] 13.4 103/mcL Invalid Interpretation Code 4.5 - 10.8 10^3/mcL Workflow SS PROTHROMBIN TIME AND INRon 07-02-2021 INR Coag (PPP) [Relative time] 1.0 {INR} Normal 0.8 - 1.2 [facility] Comment on above: Result Comment: T HE HEMOSIL THROMBOPLASTIN REAGENT USED IN THE PROTHROMBIN TIME TEST INTERACTS WITH THE DRUG CUBICIN (DAPTOMYCIN) AND WILL RESULT IN FALSELY ELEVATED PT / INR RESULTS INR INTERPRETATION INR INDICATION PREVENTION AND TREATMENT OF THROMBOEMBOLISM ASSOCIATED WITH: 2.0 - 3.0 ATRIAL FIBRILLATION, BIOPROSTHETIC HEART VALVES, PULMONARY EMBOLISM, VENOUS THROMBOSIS, SYSTEMIC EMBOLISM POST MYOCARDIAL INFARCTION 2.5 - 3.5 MECHANICAL HEART VALVES Performed By: #### 2 [id number] #### [facility],[address] [place] [address] PROTHROMBIN TIME AND INR Normal [facility] Comment on above: Result Comment: PROT HROMBIN TIME AND INR Performed By: #### 2 [id number] #### [facility],[address] [place] [address] PT-COUMADIN 12.3 sec Normal 9.3 - 14.1 [facility] Comment on above: Performed By: #### 2 [id number] #### [facility],[address] [place] [address] [facility] Troponin I High Sensitivity 3871.84 ng/L High 0.00-54.00 [facility] ([place]) Comment on above: Result Comment: If t he High Sensitive Troponin result is below the 99th percentile value (<45 ng/L) at the first blood draw, at least two additional blood samples should be drawn before results are interpreted as negative for AMI. Performed By: #### T [facility] #### [facility] [address] [place] [address] Troponin I High Sensitivity 2755.36 ng/L High 0.00-54.00 [facility] ([place]) Comment on above: Result Comment: If t he High Sensitive Troponin result is below the 99th percentile value (<45 ng/L) at the first blood draw, at least two additional blood samples should be drawn before results are interpreted as negative for AMI. Performed By: #### T [facility] ####[facility] [place] [address] TROPONIN I, HIGH SENSITIVITY on 05-01-2022 HS TROPONIN 11.1 pg/mL Normal 0.0 - 76.2 [facility] Comment on above: Performed By: #### 2 [id number] #### [facility],[address] [place] [address] HIP W/O RTon 11-30-2021 CT HIP W/O RT [address] [address] Patient: BRENDAN MICHAUDPatty Phone#: : 1960 Age: 61 Gender: M Pt. Type: Out Account: [id number] Location: Ordering: MINH García PREBISH Exam Date: 11/30/2021/8:02 Family Phys: MANOJ GARCESIsaura Charge Code: [id number] Physician: Jennings Order #: [id number] DLP Dose#: [id number] PROCEDURE: CT HIP RT WITHOUT CONTRAST COMPARISON: None. INDICATIONS: Right hip pain. TECHNIQUE: Multi-planar CT images were created without intravenous contrast. All CT scans at this facility use dose modulation, iterative reconstruction, and/or weight based dosing when appropriate to reduce radiation dose to as low as reasonably achievable. IV CONTRAST: No IV contrast used,0ml TOTAL DOSE: 16.40 CTDIvol(mGy) FINDINGS: BONES: Mild degenerative changes present at the hip. Severe degenerative changes present at the L5-S1 level. Vacuum is present. SOFT TISSUES: Negative. No visible soft tissue swelling. EFFUSION: None visible. OTHER: Negative. CONCLUSION: 1. Severe degenerative changes present at the L5-S1 level. 2. Mild degenerative changes present at the hip joint. Dictated by: Kylie Alicia MD on 11/30/2021 at 13:54 Approved by: Kylie Alicia MD on 11/30/2021 at 14:06 Normal [facility] MR HIP WO RTon 08-19-2021 MR HIP WO RT [place] [address] Patient: BRENDAN MICHAUD Phone#: : 1960 Age: 60 Gender: M Pt. Type: Out Account: [id number] Location: Ordering: MINH García PREBISH Exam Date: 08/19/2021/7:39 Family Phys: MANOJ GARCESIsaura Charge Code: [id number] Physician: Jennings Order #: [id number] DLP Dose#: PROCEDURE: MRI HIP RT WITHOUT CONTRAST COMPARISON: None. INDICATIONS: Right hip pain TECHNIQUE: A comprehensive examination was performed utilizing a variety of imaging planes and imaging parameters to optimize visualization of suspected pathology. Images were performed without contrast. FINDINGS: FEMORAL HEAD: Normal. No AVN, fracture, or significant arthropathy. ACETABULUM: Normal. No fracture or significant arthropathy. OTHER BONES: In the left femoral neck there is a T2 fat-sat hyperintense T1 hypointense lesion. There is no surrounding bone marrow edema. r LABRUM: There is a cyst within the superior labrum, series 17, image 14. The cyst measures 1.3 x 1.6 cm. There is a labral tear, series 7, image 14. There is a collection of small paralabral cysts, series 17, image 15 and series 16, image 8. The collection measures 0.7 x 1.3 x 0.9 cm. EFFUSIONS: None. No synovitis or loose bodies. BURSAE: Normal. No evidence of iliopsoas or trochanteric bursitis. TENDONS: There is fluid adjacent to the on trace externus tendon at the trochanteric fossa of the femur, series 16, image 22. Findings most consistent with a partial tendon tear. MUSCLES: Normal. No tear or strain. No inappropriate atrophy. OTHER: There are fat containing inguinal hernias. Paralabral cysts are also seen adjacent to the left superior labrum not well evaluated on this exam. CONCLUSION: 1. Superior labral tear containing a cyst within the labrum. There are adjacent paralabral cysts. 2. Obturator externus partial tendon tear 3. Lesion in the left femoral neck, recommend correlation with left hip CT. 4. T2 hyperintense signal is adjacent to the left labrum, suggesting present left paralabral cyst, not well evaluated on this exam. [place] [address] Patient: BRENDAN MICHAUD Phone#: : 1960 Age: 60 Gender: M Pt. Type: Out Account: [id number] Location: Ordering: MINH García [facility] Exam Date: 08/19/2021/7:39 Family Phys: MANOJ LUIS Charge Code: [id number] Physician: Jennings Order #: [id number] DLP Dose#: Dictated by: Veda Constantino MD on 08/23/2021 at 11:59 Approved by: Veda Constantino MD on 08/23/2021 at 14:05 Normal [facility] MR LUMBAR SP WO CONTRASTon 0 08-19-2021 MR LUMBAR SP WO CONTRAST [address] [address] Patient: BRENDAN MICHAUD Phone#: : 1960 Age: 60 Gender: M Pt. Type: Out Account: [id number] Location: Ordering: MINH García [facility] Exam Date: 08/19/2021/7:39 Family Phys: MANOJ LUIS Charge Code: [id number] Physician: Jennings Order #: [id number] DLP Dose#: PROCEDURE: MRI LUMBAR SPINE WITHOUT CONTRAST COMPARISON: None. INDICATIONS: Low back pain TECHNIQUE: A variety of imaging planes and parameters were utilized for visualization of suspected pathology. FINDINGS: PARASPINAL AREA: Normal with no visible mass. BONES: No fracture, pars defect, or osseous lesion. Modic type 2 changes are present at L5-S1. CORD/CAUDA EQUINA: Normal caliber, contour, and signal intensity. LUMBAR DISC LEVELS: L1-L2: No significant disc/facet abnormality, spinal stenosis, or foraminal stenosis. L2-L3: Annular disc bulging is present. There is bony hypertrophy at the articular facettes. There is moderate narrowing of the spinal canal. There is moderate to severe bilateral foraminal narrowing. There is disc degeneration. L3-L4: Annular disc bulging is present. There is bony hypertrophy at the articular facettes. There is moderate spinal canal narrowing. There is severe bilateral foraminal narrowing. L4-L5: Disc space narrowing and disc degeneration is present. There is annular disc bulging. There is mild spinal canal narrowing. Focal disc herniation and sequestered fragment is present to the right of midline and dorsal to the superior L5 vertebral body. Sequestered fragment is 6 millimeters in diameter. L5-S1: Disc space narrowing is present. There is annular disc bulging. Severe bilateral foraminal narrowing is present. CONCLUSION: 1. Annular disc bulging is present at multiple levels. 2. Bilateral foraminal narrowing is present L2 through S1. Narrowing is most severe at the right L5-S1 foramen. Continued Report - Page 2 of 2 Patient: BRENDAN MICHAUD. Phone#: : 1960 Age: 60 Gender: M Pt. Type: Out Account: [id number] Location: Ordering: MIN[facility] García [facility] Exam Date: 08/19/2021/7:39 Family Phys: MANOJ NoriegaPatty CHELLE Charge Code: [id number] Physician: Jennings Order #: [id number] DLP Dose#: Dictated by: Kylie Alicia MD on 08/19/2021 at 11:34 Approved by: Kylie Alicia MD on 08/19/2021 at 13:23 [facility] PROGRESSon 06-03-2019 PROGRESS HNO ID: [id number] Author: Cash GastelumPt) Fabio Service: ? Author Type: Physical Therapist Type: Progress Notes Filed: 06/03/2019 9:01 AM Note Text: [facility] REHABILITATION AND SPORTS THERAPY PHYSICAL THERAPY DISCONTINUANCE OF CARE Plan of Care Period: Initial Evaluation Date:02/27/2019 Last Visit Date: 03/11/2019 Therapy Program: The following is a summary of the interventions provided for this episode of care; Therapeutic exercise, Manual therapy and Patient/Family/Careg iver Education Assessment: Based on most recent visit, patient was progressing slower than expected toward functional goals based on pain levels and documented subjective information on progress. Unable to formally assess goal achievement due to non-compliance with therapy plan of care. Reason for Discontinuation of Care: Patient has not returned to therapy or scheduled additional follow-up appointments. Cash Clancy PT [facility] CNTHERAPYon 03-11-2019 CNTHERAPY OT/PT/Speech Visit (PTWS) LEONARD MICHAUD ([id number]) 1960 M Date Time Provider Department 03/11/19 7:00 AM MADELAINE ANTON (HOOK LOADER) PTWS Date Time Provider Department Center 03/11/2019 7:00 AM [id number], NANCY (HOOK LOADER) PTWS [facility] Reason for Visit: Physical Therapy [503] PT Discharge [752] Reason For Visit History Recorded Primary Visit Diagnosis:Chronic neck pain [M54.2, G89.29] Other Visit Diagnoses:Tobacco use disorder [F17.200] DDD (degenerative disc disease), cervical [M50.30] Chronic bilateral thoracic back pain [M54.6, G89.29] Chronic bilateral low back pain with bilateral sciatica [M54.42, M54.41, G89.29] Allergies As of Date: 03/11/2019 Noted Allergy Reaction HAY FEVER (SEASONAL ALLERGIES) 02/13/2019 14 - Other: See Comments Comments: Sneezing, runny nose, stuffy PENICILLIN G 02/13/2019 14 - Other: See Comments Date Reviewed: 02/13/2019 Reviewed by: Lily Pritchett - Fully Assessed Prescriptions as of 03/11/2019 Sig: AMLODIPINE 5 MG TABLET Take 5 mg by mouth once daily. MELOXICAM 15 MG TABLET Take 1 tablet by mouth once d* Progress Notes: Cash Clancy PT 03/11/2019 11:28 AM Signed Episode Visit Count: 4 Therapist That Will Oversee The Plan Of Care: Cash Clancy Start of Care Date: 02/27/19 Onset Date: 02/27/97 Plan of Care Certification Date: 02/27/19 Patient Identified by Name and Date of : Yes REHABILITATION AND SPORTS THERAPY PHYSICAL THERAPY TREATMENT NOTE ASSESSMENT: Leonard Michaud demonstrated difficulty with pain increase low back after lifting and moving furniture yesterday. He has poor follow through with HEP. Added manual belt traction today which gave patient pain relief in low back. The patient will continue to benefit from ongoing skilled physical therapy for progression of extension based exercises and manual belt traction. PLAN FOR NEXT VISIT: continue with manual belt traction and core stabilization. SUBJECTIVE: Patient Reason for Visit: Patient reports moving furniture yesterday and is hurting today. He reports not sleeping good last night. He reports no change prior to yesterday. Patient reports low back and midback are hurting. Patient reports doing exercises a couple times since last seen. He reports not having the energy and has minimal space in his place to do the exercises. He does reports he does some standing extension and scapular retraction throughout the day. Patient also reports he went to a Dr yesterday and is trying to get disablilty. Pain: Pain Pain Level: 8 Pain Location: Low Back/Lumbar Spine - Right;Low Back/Lumbar Spine - Left;Buttocks - Right;Buttocks - Left Description: Aching;Dull Pain Level 2: 6 Pain Location 2: Thoracic Spine Description 2: (knot between shoulder blade) Post Treatment Pain Post Treatment Pain Level: 6(looser and better mid back after stretching) Post Treatment Pain Location: Low Back/Lumbar Spine - Right;Low Back/Lumbar Spine - Left Post Treatment Pain Description: Dull Post Treatment Symptoms: better after traction OBJECTIVE MEASURES WITH LEVEL OF FUNCTION: Manual belt traction decreased B low back pain. TREATMENT: Therapeutic Exercise: 1: Retro walk 0.5mph x 3 minutes.(Disucussed importance of follow through with HEP) 2: Prone lying 2 minutes 3: Prone prop x 3 minutes. 4: Prone alt hip extension 2x5 5: Bridging 2x10. 6: Seated Upright perturbation blue band forward, lateral right and lateral left 3x10. 7: Thoracic rotations 1x10 8: Thoracic extension 2x10 9: Supine TA 2-3 second hold x 10. 10: Supine TA with bent knee fall outs x 10. 11: Supine TA with marching x 10. Skilled Intervention: Patient was educated in proper exercise technique and purpose for exercises. Skilled judgment was provided in selection of appropriate interventions. Correct performance of therapeutic exercises was facilitated with verbal and visual cuing. Patient education as noted. Manual Therapy: 1: Manual belt traction with legs elevated on stool x 10 minutes.(Education on centralization of symptoms) Skilled Intervention: Manual skills to improve joint mobility, ROM, and decrease pain. Utilized anatomy knowledge of the therapist, and assessment of patient's response to intervention. Billing: [facility]: Therapeutic Exercise (65312): 1:1 time: 35 minutes (2 units: 23-37 mins) Manual Therapy (27813): 1:1 time: 10 minutes (1 unit: 8-22 mins) Total time: 45 minutes Madelaine Anton PT-Claude Clancy PT Previous Version Cash Clancy PT 06/03/2019 9:01 AM Signed [facility] REHABILITATION AND SPORTS THERAPY PHYSICAL THERAPY DISCONTINUANCE OF CARE Plan of Care Period: Initial Evaluation Date:02/27/2019 Last Visit Date: 03/11/2019 Therapy Program: The following is a summary of the interventions provided for this episode of care; Therapeutic exercise, Manual therapy and Patient/Family/Careg iver Education Assessment: Based on most recent visit, patient was progressing slower than expected toward functional goals based on pain levels and documented subjective information on progress. Unable to formally assess goal achievement due to non-compliance with therapy plan of care. Reason for Discontinuation of Care: Patient has not returned to therapy or scheduled additional follow-up appointments. Cash Clancy PT [facility] PROGRESSon 03-11-2019 PROGRESS HNO ID: [id number] Author: Cash (Pt) Fabio Service: ? Author Type: Physical Therapist Type: Progress Notes Filed: 03/11/2019 11:28 AM Note Text: Episode Visit Count: 4 Therapist That Will Oversee The Plan Of Care: Cash Clancy Start of Care Date: 02/27/19 Onset Date: 02/27/97 Plan of Care Certification Date: 02/27/19 Patient Identified by Name and Date of : Yes REHABILITATION AND SPORTS THERAPY PHYSICAL THERAPY TREATMENT NOTE ASSESSMENT: Leonard Michaud demonstrated difficulty with pain increase low back after lifting and moving furniture yesterday. He has poor follow through with HEP. Added manual belt traction today which gave patient pain relief in low back. The patient will continue to benefit from ongoing skilled physical therapy for progression of extension based exercises and manual belt traction. PLAN FOR NEXT VISIT: continue with manual belt traction and core stabilization. SUBJECTIVE: Patient Reason for Visit: Patient reports moving furniture yesterday and is hurting today. He reports not sleeping good last night. He reports no change prior to yesterday. Patient reports low back and midback are hurting. Patient reports doing exercises a couple times since last seen. He reports not having the energy and has minimal space in his place to do the exercises. He does reports he does some standing extension and scapular retraction throughout the day. Patient also reports he went to a Dr yesterday and is trying to get disablilty. Pain: Pain Pain Level: 8 Pain Location: Low Back/Lumbar Spine - Right;Low Back/Lumbar Spine - Left;Buttocks - Right;Buttocks - Left Description: Aching;Dull Pain Level 2: 6 Pain Location 2: Thoracic Spine Description 2: (knot between shoulder blade) Post Treatment Pain Post Treatment Pain Level: 6(looser and better mid back after stretching) Post Treatment Pain Location: Low Back/Lumbar Spine - Right;Low Back/Lumbar Spine - Left Post Treatment Pain Description: Dull Post Treatment Symptoms: better after traction OBJECTIVE MEASURES WITH LEVEL OF FUNCTION: Manual belt traction decreased B low back pain. TREATMENT: Therapeutic Exercise: 1: Retro walk 0.5mph x 3 minutes.(Disucussed importance of follow through with HEP) 2: Prone lying 2 minutes 3: Prone prop x 3 minutes. 4: Prone alt hip extension 2x5 5: Bridging 2x10. 6: Seated Upright perturbation blue band forward, lateral right and lateral left 3x10. 7: Thoracic rotations 1x10 8: Thoracic extension 2x10 9: Supine TA 2-3 second hold x 10. 10: Supine TA with bent knee fall outs x 10. 11: Supine TA with marching x 10. Skilled Intervention: Patient was educated in proper exercise technique and purpose for exercises. Skilled judgment was provided in selection of appropriate interventions. Correct performance of therapeutic exercises was facilitated with verbal and visual cuing. Patient education as noted. Manual Therapy: 1: Manual belt traction with legs elevated on stool x 10 minutes.(Education on centralization of symptoms) Skilled Intervention: Manual skills to improve joint mobility, ROM, and decrease pain. Utilized anatomy knowledge of the therapist, and assessment of patient's response to intervention. Billing: [facility]: Therapeutic Exercise ([id number]): 1:1 time: 35 minutes (2 units: 23-37 mins) Manual Therapy (96910): 1:1 time: 10 minutes (1 unit: 8-22 mins) Total time: 45 minutes Madelaine Anton, PT-Claude Clancy PT [facility] CNTHERAPYon 03-06-2019 CNTHERAPY OT/PT/Speech Visit (PTWS) KEILYLEONARD ([id number]) 1960 M Date Time Provider Department 03/06/19 7:45 AM MADELAINE ANTON (HOOK LOADER) PTWS Date Time Provider Department Center 03/06/2019 7:45 AM [id number], NANCY (HOOK LOADER) PTWS [facility] Reason for Visit: Physical Therapy [503] Primary Visit Diagnosis:Chronic neck pain [M54.2, G89.29] Other Visit Diagnoses:Tobacco use disorder [F17.200] DDD (degenerative disc disease), cervical [M50.30] Chronic bilateral thoracic back pain [M54.6, G89.29] Chronic bilateral low back pain with bilateral sciatica [M54.42, M54.41, G89.29] Allergies As of Date: 03/06/2019 Noted Allergy Reaction HAY FEVER (SEASONAL ALLERGIES) 02/13/2019 14 - Other: See Comments Comments: Sneezing, runny nose, stuffy PENICILLIN G 02/13/2019 14 - Other: See Comments Date Reviewed: 02/13/2019 Reviewed by: Lily Pritchett - Fully Assessed Prescriptions as of 03/06/2019 Sig: AMLODIPINE 5 MG TABLET Take 5 mg by mouth once daily. MELOXICAM 15 MG TABLET Take 1 tablet by mouth once d* Progress Notes: Cash Clancy PT 03/06/2019 9:55 AM Signed Episode Visit Count: 3 Therapist That Will Oversee The Plan Of Care: Cash Clancy Start of Care Date: 02/27/19 Onset Date: 02/27/97 Plan of Care Certification Date: 02/27/19 Patient Identified by Name and Date of : Yes REHABILITATION AND SPORTS THERAPY PHYSICAL THERAPY TREATMENT NOTE ASSESSMENT: Leonard E Keily demonstrated difficulty with poor seated posture and postural awareness. Education was verbalized throughout treatment of importance of upright seated and standing posture. He reported no change in pain following exercises today. Further education and cueing will be needed to assist with upright posture. The patient will continue to benefit from ongoing skilled physical therapy for progression of core and postural strength and awaerness. PLAN FOR NEXT VISIT: manual therapy as needed and continue to progress extension based exercises and cervical AROM. SUBJECTIVE: Patient Reason for Visit: Patient reports b low back and right buttock and hip are hurting today. He also reports pain in shoulder blade region. No change in pain with treatments so far. Pain: Pain Pain Level: 6 Pain Location: Low Back/Lumbar Spine - Right;Low Back/Lumbar Spine - Left;Buttocks - Right;Hip - Right Description: Dull Frequency: Continuous Additional Pain Information : Location 2 Pain Level 2: 5 Pain Location 2: Thoracic Spine Description 2: Tightness Post Treatment Pain Post Treatment Pain Level: No Change Post Treatment Symptoms: decrease right buttock and hip pain in sitting OBJECTIVE MEASURES WITH LEVEL OF FUNCTION: Posture / Alignment Posture: Forward head;Increased thoracic kyphosis;Rounded shoulders;Decreased lumbar lordosis TREATMENT: Therapeutic Exercise: 1: Education on importance of upright seated and standing posture. Instruction on use of towel roll to assist with upright posture. 2: Prone lying 2 minutes 3: *Prone prop x 3 minutes. 4: *Prone alt hip extension 2x10 5: *Bridging 2x10. 6: *Seated Upright TA with instruction to do this 3-5 times throughout the day at home 7: Thoracic rotations 1x10 8: *Thoracic extension 2x10 Skilled Intervention: Patient was educated in proper exercise technique and purpose for exercises. Reviewed and educated patient on additions/changes for home exercise program as above (*) Skilled judgment was provided in selection of appropriate interventions. Provided written instruction for home exercise program to facilitate proper performance and compliance. Correct performance of therapeutic exercises was facilitated with verbal, visual and tactile cuing. Patient education as noted. Billing: [facility]: Therapeutic Exercise ([id number]): 1:1 time: 45 minutes (3 units: 38-52 mins) Total time: 45 minutes Madelaine Anton PTSanjeev Clancy PT Previous Version Normal [facility] PROGRESSon 03-06-2019 PROGRESS HNO ID: [id number] Author: Cash (Pt) Fabio Service: ? Author Type: Physical Therapist Type: Progress Notes Filed: 03/06/2019 9:55 AM Note Text: Episode Visit Count: 3 Therapist That Will Oversee The Plan Of Care: Cash Clancy Start of Care Date: 02/27/19 Onset Date: 02/27/97 Plan of Care Certification Date: 02/27/19 Patient Identified by Name and Date of : Yes REHABILITATION AND SPORTS THERAPY PHYSICAL THERAPY TREATMENT NOTE ASSESSMENT: Leonard Michaud demonstrated difficulty with poor seated posture and postural awareness. Education was verbalized throughout treatment of importance of upright seated and standing posture. He reported no change in pain following exercises today. Further education and cueing will be needed to assist with upright posture. The patient will continue to benefit from ongoing skilled physical therapy for progression of core and postural strength and awaerness. PLAN FOR NEXT VISIT: manual therapy as needed and continue to progress extension based exercises and cervical AROM. SUBJECTIVE: Patient Reason for Visit: Patient reports b low back and right buttock and hip are hurting today. He also reports pain in shoulder blade region. No change in pain with treatments so far. Pain: Pain Pain Level: 6 Pain Location: Low Back/Lumbar Spine - Right;Low Back/Lumbar Spine - Left;Buttocks - Right;Hip - Right Description: Dull Frequency: Continuous Additional Pain Information : Location 2 Pain Level 2: 5 Pain Location 2: Thoracic Spine Description 2: Tightness Post Treatment Pain Post Treatment Pain Level: No Change Post Treatment Symptoms: decrease right buttock and hip pain in sitting OBJECTIVE MEASURES WITH LEVEL OF FUNCTION: Posture / Alignment Posture: Forward head;Increased thoracic kyphosis;Rounded shoulders;Decreased lumbar lordosis TREATMENT: Therapeutic Exercise: 1: Education on importance of upright seated and standing posture. Instruction on use of towel roll to assist with upright posture. 2: Prone lying 2 minutes 3: *Prone prop x 3 minutes. 4: *Prone alt hip extension 2x10 5: *Bridging 2x10. 6: *Seated Upright TA with instruction to do this 3-5 times throughout the day at home 7: Thoracic rotations 1x10 8: *Thoracic extension 2x10 Skilled Intervention: Patient was educated in proper exercise technique and purpose for exercises. Reviewed and educated patient on additions/changes for home exercise program as above (*) Skilled judgment was provided in selection of appropriate interventions. Provided written instruction for home exercise program to facilitate proper performance and compliance. Correct performance of therapeutic exercises was facilitated with verbal, visual and tactile cuing. Patient education as noted. Billing: [facility]: Therapeutic Exercise ([id number]): 1:1 time: 45 minutes (3 units: 38-52 mins) Total time: 45 minutes MAGALY Nolasco PT [facility] CNTHERAPYon 03-04-2019 CNTHERAPY OT/PT/Speech Visit (PTWS) LEONARD MICHAUD ([id number]) 1960 M Date Time Provider Department 03/04/19 7:45 AM CASH CLANCY (PT) PTWS Date Time Provider Department [place] 03/04/2019 7:45 AM [id number], COREY (PT)PTWS [facility] Reason for Visit: Physical Therapy [503] Primary Visit Diagnosis:Chronic neck pain [M54.2, G89.29] Other Visit Diagnoses:Tobacco use disorder [F17.200] DDD (degenerative disc disease), cervical [M50.30] Chronic bilateral thoracic back pain [M54.6, G89.29] Chronic bilateral low back pain with bilateral sciatica [M54.42, M54.41, G89.29] Allergies As of Date: 03/04/2019 Noted Allergy Reaction HAY FEVER (SEASONAL ALLERGIES) 02/13/2019 14 - Other: See Comments Comments: Sneezing, runny nose, stuffy PENICILLIN G 02/13/2019 14 - Other: See Comments Date Reviewed: 02/13/2019 Reviewed by: Lily Pritchett - Fully Assessed Prescriptions as of 03/04/2019 Sig: AMLODIPINE 5 MG TABLET Take 5 mg by mouth once daily. MELOXICAM 15 MG TABLET Take 1 tablet by mouth once d* Progress Notes: Cash Clancy, PT 03/04/2019 9:31 AM Signed Episode Visit Count: 2 Therapist That Will Oversee The Plan Of Care: Cash Clancy Start of Care Date: 02/27/19 Onset Date: 02/27/97 Plan of Care Certification Date: 02/27/19 Patient Identified by Name and Date of : Yes REHABILITATION AND SPORTS THERAPY PHYSICAL THERAPY TREATMENT NOTE ASSESSMENT: Leonard Isaura Michaud demonstrated difficulty in remembering exercises from the HEP. The patient will continue to benefit from ongoing skilled physical therapy for progression towards towards therapy goals. PLAN FOR NEXT VISIT: Provide manual therapy over trigger point as needed. Progress postural exercises and continue with standing lumbar extensions as prone extension tends to irritate the symptoms. Add cervical exercises to improve ROM. SUBJECTIVE: Patient Reason for Visit: Pt states he has not been HEP compliant. Pain: Pain Pain Level: 6 Pain Location: Back;Hip - Left Description: Aching Frequency: Continuous Additional Pain Information : Location 2 Pain Location 2: Neck Description 2: Aching OBJECTIVE MEASURES WITH LEVEL OF FUNCTION: Large trigger points found in paraspinals in the mid thoracic region on the R side and bilateral paraspinals of the lumbar spine. TREATMENT: Therapeutic Exercise: 1: Scapular retractions 10 reps hold 5 sec 2: Scapular retractions orange band 2x10 reps, 5 sec holds 3: Discussed sleeping positions and the importance of keeping a neutral spine when sleeping. Discussed pillow height and pillow placement. 4: Discussed the importance of completing the HEP 5-6 times per week to have a good effect on the pt's symptoms. HEP was printed and given to the pt for reference outside of clinic hours. Skilled Intervention: Provided written instruction for home exercise program to facilitate proper performance and compliance. Correct performance of therapeutic exercises was facilitated with verbal cuing. Educated patient on rationale for performing exercises in regards to increase ease of ADL Manual Therapy: 1: STM to thoracic and lumbar paraspinals 2: Ischemic compression to R mid tap trigger point 3: Effluerage over mid back region 4: Self massage on wall using tennis ball 1 min Skilled Intervention: Manual skills to improve joint mobility, ROM, and decrease pain. Utilized anatomy knowledge of the therapist, and assessment of patient's response to intervention. Billing: [facility]: Therapeutic Exercise ([id number]): 1:1 time: 15 minutes (1 unit: 8-22 mins) Manual Therapy ([id number]): 1:1 time: 10 minutes (1 unit: 8-22 mins) Total time: 30 minutes Cash Clancy PT [facility] PROGRESSon 03-04-2019 PROGRESS HNO ID: [id number] Author: Cash (Pt) Fabio Service: ? Author Type: Physical Therapist Type: Progress Notes Filed: 03/04/2019 9:31 AM Note Text: Episode Visit Count: 2 Therapist That Will Oversee The Plan Of Care: Cash Clancy Start of Care Date: 02/27/19 Onset Date: 02/27/97 Plan of Care Certification Date: 02/27/19 Patient Identified by Name and Date of : Yes REHABILITATION AND SPORTS THERAPY PHYSICAL THERAPY TREATMENT NOTE ASSESSMENT: Leonard Michaud demonstrated difficulty in remembering exercises from the HEP. The patient will continue to benefit from ongoing skilled physical therapy for progression towards towards therapy goals. PLAN FOR NEXT VISIT: Provide manual therapy over trigger point as needed. Progress postural exercises and continue with standing lumbar extensions as prone extension tends to irritate the symptoms. Add cervical exercises to improve ROM. SUBJECTIVE: Patient Reason for Visit: Pt states he has not been HEP compliant. Pain: Pain Pain Level: 6 Pain Location: Back;Hip - Left Description: Aching Frequency: Continuous Additional Pain Information : Location 2 Pain Location 2: Neck Description 2: Aching OBJECTIVE MEASURES WITH LEVEL OF FUNCTION: Large trigger points found in paraspinals in the mid thoracic region on the R side and bilateral paraspinals of the lumbar spine. TREATMENT: Therapeutic Exercise: 1: Scapular retractions 10 reps hold 5 sec 2: Scapular retractions orange band 2x10 reps, 5 sec holds 3: Discussed sleeping positions and the importance of keeping a neutral spine when sleeping. Discussed pillow height and pillow placement. 4: Discussed the importance of completing the HEP 5-6 times per week to have a good effect on the pt's symptoms. HEP was printed and given to the pt for reference outside of clinic hours. Skilled Intervention: Provided written instruction for home exercise program to facilitate proper performance and compliance. Correct performance of therapeutic exercises was facilitated with verbal cuing. Educated patient on rationale for performing exercises in regards to increase ease of ADL Manual Therapy: 1: STM to thoracic and lumbar paraspinals 2: Ischemic compression to R mid tap trigger point 3: Effluerage over mid back region 4: Self massage on wall using tennis ball 1 min Skilled Intervention: Manual skills to improve joint mobility, ROM, and decrease pain. Utilized anatomy knowledge of the therapist, and assessment of patient's response to intervention. Billing: [facility]: Therapeutic Exercise ([id number]): 1:1 time: 15 minutes (1 unit: 8-22 mins) Manual Therapy ([id number]): 1:1 time: 10 minutes (1 unit: 8-22 mins) Total time: 30 minutes MIGUELITO Simpson [facility] CNTHERAPYon 02-27-2019 CNTHERAPY OT/PT/Speech Visit (PTWS) LEONARD MICHAUD ([id number]) 1960 M Date Time Provider Department 02/27/19 8:30 AM CASH CLANCY (PT) PTRICHAR Date Time Provider Department [facility] 02/27/2019 8:30 AM [id number], COREY (PT)PTWS [facility] Reason for Visit: PT Eval [747] Primary Visit Diagnosis:Chronic neck pain [M54.2, G89.29] Other Visit Diagnoses:DDD (degenerative disc disease), cervical [M50.30] Chronic bilateral low back pain with bilateral sciatica [M54.42, M54.41, G89.29] Tobacco use disorder [F17.200] Chronic bilateral thoracic back pain [M54.6, G89.29] Allergies As of Date: 02/27/2019 Noted Allergy Reaction HAY FEVER (SEASONAL ALLERGIES) 02/13/2019 14 - Other: See Comments Comments: Sneezing, runny nose, stuffy PENICILLIN G 02/13/2019 14 - Other: See Comments Date Reviewed: 02/13/2019 Reviewed by: Lily Pritchett - Fully Assessed Prescriptions as of 02/27/2019 Sig: AMLODIPINE 5 MG TABLET Take 5 mg by mouth once daily. MELOXICAM 15 MG TABLET Take 1 tablet by mouth once d* Progress Notes: Cash Clancy PT 02/27/2019 7:12 PM Signed Episode Visit Count: 1 Therapist That Will Oversee The Plan Of Care: Cash Clancy Start of Care Date: 02/27/19 Onset Date: 02/27/97 Plan of Care Certification Date: 02/27/19 Patient Identified by Name and Date of : Yes REHABILITATION AND SPORTS THERAPY PHYSICAL THERAPY EVALUATION PLAN OF CARE: Assessment: Leonard Michaud presents with the chief complaint of neck, thoracic, and low back pain with intermittent radiating symptoms into the L hand and bilateral glutes/hip. Pt presents with a negative spurling's test. Pt presents with a positive SLR test on the RLE indicating some neural tension impairmnents He presents with impairments of decreased functional strength, decreased ROM, . He may benefit from skilled therapy services to improve the above mentioned impairments. Classification Low Back Pain Subgroup Classification: Specific exercise subgroup: recommended visits 8. Specific Exercies Subgroup Classification based on: directional preference Core Stabilization Subgroup Classification based on: pain with transitional movements Prognosis: Fair Fair due to: clinical presentation;chronic nature of impairments Goals for Episode of Care: created on 02/27/19 through 04/24/19 Increase DNF endurance score to 30 seconds showing improved deep neck flexor endurance. Improve Core strength to 5/5 to promote ease of ADL's and improve core stability. Pettis in home exercise program. Patient will decrease pain rating by 2 points to meet minimal clinical important difference for numeric pain rating scale. Perform mowing the lawn with decreased report of symptoms/pain in 8 weeks. Improve postural awareness. Restore pain-free lumbar ROM to WNL to allow for ease of completing ADLs Stand / Walk For 2 hours without an increase in pain/symptoms. Sleep through night without pain/symptoms. Planned Interventions, Frequency, and Duration: Current Frequency: 2x/week Duration: 8 weeks Total Number of Visits Planned: 11(2x/week for 3 weeks, then 1x/week after) Planned Treatment Interventions: Therapeutic exercise;Neuromuscul ar re-education;Manual therapy;Therapeutic activities;Self-residential management;Patient/F amily/Caregiver Education;Body Mechanics Training PLAN FOR NEXT VISIT: Assess muscle tightness in LEs and ULTT and distraction test. Patient demonstrates good understanding of plan of care and treatment. The above goals and plan of care were discussed and agreed upon by patient/family. SUBJECTIVE: Leonard Michaud is a 58 year old male seen today for Pt states that he hurt his back a long time ago and he has consistently had pain since then. 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 Pt states that he feels better with movement and worse with staying still. Pt can't sit for very long or stand very long, for more than an hour. Pt states that he has pain in his R shoulder blade. Pt states that he feels that his back is hollow with no muscle tension. Pt feels he has to move constantly and he has pain with transitional movements. Pt reports that he had [place]'s palsy which affected his face but also his bicep and [employer] strength. Pt states that he gets a popping sensation in his neck with movement. Patient Goals: Pt wants to get rid of his pain. Pt has a hard time lifting, mowing, and working out is tough. Functional Limitations: rising from a chair;bending;heavy exertion;lifting;phy sical activities;working;s leeping Prior Level of Function: Independent without limitations Relevant History Preferred Language: Montenegrin Intake Information: Prescription present Previous Treatment: None Falls Interview: Two or more falls in the last year Falls Intervention: Instructed patient on safety and use of assistive device and awareness in regards to falls prevention. Red Flags Vertebral Fracture Clinical Reasoning: No identified risk factors Abdominal Aortic Aneurysm Clinical Reasoning: No identified risk factors. Cancer Red Flags: Age >50 or <20;Night pain at rest Cancer Clinical Reasoning: Proceed with caution Infection Clinical Reasoning: No identified risk factors. Cauda Equina Syndrome Clinical Reasoning: No identified risk factors. Cervical Myelopathy: Age > 45 yo Cervical Myelopathy Diagnostic Rule: Proceed with caution Red Flags - Cervical Cancer Red Flags: Age >50 or <20;Night pain at rest Cancer Clinical Reasoning: Proceed with caution Infection Clinical Reasoning: No identified risk factors. Cervical Myelopathy: Age > 45 yo Cervical Myelopathy Diagnostic Rule: Proceed with caution Spine History What worsens symptoms?: bending forward. STS What alleviates symptoms?: Rest, lumbar extension Pain: Pain Pain Level: 5(8 at its worst) Pain Location: Back;Hip - Left Description: Aching Frequency: Continuous Post Treatment Pain Post Treatment Pain Level: No Change OBJECTIVE MEASURES WITH LEVEL OF FUNCTION: Posture / Alignment Posture: Forward head;Rounded shoulders Reflexes - Upper Extremity R Brachioradialis? : 2+ R Biceps: 2+ L Brachioradialis? : 2+ L Biceps: 2+ Reflexes - Lower Extremity R Patellar: 2+ R Achilles: 1+ R Babinski: Negative L Patellar: 2+ L Achilles: 1+ Spine Observations R Cervical Spine Palpation Tenderness: Spinous process;Paraspinals L Cervical Spine Palpation Tenderness: Paraspinals;Spinous process R Lumbar Spine Palpation Tenderness: Paraspinals;Gluteals ;Spinous process L Lumbar Spine Palpation Tenderness: Paraspinals;Gluteals ;Spinous process Sensation - Lumbar Sensation: Grossly Intact Lumbar Spine AROM Lumbar Flexion: Normal;Increased pain Lumbar Extension: Normal;Decreased pain Lumbar R Side-Bend: Normal;Increased pain Lumbar L Side-Bend: Normal;Increased pain Lumbar R Rotation: Normal Lumbar L Rotation: Normal LE AROM Tested?: Yes LE PROM Tested?: Yes Repeated Test Movements - Lumbar Directional preference: Yes Directional Preference Direction: Extension Sensation - Cervical Spine Cervical Spine Sensation: Grossly Intact(Reported numbness at times in the L 2nd and 3rd digit) Cervical Spine AROM Cervical AROM determined by: Measurement Cervical Flexion (degrees)?: 52 Degrees(Pain on R side of neck) Cervical Extension (degrees)?: 30 Degrees Cervical Side-Bend Right (degrees): 30 Degrees Cervical Side-Bend Left (degrees)?: 30 Degrees Cervical Rotation Right (degrees)?: 49 Degrees Cervical Rotation Left (degrees)?: 60 Repeated Test Movements - Cervical Directional Preference: No UE AROM R UE AROM: WNL L UE AROM: WNL LE AROM R LE AROM: WNL L LE AROM: WNL R Hip Flexion: (Painful in Low back near end range) L Hip Flexion: (Painful in Low back near end range) LE PROM R LE PROM: WNL L LE PROM : WNL Spine Joint Mobility Joint Mobility Comment: (Unable to get full assessment of mobility due to pain) Joint Mobility - T1: Hypomobile Joint Mobility - T2: Hypomobile Joint Mobility - T3: Hypomobile Joint Mobility - T4: Hypomobile Joint Mobility - T5: Hypomobile Joint Mobility - T6: Hypomobile Joint Mobility - L2: (Painful) Joint Mobility - L3: (Painful) Joint Mobility - L4: (Painful, radiating symptoms into bilateral buttocks) UE and Cervical Strength Deep Neck Flexor Endurance: 4 R UE Strength: Grossly 5/5(Unless otherwise noted. ER was 4/5. IR was 4+/5) L UE Strength: Grossly 5/5 LE Strength Trunk Strength: 3/5 R LE Strength: Grossly 5/5(Unless otherwise noted) L LE Strength: Grossly 5/5(Unless otherwise noted) R Hip Extension: 3+/5 R Hip Flexion (L2): 3+/5(Painful) R Hip ABduction: 4/5 L Hip Extension: 4-/5 L Hip Flexion (L2): 3+/5(Painful) L Hip ABduction: 4/5 Special Tests - Cervical Cervical Special Tests: Spurling Spurling: Right Negative;Left Negative Education: Education Learning Preferences: Demonstration;Explan ation;Printed Materials;Performanc e Barriers: None Learning/educational needs: Home exercise program;Plan of Care;Changes in Plan of Care;Posture Education Provided: Yes, see treatment interventions for education provided Education Provided To: Patient Education Mode/Type: Demonstration;Explan ation/Discussion;Lit erature/Printed Materials;Performanc e Response to Education/Teach Back: States/Identifies TREATMENT: Evaluation Therapeutic Exercise: 1: Scapular retractions 10 reps, hold 5 sec 2: Cervical retractions 10 rep, hold 5 sec 3: Pt educated on the importance of good posture on decreasing pain and improving postural muscle strength to ensure proper muscle length of anterior and posterior trunk musculature. Discussed therapy goals with the pt and printed out an HEP for reference outside of the clinic. Skilled Intervention: Patient was educated in proper exercise technique and purpose for exercises. Skilled judgment was provided in selection of appropriate interventions. Correct performance of therapeutic exercises was facilitated with verbal cuing. Educated patient on rationale for performing exercises in regards to increase ease of ADL and ROM and function Billing: [facility]: Evaluation - Moderate Complexity (10195) Therapeutic Exercise ([id number]): 1:1 time: 10 minutes (1 unit: 8-22 mins) Total time: 50 minutes Cash Clancy PT [facility] PROGRESSon 02-27-2019 PROGRESS HNO ID: [id number] Author: Cash (Pt) Fabio Service: ? Author Type: Physical Therapist Type: Progress Notes Filed: 02/27/2019 7:12 PM Note Text: Episode Visit Count: 1 Therapist That Will Oversee The Plan Of Care: Cash Clancy Start of Care Date: 02/27/19 Onset Date: 02/27/97 Plan of Care Certification Date: 02/27/19 Patient Identified by Name and Date of : Yes REHABILITATION AND SPORTS THERAPY PHYSICAL THERAPY EVALUATION PLAN OF CARE: Assessment: Leonard Michaud presents with the chief complaint of neck, thoracic, and low back pain with intermittent radiating symptoms into the L hand and bilateral glutes/hip. Pt presents with a negative spurling's test. Pt presents with a positive SLR test on the RLE indicating some neural tension impairmnents He presents with impairments of decreased functional strength, decreased ROM, . He may benefit from skilled therapy services to improve the above mentioned impairments. Classification Low Back Pain Subgroup Classification: Specific exercise subgroup: recommended visits 8. Specific Exercies Subgroup Classification based on: directional preference Core Stabilization Subgroup Classification based on: pain with transitional movements Prognosis: Fair Fair due to: clinical presentation;chronic nature of impairments Goals for Episode of Care: created on 02/27/19 through 04/24/19 Increase DNF endurance score to 30 seconds showing improved deep neck flexor endurance. Improve Core strength to 5/5 to promote ease of ADL's and improve core stability. Pettis in home exercise program. Patient will decrease pain rating by 2 points to meet minimal clinical important difference for numeric pain rating scale. Perform mowing the lawn with decreased report of symptoms/pain in 8 weeks. Improve postural awareness. Restore pain-free lumbar ROM to WNL to allow for ease of completing ADLs Stand / Walk For 2 hours without an increase in pain/symptoms. Sleep through night without pain/symptoms. Planned Interventions, Frequency, and Duration: Current Frequency: 2x/week Duration: 8 weeks Total Number of Visits Planned: 11(2x/week for 3 weeks, then 1x/week after) Planned Treatment Interventions: Therapeutic exercise;Neuromuscul ar re-education;Manual therapy;Therapeutic activities;Self-residential management;Patient/F amily/Caregiver Education;Body Mechanics Training PLAN FOR NEXT VISIT: Assess muscle tightness in LEs and ULTT and distraction test. Patient demonstrates good understanding of plan of care and treatment. The above goals and plan of care were discussed and agreed upon by patient/family. SUBJECTIVE: Leonard Michaud is a 58 year old male seen today for Pt states that he hurt his back a long time ago and he has consistently had pain since then. 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 Pt states that he feels better with movement and worse with staying still. Pt can't sit for very long or stand very long, for more than an hour. Pt states that he has pain in his R shoulder blade. Pt states that he feels that his back is hollow with no muscle tension. Pt feels he has to move constantly and he has pain with transitional movements. Pt reports that he had [place]'s palsy which affected his face but also his bicep and [employer] strength. Pt states that he gets a popping sensation in his neck with movement. Patient Goals: Pt wants to get rid of his pain. Pt has a hard time lifting, mowing, and working out is tough. Functional Limitations: rising from a chair;bending;heavy exertion;lifting;phy sical activities;working;s leeping Prior Level of Function: Independent without limitations Relevant History Preferred Language: Montenegrin Intake Information: Prescription present Previous Treatment: None Falls Interview: Two or more falls in the last year Falls Intervention: Instructed patient on safety and use of assistive device and awareness in regards to falls prevention. Red Flags Vertebral Fracture Clinical Reasoning: No identified risk factors Abdominal Aortic Aneurysm Clinical Reasoning: No identified risk factors. Cancer Red Flags: Age >50 or <20;Night pain at rest Cancer Clinical Reasoning: Proceed with caution Infection Clinical Reasoning: No identified risk factors. Cauda Equina Syndrome Clinical Reasoning: No identified risk factors. Cervical Myelopathy: Age > 45 yo Cervical Myelopathy Diagnostic Rule: Proceed with caution Red Flags - Cervical Cancer Red Flags: Age >50 or <20;Night pain at rest Cancer Clinical Reasoning: Proceed with caution Infection Clinical Reasoning: No identified risk factors. Cervical Myelopathy: Age > 45 yo Cervical Myelopathy Diagnostic Rule: Proceed with caution Spine History What worsens symptoms?: bending forward. STS What alleviates symptoms?: Rest, lumbar extension Pain: Pain Pain Level: 5(8 at its worst) Pain Location: Back;Hip - Left Description: Aching Frequency: Continuous Post Treatment Pain Post Treatment Pain Level: No Change OBJECTIVE MEASURES WITH LEVEL OF FUNCTION: Posture / Alignment Posture: Forward head;Rounded shoulders Reflexes - Upper Extremity R Brachioradialis? : 2+ R Biceps: 2+ L Brachioradialis? : 2+ L Biceps: 2+ Reflexes - Lower Extremity R Patellar: 2+ R Achilles: 1+ R Babinski: Negative L Patellar: 2+ L Achilles: 1+ Spine Observations R Cervical Spine Palpation Tenderness: Spinous process;Paraspinals L Cervical Spine Palpation Tenderness: Paraspinals;Spinous process R Lumbar Spine Palpation Tenderness: Paraspinals;Gluteals ;Spinous process L Lumbar Spine Palpation Tenderness: Paraspinals;Gluteals ;Spinous process Sensation - Lumbar Sensation: Grossly Intact Lumbar Spine AROM Lumbar Flexion: Normal;Increased pain Lumbar Extension: Normal;Decreased pain Lumbar R Side-Bend: Normal;Increased pain Lumbar L Side-Bend: Normal;Increased pain Lumbar R Rotation: Normal Lumbar L Rotation: Normal LE AROM Tested?: Yes LE PROM Tested?: Yes Repeated Test Movements - Lumbar Directional preference: Yes Directional Preference Direction: Extension Sensation - Cervical Spine Cervical Spine Sensation: Grossly Intact(Reported numbness at times in the L 2nd and 3rd digit) Cervical Spine AROM Cervical AROM determined by: Measurement Cervical Flexion (degrees)?: 52 Degrees(Pain on R side of neck) Cervical Extension (degrees)?: 30 Degrees Cervical Side-Bend Right (degrees): 30 Degrees Cervical Side-Bend Left (degrees)?: 30 Degrees Cervical Rotation Right (degrees)?: 49 Degrees Cervical Rotation Left (degrees)?: 60 Repeated Test Movements - Cervical Directional Preference: No UE AROM R UE AROM: WNL L UE AROM: WNL LE AROM R LE AROM: WNL L LE AROM: WNL R Hip Flexion: (Painful in Low back near end range) L Hip Flexion: (Painful in Low back near end range) LE PROM R LE PROM: WNL L LE PROM : WNL Spine Joint Mobility Joint Mobility Comment: (Unable to get full assessment of mobility due to pain) Joint Mobility - T1: Hypomobile Joint Mobility - T2: Hypomobile Joint Mobility - T3: Hypomobile Joint Mobility - T4: Hypomobile Joint Mobility - T5: Hypomobile Joint Mobility - T6: Hypomobile Joint Mobility - L2: (Painful) Joint Mobility - L3: (Painful) Joint Mobility - L4: (Painful, radiating symptoms into bilateral buttocks) UE and Cervical Strength Deep Neck Flexor Endurance: 4 R UE Strength: Grossly 5/5(Unless otherwise noted. ER was 4/5. IR was 4+/5) L UE Strength: Grossly 5/5 LE Strength Trunk Strength: 3/5 R LE Strength: Grossly 5/5(Unless otherwise noted) L LE Strength: Grossly 5/5(Unless otherwise noted) R Hip Extension: 3+/5 R Hip Flexion (L2): 3+/5(Painful) R Hip ABduction: 4/5 L Hip Extension: 4-/5 L Hip Flexion (L2): 3+/5(Painful) L Hip ABduction: 4/5 Special Tests - Cervical Cervical Special Tests: Spurling Spurling: Right Negative;Left Negative Education: Education Learning Preferences: Demonstration;Explan ation;Printed Materials;Performanc e Barriers: None Learning/educational needs: Home exercise program;Plan of Care;Changes in Plan of Care;Posture Education Provided: Yes, see treatment interventions for education provided Education Provided To: Patient Education Mode/Type: Demonstration;Explan ation/Discussion;Lit erature/Printed Materials;Performanc e Response to Education/Teach Back: States/Identifies TREATMENT: Evaluation Therapeutic Exercise: 1: Scapular retractions 10 reps, hold 5 sec 2: Cervical retractions 10 rep, hold 5 sec 3: Pt educated on the importance of good posture on decreasing pain and improving postural muscle strength to ensure proper muscle length of anterior and posterior trunk musculature. Discussed therapy goals with the pt and printed out an HEP for reference outside of the clinic. Skilled Intervention: Patient was educated in proper exercise technique and purpose for exercises. Skilled judgment was provided in selection of appropriate interventions. Correct performance of therapeutic exercises was facilitated with verbal cuing. Educated patient on rationale for performing exercises in regards to increase ease of ADL and ROM and function Billing: [facility]: Evaluation - Moderate Complexity (72994) Therapeutic Exercise (98664): 1:1 time: 10 minutes (1 unit: 8-22 mins) Total time: 50 minutes Cash Clancy PT [facility] CNOVon 02-13-2019 CNOV Office Visit (SPNMED) LEONARD MICHAUD ([id number]) 1960 M Date Time Provider Department 02/13/19 10:20 AM KEEGAN SOL SPMTED During your visit today, we recorded the following information about you: Pulse Blood pressure Weight Height 88/minute 137/77 107.1 kg 1.778 m STARR Castelan 02/13/2019 11:57 AM Signed RICHARD Santos [facility] [address] [place] [address] 02/13/2019 ASSESSMENT AND PLAN: Assessment : Encounter Diagnosis ICD-10-CM 1. Chronic neck pain M54.2 CONSULT TO PHYSICAL THERAPY G89.29 2. DDD (degenerative disc disease), cervical M50.30 CONSULT TO PHYSICAL THERAPY 3. Chronic bilateral thoracic back pain M54.6 XR THORACIC GENERAL 3V AP/LAT/SWIMMERS G89.29 CONSULT TO PHYSICAL THERAPY 4. Chronic bilateral low back pain with bilateral sciatica M54.42 CONSULT TO PHYSICAL THERAPY M54.41 G89.29 5. Tobacco use disorder F17.200 CONSULT TO PHYSICAL THERAPY 6. Chronic pain syndrome G89.4 Discussion: Mr. Michaud has complaints of axial pain in C-spine, T-spine, L-spine, ALL on a chronic basis, up to 22 years duration. He is applying for disability. Patient is a chronic smoker. He has not had any recent treatment but comes in with a CT cervical and x-rays lumbar spine on a disc from [facility]. Patient states he was told by another healthcare practitioner that his spine is all screwed up. His exam is benign for focal neurologic deficit. He has normal balance, gait, motion, strength, reflexes, sensation. There is pain on palpation throughout axial spine from the base of the skull all the way to the sacrum and posterior pelvic bony prominences and greater trochanters. Motion in both cervical and lumbar region as well as thoracic all seems to exacerbate symptoms in all directions. Reviewed CT cervical spine that shows C6 7 disc degeneration and some posterior spurring that moderately narrows the canal and foraminal regions Reviewed lumbar x-rays that show disc degeneration and facet disease L4 through S1 without listhesis, fracture, instability. There is no thoracic films to review. I will recommend thoracic x-rays, physical therapy for all areas, and meloxicam to see if this will mitigate some of the symptoms. I recommended smoking cessation. Patient may consider orthopedic evaluation for possible carpal tunnel with complaints of activity related numbness limited to the hands bilaterally in the third and fourth digits mostly. 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 Plan : DIAGNOSTIC TESTING: -X-ray views will be obtained to better evaluate bony structures. REFERAL FOR SERVICES: -Physical therapy will be instituted. MEDICATIONS: -See prescribed medication list for this encounter. ACTIVITY RECOMMENDATIONS: -The patient is encouraged to avoid bed rest and maintain normal activity. -The patient is encouraged to exercise regularly as tolerated. -The patient advised to avoid prolonged sitting. TOBACCO RECOMMENDATIONS: -Tobacco cessation discussed and encouraged. NUTRITION RECOMMENDATIONS: -The patient is carrying a significant amount of weight above an ideal BMI. We discussed how this impacts overall health and back pain. FOLLOW-UP: -The patient is instructed to return as needed. This document has been created with the use of voice recognition technology. It may contain inaccuracies: (e.g. misspellings, inaccurate syntax or word sense) that have escaped review. Time spent: 60 minutes with greater than 50% in face to face consultation with the patient. cc: SELF Phone: N/A Fax: Results of consultation to be transmitted via electronic medical record for those providers who practice within [facility] or with access to [employer] via [facility], or via letter. CHIEF COMPLAINT: Lower back pain, pain radiates up to the Neck symptoms HPI: His lower back pain is at 4/10 and is constant. The back pain is located in lower back and is described as aching and dull. His neck symptoms are at 2/10 and are intermittent. This is located neck, right shoulder, has headaches and is described as aching and dull. Symptoms are exacerbated by reaching, clothing, sleeping, work, bending, twisting, sitting, seated to standing, laying down, driving, walking and standing and improved by nothing. He states that these symptoms began 22 years ago and are related specific injury. History of bowel or bladder dysfunction (not IBS or constipation): No History of previous spinal surgery: No History of spinal fracture: No Work Status: currently unemployed NON-OPERATIVE CARE: Medication(s): He has tried the following for relief of his symptoms: None Physical Therapy: He has not had physical therapy for his current symptoms. Spinal Injections: He has not gotten prior spinal injections. Other: None Current Outpatient Medications Medication Sig Dispense Refill - amLODIPine (NORVASC) 5 mg tablet Take 5 mg by mouth once daily. 1 No current facility-administere d medications for this visit. Allergies: Hay Fever [Seasonal Allergies]; Penicillin G No past medical history on file. No past surgical history on file. Social History Socioeconomic History Marital status: Spouse name: Not on file Number of children: Not on file Years of education: Not on file Highest education level: Not on file Occupational History Not on file Social Needs Financial resource strain: Not on file Food insecurity: Worry: Not on file Inability: Not on file Transportation needs: Medical: Not on file Non-medical: Not on file Tobacco Use Smoking status: Current Every Day Smoker Types: Cigarettes Smokeless tobacco: Never Used Substance and Sexual Activity Alcohol use: Not on file Drug use: Yes Frequency: 2.0 times per week Types: Marijuana Comment: for pain Sexual activity: Not on file Lifestyle Physical activity: Days per week: Not on file Minutes per session: Not on file Stress: Not on file Relationships Social connections: Talks on phone: Not on file Gets together: Not on file Attends latter day service: Not on file Active member of club or organization: Not on file Attends meetings of clubs or organizations: Not on file Relationship status: Not on file Intimate partner violence: Fear of current or ex partner: Not on file Emotionally abused: Not on file Physically abused: Not on file Forced sexual activity: Not on file Other Topics Concerns: Not on file Social History Narrative Not on file No family history on file. REVIEW OF SYSTEMS: Constitutional: (-) Fever (-) Night Sweats (-) Weight Gain (-) Weight Loss (+) Fatigue Cardiovascular: (-) Chest Pain (-) Palpitations (-) Lightheadedness (-) Swelling of Ankles (-) Hx Heart Surgery Respiratory: (+) Shortness of Breath (+) Cough (+) Wheezing (+) Snoring Gastrointestinal: (-) Incontinence (-) Abdominal Pain (-) Diarrhea (-) Constipation (-) Nausea/Vomiting (+) Heart Burn Endocrine: (-) Thyroid Disorder (-) Diabetes Hematologic: (-) Prolonged Bleeding (-) Easy Bruising Genitourinary: (-) Incontinence (-) Frequency (-) Urinary Urgency Skin: (-) Rashes (-) Itching (-) Other Lesions Neurologic: (+) Headache (-) Double Vision (-) Confusion (-) Paralysis (-) Vertigo (-) Syncope Psychiatric: (-) Depression (-) Anxiety (-) Delusions (-) Hallucinations (-) Suicidal Thoughts PHYSICAL EXAM: Blood pressure 137/77, pulse 88, height 177.8 cm (5' 10), weight 107.1 kg (236 lb 1.6 oz), SpO2 96 %. Body mass index is 33.88 kg/m?. General: Patient is a(n) average historian. The patient appears approximately his stated age and is sitting comfortably in the examining room. The patient is average height in stature and is morbidly obese in appearance. He has difficulty arising from a sitting position. He does not have difficulty acquiring a full, upright position when standing. Station and Gait: Normal stance, normal gait. The patient is easily able to walk in a tandem gait. MENTAL STATUS EXAMINATION: The patient was casually attired. The patient had good eye contact and rapport was average to establish. The patient appeared to be alert and oriented in all spheres. The patient's motivation for treatment was judged based on today's encounter to be good. LUMBAR SPINE: Skin: Normal-no rashes, bruises, lesions, or signs of localized trauma., Skin color, texture and turgor normal. Lumbar Lordosis: Normal RANGE OF MOTION: Flexion: normal, as expected for age and weight Pain: Yes Extension: normal, as expected for age and weight Pain: Yes Lateral Bending: Right normal, as expected for age and weight Pain: Yes Left normal, as expected for age and weight Pain: Yes PALPATION TENDERNESS: Moderate at cervical spine, shoulders/trapezius, thoracic spine, lumbar region and posterior pelvis Hyperesthesia present: No Regional symptoms present: No Increased pain with axial loading: No Distraction: Normal Pain responses: elevated NEUROLOGIC EXAM: MOTOR: Walk on Toes: Right: Yes Left: Yes Walk on Heels: Right: Yes Left: Yes Requires verbal cues to minimize cog-wheel or give-way resistance: No Hip Flexor R: 5/5 L: 5/5 Hip Adductor R: 5/5 L: 5/5 Hip Abductor R: 5/5 L: 5/5 Knee Extension R: 5/5 L: 5/5 Foot Dorsiflexion R: 5/5 L: 5/5 Foot Plantar Flexion R: 5/5 L: 5/5 Ext Hallicus Longus R: 5/5 L: 5/5 Toe Extensors R: 5/5 L: 5/5 Cervical motor groups all demonstrate 5/5 strength to bilateral nutrient management specialist, biceps, triceps, deltoids, wrist flexors and extensors, hand intrinsics. Spurling's maneuvers are bilaterally negative. Cervical motion is normal with mild limitation as expected for age and body habitus. He describes neck pain with all planes of motion. SENSATION to Light Touch: Lumbar: L2-S1 symmetrically normal. REFLEXES: Lower Extremity: All Lower Extremity reflexes symmetrically normal. Clonus: R: 0 beats/Normal L: 0 beats/Normal Babinski Sign: Negative bilaterally. Upper Extremity: All Upper Extremity reflexes symmetrically normal. Yates's Sign: Negative bilaterally. VASCULAR: Skin appearance: Right: Warm/pink Left: Warm/pink Capillary refill: Right: brisk Left: brisk ADDITIONAL MUSCULOSKELETAL EXAM: HIP/PELVIS EXAM: Motion restriction: Right: No Left: No Pain: Right: No Left: No Greater Trochanteric pain: Right: Yes Left: Yes Tenderness over the PSIS: Right: Yes Left: Yes SPECIAL TESTS: Straight Leg Raise: negative bilaterally Contralateral Straight Leg Raise: negative bilaterally IMAGING STUDIES: See above for review of imaging patient supplied during today's visit. Spine-pertinent studies were uploaded to [employer] today. Referring Provider: SELF [[id number]] Allergies As of Date: 02/13/2019 Noted Allergy Reaction HAY FEVER (SEASONAL ALLERGIES) 02/13/2019 14 - Other: See Comments Comments: Sneezing, runny nose, stuffy PENICILLIN G 02/13/2019 14 - Other: See Comments Date Reviewed: 02/13/2019 Reviewed by: Lily Pritchett - Fully Assessed Reason for Visit: New Patient Evaluation [154] Primary Visit Diagnosis:Chronic neck pain [M54.2, G89.29] Other Visit Diagnoses:DDD (degenerative disc disease), cervical [M50.30] Chronic bilateral thoracic back pain [M54.6, G89.29] Chronic bilateral low back pain with bilateral sciatica [M54.42, M54.41, G89.29] Tobacco use disorder [F17.200] Chronic pain syndrome [G89.4] Order(s):XR THORACIC GENERAL 3V AP/LAT/SWIMMERS [2446730] Order #: [id number] FUTURE CONSULT TO PHYSICAL THERAPY [9016] Order #: [id number]: 1 meloxicam (MOBIC) 15 mg tabletTake 1 tablet by mouth once daily. Take this directly following a mealDisp: 60 tabletRfl: 2 Prescriptions as of 02/13/2019 Sig: AMLODIPINE 5 MG TABLET Take 5 mg by mouth once daily. MELOXICAM 15 MG TABLET Take 1 tablet by mouth once d* Problem List As Of Date 02/13/2019 Noted Resolved Chronic neck pain [M54.2, G89.29] INVALID FOR* DDD (degenerative disc disease), cervical [M50.*INVALID FOR* Chronic bilateral thoracic back pain [M54.6, G8*INVALID FOR* Chronic bilateral low back pain with bilateral *INVALID FOR* Tobacco use disorder [F17.200] INVALID FOR* Chronic pain syndrome [G89.4] INVALID FOR* Prescriptions ordered this encounter Disp Refills Start End MELOXICAM 15 MG TABLET 60 t* 2 02/13/2019 Route: ORAL Sig: Take 1 tablet by mouth once daily. Take this directly following a meal Disposition: Return if symptoms worsen or fail to improve. Follow-up and Disposition History Recorded Encounter Status:Closed by KEEGAN SOL PA-C on 02/13/19 [facility] PROGRESSon 02-13-2019 PROGRESS HNO ID: [id number] Author: Keegan Sol Service: ? Author Type: Physician Superintendent [place]arry Type: Progress Notes Filed: 02/13/2019 11:57 AM Note Text: [facility]egan Sol [facility] [address] [place] [address] 02/13/2019 ASSESSMENT AND PLAN: Assessment : Encounter Diagnosis ICD-10-CM 1. Chronic neck pain M54.2 CONSULT TO PHYSICAL THERAPY G89.29 2. DDD (degenerative disc disease), cervical M50.30 CONSULT TO PHYSICAL THERAPY 3. Chronic bilateral thoracic back pain M54.6 XR THORACIC GENERAL 3V AP/LAT/SWIMMERS G89.29 CONSULT TO PHYSICAL THERAPY 4. Chronic bilateral low back pain with bilateral sciatica M54.42 CONSULT TO PHYSICAL THERAPY M54.41 G89.29 5. Tobacco use disorder F17.200 CONSULT TO PHYSICAL THERAPY 6. Chronic pain syndrome G89.4 Discussion: Mr. Michaud has complaints of axial pain in C-spine, T-spine, L-spine, ALL on a chronic basis, up to 22 years duration. He is applying for disability. Patient is a chronic smoker. He has not had any recent treatment but comes in with a CT cervical and x-rays lumbar spine on a disc from [facility]. Patient states he was told by another healthcare practitioner that his spine is all screwed up. His exam is benign for focal neurologic deficit. He has normal balance, gait, motion, strength, reflexes, sensation. There is pain on palpation throughout axial spine from the base of the skull all the way to the sacrum and posterior pelvic bony prominences and greater trochanters. Motion in both cervical and lumbar region as well as thoracic all seems to exacerbate symptoms in all directions. Reviewed CT cervical spine that shows C6 7 disc degeneration and some posterior spurring that moderately narrows the canal and foraminal regions Reviewed lumbar x-rays that show disc degeneration and facet disease L4 through S1 without listhesis, fracture, instability. There is no thoracic films to review. I will recommend thoracic x-rays, physical therapy for all areas, and meloxicam to see if this will mitigate some of the symptoms. I recommended smoking cessation. Patient may consider orthopedic evaluation for possible carpal tunnel with complaints of activity related numbness limited to the hands bilaterally in the third and fourth digits mostly. 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 Plan : DIAGNOSTIC TESTING: -X-ray views will be obtained to better evaluate bony structures. REFERAL FOR SERVICES: -Physical therapy will be instituted. MEDICATIONS: -See prescribed medication list for this encounter. ACTIVITY RECOMMENDATIONS: -The patient is encouraged to avoid bed rest and maintain normal activity. -The patient is encouraged to exercise regularly as tolerated. -The patient advised to avoid prolonged sitting. TOBACCO RECOMMENDATIONS: -Tobacco cessation discussed and encouraged. NUTRITION RECOMMENDATIONS: -The patient is carrying a significant amount of weight above an ideal BMI. We discussed how this impacts overall health and back pain. FOLLOW-UP: -The patient is instructed to return as needed. This document has been created with the use of voice recognition technology. It may contain inaccuracies: (e.g. misspellings, inaccurate syntax or word sense) that have escaped review. Time spent: 60 minutes with greater than 50% in face to face consultation with the patient. cc: SELF Phone: N/A Fax: Results of consultation to be transmitted via electronic medical record for those providers who practice within [facility] or with access to [employer] via [facility], or via letter. CHIEF COMPLAINT: Lower back pain, pain radiates up to the Neck symptoms HPI: His lower back pain is at 4/10 and is constant. The back pain is located in lower back and is described as aching and dull. His neck symptoms are at 2/10 and are intermittent. This is located neck, right shoulder, has headaches and is described as aching and dull. Symptoms are exacerbated by reaching, clothing, sleeping, work, bending, twisting, sitting, seated to standing, laying down, driving, walking and standing and improved by nothing. He states that these symptoms began 22 years ago and are related specific injury. History of bowel or bladder dysfunction (not IBS or constipation): No History of previous spinal surgery: No History of spinal fracture: No Work Status: currently unemployed NON-OPERATIVE CARE: Medication(s): He has tried the following for relief of his symptoms: None Physical Therapy: He has not had physical therapy for his current symptoms. Spinal Injections: He has not gotten prior spinal injections. Other: None Current Outpatient Medications Medication Sig Dispense Refill - amLODIPine (NORVASC) 5 mg tablet Take 5 mg by mouth once daily. 1 No current facility-administere d medications for this visit. Allergies: Hay Fever [Seasonal Allergies]; Penicillin G No past medical history on file. No past surgical history on file. Social History Socioeconomic History Marital status: Spouse name: Not on file Number of children: Not on file Years of education: Not on file Highest education level: Not on file Occupational History Not on file Social Needs Financial resource strain: Not on file Food insecurity: Worry: Not on file Inability: Not on file Transportation needs: Medical: Not on file Non-medical: Not on file Tobacco Use Smoking status: Current Every Day Smoker Types: Cigarettes Smokeless tobacco: Never Used Substance and Sexual Activity Alcohol use: Not on file Drug use: Yes Frequency: 2.0 times per week Types: Marijuana Comment: for pain Sexual activity: Not on file Lifestyle Physical activity: Days per week: Not on file Minutes per session: Not on file Stress: Not on file Relationships Social connections: Talks on phone: Not on file Gets together: Not on file Attends latter day service: Not on file Active member of club or organization: Not on file Attends meetings of clubs or organizations: Not on file Relationship status: Not on file Intimate partner violence: Fear of current or ex partner: Not on file Emotionally abused: Not on file Physically abused: Not on file Forced sexual activity: Not on file Other Topics Concerns: Not on file Social History Narrative Not on file No family history on file. REVIEW OF SYSTEMS: Constitutional: (-) Fever (-) Night Sweats (-) Weight Gain (-) Weight Loss (+) Fatigue Cardiovascular: (-) Chest Pain (-) Palpitations (-) Lightheadedness (-) Swelling of Ankles (-) Hx Heart Surgery Respiratory: (+) Shortness of Breath (+) Cough (+) Wheezing (+) Snoring Gastrointestinal: (-) Incontinence (-) Abdominal Pain (-) Diarrhea (-) Constipation (-) Nausea/Vomiting (+) Heart Burn Endocrine: (-) Thyroid Disorder (-) Diabetes Hematologic: (-) Prolonged Bleeding (-) Easy Bruising Genitourinary: (-) Incontinence (-) Frequency (-) Urinary Urgency Skin: (-) Rashes (-) Itching (-) Other Lesions Neurologic: (+) Headache (-) Double Vision (-) Confusion (-) Paralysis (-) Vertigo (-) Syncope Psychiatric: (-) Depression (-) Anxiety (-) Delusions (-) Hallucinations (-) Suicidal Thoughts PHYSICAL EXAM: Blood pressure 137/77, pulse 88, height 177.8 cm (5' 10), weight 107.1 kg (236 lb 1.6 oz), SpO2 96 %. Body mass index is 33.88 kg/m?. General: Patient is a(n) average historian. The patient appears approximately his stated age and is sitting comfortably in the examining room. The patient is average height in stature and is morbidly obese in appearance. He has difficulty arising from a sitting position. He does not have difficulty acquiring a full, upright position when standing. Station and Gait: Normal stance, normal gait. The patient is easily able to walk in a tandem gait. MENTAL STATUS EXAMINATION: The patient was casually attired. The patient had good eye contact and rapport was average to establish. The patient appeared to be alert and oriented in all spheres. The patient's motivation for treatment was judged based on today's encounter to be good. LUMBAR SPINE: Skin: Normal-no rashes, bruises, lesions, or signs of localized trauma., Skin color, texture and turgor normal. Lumbar Lordosis: Normal RANGE OF MOTION: Flexion: normal, as expected for age and weight Pain: Yes Extension: normal, as expected for age and weight Pain: Yes Lateral Bending: Right normal, as expected for age and weight Pain: Yes Left normal, as expected for age and weight Pain: Yes PALPATION TENDERNESS: Moderate at cervical spine, shoulders/trapezius, thoracic spine, lumbar region and posterior pelvis Hyperesthesia present: No Regional symptoms present: No Increased pain with axial loading: No Distraction: Normal Pain responses: elevated NEUROLOGIC EXAM: MOTOR: Walk on Toes: Right: Yes Left: Yes Walk on Heels: Right: Yes Left: Yes Requires verbal cues to minimize cog-wheel or give-way resistance: No Hip Flexor R: 5/5 L: 5/5 Hip Adductor R: 5/5 L: 5/5 Hip Abductor R: 5/5 L: 5/5 Knee Extension R: 5/5 L: 5/5 Foot Dorsiflexion R: 5/5 L: 5/5 Foot Plantar Flexion R: 5/5 L: 5/5 Ext Hallicus Longus R: 5/5 L: 5/5 Toe Extensors R: 5/5 L: 5/5 Cervical motor groups all demonstrate 5/5 strength to bilateral nutrient management specialist, biceps, triceps, deltoids, wrist flexors and extensors, hand intrinsics. Spurling's maneuvers are bilaterally negative. Cervical motion is normal with mild limitation as expected for age and body habitus. He describes neck pain with all planes of motion. SENSATION to Light Touch: Lumbar: L2-S1 symmetrically normal. REFLEXES: Lower Extremity: All Lower Extremity reflexes symmetrically normal. Clonus: R: 0 beats/Normal L: 0 beats/Normal Babinski Sign: Negative bilaterally. Upper Extremity: All Upper Extremity reflexes symmetrically normal. Yates's Sign: Negative bilaterally. VASCULAR: Skin appearance: Right: Warm/pink Left: Warm/pink Capillary refill: Right: brisk Left: brisk ADDITIONAL MUSCULOSKELETAL EXAM: HIP/PELVIS EXAM: Motion restriction: Right: No Left: No Pain: Right: No Left: No Greater Trochanteric pain: Right: Yes Left: Yes Tenderness over the PSIS: Right: Yes Left: Yes SPECIAL TESTS: Straight Leg Raise: negative bilaterally Contralateral Straight Leg Raise: negative bilaterally IMAGING STUDIES: See above for review of imaging patient supplied during today's visit. Spine-pertinent studies were uploaded to [employer] today. Normal [facility] - Hematology and Cell countson 01-28-2019 HbA1c (Bld) [Mass fraction] 5.80 % Normal 4.6 - 7.1 % [facility] [email or web address] [facility] CT-Spine Cervical without Co ntras IMPORTon 12-25-2018 CT-Spine Cervical without Contras IMPORT Images were obtained outside of [employer] [id number] CN Normal [facility] Vital Signs Date Time Vital Sign Value Performing Clinician Facility 07-09-2024 08:52-0500 Body height 172.72 cm Laura Louis LPN [facility] 07-09-2024 08:52-0500 Body mass index (BMI) [Ratio] 39.99 kg/m2 Laura Louis LPN [facility] 07-09-2024 08:52-0500 Body surface area Derived from formula 2.3 m2 Laura Louis LPN [facility] 07-09-2024 08:52-0500 Body weight 119.3 kg Laura Louis LPN [facility] 07-09-2024 08:52-0500 Diastolic blood pressure 69 mm[Hg] Laura Louis LPN [facility].; [facility]. Comment on above: Patient Position: Sitting; Cuff Location : Left Arm; Cuff Size: Standard 07-09-2024 08:52-0500 Heart rate 82 /min Laura Louis LPN [facility].; [place] [facility]. Comment on above: Pattern: Regular 07-09-2024 08:52-0500 Systolic blood pressure 123 mm[Hg] Laura Louis LPN [facility].; [facility]. Comment on above: Patient Position: Sitting; Cuff Location : Left Arm; Cuff Size: Standard 08-14-2023 14:35-0400 Body height 177.8 cm No Primary Care Physician [facility] 08-14-2023 14:35-0400 Body mass index (BMI) [Ratio] 36 kg/m2 No Primary Care Physician [facility] 08-14-2023 14:35-0400 Body weight 113.85 kg No Primary Care Physician [facility] 08-14-2023 14:35-0400 Diastolic blood pressure 85 mm[Hg] No Primary Care Physician [facility] 08-14-2023 14:35-0400 Heart rate 88 /min No Primary Care Physician [facility] 08-14-2023 14:35-0400 Respiratory rate 18 /min No Primary Care Physician [facility] 08-14-2023 14:35-0400 Systolic blood pressure 135 mm[Hg] No Primary Care Physician [facility] 07-01-2023 14:58-0500 SaO2% (BldA) [Mass fraction] 98 % [facility] 07-01-2023 13:42-0500 Body height 177.8 cm [facility] 07-01-2023 13:42-0500 Body mass index (BMI) [Ratio] 36.3 kg/m2 [facility] 07-01-2023 13:42-0500 Body temperature 97.6 [degF] [facility] 07-01-2023 13:42-0500 Body weight 114.75 kg [facility] 07-01-2023 13:42-0500 Diastolic blood pressure 89 mm[Hg] [facility] 07-01-2023 13:42-0500 Heart rate 89 /min [facility] 07-01-2023 13:42-0500 Respiratory rate 16 /min [facility] 07-01-2023 13:42-0500 Systolic blood pressure 138 mm[Hg] [facility] 01-11-2023 09:07-0400 Body temperature 98.5 [degF] Dr. Manoj Luis Work Phone: [facility] 01-11-2023 09:07-0400 Diastolic blood pressure 94 mm[Hg] Dr. Manoj Luis Work Phone: [facility] 01-11-2023 09:07-0400 Heart rate 69 /min Dr. Manoj Luis Work Phone: [facility] 01-11-2023 09:07-0400 Respiratory rate 18 /min Dr. Manoj Luis Work Phone: [facility] 01-11-2023 09:07-0400 SaO2% (BldA) [Mass fraction] 95 % Dr. Manoj Luis Work Phone: [facility] 01-11-2023 09:07-0400 Systolic blood pressure 144 mm[Hg] Dr. Manoj Luis Work Phone: [facility] 01-10-2023 12:45-0400 Body height 177.[address] Manoj Luis Work Phone: [facility] 01-10-2023 12:45-0400 Body mass index (BMI) [Ratio] 34.5 kg/m2 Dr. Manoj Luis Work Phone: [facility] 01-10-2023 12:45-0400 Body weight 109.[address] Manoj Luis Work Phone: [facility] 12-13-2022 13:48-0400 Body mass index (BMI) [Ratio] 34 kg/m2 Dr. Manoj Luis Work Phone: [facility] 12-13-2022 13:48-0400 Body weight 109.[address] Manoj Luis Work Phone: [facility] 12-13-2022 13:48-0400 Diastolic blood pressure 75 mm[Hg] Dr. Manoj Luis Work Phone: [facility] 12-13-2022 13:48-0400 Heart rate 84 /min Dr. Manoj Luis Work Phone: [facility] 12-13-2022 13:48-0400 Respiratory rate 16 /min Dr. Manoj Luis Work Phone: [facility] 12-13-2022 13:48-0400 Systolic blood pressure 121 mm[Hg] Dr. Manoj Luis Work Phone: [facility] 06-21-2022 13:07-0500 Body height 179.[address] Manoj Luis Work Phone: [facility] 06-21-2022 13:07-0500 Body mass index (BMI) [Ratio] 34.3 kg/m2 Dr. Manoj Luis Work Phone: [facility] 06-21-2022 13:07-0500 Body temperature 97.4 [degF] Dr. Manoj Luis Work Phone: [facility] 06-21-2022 13:07-0500 Body weight 110.[address] Manoj Luis Work Phone: [facility] 06-21-2022 13:07-0500 Diastolic blood pressure 84 mm[Hg] Dr. Manoj Luis Work Phone: [facility] 06-21-2022 13:07-0500 Heart rate 73 /min Dr. Manoj Luis Work Phone: [facility] 06-21-2022 13:07-0500 Respiratory rate 20 /min Dr. Manoj Luis Work Phone: [facility] 06-21-2022 13:07-0500 SaO2% (BldA) [Mass fraction] 93 % Dr. Manoj Luis Work Phone: [facility] 06-21-2022 13:07-0500 Systolic blood pressure 136 mm[Hg] Dr. Manoj Luis Work Phone: [facility] 06-07-2022 09:48-0500 Body mass index (BMI) [Ratio] 34.7 kg/m2 Dr. Manoj Luis Work Phone: [facility] 06-07-2022 09:48-0500 Body weight 111.[address] Manoj Luis Work Phone: [facility] 06-07-2022 09:48-0500 Diastolic blood pressure 100 mm[Hg] Dr. Manoj Luis Work Phone: [facility] 06-07-2022 09:48-0500 Heart rate 73 /min Dr. Manjo Luis Work Phone: [facility] 06-07-2022 09:48-0500 Respiratory rate 18 /min Dr. Manoj Luis Work Phone: [facility] 06-07-2022 09:48-0500 Systolic blood pressure 161 mm[Hg] Dr. Manoj Luis Work Phone: [facility] 05-02-2022 11:14-0500 Body temperature 97.7 [degF] DR BUD HEREDIA MD [address] [place] [address] 05-02-2022 11:14-0500 Diastolic Blood Pressure Non-Invasive [address] BUD HEREDIA MD [address] [place] [address] 05-02-2022 11:14-0500 Heart rate 69 /min DR BUD HEREDIA MD [address] [place] [address] 05-02-2022 11:14-0500 Reason For Taking VItal Signs DR BUD HEREDIA MD [address] [place] [address] 05-02-2022 11:14-0500 Respiratory rate 18 /min DR BUD HEREDIA MD [address] [place] [address] 05-02-2022 11:14-0500 Systolic Blood Pressure Non-Invasive [address] BUD HEREDIA MD [address] [place] [address] 05-02-2022 10:43-0500 Heart rate 74 /min DR BUD HEREDIA MD [address] [place] [address] 05-02-2022 10:43-0500 Reason For Taking VItal Signs DR BUD HEREDIA MD [address] [place] [address] 05-02-2022 08:42-0500 Heart rate 70 /min DR BUD HEREDIA MD [address] [place] [address] 05-02-2022 08:42-0500 Reason For Taking VItal Signs DR BUD HEREDIA MD [address] [place] [address] 05-02-2022 08:28-0500 Heart rate 78 /min DR BUD HEREDIA MD [address] [place] [address] 06:03-0500 Body temperature 98.6 [degF] DR BUD HEREDIA MD [address] [place] [address] 05-02-2022 06:03-0500 Diastolic Blood Pressure Non-Invasive [address] BUD HEREDIA MD [address] [place] [address] 05-02-2022 06:03-0500 Respiratory rate 18 /min DR BUD HEREDIA MD [address] [place] [address] 05-02-2022 06:03-0500 Systolic Blood Pressure Non-Invasive [address] BUD HEREDIA MD [address] [place] [address] 05-01-2022 22:49-0500 Body temperature 97.7 [degF] DR BUD HEREDIA MD [address] [place] [address] 05-01-2022 22:49-0500 Diastolic Blood Pressure Non-Invasive [address] BUD HEREDIA MD [address] [place] [address] 05-01-2022 22:49-0500 Mean blood pressure 79 mm[Hg] DR BUD HEREDIA MD [address] [place] [address] 05-01-2022 22:49-0500 Respiratory rate 14 /min DR BUD HEREDIA MD [address] [place] [address] 05-01-2022 22:49-0500 Systolic Blood Pressure Non-Invasive [address] BUD HEREDIA MD [address] [place] [address] 05-01-2022 18:46-0500 Mean blood pressure 85 mm[Hg] DR BUD HEREDIA MD [address] [place] [address] 05-01-2022 13:08-0500 Heart rate 63 /min DR BUD HEREDIA MD [address] [place] [address] 05-01-2022 08:26-0500 Mean blood pressure 91 mm[Hg] DR BUD HEREDIA MD [address] [place] [address] 05-01-2022 01:24-0500 Body height [address] BUD HEREDIA MD [address] [place] [address] 05-01-2022 01:24-0500 Body weight [address] BUD HEREDIA MD [address] [place] [address] 05-01-2022 01:24-0500 Body weight 35.35 kg/m2 DR BUD HEREDIA MD [address] [place] [address] 08-02-2015 08:48-0400 Body weight 107.96 kg Drea Mckeon LPN [facility] [employer] 08-02-2015 08:48-0400 Diastolic blood pressure 61 mm[Hg] Drea Mckeon [facility], [facility] [employer]. Comment on above: Patient Position: Sitting; Cuff Location : Left Arm; Cuff Size: Standard 08-02-2015 08:48-0400 Heart rate 91 /min Drea Mckeon LPN [facility], [facility] [employer] Comment on above: Pattern: Regular 08-02-2015 08:48-0400 Systolic blood pressure 134 mm[Hg] Drea Mckeon LPN [facility] [employer]. Comment on above: Patient Position: Sitting; Cuff Location : Left Arm; Cuff Size: Standard 02-23-2014 08:32-0400 Body height 172.72 cm [facility] [employer] 02-23-2014 08:32-0400 Body mass index (BMI) [Ratio] 39.08 kg/m2 [facility] [email or web address] 02-23-2014 08:32-0400 Body surface area Derived from formula 2.27 m2 Marlee Soto ATHLETE MARKETING AGENT [facility].; [employer] 02-23-2014 08:32-0400 Body weight 116.58 kg Marlee Soto ATHLETE MARKETING [employer]ENT [facility], [facility] [employer]. 02-23-2014 08:32-0400 Diastolic blood pressure 95 mm[Hg] Marlee Soto [facility], [employer] Comment on above: Patient Position: Sitting; Cuff Location : Left Arm; Cuff Size: Large 02-23-2014 08:32-0400 Heart rate 84 /min Marlee Soto ATHLETE MARKETING AGENT [facility] [employer]. Comment on above: Pattern: Regular 02-23-2014 08:32-0400 Systolic blood pressure 145 mm[Hg] Marlee Soto ATHLETE MARKETING AGENT [facility] [employer]. Comment on above: Patient Position: Sitting; Cuff Location : Left Arm; Cuff Size: Large 12-26-2013 08:20-0400 Body weight 116.58 kg Drea Mckeon LPN [facility], [employer] 12-26-2013 08:20-0400 Diastolic blood pressure 85 mm[Hg] Drea Mckeon [facility] [employer]. Comment on above: Patient Position: Sitting; Cuff Location : Left Arm; Cuff Size: Standard 12-26-2013 08:20-0400 Heart rate 69 /min Drea Mckeon LPN [place] [facility], [employer]. Comment on above: Pattern: Regular 12-26-2013 08:20-0400 Systolic blood pressure 133 mm[Hg] Drea Mckeon LPN [place] [facility], [employer]. Comment on above: Patient Position: Sitting; Cuff Location : Left Arm; Cuff Size: Standard Encounters Encounter Date Encounter Type Care Provider Facility Start: 01-16-2025 End: 01-16-2025 ambulatory No Primary Care Physician [facility] Start: 01-16-2025 End: 01-16-[address] Tramaine Salazar [facility] Work Phone: Start: 01-16-2025 End: 01-16-2025 ambulatory Tramaine Salazar Facility:[facility] Start: 12-30-2024 End: 12-30-2024 ambulatory No Primary Care Physician -Radiology [facility] Start: 12-30-2024 End: 12-30-[address] Pablito Mcintosh MD -Radiology [facility] Work Phone: Start: 12-30-2024 End: 12-30-2024 ambulatory Pablito Mcintosh Facility:[facility] Start: 07-29-2024 End: 07-29-2024 Orders Sony Gaitan [facility]-C [facility] Start: 07-21-2024 End: 07-21-2024 Medication Luke Arnie PA-C Work Phone: [facility] Start: 07-10-2024 End: 07-10-2024 ambulatory Sony Gaitan Facility:[facility] Start: 07-09-2024 End: 07-09-2024 Office outpatient new 30 minutes Luke Arnie PA-C [facility] Start: 02-25-2024 End: 02-25-2024 ambulatory Brendan Bourgeois Facility:[facility] Start: 02-25-2024 End: 02-25-2024 ambulatory Brendan Bourgeois Facility:[facility] Start: 08-14-2023 End: 08-14-2023 ambulatory No Primary Care Physician [facility] Work Phone: Start: 08-14-2023 End: 08-14-2023 Patient encounter procedure No Primary Care Physician [facility] Work Phone: Start: 07-01-2023 End: 07-01-2023 Emergency department patient visit [facility] Work Phone: Start: 01-11-2023 Non-patient / Non-visit Dr. Phil Luis Work Phone: [facility] Start: 01-10-2023 End: 01-11-2023 Evaluation and management of inpatient Dr. Manoj Luis Work Phone: [facility] Work Phone: Start: 01-10-2023 End: 01-11-[address] Manoj Luis Work Phone: [facility] Work Phone: Start: 12-20-2022 End: 12-20-[address] Manoj Luis Work Phone: [facility]Laboratory Work Phone: Start: 12-13-2022 End: 12-13-[address] Manoj Luis Work Phone: [facility] Work Phone: Start: 06-22-2022 End: 06-22-[address] Manoj Luis Work Phone: [facility] Work Phone: Start: 06-22-2022 End: 06-22-[address] Manoj Luis Work Phone: [facility]-Laboratory, Specimen Start: 06-21-2022 End: 06-21-[address] Manoj Luis Work Phone: [facility] Work Phone: Start: 06-21-2022 End: 06-21-[address] Manoj Luis Work Phone: [facility] Start: 06-13-2022 End: 06-13-[address] Manoj Luis Work Phone: [facility] Work Phone: Start: 06-13-2022 End: 06-13-[address] Manoj Luis Work Phone: [facility] Start: 06-07-2022 End: 06-07-[address] 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 Manoj Luis Work Phone: [facility] Start: 01-28-2019 End: 01-28-2019 Historical Summary Yaw Montalvo MD Work Phone: [employer] Start: 12-26-2018 End: 12-26-2018 Telephone follow-up Yaw Montalvo MD Work Phone: [employer]. Start: 12-20-2018 End: 12-20-2018 Telephone follow-up Yaw Montalvo MD Work Phone: [employer]. Start: 12-17-2018 End: 12-17-2018 Telephone follow-up Yaw Montalvo MD Work Phone: [employer]. Start: 12-11-2018 End: 12-11-2018 Telephone follow-up Yaw Montalvo MD Work Phone: [email or web address] Start: 09-07-2017 End: 09-07-2017 Medication Yaw Montalvo MD Work Phone: [employer] Start: 08-02-2015 End: 08-02-2015 Office outpatient visit 15 minutes Yaw Montalvo MD Work Phone: [email or web address] Start: 10-30-2014 End: 10-30-2014 Orders Yaw Montalvo MD Work Phone: [email or web address] Start: 03-20-2014 End: 03-20-2014 Orders Yaw Montalvo MD Work Phone: [employer]. Start: 03-13-2014 End: 03-13-2014 Orders Yaw Montalvo MD Work Phone: [email or web address] Start: 02-23-2014 End: 02-23-2014 Office outpatient visit 15 minutes Yaw Montalvo MD Work Phone: [email or web address] Start: 01-05-2014 End: 01-05-2014 Medication Yaw Montalvo MD Work Phone: [employer] Start: 12-26-2013 End: 12-26-2013 Office outpatient visit 15 minutes Yaw Montalvo MD Work Phone: [email or web address] Start: 10-16-2012 End: 10-16-2012 Medication Yaw Montalvo MD Work Phone: [employer] Start: 08-09-2012 End: 08-09-2012 Medication Yaw Montalvo MD Work Phone: [email or web address] Procedures Date Procedure Procedure Detail Performing Clinician Start: 01-16-2025 MRI of joint of lowe r extremity No Primary Care Physician Start: 12-30-2024 Complete x-ray serie s of lumbar spine with bending views No Primary Care Physician Start: 07-09-2024 End: 07-21-2024 Radiologic exam knee complete 4/more views Sony Gaitan PA-C Work Phone: Start: 07-01-2023 Plain X-ray of shoulder No Primary Care Physician Start: 07-01-2023 Plain chest X-ray Start: 07-01-2023 CT of head without contrast Start: 07-01-2023 Diagnostic radiograp hy of facial bones Start: 12-20-2022 Plain chest X-ray Dr. Isaura Luis Work Phone: Start: 12-19-2022 History of placement of stent for coronary artery disease History of coronary artery stent placement Dr. Manoj Luis Work Phone: Comment on above: PCI-PATRICIA distal RCA S ynergy XD 3.5 x 24mm and prox RCA Synergy XD 4 x 12mm (05/01/22), PATRICIA Prox OM1 using Resolute Perfecto 3.0x34 mm, post-dilated using3.5 mm, optimized proximally using 4.0 mm balloon (01/10/23) Start: 04-20-2022 History of placement of stent for coronary artery disease History of coronary artery stent placement Dr. Manoj Luis Work Phone: Start: 10-30-2014 End: 10-30-2018 Polysom 6/>yrs sleep w/cpap 4/> addl lm attnd Yaw Montalvo MD Work Phone: Start: 03-13-2014 End: 03-20-2014 Ndl emg 1 xtr w/wo related paraspinal areas Yaw Montalvo MD Work Phone: Start: 02-23-2014 End: 05-28-2018 Motor &/sens nrv cndj preconf eltrd array limb Yaw Montalvo MD Work Phone: Start: 12-26-2013 End: 10-30-2014 Polysom 6/>yrs sleep 4/> addl lm attnd Yaw Montalvo MD Work Phone: Enteric Bacteriology Dr. Sesar uLis Work Phone: Measurement of occul t blood in stool specimen using immunoassay Dr. Manoj Luis Work Phone: Plan of Treatment Date Care Activity Detail Author Start: 02-19-2025 Radiologic exam knee complete 4/more views Knee x-ray, Left Complete ([id number]) Start: 09-Jul-2024 Intent [facility]. Start: 07-01-2023 Plain X-ray of shoulder Shoulder min 2 Views [facility] Start: 07-01-2023 XR Shoulder GE 2 Views [facility] Start: 01-11-2023 Patient discharge [facility] Start: 01-10-2023 Patient referral [facility] Work Phone: Start: 01-10-2023 Following clinical pathway protocol [facility] Start: 01-10-2023 Admission procedure [facility] Start: 01-10-2023 Ambulation without limitation [facility] Start: 01-10-2023 Cardiac monitoring [facility] Start: 01-10-2023 Cardiac rehabilitation - phase 1 [facility] Start: 01-10-2023 Cardiac rehabilitation - phase 2 [facility] Start: 01-10-2023 Notification of physician [facility] Start: 01-10-2023 Oxygen therapy [facility] Start: 01-10-2023 Patient discharge [facility] Start: 01-10-2023 Taking patient vital signs [facility] Start: 01-10-2023 Vascular disease risk assessment [facility] Start: 01-10-2023 Vital signs measurements [facility] Start: 01-10-2023 End: 01-10-2023 [facility] Catheterization of l eft heart [facility] Patient Education Causes of Sync ope Concussion Dc [facility] Work Phone: Patient referral [facility] Work Phone: Payers Date Payer Category Payer Self-pay 2024 Medicare [id number] 2022 Medicaid [id number] 2022 Medicare [id number] 1960 Unknown [id number] 1960 Unknown [id number] [id number] [id number] 1960 Unknown [id number] 2.16.84 [id number] 1960 Unknown [id number] 2.16.8 [id number] Medicaid MEDICAID [id number] Self-pay SELF PAY INSURANCE [id number] Unknown [id number] Unknown [id number] Unknown [id number] 2.16.8 [id number] Unknown [id number] 2.16.8 [id number] Unknown [id number] 2.16.8 [id number] Unknown [id number] 2.16.8 [id number] Unknown [id number] 2.16.8 [id number] Social History Date Type Detail Facility Tobacco smoking status [facility] Start: 1960 Sex Assigned At Male [facility] Start: 06-21-2022 End: 08-14-2023 Tobacco smoking status [facility] Unknown if ever smoked [facility] Start: 12-12-2018 Heavy [facility] Start: 12-25-2018 None [facility] Start: 12-12-2018 Alone [facility] Tobacco Use: Tobacco Use: ; C urrent every day smoker. [facility], [employer] [facility] [facility] Start: 08-14-2023 Smokes tobacco daily [facility] NEGATED: Highlighted row No Social History Information Available No Social History Information Available [employer] [facility]. Work Phone: Medical Equipment Procedure Code Equipment Code Equipment Origin al Text Equipment Identifier Dates Drug-eluting coronary artery stent, [id number] lymer-coated [id number] FDA Start: 01-10-2023 Functional Status Date Assessment Result Facility 01-11-2023 Functional status Ambulates;Up ad teagan [facility] Work Phone: 05-02-2022 Functional Status Hospital bed [facility] 05-02-2022 Functional Status [facility] 05-02-2022 Functional Status CHG bath [facility] 05-02-2022 Functional Status [facility] 05-02-2022 Functional Status Room check performed [facility] 05-01-2022 Functional Status [facility] 05-01-2022 Functional Status [facility] 05-01-2022 Functional Status Sensory Deficits None A [facility] Mental Status Date Assessment Result Facility 07-01-2023 Cognitive function Level Of Cons ciousness Awake;Alert;Appropriate;Follow s Commands [facility] Work Phone: 05-02-2022 Mental Status Oriented x 4 [facility] 05-02-2022 Mental Status [facility] 05-01-2022 Mental Status [facility] Clinical Notes 05-01-2022 to 01-01-2025 Note Date & Type Note Facility 01-01-2025 Radiology Diagnostic study note [facility] Imaging Services [address], [place] [id number] L/S Spine w Bend Min 6 Vw MR#: [id number] Acct: [id number] Name: BRENDAN MICHAUD Rep #: [id number] : 1960 M 64 From: Leonel Barajas MD PCP: Care Physician,No Primary Status: REG CLI Study:L/S Spine w Bend Min 6 Vw Date of Exam: 12/30/24 Exam# [id number] Ordering Dr: Pablito Mcintosh MD PROCEDURE: L/S SPINE W BEND MIN 6 VW 12/30/2024 REASON FOR EXAM: SPONDYLOSIS WITHOUT MYELOPATHY OR RADICULOPATHY, LUMBOSACRAL CAITLYN TECHNIQUE: L/S SPINE W BEND MIN 6 VW COMPARISON: None FINDINGS: Curvature: Normal lumbar lordosis. No dynamic spondylolisthesis with flexion orextension. Vertebral body/discs: Mild disc space narrowing from L1/2 to L4/5. Moderate to severe disc space narrowing lumbosacral junction. Facet hypertrophy is progressive from L2-S1. Osteoarthritis of the hips. RAD/L/S Spine w Bend Min 6 Vw IMPRESSION: Degenerative changes throughout the lumbar spine greatest of the lumbosacral junction. No dynamic spondylolisthesis. Reading Location: [id number] CC: Dr. Pablito Mcintosh MD; No Primary Care Physician ~ Credit Verifier: Signed [facility] 05-02-2022 Cardiology Progress note Subjective Patient remained chest pain-free no [...] qDayM, # 30 tab(s), 11 Refill(s), Pharmacy: [facility]/pharmacy #[id number], 178, cm, 05/01/22 1:24:00 EST, Height atorvastatin, Dose : 40 mg = 1 tab(s), Oral, qDay, # 30 tab(s), 5 Refill(s), Pharmacy: [facility]/pharmacy #[id number], 178, cm, 05/01/22 1:24:00 EST, Height atorvastatin, [...] qDay, # 30 tab(s), 6 Refill(s), Pharmacy: [facility]/pharmacy #[id number], 178, cm, 05/01/22 1:24:00 EST, Height metoprolol, Dose : 25 mg = 1 tab(s), Oral, qDayM, # 30 tab(s), 5 Refill(s), Pharmacy: [facility]/pharmacy #[id number], 178, cm, 05/01/22 1:24:00 EST, Height metoprolol, [...] q12h, # 60 tab(s), 11 Refill(s), Pharmacy: [facility]/pharmacy #[id number], 178, cm, 05/01/22 1:24:00 EST, Height Alcohol Withdrawal Protocol - stepdown Alcohol Withdrawal Severity Score Alcohol Withdrawal Severity Score Basic Metabolic Panel Calcium Level Ionized Call Parameters Call Parameters Mounting Machine Operator Communication Order (continuous) Complete Blood Count Discharge [...] myocardium -On dual antiplatelet therapy aspirin Brilinta beta-rochelle high intensity statin and losartan -Triglycerides are [...] SKYLAR PEREZ MD on 05/02/2022 11:50 AM [facility] 05-02-2022 Discharge summary Discharge Diagnosis 1. STEMI [...] Discontinued: Ativan,Start: 05/01/22 12:29:00 EST, Dose = 0.5 mg, = 1 tab(s), Oral, q30min, PRN, for Alcohol Withdrawal Score of 3-5, 05/01/22 12:29:00 EST Discontinued: Ativan,Start: 05/01/22 12:29:00 EST, Dose = 0.5 mg, = 0.25 mL, IV Push, q30min, PRN, for Alcohol Withdrawal Score of 3-5, 05/01/22 12:29:00 EST Other status: BMP,05/03/22 5:01:00 EST, Next [...] physician for suicidal ideation, Constant order Discontinued: Mounting Machine Operator,05/01/22 12:29:00 EST, Constant order Discontinued: Communication Order (continuous),05/01/22 12:29:00 EST, Initiate Rapid Response Team (WAREHOUSE TRAFFIC SUPERVISOR) for Severity Score of 8 or [...] qDayM, # 30 tab(s), 11 Refill(s), Pharmacy: [facility]/pharmacy #[id number], 178, cm, 05/01/22 1:24:00 EST, Height Discontinued: [...] qDayM, # 30 tab(s), 5 Refill(s), Pharmacy: [facility]/pharmacy #[id number], 178, cm, 05/01/22 1:24:00 EST, Height Discontinued: [...] qDay, # 30 tab(s), 5 Refill(s), Pharmacy: [facility]/pharmacy #[id number], 178, cm, 05/01/22 1:24:00 EST, Height Discontinued: losartan,Start: 05/01/22 9:00:00 EST, Dose = 25 mg, = 1 tab(s), Oral, qDay, 05/01/22 8:02:00 EST Ordered: losartan 25 mg oral tablet,Dose : 25 mg = 1 tab(s), Oral, qDay, # 30 tab(s), 6 Refill(s), Pharmacy: [facility]/pharmacy #[id number], 178, cm, 05/01/22 1:24:00 EST, Height Ordered: ticagrelor 90 mg oral tablet,Dose : 90 mg = 1 tab(s), Oral, q12h, # 60 tab(s), 11 Refill(s), Pharmacy: [facility]/pharmacy #[id number], 178, cm, 05/01/22 1:24:00 EST, Height Hospital Course 61-year-old gentleman who presented initially to [facility] with complaints of acute chest pain is transferred to [place] as a STEMI alert. Patient states he started having chest pain around 45 minutes prior to arrival at [facility]. EKG done showed inferior ST elevations and hence a STEMI alert was called. 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 Denies any shortness of breath, nausea or [...] When In 3 weeks Where: [address] [facility] [place] [address]- [phone] Follow Up with [facility] When Why: THIS OFFICE MAYBE ACCEPTING NEW PATIENTS. Where: [address] [place] [address]- [phone] Follow Up with MANOJ LUIS MD When Within 1-2 days Where: [address] [place], [place] [id number]- [phone] Follow Up with Cardiac Rehab When Why: THE CARDIAC REHAB DEPARTMENT WILL CONTACT YOU IN 1-2 WEEKS TO SCHEDULE YOU FOR PHASE 2. WE LEFT YOU A BROCHURE WITH INFORMATION ABOUT CARDIAC REHAB, IF YOU HAVE ANY QUESTIONS PLEASE CALL [phone]. Where: [facility] [address]LO[address] [employer] [place] [address]- Follow Up Appointments No qualifying data available. [...] SKYLAR PEREZ MD on 05/02/2022 06:43 PM [facility] 05-02-2022 Hospital Discharge instructions Patient Education 05/02/2022 11:58:08 Heart Attack, Odeu-ll-Aqus Heart Attack A heart attack occurs when blood and oxygen supply to the heart is cut off. A heart attack causes damage to the heart that cannot be fixed. A heart attack is also called a myocardial infarction, or PA. If you think you are having a [...] Follow these instructions at home: Medicines Take zpti-pgh-ihsnlgt and prescription medicines only as told by [...] 11/05/2012 Document Revised: 08/18/2019 Document Reviewed: 08/18/2019 [employer] Patient Education 2020 [employer] 05/02/2022 11:58:06 Heart Attack Heart Attack The [...] may be called a myocardial infarction, or PA. It is also known as acute coronary [...] Follow these instructions at home: Medicines Take bwvn-pai-bspjusj and prescription medicines only as told by [...] 05/07/2006 Document Revised: 08/14/2019 Document Reviewed: 08/18/2019 [employer] Patient Education 2019 [employer] Follow Up Care 05/01/2022 00:11:27 With:BUD SHERIDAN MD Address: [address] [facility] [address] [facility] [place] [address] [phone] When:Within 3 Week(s) With:[facility] Address: [facility] [place] [address]- [phone] When: Unknown Comments:THIS OFFICE MAYBE ACCEPTING NEW PATIENTS. With:MANOJ LUIS MD Address: [address] [place], [place] [address]- [phone] When:1-2 days With:[facility]hab Address: [address] [place] [address]- When: Unknown Comments:THE CARDIAC REHAB DEPARTMENT WILL CONTACT YOU IN 1-2 WEEKS TO SCHEDULE YOU FOR PHASE 2. WE LEFT YOU A BROCHURE WITH INFORMATION ABOUT CARDIAC REHAB, IF YOU HAVE ANY QUESTIONS PLEASE CALL [phone]. [facility] 05-02-2022 Note Discharge Instructions Thank you for allowing [facility] to assist you with your healthcare needs. The following is important discharge information regarding your hospital visit. Your Care Team PHYSICIAN, NONE Your Diagnosis STEMI (ST elevation myocardial infarction) CAD in wr[place] artery HTN (hypertension) What to do next Follow Up Appointments Follow Up with BUD SHERIDAN MD When In 3 weeks Where: [address] [facility] [address] [facility] [place] [address] [phone] Follow Up with [facility] When Why: THIS OFFICE MAYBE ACCEPTING NEW PATIENTS. Where: [address] [facility] [place] [address]- [phone] Follow Up with MANOJ LUIS MD When Within 1-2 days Where: [address] [place], [place] [address]- [phone] Follow Up with Cardiac Rehab When Why: THE CARDIAC REHAB DEPARTMENT WILL CONTACT YOU IN 1-2 WEEKS TO SCHEDULE YOU FOR PHASE 2. WE LEFT YOU A BROCHURE WITH INFORMATION ABOUT CARDIAC REHAB, IF YOU HAVE ANY QUESTIONS PLEASE CALL [phone]. Where: [address] [place] [address]- The Following Activity and Diet Have Been [...] with a meal [facility]: [id number] New atorvastatin (atorvastatin 40 mg oral tablet) 1 tab(s) by mouth Once a day Refills: 5 [id number] New losartan (losartan 25 mg oral tablet) 1 tab(s) by mouth Once a day Refills: 6 [id number] New metoprolol (Toprol-XL 25 mg oral tablet, extended release) 1 tab(s) by mouth Once a day with a meal Refills: [id number] New ticagrelor (ticagrelor 90 mg oral tablet) 1 tab(s) by mouth Every 12 hours Refills: 11 [id number] Pharm[facility] Information [facility] #[id number]: [address], [place] [phone] Please take this list to your next doctor s visit. Bring all medications you take, including over the counter medications, herbals and other supplements with you to your doctor s visit. Patients and families are reminded to discard old lists and to update any records with all medication providers or retail pharmacies. Medication Leaflets metoprolol (oral/injection) (me TOE pro lol) Pavelspdarshan Tavarez, Lopressor, Metoprolol Succinate ER, Metoprolol Tartrate, Toprol-XL What is the most important information I should know about metoprolol? You should not use this medicine if you have a serious heart problem (heart block, sick sinus syndrome, slow heart rate), severe circulation problems, severe heart failure, or a history of slow heart beats that caused fainting. What is metoprolol? Metoprolol is a beta-rochelle that affects the heart and circulation (blood [...] may report side effects to FDA at 5-184-YIK-1287. What other drugs will affect metoprolol? Tell your doctor about all your current medicines. Many drugs can affect metoprolol, especially: any other heart or blood pressure medications; epinephrine (Epi-Pen); an antidepressant; an ergot medicine--dihydroergotamine, ergonovine, ergotamine, methylergonovine; or an MAO inhibitor--isocarboxazid, linezolid, phenelzine, rasagiline, selegiline, tranylcypromine. This list is not complete and many other drugs may affect metoprolol. This includes prescription and llbo-lxs-pfdajss medicines, vitamins, and herbal products. Not all [...] to ensure that the information provided by [employer]. ('[employer]') is accurate, up-to-date, and complete, but no guarantee is made to that effect. Drug information contained herein may be time sensitive. [employer]com information has been compiled for use by healthcare practitioners and consumers in the [place] and therefore [employer] does not warrant that uses outside of the [place] are appropriate, unless specifically indicated otherwise. [employer]'s drug information does not endorse drugs, diagnose patients or recommend therapy. [employer] drug information is an informational resource designed [...] effective or appropriate for any given patient. [employer] does not assume any responsibility for any aspect of healthcare administered with the aid of information [email or web address] provides. The information contained herein is not intended to cover all possible uses, directions, precautions, warnings, drug interactions, allergic reactions, or adverse effects. If you have questions about the drugs you are taking, check with your doctor, nurse or pharmacist. Copyright 7964-1457 [employer]. Version: 17.03. Revision Date: 10/16/2018. atorvastatin (a [...] may report side effects to FDA at 0-272-DEA-3815. What other drugs will affect atorvastatin? Certain [...] may affect atorvastatin. This includes prescription and wxvm-pip-zqsgokn medicines, vitamins, and herbal products. Not all [...] to ensure that the information provided by [employer]. ('[employer]') is accurate, up-to-date, and complete, but no guarantee is made to that effect. Drug information contained herein may be time sensitive. [employer] information has been compiled for use by healthcare practitioners and consumers in the [place] and therefore [employer] does not warrant that uses outside of the [place] are appropriate, unless specifically indicated otherwise. [employer] drug information does not endorse drugs, diagnose patients or recommend therapy. [employer] drug information is an informational resource designed [...] effective or appropriate for any given patient. [employer] does not assume any responsibility for any aspect of healthcare administered with the aid of information [email or web address] provides. The information contained herein is not intended to cover all possible uses, directions, precautions, warnings, drug interactions, allergic reactions, or adverse effects. If you have questions about the drugs you are taking, check with your doctor, nurse or pharmacist. Copyright 4679-3862 [employer]. Version: 22.02. Revision Date: 06/29/2020. aspirin (oral) ( pir in) Arthritis Pain, Aspi-Cor, Aspir-Low, Tray Plus, Durlaza, Ecotrin, Miniprin, Vazalore What is the most important information I should know about aspirin? Aspirin can cause Palma's syndrome, a serious and sometimes fatal condition in children. What is aspirin? Aspirin is a salicylate (zf-SHK-et-ate) that is used to treat pain, and [...] may report side effects to FDA at 2-181-DXP-0256. What other drugs will affect aspirin? Ask [...] drugs may affect aspirin, including prescription and nvqy-ilt-fiwwtqt medicines, vitamins, and herbal products. Not all [...] to ensure that the information provided by [employer]. ('[employer]') is accurate, up-to-date, and complete, but no guarantee is made to that effect. Drug information contained herein may be time sensitive. the[employer].com information has been compiled for use by healthcare practitioners and consumers in the [place] and therefore the[employer]ocloser.com does not warrant that uses outside of the [place] are appropriate, unless specifically indicated otherwise. [employer] drug information does not endorse drugs, diagnose patients or recommend therapy. [employer] drug information is an informational resource designed [...] effective or appropriate for any given patient. [employer] does not assume any responsibility for any aspect of healthcare administered with the aid of information [email or web address] provides. The information contained herein is not intended to cover all possible uses, directions, precautions, warnings, drug interactions, allergic reactions, or adverse effects. If you have questions about the drugs you are taking, check with your doctor, nurse or pharmacist. Copyright 9925-1475 [employer]. Version: 16.03. Revision Date: 11/15/2020. losartan (hilda fontenot) Jason What is the most important information I [...] II receptor antagonist (sometimes called an ARB rochelle). Losartan is used to treat high blood [...] may report side effects to FDA at 0-363-ELH-2280. What other drugs will affect losartan? Tell your doctor about all your other medicines, especially: a diuretic or 'water pill'; other blood pressure medications; lithium; or NSAIDs (nonsteroidal anti-inflammatory drugs)--aspirin, ibuprofen (Advil, Motrin), naproxen (Aleve), celecoxib, diclofenac, indomethacin, meloxicam, and others. This list is not complete. Other drugs may affect losartan, including prescription and hcyj-emi-nccjopy medicines, vitamins, and herbal products. Not all [...] to ensure that the information provided by [employer]. ('Mult[employer]') is accurate, up-to-date, and complete, but no guarantee is made to that effect. Drug information contained herein may be time sensitive. thephot[employer]oser.com information has been compiled for use by healthcare practitioners and consumers in the [place] and therefore thephotocloser.com does not warrant that uses outside of the [place] are appropriate, unless specifically indicated otherwise. the[employer].com's drug information does not endorse drugs, diagnose patients or recommend therapy. [employer] drug information is an informational resource designed [...] effective or appropriate for any given patient. [employer].com does not assume any responsibility for any aspect of healthcare administered with the aid of information [email or web address] provides. The information contained herein is not intended to cover all possible uses, directions, precautions, warnings, drug interactions, allergic reactions, or adverse effects. If you have questions about the drugs you are taking, check with your doctor, nurse or pharmacist. Copyright 9568-5756 [employer]. Version: 16.01. Revision Date: 2018. ticagrelor (cliff [...] may report side effects to FDA at 9-631-AWO-3097. What other drugs will affect ticagrelor? Sometimes [...] may affect ticagrelor. This includes prescription and xcev-jgh-tiyboxf medicines, vitamins, and herbal products. Not all possible drug interactions are listed here. Where can I get more information? [facility] 05-02-2022 Cardiology Progress note Subjective Patient remained chest pain-free no [...] qDayM, # 30 tab(s), 11 Refill(s), Pharmacy: [facility]/pharmacy #[id number], 178, cm, 12/12/22 1:24:00 EST, Height atorvastatin, Dose : 40 mg = 1 tab(s), Oral, qDay, # 30 tab(s), 5 Refill(s), Pharmacy: [facility]/pharmacy #[id number], 178, cm, 05/01/22 1:24:00 EST, Height atorvastatin, [...] qDay, # 30 tab(s), 6 Refill(s), Pharmacy: [facility]/pharmacy #[id number], 178, cm, 05/01/22 1:24:00 EST, Height metoprolol, Dose : 25 mg = 1 tab(s), Oral, qDayM, # 30 tab(s), 5 Refill(s), Pharmacy: [facility]/pharmacy #[id number], 178, cm, 05/01/22 1:24:00 EST, Height metoprolol, [...] q12h, # 60 tab(s), 11 Refill(s), Pharmacy: [facility]/pharmacy #[id number], 178, cm, 05/01/22 1:24:00 EST, Height Alcohol Withdrawal Protocol - stepdown Alcohol Withdrawal Severity Score Alcohol Withdrawal Severity Score Basic Metabolic Panel Calcium Level Ionized Call Parameters Call Parameters 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 Inferior STEMI: Patient w as taken [...] Patient understands agrees with the above plan. [facility] 12-12-2022 History and physical note Date of Service 05/01/2022 Chief Complaint Chest pain History of Present Illness This is a 61-year-old gentleman who presented initially to [facility] with complaints of acute chest pain is transferred to [place] as a STEMI alert. Patient states he started having chest pain around 45 minutes prior to arrival at [facility]. EKG done showed inferior ST elevations and hence a STEMI alert was called. 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 Denies any shortness of breath, nausea or [...] Lab Results Labs will be sent to [facility] EKG EKG shows normal sinus [...] a very long time. He does not havea PCP. Procedure/Surgical History None Medications None Allergies No active allergies Social History He smokes 2 pack a day of cigarettes and also drinks 6 pack beer every day Family History Father had acute PA in his 40s as per patient Code Status Full code Digitally Signed by BUD SHERIDAN MD on 05/01/2022 12:56 AM [facility] Yelitza Hooker [facility] January 11, 2023 9:07am Note Date/Time January 11, 2023 9: 07am [facility] Medical Records Department [address] [place] [address] Counseling Note - Pharmacy 01/11/23 0906 MR#: [id number] Acct: [id number] Name: BRENDAN MICHAUD Rep #:[id number] : 1960 62 From: Yelitza Hooker PCP: Dr. Manoj Luis MD Status:A DM CAROLYN Y Location: [address] Med Reconciliation Pharmacy Service has performed discharge medication reconciliation for this patient. No new medications at time of discharge medication review. Medications reviewed are from previously reported home medications. The patient's discharge medication list was reviewed for discrepancies and discrepancies were resolved. Medications at Discharge Home Medications Handicap Placard #1 ea 07/14/20 aspirin 81 mg tablet,delayed release 81 mg PO DAILY 06/05/22 nicotine 21 mg/24 hr daily transdermal patch 1 patch transdermal Q24H #28 ea 06/21/22 psyllium husk 0.52 gram capsule (Fiber (psyllium husk)) 0.52 g PO DAILY #30 caps06/21/22 sildenafil 100 mg tablet (Viagra) 100 mg PO DAILY PRN sexual activity #20 tabs 06/21/22 clopidogrel 75 mg tablet 75 mg PO DAILY #90 tabs 06/29/22 atorvastatin 40 mg tablet 40 mg PO QHS #90 tabs 07/06/22 amlodipine 5 mg tablet 5 mg PO DAILY #90 tabs 07/19/22 losartan 100 mg tablet 100 mg PO DAILY 07/19/22 metoprolol succinate 50 mg tablet,extended release 24 hr 50 mg PO DAILY 07/19/22 01/11/23 0907 <Electronically signed by Yelitza Hooker > Date _ Yelitza Hooker Cosigner Signature (if applicable): Date CC: ~ Signed [facility] Work Phone: Discharge summary Author Meme Culver [facility] January 11, 2023 10:33am Note Date/Time January 11, 2023 10 :33am [facility] Medical Records Department [address] [place] [address] Instructions for Home/Discharge Instructions 01/11/23 1032 MR#: [id number] Acct: [id number] Name: BRENDAN MICHAUD Rep #:[id number] : 1960 62 From: Meme Culver MD PCP: Dr. Manoj Luis MD Status:D IS CAROLYN Discharge Instructions Diet Discharge Diet: Low fat / Low cholesterol Dressing / Incision Call your doctor if your incision/area has: Continuous Slow Oozing, Sudden Increased Bleeding, Increased Pain/ Swelling, Increased Redness, Foul Smelling Discharge and Swelling at the incision site Call your doctor if you observe: Fever of 101 or Higher and Coldness, Increased Pain Follow Up Care Please Follow Up With: Meme Culver MD When: 4 weeks Test Results: Test results from this visit will be discussed in further detail at your follow- up appointment, if applicable. Discharge Plan Admission Admit Date/Time: 01/10/23 11:39 Attending Provider: Meme Culver Primary Care Provider: Manoj Luis Discharge Orders/Prescriptions Prescriptions: Continued (DME) Handicap Placard See Rx Instructions .ROUTE .MEDSUPPLY Qty: 1 0RF Rx Instructions: As directed, length of time 3 years aspirin 81 mg tablet,delayed release (DR/EC) 81 mg PO DAILY metoprolol succinate 50 mg tablet extended release 24 hr 50 mg PO DAILY losartan 100 mg tablet 100 mg PO DAILY amlodipine 5 mg tablet 5 mg PO DAILY Qty: 90 1RF nicotine 21 mg/24 hr patch 24 hour 1 patch transdermal Q24H Qty: 28 1RF psyllium husk [Fiber (psyllium husk)] 0.52 gram capsule 0.52 g PO DAILY Qty: 30 0RF sildenafil [Viagra] 100 mg tablet 100 mg PO DAILY PRN (Reason: sexual activity) Qty: 20 0RF Rx Instructions: administer 30 minutes to 4 hours before activity clopidogrel 75 mg tablet 75 mg PO DAILY Qty: 90 3RF atorvastatin 40 mg tablet 40 mg PO QHS Qty: 90 3RF Referrals / Follow Up: Manoj Luis MD [Primary Care Provider] - Disposition Disposition (needs filled in before D/C Order can be placed): Home, Self Care 01/11/23 1033<Electronically signed by Meme Culver MD>Meme Culver MD CC: Dr. Manoj Luis MD ~ Signed [facility] Work Phone: Evaluation note* Diagnosis Onset Date Resolution Status Coronary artery disease chronic condition nurse balbir Dyslipidemia chronic Erectile dysfunction chronic Hypertension chronic Nicotine dependence chronic Obstructive sleep apnea chronic condition nurse balbir Alcohol use chronic Marijuana abuse chronic Nicotine dependence chronic Chronic diarrhea noneactive [facility] Work Phone: Evaluation note* Diagnosis Onset Date Resolution Status Coronary artery disease chronic condition nurse balbir Dyslipidemia chronic Erectile dysfunction chronic Hypertension chronic Nicotine dependence chronic Obstructive sleep apnea chronic condition nurse balbir [facility] Work Phone: Evaluation noteNo assessment information available [facility] Work Phone: Evaluation note* Diagnosis Onset Date Resolution Status Coronary artery disease chronic condition nurse balbir Dyslipidemia chronic Erectile dysfunction chronic Hypertension chronic Nicotine dependence chronic Obesity chronic Obstructive sleep apnea chronic condition nurse balbir Post-tussive syncope resolve d [facility] Work Phone: Hospital course Narrative No data available for this section [facility] Discharge instructionsAmbulatory Orders* Phase II, Outpatient Cardiac Rehab Location: None Selected [facility] Work Phone: Hospital Discharge instructions Additional Instructions [facility]: Reason for referral (narrative)No reason for referral information availableWMercy Health [facility] Work Phone: Summary Purpose Family History No Family History Records Found Relationship Condition Age at Onset Recorded Date/T keke Not Specified Cardiac disease Unknown Malignant neoplasm Unknown father Myocardial infarction 51 Advance Directives No Advanced Directives Records Found Advance Directive Response Recorded Date/ Time Living Will No December 25, 2018 3:30pm Power of Rotary Adjuster No December 25 3:30pm Advance Directive Response Recorded Date/ Time Advance Directives No January 10, 2023 8:40am Living Will No January 10 12:45pm Power of Rotary Adjuster No January 10 023 12:45pm Advance Directive Response Recorded Date/ Time Advance Directives No January 10, 2023 7:40am Living Will No July 01 024 2:57pm Power of Rotary Adjuster No July 01, 2023 2:57pm Advance Directive Response Recorded Date/ Time Advance Directives No January 10, 2023 8:40am Living Will No July 01 024 3:57pm Power of Rotary Adjuster No July 01, 2023 3:57pm Advance Directive Response Recorded Date/ Time Advance Directives No January 10, 2023 8:40am Chief Complaint and Reason for Visit Chief Complaint PA, STENTS (SELF) STOMACH ISSUES Reason for Visit Coronary artery dise ase Dyslipidemia Erectile dysfunction Hypertension Nicotine dependence Obstructive sleep apnea Alcohol use Marijuana abuse Nicotine dependence Chronic diarrhea Chief Complaint 3 M FU CHEST PAIN Reason for Visit Coronary artery dise ase Dyslipidemia Erectile dysfunction Hypertension Nicotine dependence Obstructive sleep apnea Chief Complaint SYNCOPE, HEAD INJURY Chief Complaint SYNCOPE, HEAD INJURY 6 M FU E-ORDER Reason for Visit Coronary artery dise ase Dyslipidemia Erectile dysfunction Hypertension Nicotine dependence Obesity Obstructive sleep apnea Post-tussive syncope Chief Complaint Admit Date LEFT KNEE PAIN January 16, 2025 7: 58am Additional Source Comments (unrecognized sect ion and content) No Status Records FoundNo Status Records FoundNo Status Records FoundNo Status Records FoundNo Status Records Found INFORMATION SOURCE (unrecogn ized section and content) DATE CREATED AUTHOR 06/03/2019 [facility] DATE CREATED AUTHOR AUTHOR'S ORGANIZ ATION 05/03/2022 [facility] DATE CREATED AUTHOR AUTHOR'S ORGANIZ ATION 05/11/2022 [facility] ([place] DATE CREATED AUTHOR AUTHOR'S ORGANIZ ATION 01/24/2025 [facility] DATE CREATED AUTHOR AUTHOR'S ORGANIZ ATION 02/21/2025 [facility] Care Teams (unrecognized sec tion and content) Team Status: Active Member Role Status Dates Dr. Yaw Montalvo MD Family Provider Active Dr. Manoj Luis MD Primary Care Provider Active Team Status: Inactive Member Role Status Dates Dr. Manoj Luis MD Primary Care Provider, Refer ring Provider Active Dr. Meme Culver MD Attending Provider Active Team Status: Inactive Member Role Status Dates Dr. Manoj Luis MD Primary Care Provider, Refer ring Provider Active NAIMA Breaux Attending Provider Active Team Status: Inactive Member Role Status Dates Dr. Manoj Luis MD Primary Care Provider Active Dr. Meme Culver MD Attending Provider, Referring Pr ovider Active Team Status: Active Member Role Status Dates Dr. Manoj Luis MD Primary Care Provider Active NAIMA Breaux Attending Provider, Referring Pro vider Active Team Status: Inactive Member Role Status Dates Dr. Manoj Luis MD Primary Care Provider Active NAIMA Breaux Attending Provider, Referring Pro vider Active Team Status: Active Member Role Status Dates Dr. Manoj Luis MD Primary Care Provider Active Dr. Meme Culver MD Attending Provider Active Team Status: Inactive Member Role Status Dates Dr. Manoj Luis MD Primary Care Provider Active Dr. Meme Culver MD Admit Provider, At tending Provider, Referring Provider Active Team Status: Active Member Role Status Dates Dr. Yaw Montalvo MD Family Provider Active No Primary Care Physician Primary Care Provider Active Team Status: Inactive Member Role Status Dates Dr. Krissy Elena DO Emergency Provider Active No Primary Care Physician Primary Care Provider Active Team Status: Inactive Member Role Status Dates No Primary Care Physician Primary Care Provider, Refer ring Provider Active Dr. Meme Culver MD Attending Provider Active Team Status: Inactive Member Role Status Dates Dr. Krissy Elena DO Attending Provider, Emergency P rovider Active No Primary Care Physician Primary Care Provider Active Team Status: Inactive Member Role Status Dates No Primary Care Physician Primary Care Provider Active Dr. Meme Culver MD Attending Provider, Referring Pr ovider Active Team Status: Active Member Role/Relationship Status Dates Dr. Yaw Montalvo MD Family Provider Active No Primary Care Physician Primary Care Provider Active Team Status: Inactive Member Role/Relationship Status Dates No Primary Care Physician Primary Care Provider Active Start: December 30, 2024 End: December 30, 2024 Dr. Pablito Mcintosh MD Attending Provider Active Start: December 30, 2024 End: December 30, 2024 Dr. Pablito Mcintosh MD Referring Provider Active Start: December 30, 2024 End: December 30, 2024 Team Status: Active Member Role/Relationship Status Dates No Primary Care Physician Primary Care Provider Active Team Status: Inactive Member Role/Relationship Status Dates No Primary Care Physician Primary Care Provider Active Start: January 16, 2025 End: January 16, 2025 Dr. Tramaine Salazar MD Attending Provider Active Start: January 16, 2025 End: January 16, 2025 Dr. Tramaine Salazar MD Referring Provider Active Start: January 16, 2025 End: January 16, 2025 Goals (unrecognized section and content) Goals may be documented in a n alternate section FOR RECORDS PERTAINING TO PATIENTS WHO ARE [...] BE BASED ON THE PRIMARY CLINICAL RECORDS. [facility] [employer] [facility]. provides no warranty or guarantee of the accuracy or completeness of information in this document.
--- NOTE | 2025-05-11 06:44 | PRE.ANES_ITS ---
ASA Classification* ASA Classification ASA Classification: 3 Assessment & Plan Anesthesia* Anesthesia Assessment Anesthesia Assessment: Discussed sedation and/or anesthesia options, risks, benefits, and alternatives with patient/parents/legal guardian/POA. Questions invited. The patient/parents/legal guardian/POA seems to understand and agrees to proceed with anesthesia plan. Reviewed the physical assessment, medical history, allergy history and patient home medications list prior to surgery/procedure/anesthetic and documented any changes. Performed airway and anesthesia risk assessments. Anesthesia Type Anesthesia Type: General and Block Anesthesia Focused Assessment* Temperature: 99.2 F Pulse Rate: 74 Blood Pressure: 127/84 Respiratory Rate: 18 Pulse Ox: 98 Airway Assessment Mouth opens: >3 cm Mallampati Score: II Labs Anesthesia Preop lab: CBC WBC, (4.4-11.0) 10.4 K/mm3 02/25/24, 15:04 RBC, (4.6-6.2) 5.32 M/mm3 02/25/24, 15:04 Hgb, (13.0-16.5) 15.6 g/dL 02/25/24, 15:04 Hct, (40-54) 47.6 % 02/25/24, 15:04 Plt Count, (150-450) 241 K/mm3 02/25/24, 15:04 CHEMISTRY Potassium, (3.5-5.1) 3.8 mmol/L 08/14/23, 15:13 Sodium, (136-145) 139 mmol/L 08/14/23, 15:13 BUN, (7-18) 12 mg/dL 08/14/23, 15:13 Creatinine, (0.70-1.30) 0.83 mg/dL 08/14/23, 15:13 Glucose, (74-106) 142 mg/dL H 08/14/23, 15:13 TSH, (0.358-3.740) 3.080 uIU/mL 02/25/24, 15:04 COAG PT, (11.7-14.9) 13.1 SECONDS 12/20/22, 13:27 Pre-Assessment Diagnosis/Proposed Procedure Planned Operative Procedure(s): L) LEFT KNEE ARTHROSCOPY WITH MEDIAL MENISECTOMY AND CHONDROPLASTY Anesthesia History 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 When Was Last Pacemaker Check QUESTION #4 FULL TEXT: You/Your Family Experience fever (hyperthermia) with Anesthesia Last Oral Intake Last Oral intake: Last Oral Intake NPO since :05/11/25 06:29 Meds taken in AM with sips of No 05/11/25 06:29 water? Meds patient instructed to take am of surgery PONV PONV - charger operator helper: PONV - charger operator helper Female No 04/24/25 14:24 HX of Motion Sickness Yes 04/24/25 14:24 HX of N/V After Surgery No 04/24/25 14:24 Non-Smoker No 04/24/25 14:24 Duration of Surgery greater No 04/24/25 14:24 than 60 minutes Number of Risk Factors 1 04/24/25 14:24 PONV Score Low Risk 04/24/25 14:24 Height & Weight Height & Weight: Anesthesia: Height & Weight Height 5 ft 10 in 05/11/25 06:29 Weight: 114 kg 05/11/25 06:29 Body Mass Index (BMI) 36.0 05/11/25 06:29 Respiratory Assessment Respiratory Assessment - charger operator helper: Respiratory Tract Infection Hx - charger operator helper Hx Respiratory Tract Infection No 04/24/25 14:24 STOP Sleep Apnea STOP Sleep Apnea - charger operator helper: STOP Sleep Apnea - charger operator helper Hx Hypertension Yes: ON MEDS 04/24/25 14:24 Hx Sleep Apnea Yes: NON COMPLIANT 04/24/25 14:24 CPAP No 04/24/25 14:24 BIPAP No 04/24/25 14:24 Do you snore loudly (louder than talking or can be heard Do you often feel tired/ fatigued/ sleepy during daytime? Has anyone observed you stop breathing during sleep? STOP Results Positive 04/24/25 14:24 QUESTION #5 FULL TEXT : Do you snore loudly (louder than talking or can be heard through closed doors)? Tobacco Use History Tobacco Use History - charger operator helper: Tobacco Use History - charger operator helper Tobacco Use Smoking Status Current every day smoker 04/24/25 14:24 Hx Tobacco Use Yes 04/24/25 14:24 Years Smoking Packs Smoked per Day Smoking Cessation Date was within the last 15 years Hx Smoking Cessation Date Hx Smoking Cessation Counseling Hematologic Medial History Hematologic Hx - charger operator helper: Hematologic Medical Hx - cardiovascular or nurse Hx of Blood Transfusion No 04/24/25 14:24 Hx of Transfusion in last 3 No 04/24/25 14:24 Months Date of Last Transfusion (if within last 3 months) Ever experience any problems No 04/24/25 14:24 with transfusion(s)? Specify any problems Hx of Preganancy in last 3 N/A 04/24/25 14:24 Months Nurse Filling Out Transfusion JZOLLINGE 04/24/25 14:24 & Questions: Date: 04/24/25 04/24/25 14:24 Time: 14:26 04/24/25 14:24 Patient unable to answer at this time (ie. confused, unrespo /Reproduction History /Reproductive History - charger operator helper: /Reproductive Hx- charger operator helper Hx Now No 04/24/25 14:24 Gestational Age (in weeks): EDC: Hx Hx Para Hx Section SAB No 04/24/25 14:24 Does the father of the baby or his family experience fever w Father of the baby Malignant Hypertension history comment Active Medications Active Medications: Current Medications Generic Name Dose Route Start Last Admin Trade Name Freq PRN Reason Stop Dose Admin Cefazolin Sodium 2 gm/ Sodium 110 mls @ 200 mls/hr 05/11/25 11:30 Chloride IV 05/11/25 12:02 INTRAOP ONE Lactated Ringer's 1,000 mls @ 15 mls/hr 05/11/25 06:15 IV .Q48H CHRISTA PFSH Medical History Edentulism, complete Wears glasses Arthritis Heartburn Sleep apnea History of echocardiogram History of stress test Cardiology follow-up encounter Chest pain Alcohol use Marijuana abuse Nicotine dependence Dyslipidemia Coronary artery disease Atherosclerosis of coronary artery of [place] heart without angina pectoris STEMI (ST elevation myocardial infarction) (~04/30/22) Exposure to COVID-19 virus Right hip pain Chronic back pain Preventative health care Erectile dysfunction Tobacco abuse Nicotine dependence, cigarettes, uncomplicated SOB (shortness of breath) Smoking greater than 40 pack years Obstructive sleep apnea Cellulitis of mid back region Left otitis media Cervical radiculopathy 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 Seasonal allergies History of pneumonia DDD (degenerative disc disease), lumbar Vertical strabismus, right eye Shoulder pain NECK AND BACK PAIN Hay fever Fatigue Home Medications ?Medication ?Instructions ?Recorded ?Last Taken ?Type Handicap Placard #1 ea 07/14/20 Unknown Rx aspirin 81 mg tablet,delayed 81 mg PO DAILY 06/05/22 1 07/11/24 History release sildenafil 100 mg tablet (Viagra) 100 mg PO DAILY PRN sexual 06/21/22 Unknown Rx activity #20 tabs albuterol sulfate 90 mcg/actuation 2 puff inhalation Q 6H PRN 07/01/23 Unknown Rx aerosol inhaler (ProAir HFA) shortness of breath or wh eezing #6.7 grams amlodipine 5 mg tablet 5 mg PO DAILY #90 TABLETS 05/10/25 Rx atorvastatin 40 mg tablet 40 mg PO QHS #90 tabs 05/10/25 Rx losartan 100 mg tablet 100 mg PO DAILY #90 tabs Unknown Rx metoprolol succinate 50 mg 50 mg PO .QD 04/24/2505/10 History tablet,extended release 24 hr Allergy/AdvReac Type Severity Reaction Status Date / Time Penicillins (PCN) Allergy Unknown Verified 05/11/25 06:27 Family History Father Myocardial infarction, Onset Age: 49 Other Cancer Heart disease Surgical History History of cardiac catheterization History of coronary artery stent placement (~01/10/23) History of neck surgery Social History household members: spouse housing: house Smoking Status: Current every day smoker tobacco type: cigarettes Tobacco: How many years used: 35 quit status: considering quitting alcohol intake: former details: quit as of now substance use type: does not use caffeine: Yes Type: carbonated beverages and coffee Number of servings: 1 what type of physical activity do you participate in: other details: house hold 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
[2025-05-11] MEDS: Lactated Ringers 1,000 ML 15 ML IV ×2 (06:47→08:41)
[2025-05-11] MEDS: Midazolam 2 MG/2 ML Syringe IV (07:19)
[2025-05-11] MEDS: Lidocaine 1% (5 ml sdv) 5 ML Vial 10 ML IV (07:25)
[2025-05-11] MEDS: Cefazolin 1 GM/5 ML Vial 2 GM IV (07:32)
[2025-05-11] MEDS: Lactated Ringers 1,000 ML 1000 ML IV (07:40)
[2025-05-11] MEDS: Epinephrine (1 mg/ml) 1 MG/ML VIAL (07:53)
--- NOTE | 2025-05-11 08:00 | PCM.OPRPT ---
Operative Report (Standard) Operative Information Date of Procedure: 05/11/25 Pre-Operative Diagnosis: Left knee medial meniscus tear, left knee chondromalacia Post-Operative Diagnosis: Left knee medial meniscus tear, left knee chondromalacia Surgery/Procedure Performed: Left knee arthroscopic partial medial meniscectomy and medial and patellofemoral compartment chondroplasty acute care clinical nurse specialist: No Type of Anesthesia: General RN Documented Start/Stop Times: Operation Date: 05/11/25 07:30 Case Time Into Pre-Op 05/11/25 06:10 Anesthesia Start 05/11/25 07:19 Into Room 05/11/25 07:19 Procedure Start 05/11/25 07:43 Procedure End 05/11/25 08:00 Procedure Start Time: 07:43 Procedure Stop Time: 08:00 Select all DRAINS/GRAFTS/IMPLANTS that apply: None Special Medications: Ancef Estimated Blood Loss: 5 mm Fluids Replaced: 1000 mL per Specimen collected: No Description of surgery: On the date of the procedure, the patient's L lower extremity was marked in the preoperative area. Patient was brought back to the operating room where they were transferred to the bed. Anesthesia assumed control of the C-spine airway and administered anesthetic. All bony prominences were identified and well-padded and the L leg was placed in the arthroscopic leg worthy. The contralateral leg was then draped over the bed and well-padded. There was padding underneath both sciatic nerves. The foot of the bed was then dropped and the L leg was prepped in a sterile fashion. The surgeon then scrubbed. Upon reentering the room, the operative leg was draped in a standard orthopedic fashion. A timeout was called, everyone agreed upon the side, the site, the procedure to be performed, patient's identity and antibiotics given. Incisions were marked out for the medial and lateral infrapatellar portals. Esmarch bandage was then used to exsanguinate the leg and tourniquet was placed at 250 mmHg. At this time, the lateral portal incision was made in a vertical fashion. The trocar was placed into the joint. The camera was then placed and the patellofemoral joint was visualized. The patella did appear to have grade 3 chondral changes. The trochlea appeared to have grade 4 chondral changes. We then directed our attention to the medial gutter where there was no foreign body. Then directed our attention to the medial joint compartment. There were grade 3 chondral changes on the medial distal femur, grade 2 chondral changes on the medial tibial plateau. The medial meniscus had cleavage tear followed by a posterior root tear. The medial portal was then placed under direct visualization using a spinal needle an 11 blade scalpel. Once this was done a probe was placed in the joint and the meniscus was probed finding findings consistent with MRI. The biters and alvaro were then used sequentially to debriding get rid of any free edges that could be a source of pain and catching in the meniscus tear. Additionally upon entering the joint we did find a flap of cartilage on the distal femur which we debrided using the shaver. Once we felt medial meniscus tear was adequately debrided, we again visualized the joint and noted the meniscus tear was adequately debrided. Attention was then turned towards the notch where the anterior cruciate ligament was intact. PCL was visualized and appeared intact. Attention was then directed towards the lateral compartment where the lateral distal femur had 0 chondral changes, the lateral proximal tibia had 0 chondral changes. The lateral meniscus had no tear. We then directed our attention to the lateral gutter, which was visualized and no free bodies were noted. Attention was directed back to the patellofemoral joint where the patella facet chondral changes were debrided using shaver. At this time the wound was copiously irrigated out with normal saline with epinephrine. The wound was closed with 4-0 nylon and 0.5% Marcaine and epinephrine were injected for local anesthetic. Xeroform was placed over the incision. Sterile dressing was placed. Compressive dressing was placed. Tourniquet was let down. For that there was then placed up. Patient was awakened by anesthesia patient was transferred to the PACU for recovery in stable condition. Postoperative plan: Patient will be made weight-bear as tolerated. Return to activities as tolerated. He will come to the office in 2 weeks for postoperative wound check and suture removal. If he is doing well that time he can follow-up as needed. Surgical Findings: As above in note, medial meniscus tear confirmed chondromalacia confirm Complications Complications: No Admit VTE Documentation VTE Present on Admission: No VTE Mechan Device Prophylaxis: SCD's and Knee High GRACIELA Hose VTE Pharm Prophylaxis ordered?: Yes
[2025-05-11] MEDS: fentaNYL 100 MCG/2 ML Ampul IV (08:10)
--- NOTE | 2025-05-11 09:30 | PCM.POST.ANE ---
Anesthesia: Postop Eval I Current Vital Signs Temperature: 97.3 F Pulse Rate: 73 Blood Pressure: 124/86 Respiratory Rate: 16 Pulse Ox: 93 Oxygen Delivery Method: Room Air Assessment Airway patent: Yes Spontaneous unlabored respirations: Yes Mental status: Awake nausea: No Vomiting: No Anesthesia Complication: No Fluid Hydration Crystalloid volume administer (ml): 500 Total IV fluid infused: 500 Progress Note Anesthesia document: Postop Eval 1 completed: Yes
--- NOTE | 2025-05-11 13:48 | PCM.POST.ANE ---
Anesthesia: Postop Eval I Current Vital Signs Temperature: 97.3 F Pulse Rate: 73 Blood Pressure: 124/86 Respiratory Rate: 16 Pulse Ox: 93 Oxygen Delivery Method: Room Air Assessment Airway patent: Yes Spontaneous unlabored respirations: Yes nausea: No Vomiting: No Anesthesia Complication: No Fluid Hydration Crystalloid volume administer (ml): 1,000 Total IV fluid infused: 1,000 Progress Note Anesthesia document: Postop Eval 1 completed: Yes
== END 2025-05-11 09:45 | disposition home or self-care (01) ==
LOC: SDC 05:59 → AC 06:01
PROVIDERS: PCP Physician Assistant; Referring Provider Specialist; Visit Provider Specialist
PROC: (CPT 29870; principal; 2025-05-11 07:10)
DX: S83.242A Other tear of medial meniscus, current injury, left knee, initial encounter (principal); M94.262 Chondromalacia, left knee; X58.XXXA Exposure to other specified factors, initial encounter; I10 Essential (primary) hypertension; K21.9 Gastro-esophageal reflux disease without esophagitis; I25.2 Old myocardial infarction; I25.10 Atherosclerotic heart disease of native coronary artery without angina pectoris; I45.10 Unspecified right bundle-branch block; E78.5 Hyperlipidemia, unspecified; G47.33 Obstructive sleep apnea (adult) (pediatric); F17.210 Nicotine dependence, cigarettes, uncomplicated; Z95.5 Presence of coronary angioplasty implant and graft; Z79.82 Long term (current) use of aspirin; Z79.899 Other long term (current) drug therapy
CPT/HCPCS: 29881; 01400; 64447; J2405